=== PATIENT | male | born 1935 | race Asian ===

== ENCOUNTER 2016-06-07 23:42 | Inpatient (IN) | payer MEDICARE, OTHER ==
[~2016-06-07] VITALS: Ht 165.1 cm; Wt 69.5 kg
[~2016-06-07 23:42] MED LIST: ACET-2047 GTB; ALBU2.5V3 NEB; AMLO-147 GTB; APIX2.5T GTB; ASPI325T4 GTB; ATOR40TA68 GTB; BEN25 GTB; BENA20TA48 GTB; CLON-379 GTB; CRAN3875 GTB; CRAN425C GTB; DOCU-159 GTB; DULR PR; FENO145T19 GTB; FLEETOIL PR; FURO20TA3 GTB; ISOS60TA36 GTB; LEVE100018 GTB; LOSA25TA2 GTB; MAGN400O4 PO; MEMA10TA16 GTB; METO-448 PO; POTA8TAB46 GTB; ZOLP5TAB GTB
[2016-06-08 00:37] LABS: ADD UMIC YES; URINE BILIRUBIN (Dip) NEGATIVE (NEGATIVE); URINE BLOOD (Dip) 3+ (NEGATIVE); URINE COLOR LT. YELLOW (YELLOW); URINE GLUCOSE (Dip) NEGATIVE (NEGATIVE); URINE KETONES (Dip) NEGATIVE (NEGATIVE); URINE LEUKOCYTE ESTERASE (Dip) 2+ (NEGATIVE); URINE NITRITE (Dip) NEGATIVE (NEGATIVE); URINE TOTAL PROTEIN (Dip) 1+ (NEGATIVE); URINE UROBILINOGEN (Dip) 0.2 E.U./dL (0.1-1.0)
--- NOTE | 2016-06-08 00:43 | RADRPT ---
PROCEDURE: Chest. CLINICAL INDICATION: Chest pain. TECHNIQUE: Single frontal view of the chest was obtained. COMPARISON: 02/25/2016. FINDINGS: There is a left-sided pacemaker. The cardiac silhouette is enlarged. The aortic arch is calcified. There is no focal consolidation, vascular congestion or pleural effusion. There is no pneumothora x. IMPRESSION: Moderate cardiomegaly. Aortic atherosclerosis. .Jamar Vizcarra MD, MD Date Time Electronically viewed and signed by .Jamar Vizcarra MD, MD on 06/08/2016 00:43 .T/
[2016-06-08 00:44] LABS: ALBUMIN 3.8 g/dl (3.3-4.9)
[2016-06-08 00:45] LABS: POTASSIUM 4.3 mmol/L (3.5-5.1)
[2016-06-08 00:47] LABS: ALBUMIN/GLOBULIN RATIO 1.15; BILIRUBIN,INDIRECT 0.2 mg/dl (0-1.1); BILIRUBIN,TOTAL 0.2 mg/dl (0.2-1.3); CREATININE 1.35 mg/dl (0.61-1.24); TOTAL PROTEIN 7.1 g/dl (6.1-8.1)
[2016-06-08 00:48] LABS: CALCIUM 9.1 mg/dl (8.4-10.2)
[2016-06-08 00:59] LABS: TROPONIN-I 0.056 ng/ml (0.00-0.12)
[2016-06-08 01:04] LABS: INR 1.2; PROTIME 15.3 Sec (12.2-14.2); PT RATIO 1.2
[2016-06-08 01:05] LABS: PARTIAL THROMBOPLASTIN TIME 35.9 Sec (25.0-35.0)
[2016-06-08 01:08] LABS: BASOPHILS % 0.3 % (0.0-2.0); EOSINOPHILS # 0.3 10^3/ul (0.0-0.5); EOSINOPHILS % 3.9 % (0.0-7.0); HEMATOCRIT 36.2 % (42.0-52.0); HEMOGLOBIN 11.9 g/dl (14.0-18.0); LYMPHOCYTES # 1.5 10^3/ul (0.8-2.9); LYMPHOCYTES % 21.7 % (15.0-51.0); MEAN CORPUSCULAR HEMOGLOBIN 26.2 pg (29.0-33.0); MEAN CORPUSCULAR HGB CONC 32.9 g/dl (32.0-37.0); MEAN CORPUSCULAR VOLUME 79.8 fl (82.0-101.0); MEAN PLATELET VOLUME 9.3 fl (7.4-10.4); MONOCYTE # 0.9 10^3/ul (0.3-0.9); MONOCYTES % 12.1 % (0.0-11.0); NEUTROPHIL # 4.4 10^3/ul (1.6-7.5); PLATELET COUNT 256 10^3/UL (140-440); RED BLOOD COUNT 4.53 10^6/ul (4.70-6.10); RED CELL DISTRIBUTION WIDTH 13.8 % (11.5-14.5); UNCORRECTED WBC 7.1 10^3/ul (4.8-10.8); WHITE BLOOD COUNT 7.1 10^3/ul (4.8-10.8)
[2016-06-08 01:16] LABS: CONDITION 1; LH ANALYZER COMMENTS 1
[2016-06-08 01:31] LABS: SQUAMOUS EPITHELIAL CELL,UR FEW; URINE RBCS >200 /HPF (0)
[2016-06-08 01:56] VITALS: TEMP 99.8
--- NOTE | 2016-06-08 02:01 | ERA ---
ER Documentation Chief Complaint Date/Time DATE: 06/08/16 TIME: 02:00 Chief Complaint redness on the pacemaker site,BIBA from [facility] HPI There is a 80-year-old of the chest wall redness for the past it is an aggressive was. No nausea no vomiting no chills. No other current complaints for the patient is poor historian. History of EMS run sheet. ROS All systems reviewed and are negative except as per history of present illness. Medications Home Meds Reported Medications Cran/Vitc/Mannose/Inulin/Brom (Uti-Stat Liquid) 3,875 Mg/30 Ml Liquid, 3875 MG GTB BID 02/19/16 Acetaminophen* (Acetaminophen*) 650 Mg Tablet, 650 MG GTB Q4 Y for PAIN AND OR ELEVATED TEMP, #30 TAB 02/19/16 Magnesium Hydroxide* (Milk Of Magnesia*) 400 Mg/5 Ml Oral.susp, 30 ML PO Q24H Y for CONFUSION, ML 02/19/16 Atorvastatin* (Atorvastatin*) 40 Mg Tablet, 40 MG GTB QHS, #30 TAB 02/19/16 Mineral Oil* (Fleet* Mineral Oil Enema) 133 Ml Oil, 133 ML TX NEEDED Y for CONSTIPATION, ENEMA 02/19/16 Fenofibrate Nanocrystallized* (Fenofibrate*) 145 Mg Tablet, 145 MG GTB QHS, TAB 02/19/16 Apixaban* (Eliquis*) 2.5 Mg Tablet, 2.5 MG GTB BID, TAB 02/19/16 Bisacodyl* (Bisacodyl*) 10 Mg Supp, 10 MG TX Q24H for CONSTIPATION, SUPP 02/19/16 Cranberry Extract (Cranberry) 425 Mg Capsule, 425 MG GTB DAILY, CAP 02/19/16 Benazepril Hcl* (Benazepril Hcl*) 20 Mg Tablet, 40 MG GTB DAILY, #30 TAB 02/19/16 Diphenhydramine Hcl* (Benadryl*) 25 Mg Cap, 25 MG GTB BID Y for ITCHING, CAP 02/19/16 Amlodipine Besylate* (Amlodipine Besylate*) 10 Mg Tablet, 10 MG GTB BID, #30 TAB HOLD IF SBP BELOW 110 OR HR BELOW 60 02/19/16 Albuterol Sulfate* (Albuterol Sulfate* Neb) 0.083%-3 Ml Neb, 2.5 MG NEB Q6 Y for WHEEZING AND SOB, #30 VIAL 02/19/16 Metoprolol Tartrate* (Lopressor*) 25 Mg Tab, 12.5 MG PO BID, TAB HOLD FOR SBP BELOW 110, HR BELOW 60 07/02/14 Docusate Sodium* (Docusate Sodium*) 100 Mg Capsule, 200 MG GTB DAILY, CAP 07/02/14 Losartan Potassium* (Cozaar*) 25 Mg Tablet, 25 MG GTB DAILY, TAB 07/02/14 Clonidine Hcl* (Clonidine Hcl*) 0.1 Mg Tab, 0.1 MG GTB Q4H Y for ELEVATED BLOOD PRESSURE, TAB 07/02/14 Aspirin* (Aspirin*) 325 Mg Tablet, 325 MG GTB DAILY 07/19/12 Levetiracetam* (Keppra*) 1,000 Mg Tablet, 1000 MG GTB DAILY, 0 Refills 03/04/11 Isosorbide Mononitrate (Isosorbide Mononitrate) 60 Mg Tab.sr.24h, 120 MG GTB DAILY, 0 Refills 03/04/11 Memantine* (Namenda*) 10 Mg Tablet, 10 MG GTB BID 03/04/11 Furosemide* (Furosemide*) 20 Mg Tablet, 20 MG GTB DAILY HOLD IF SBP BELOW 110 OR HR BELOW 60 03/04/11 Potassium Chloride (Potassium Chloride) 8 Meq Tablet.sa, 10 MEQ GTB DAILY, 0 Refills 03/04/11 Zolpidem Tartrate* (Ambien*) 5 Mg Tablet, 5 MG GTB HS Y for SLEEP 06/09/10 Allergies Allergies: Coded Allergies: penicillin G (Verified Allergy, Unknown, 09/06/15) PMhx/Soc History of Surgery: Yes (Pacemaker) Anesthesia Reaction: No Hx Neurological Disorder: Yes (STROKE, SUBDURAL HEMATOMA, SEIZURE) Hx Respiratory Disorders: Yes (COPD) Hx Cardiac Disorders: Yes (HTN, CVA, CAD TRICUSPID AND MITRAL REGURG) Hx Psychiatric Problems: No Hx Miscellaneous Medical Probl: Yes (hx of stroke with L sided weakness,UTI, htn,CADCOPDsubdural hematoma) Hx Alcohol Use: No Hx Substance Use: No Hx Tobacco Use: No Smoking Status: Unknown if ever smoked Physical Exam Vitals Vital Signs Date Time Temp Pulse Resp B/P Pulse Ox O2 Delivery O2 Flow Rate FiO2 06/08/16 01:56 99.8 62 22 161/62 100 Nasal Cannula 2.0 06/07/16 23:50 98.6 67 16 148/65 99 Physical Exam Const: [] Head: Atraumatic Eyes: Normal Conjunctiva ENT: Normal External Ears, Nose and Mouth. Neck: Full range of motion..~ No meningismus. Resp: Clear to auscultation bilaterally Cardio: Regular rate and rhythm, no murmurs Abd: Soft, non tender, non distended. Normal bowel sounds Skin: Right chest wall with erythema and induration redness. No fluctuance noted. Back: No midline or flank tenderness Ext: No cyanosis, or edema Neur: Awake and alert Psych: Normal Mood and Affect Result Diagram: 06/07/16 0002 06/07/16 0002 Results 24 hrs Laboratory Tests Test 06/07/16 00:02 06/07/16 00:17 Activated Partial Thromboplast Time 35.9Sec Alanine Aminotransferase (ALT/SGPT) 18IU/L Albumin 3.8g/dl Albumin/Globulin Ratio 1.15 Alkaline Phosphatase 49IU/L Anion Gap 18 Aspartate Amino Transf (AST/SGOT) 23IU/L Basophils # 0.010^3/ul Basophils % 0.3% Blood Morphology Comment Blood Urea Nitrogen 25mg/dl Calcium Level 9.1mg/dl Carbon Dioxide Level 26mmol/L Chloride Level 104mmol/L Creatinine 1.35mg/dl Direct Bilirubin 0.00mg/dl Eosinophils # 0.310^3/ul Eosinophils % 3.9% Globulin 3.30g/dl Glucose Level 113mg/dl Hematocrit 36.2% Hemoglobin 11.9g/dl INR International Normalized Ratio 1.20 Indirect Bilirubin 0.2mg/dl Lactic Acid Level 2.1mmol/L Lymphocytes # 1.510^3/ul Lymphocytes % 21.7% Mean Corpuscular Hemoglobin 26.2pg Mean Corpuscular Hemoglobin Concent 32.9g/dl Mean Corpuscular Volume 79.8fl Mean Platelet Volume 9.3fl Monocytes # 0.910^3/ul Monocytes % 12.1% Neutrophils # 4.410^3/ul Neutrophils % 62.0% Nucleated Red Blood Cells # 0.010^3/ul Nucleated Red Blood Cells % 0.0/100WBC Platelet Count 97201^3/UL Potassium Level 4.3mmol/L Prothrombin Time 15.3Sec Prothrombin Time Ratio 1.2 Red Blood Count 4.5310^6/ul Red Cell Distribution Width 13.8% Sodium Level 144mmol/L Total Bilirubin 0.2mg/dl Total Protein 7.1g/dl Troponin I 0.056ng/ml White Blood Count 7.110^3/ul Urine Bilirubin NEGATIVE Urine Clarity CLEAR Urine Color LT. YELLOW Urine Glucose NEGATIVE% Urine Hemoglobin 3+ Urine Ketones NEGATIVE Urine Leukocyte Esterase 2+ Urine Microscopic RBC >200/HPF Urine Microscopic WBC 0-2/HPF Urine Nitrite NEGATIVE Urine Specific [place] 1.020 Urine Squamous Epithelial Cells FEW Urine Total Protein 1+ Urine Urobilinogen 0.2 E.U./dL Urine pH 5.0 Procedures/MDM EKG: Rate/Rhythm: Normal Sinus Rhythm QRS, ST, T-waves: No changes consistent w/ acute ischemia Impression: No evidence of ischemia or arrhythmia Chest X-ray 1V Interpreted by me: Soft Tissue: No acute abnormalities Bones: No acute abnormalities Mediastinum/Cardiac Silhouette/Lungs: No acute abnormalities Lactic is negative Medical decision-making: Patient with chest wall cellulitis. Started on broad- spectrum antibiotics. Patient will be admitted to Dr. Dr. Mo Departure Diagnosis: Primary Impression: Cellulitis Qualified Code: L03.313 - Cellulitis of chest wall Condition: Stable KHUSHI SHOEMAKERSebastian Jun 08, 2016 02:01
[2016-06-08] MEDS ORDERED: CLINDAMYCIN 300 MG INJ IVPB ONE (02:30)
[2016-06-08] MEDS ORDERED: CLINDAMYCIN 300 MG INJ IM ONE (03:00)
[2016-06-08] MEDS ORDERED: ASCO500S2 GTB (04:11)
[2016-06-08] MEDS ORDERED: CALC-61 GTB (04:11)
[2016-06-08] MEDS ORDERED: MULTI PO (04:11)
[2016-06-08] MEDS ORDERED: ACET-2158 GTB (04:11)
[2016-06-08] MEDS ORDERED: UDFER GTB (04:11)
[2016-06-08] MEDS ORDERED: ONDA-43 GTB (04:11)
[2016-06-08] MEDS ORDERED: TRAM50TA2 GTB (04:11)
[2016-06-08] MEDS ORDERED: ACET500C5 GTB (04:11)
[2016-06-08 04:30] VITALS: BP 143/72; PULSE 60; RESP 20; Ht 165.1 cm; Wt 69.5 kg
[2016-06-08] MEDS ORDERED: DIPHENHYDRAMINE 25 MG CAP GTB PRN (04:30)
[2016-06-08] MEDS ORDERED: MAGNESIUM HYDROXIDE 30ML CUP PO PRN (04:30)
[2016-06-08] MEDS ORDERED: ONDANSETRON 4 MG TAB GTB PRN ×2 (04:30→05:00)
[2016-06-08] MEDS ORDERED: BISACODYL 10 MG SUPP PR SCH (04:30)
[2016-06-08] MEDS ORDERED: ZOLPIDEM 5 MG TAB GTB PRN (04:30)
[2016-06-08] MEDS ORDERED: VANCOMYCIN IV PER PHARMACY XX SCH (04:30)
[2016-06-08] MEDS ORDERED: MINERAL OIL 133 ML ENEMA PR PRN (04:30)
[2016-06-08] MEDS ORDERED: ACETAMINOPHEN 500 MG TAB PO PRN (04:30)
[2016-06-08] MEDS ORDERED: ACETAMINOPHEN 325 MG TAB GTB SCH (05:00)
[2016-06-08] MEDS ORDERED: ACETAMINOPHEN 325 MG TAB GTB PRN (05:30)
[2016-06-08] MEDS: LEVOFLOXACIN 500MG/D5W (PMX) 100 ML IVPB SCH (05:34)
[2016-06-08] MEDS: SOD CHLORIDE 0.9% 1,000 ML IV SCH (05:36)
[2016-06-08] MEDS: FUROSEMIDE 20 MG TAB GTB SCH (05:41)
[2016-06-08] MEDS: VANCOMYCIN 1 GM in NS 250 ML IVPB SCH (06:42)
[2016-06-08] MEDS: FERROUS SULFATE 60 MG/ML 5ML CUP GTB SCH (08:52)
[2016-06-08] MEDS: APIXABAN 5 MG TABLET GTB SCH ×2 (08:53→21:09)
[2016-06-08] MEDS: MULTIVITAMINS THERAPEUTIC TAB PO SCH (08:54)
[2016-06-08] MEDS: DOCUSATE SODIUM 100 MG CAP PO SCH (08:54)
[2016-06-08] MEDS: LEVETIRACETAM 500 MG TAB GTB SCH (08:54)
[2016-06-08] MEDS: CALCIUM/VITAMIN D (500/200) TAB GTB SCH (08:55)
[2016-06-08] MEDS: MEMANTINE 10 MG TAB GTB SCH ×2 (08:55→21:09)
[2016-06-08] MEDS ORDERED: NON-FORMULARY/PATIENT OWN MED (Cran/Vitc/Mannose/Inulin/Brom (Uti-Stat Liquid) 3,875 MG) GTB SCH (09:00)
[2016-06-08] MEDS ORDERED: ASPIRIN 325 MG TAB GTB SCH ×2 (09:00)
[2016-06-08] MEDS ORDERED: LOSARTAN 25 MG TAB GTB SCH (09:00)
[2016-06-08] MEDS ORDERED: NON-FORMULARY/PATIENT OWN MED (Cranberry Extract (Cranberry) 425 MG) GTB SCH (09:00)
[2016-06-08] MEDS ORDERED: traMADol 50 MG TAB GTB PRN (09:00)
[2016-06-08] MEDS ORDERED: traMADol 50 MG TAB GTB SCH (09:00)
--- NOTE | 2016-06-08 15:08 | CONS ---
DATE OF ADMISSION: 06/08/2016 DATE OF CONSULTATION: 06/08/2016 REASON FOR CONSULTATION: Hypertension, permanent pacemaker, assess function. REQUESTING PHYSICIAN: Dr. Sal Villatoro. HISTORY OF PRESENT ILLNESS: Mr. Anguiano is a 80-year-old male well known to myself as a primary offic e patient with a history of prior subdural hematoma, ____ anticoagulation for atrial fibrillation du e to this, prior CVA, seizure disorder, hypertension, chronic obstructive pulmonary disease, dysphag ia status post G-tube, recurrent strokes, permanent pacemaker implantation, cardiomyopathy with decr eased left ventricular ejection fraction, last only approximately 35% by echo in August 2015 who prese nts with cellulitis on his chest near the pacemaker site. Given these findings, cardiology consult has been requested. PAST MEDICAL HISTORY: Has been requested. Upon arrival, temperature of 98.6, blood pressure 148/65 , pulse 67, respirations 16, saturating 99%. The patient's labs showed a white count of 7.1, hemogl obin 11.9, platelet count 356. Sodium 144, potassium 4.3, creatinine ____, BUN of 25, AST 23, ALT 1 8, INR 1.2. UA borderline. The patient underwent a chest x-ray revealing moderate cardiomegaly, ao rtic sclerosis. The patient's electrocardiogram revealed a paced rhythm at a rate of 60 with possib le underlying atrial fibrillation versus prolonged first degree AV block, due difficult to discern P -waves. The patient subsequently has been admitted to the floor, where since admit to the floor he has had some elevated blood pressures, most recently in the 140s. The patient has been initiated on broad spectrum antibiotics with vancomycin and at this time has now been initiated on systemic anti coagulation with apixaban. The patient additionally is on Cozaar at this time for blood pressure co ntrol. PAST MEDICAL HISTORY: As above in HPI. MEDICATIONS CURRENTLY IN HOSPITAL: 1. Dulcolax 10 mg p.r.n. 2. Lipitor 40 mg at bedtime. 3. Tricor 140 mg daily. 4. Apixaban 2.5 mg p.o. b.i.d. 5. Colace. 6. Ferrous sulfate. 7. Keppra 1000 mg daily. 8. Cozaar 25 mg daily. 8. Namenda 10 mg b.i.d. 9. Aspirin 325 mg daily. 10. Tramadol 50 mg ____ p.r.n. 11. Lasix 20 mg p.o. daily. 12. Vancomycin. 13. Tylenol. 14. Zofran p.r.n. 15. Levofloxacin IV daily. 16. DuoNebs p.r.n. 17. Clonidine p.r.n. 18. Benadryl p.r.n. 19. Ambien p.r.n. ALLERGIES: PENICILLIN. SOCIAL HISTORY: No tobacco, ETOH or illicit drug use. FAMILY HISTORY: No history of sudden cardiac or early CAD. REVIEW OF SYSTEMS: As above in HPI. CONSTITUTIONAL: No fevers, chills. PULMONARY: No current signs of respiratory compromise. GASTROINTESTINAL: No vomiting. GENITOURINARY: No hematuria. MUSCULOSKELETAL: Degenerative joint disease. PSYCHIATRIC: No documented psych history. NEUROLOGIC: Altered mental state, history of CVA. PHYSICAL EXAMINATION VITAL SIGNS: Temperature 98.3, blood pressure 143/72, pulse ____ 100% on 2 liters. GENERAL: The patient is sleeping, difficult to arouse. NECK: JVP approximately 9 cm of water. CHEST: Fair movement throughout with mildly decreased breath sounds at bases bilaterally. HEART: Regular rate and rhythm. Normal S1, S2, I/ systolic murmur, nondisplaced PMI. ABDOMEN: Positive bowel sounds, soft. EXTREMITIES: No pitting edema, 1+ pulses bilaterally posterior tibial. SKIN: Notable for erythema, but no breakdown or discharge in the patient's pacer pocket. LABORATORY DATA: As above in HPI with most recently from today, sodium 144, potassium 4.3, creatini ne 0.35, BUN of 25. INR of 1.2. White cell count 7.1, hemoglobin 9, platelet count 256. IMAGING STUDIES: As above in HPI. No further imaging studies for my review at this time. ECG: As above in HPI. No further electrocardiograms for my review at this time. IMPRESSION: 1. Permanent pacemaker. We will undergo a 2D echocardiogram to further assess the patient's paced echo leads for any signs of any vegetations. 2. Check blood cultures to assure the patient is not ____ his pacemaker given cellulitis on chest n ear pacemaker site. 3. Abnormal electrocardiogram, assess for acute coronary syndrome. 4. History of cardiomyopathy, decreased left ventricular ejection fraction, last only 35% by echo 2 016. 5. Hypertension. 6. Dyslipidemia. 7. History of atrial fibrillation. 8. History of prior cerebrovascular accident. 9. Chest cellulitis. 10. Encephalopathy. 11. Anemia, microcytic. 12. Renal failure. RECOMMENDATIONS: 1. At this time, would check serial EKGs to assess for any significant ongoing changes. Thus, an E KG in the morning, EKG for any complaints of chest pain or change in rhythm. 2. Complete a rule out for myocardial infarction to ensure the patient's EKG abnormalities are straight edger velvet in nature and not due to any recent acute coronary syndrome. 3. Check a 2D echocardiogram to further assess the patient's ejection fraction, wall motion and any major valve abnormalities and assess for any possible signs of intracardiac infection or vegetation of the patient's permanent pacemaker lead. 4. Continue the patient's current Losartan with slight up-titration to improve overall systolic blo od pressure control and afterload reduction and follow the patient's volume status closely with palak rigoberto Lasix and follow creatinine closely. 5. Continue the patient on systemic anticoagulation with apixaban as tolerated, but will discontinu e aspirin due to decreased bleeding risk, given history of subdural hematoma and microcytic anemia. 6. Continue the patient's current statin and Tricor, and adjust it according to a fasting lipid cooley el as checked. 7. Continue the patient's ____ and continue to follow up exam findings closely. Thank you for allowing me to take part in the care of this patient. I will continue to follow along very closely with you. Further recommendations will be made as the patient progresses through his inpatient hospital clinical course. Dictated By: TORRES RIVAS/LINDA Conf#: [id number] DID#: [id number] CC: SAL VILLATORO MD;*EndCC*
[2016-06-08 19:14] LABS: TROPONIN-I 0.039 ng/ml (0.00-0.12)
--- NOTE | 2016-06-08 19:14 | RADRPT ---
Echocardiogram Report Patient Name: JACINTO CONCEPCION Gender: Male Date: 1935 Study Date: 08-Jun-2016 Roll Contour Grinder: Janet Roblero [facility] Location: [id number] Ref. Physician: TORRES AVENDANO Quality: Adequate Procedures: Transthoracic echocardiogram with complete 2D, M-Mode, and doppler examination. Indications: Abnormal EKG. Cardiomyopathy. 2D/M Mode Doppler Measurement Value Normal Ranges Measurement Value Normal Ranges LVIDd 2D 5.3 3.5 - 5.6 cm AV Peak Segun 1.4 m/sec LVIDs 2D 3.7 2.1 - 4.1 cm AV Peak PG 8.0 mmHg LVPWd 2D 1.3 0.6 - 1.1 cm AI Peak PG 86.0 mmHg IVSd 2D 1.2 0.6 - 1.1 cm AI Peak Segun 4.6 m/sec AoR Diam 2D 3.6 2.0 - 3.7 cm AI PHT 443.6 msec EDV 2D 135.6 cm3 LVOT Peak Segun 0.9 m/sec ESV 2D 49.2 cm3 LVOT Peak PG 3.2 mmHg LA Dimen 2D 4.1 2.3 - 4.0 cm TR Peak Segun 3.2 m/sec TR Peak PG 42.1 mmHg RVSP 57.0 mmHg Findings Left Ventricle: Normal left ventricular cavity size. Mild concentric left ventricular hypertrophy. Moderate global left ventricular systolic dysfunction. Ejection fraction is visually estimated at 3540 %. Tissue Doppler/Mitral Doppler indices are consistent with restrictive physiology with markedly elevated left atrial pressure (Stage IIIIV diastolic dysfunction). Right Ventricle: Normal right ventricular size. Normal right ventricular systolic function. Left Atrium: There is mild enlargement of left atrium. Right Atrium: There is moderate enlargement of right atrium. Mitral Valve: Mitral valve leaflets appear mildly thickened. Mild mitral annular calcification. Moderate mitral valve regurgitation. The regurgitation jet is eccentrically directed which may underestimate the severity of mitral regurgitation. Aortic Valve: No hemodynamically significant aortic stenosis by doppler. Aortic cusps appear mildly calcified. Moderate aortic valve regurgitation. Tricuspid Valve: Estimated peak PA systolic pressure 57 mmHg. There is moderate to severe tricuspid regurgitation. Pulmonic Valve: Normal pulmonic valve appearance. There is mild pulmonic regurgitation. Pericardium: Normal pericardium with no significant pericardial effusion. Aorta: Normal aortic root. IVC: Dilated inferior vena cava with poor inspiratory collapse consistent with elevated right atrial pressures. Conclusions 1.Normal left ventricular cavity size. Mild concentric left ventricular hypertrophy. Moderate global left ventricular systolic dysfunction. Ejection fraction is visually estimated at 35-40 %. Tissue Doppler/Mitral Doppler indices are consistent with restrictive physiology with markedly elevated left atrial pressure (Stage III-IV diastolic dysfunction). 2.There is mild enlargement of left atrium. 3.There is moderate enlargement of right atrium. 4.Moderate mitral valve regurgitation. The regurgitation jet is eccentrically directed which may underestimate the severity of mitral regurgitation. 5.Moderate aortic valve regurgitation. 6.Estimated peak PA systolic pressure 57 mmHg. 7.There is moderate to severe tricuspid regurgitation. 8.There is mild pulmonic regurgitation. Electronically Signed By: Torres Avendano 08-Jun-2016 19:13:35 -0800 Patient Name: JACINTO CONCEPCION Study Date: 08-Jun-2016 [id number]
[2016-06-08 19:15] LABS: CK-MB 1.06 ng/ml (0.0-2.4)
--- NOTE | 2016-06-08 20:06 | QN ---
Documentation Comment [id number] JOSE C VILLATORO MD Jun 08, 2016 20:06
[2016-06-08] MEDS: ALBUTEROL 0.083% (NEB) 2.5 MG/3 ML AMP NEB PRN (20:55)
--- NOTE | 2016-06-08 20:55 | HP ---
DATE OF ADMISSION: 06/08/2016 HISTORY OF PRESENT ILLNESS: The patient is an elderly male who has a history of CVA, G-tube placeme nt, recently discharged from this hospital with diagnosis of severe dehydration, hypernatremia, C. d ifficile colitis, bacteremia. The patient has history of CAD, pacemaker placement, COPD, hypertensi on, history of subdural hematoma, history of AFib, on Eliquis in the past. The patient now presents with left chest wall cellulitis and is being admitted for further management. PAST MEDICAL HISTORY: Briefly is positive for CVA, hypertension, history of pacemaker placement, CN S bleed with left-sided weakness, history of lamine hole in the past, history of subdural hematoma, hy pertension, COPD, history of CAD, history of G-tube placement, history of C. difficile colitis. ALLERGY HISTORY: PENICILLIN. SOCIAL HISTORY: Cannot be obtained. MEDICATION HISTORY: Listed as the patient is on: 1. Tylenol. 2. Albuterol. 3. Apixaban. 4. Ascorbic acid. 5. Aspirin. 6. Lipitor. 7. Bisacodyl. 8. Calcium. 9. Clonidine. 10. Cranberry extract. 11. Benadryl. 12. Docusate sodium. 13. Fenofibrate. 14. Iron sulfate. 15. Lasix. 16. Keppra. 17. Losartan. 18. Magnesium. 19. Namenda. 20. Mineral oil. 21. Multiple vitamin. 22. Zofran. 23. Ultram. 24. Ambien. REVIEW OF SYSTEMS: Cannot be obtained. PHYSICAL EXAMINATION: GENERAL: The patient is awake and alert, aphasic. VITAL SIGNS: Stable. HEENT: Head is atraumatic, normocephalic. Pupils equal, reactive to light. NECK: Supple. No JVD. LUNGS: Clear. CARDIOVASCULAR: S1, S2 are normal. ABDOMEN: Soft, nontender. Bowel sounds positive. G-tube in place. EXTREMITIES: No cyanosis, clubbing or edema. CENTRAL NERVOUS SYSTEM: The patient is awake, alert with weakness of the left side. The patient is also aphasic. SKIN: The patient has left-sided pacemaker, is edematous and tender. No discharge noted. LABORATORY DATA: Hematocrit 36.2. The patient has BUN 25, creatinine 1.35. IMPRESSION: 1. The patient has left chest wall cellulitis. 2. The patient has hypertension. 3. Chronic kidney disease. 4. Gastrostomy tube placement. 5. History of atrial fibrillation. 6. History of central nervous system bleed. 7. History of lamine hold. 8. History of chronic obstructive pulmonary disease. 9. History of dysphagia. 10. History of hypernatremia. 11. History of Clostridium difficile colitis. 12. Atherosclerotic heart disease. 13. History of dyslipidemia. PLAN: Obtain cardiology consultation. Continue antibiotics. Continue home medication, feeding. O rders were done. Dictated By: JOSE C VILLATORO MD BS/NTS Conf#: [id number] DID#: [id number]
[2016-06-08] MEDS: FENOFIBRATE 145 MG TAB GTB SCH (21:08)
[2016-06-08] MEDS: ATORVASTATIN 40 MG TAB GTB SCH (21:08)
[2016-06-08] MEDS: LOSARTAN 25 MG TAB GTB SCH (21:09)
[2016-06-08 21:17] VITALS: BP 170/74; RESP 17
[2016-06-08 23:34] VITALS: BP 156/61
[2016-06-09 01:50] LABS: CK-MB 1.31 ng/ml (0.0-2.4)
[2016-06-09 01:52] LABS: TROPONIN-I 0.024 ng/ml (0.00-0.12)
[2016-06-09] MEDS: SOD CHLORIDE 0.9% 1,000 ML IV SCH (04:30)
[2016-06-09] MEDS ORDERED: BISACODYL 10 MG SUPP PR PRN (04:30)
[2016-06-09] MEDS: LEVOFLOXACIN 500MG/D5W (PMX) 100 ML IVPB SCH (04:55)
[2016-06-09] MEDS: VANCOMYCIN 1 GM in NS 250 ML IVPB SCH (06:11)
[2016-06-09] MEDS: FUROSEMIDE 20 MG TAB GTB SCH (06:14)
[2016-06-09 07:08] LABS: POTASSIUM 4.4 mmol/L (3.5-5.1)
[2016-06-09 07:10] LABS: CREATININE 1.05 mg/dl (0.61-1.24)
[2016-06-09 07:11] LABS: CALCIUM 8.5 mg/dl (8.4-10.2)
[2016-06-09] MEDS: ALBUTEROL 0.083% (NEB) 2.5 MG/3 ML AMP NEB PRN ×2 (07:17→21:21)
[2016-06-09 07:19] LABS: CHOL/HDL RATIO 2.9 RATIO
[2016-06-09] MEDS: LEVETIRACETAM 500 MG TAB GTB SCH (08:45)
[2016-06-09] MEDS: FERROUS SULFATE 60 MG/ML 5ML CUP GTB SCH (08:45)
[2016-06-09] MEDS: CALCIUM/VITAMIN D (500/200) TAB GTB SCH (08:46)
[2016-06-09] MEDS: DOCUSATE SODIUM 100 MG CAP PO SCH (08:46)
[2016-06-09] MEDS: MEMANTINE 10 MG TAB GTB SCH ×2 (08:46→20:28)
[2016-06-09] MEDS: MULTIVITAMINS THERAPEUTIC TAB PO SCH (08:46)
[2016-06-09] MEDS: APIXABAN 5 MG TABLET GTB SCH ×2 (08:47→20:28)
[2016-06-09] MEDS: LOSARTAN 25 MG TAB GTB SCH (08:49)
[2016-06-09 09:01] VITALS: BP 173/72; RESP 22
[2016-06-09 09:36] LABS: BASOPHILS % 0.3 % (0.0-2.0); EOSINOPHILS # 0.5 10^3/ul (0.0-0.5); EOSINOPHILS % 13.4 % (0.0-7.0); HEMATOCRIT 34.8 % (42.0-52.0); HEMOGLOBIN 11.6 g/dl (14.0-18.0); LYMPHOCYTES % 28.1 % (15.0-51.0); MEAN CORPUSCULAR HEMOGLOBIN 26.9 pg (29.0-33.0); MEAN CORPUSCULAR HGB CONC 33.2 g/dl (32.0-37.0); MEAN PLATELET VOLUME 9.4 fl (7.4-10.4); MONOCYTE # 0.5 10^3/ul (0.3-0.9); MONOCYTES % 13.2 % (0.0-11.0); NEUTROPHIL # 1.6 10^3/ul (1.6-7.5); PLATELET COUNT 202 10^3/UL (140-440); RED CELL DISTRIBUTION WIDTH 14.2 % (11.5-14.5); UNCORRECTED WBC 3.5 10^3/ul (4.8-10.8); WHITE BLOOD COUNT 3.5 10^3/ul (4.8-10.8)
[2016-06-09 09:40] LABS: CONDITION 1; LH ANALYZER COMMENTS 1; SUSPECT 1
[2016-06-09 11:00] VITALS: BP 155/67; PULSE 85
--- NOTE | 2016-06-09 13:08 | CONS ---
Date/Time of Note Date/Time of Note DATE: 06/09/16 TIME: 13:00 Assessment/Plan Assessment/Plan Chief Complaint/Hosp Course IMPRESSION: 1. Permanent pacemaker- no signs of v egetations by echo this admit 2. Abnormal electrocardiogram, assess for acute coronary syndrome. 3. History of cardiomyopathy, decreased left ventricular ejection fraction, last only 35% by echo 2016. 4. Hypertension-uncontrolled. 5. Dyslipidemia. 6. Cardiomyopathy-LVEF 35-40% by echo this admit 7. History of atrial fibrillation. 8. History of prior cerebrovascular accident. 9. Chest cellulitis. 10. Encephalopathy. 11. Anemia, microcytic. 12. Renal failure. 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: -serial ecg's -increase losartan to improve SBP -Continue Lasix and follow volume status closely -Continue ab'x and f/u cx data -Continue apixaban -Continue trcicor/statin -Follow volume status closely Problems: Consultation Date/Type/Reason Admit Date/Time Jun 08, 2016 at 01:38 Initial Consult Date 06/08/2016 Type of Consultation: Cardiology Reason for Consultation PPM/HTN Referring Provider: JOSE C VILLATORO Exam/Review of Systems Vital Signs Vitals Vital Signs Date Time Temp Pulse Resp B/P Pulse Ox O2 Delivery O2 Flow Rate FiO2 06/09/16 09:01 97.0 60 22 173/72 100 06/09/16 07:18 2.0 06/09/16 07:18 Nasal Cannula 06/08/16 20:58 28 Intake and Output 06/08/16 06/08/16 06/09/16 15:00 23:00 07:00 Intake Total 1350 ml 100 ml Output Total 700 ml 400 ml Balance 650 ml -300 ml Exam Review of Systems: CONSTITUTIONAL: No fevers, chills. PULMONARY: No sob CARDIOVASCULAR: No chest pain/palpitations GASTROINTESTINAL: No nausea/vomiting. GENITOURINARY: No hematuria/dysuria. MUSCULOSKELETAL: No myagias/arthalgias. PSYCHIATRIC: The patient denies depression. NEUROLOGIC: lethargic Constitutional: alert Psych: no complaints Head: normocephalic ENMT: mucosa pink and moist Neck: jvd (9 cm water), supple Respiratory: diminished breath sounds (atbases/B) Cardiovascular: regular rate and rhythm Gastrointestinal: non-tender, soft Musculoskeletal: muscle tone (normal) Extremities: edema (none) Neurological: lethargic Results Result Diagram: 06/09/16 0540 06/09/16 0540 Results 24 hrs Laboratory Tests Test 06/08/16 18:35 06/09/16 00:30 06/09/16 05:40 Creatine Kinase 77 73 Creatine Kinase Index 1.4 1.8 Creatinine Kinase MB (Mass) 1.06 1.31 Troponin I 0.039 0.024 Anion Gap 15 Basophils # 0.0 Basophils % 0.3 Blood Morphology Comment Blood Urea Nitrogen 23 H Calcium Level 8.5 Carbon Dioxide Level 26 Chloride Level 107 Cholesterol Level 101 Cholesterol/HDL Ratio 2.9 Creatinine 1.05 Eosinophils # 0.5 Eosinophils % 13.4 H Glucose Level 123 HDL Cholesterol 34 Hematocrit 34.8 L Hemoglobin 11.6 L LDL Cholesterol, Calculated 49 Lymphocytes # 1.0 Lymphocytes % 28.1 Mean Corpuscular Hemoglobin 26.9 L Mean Corpuscular Hemoglobin Concent 33.2 Mean Corpuscular Volume 81.0 L Mean Platelet Volume 9.4 Monocytes # 0.5 Monocytes % 13.2 H Neutrophils # 1.6 Neutrophils % 45.0 Nucleated Red Blood Cells # 0.0 Nucleated Red Blood Cells % 0.0 Platelet Count 202 # Potassium Level 4.4 Red Blood Count 4.30 L Red Cell Distribution Width 14.2 Sodium Level 144 Triglycerides Level 91 White Blood Count 3.5 #L Medications Medications Current Medications Sodium Chloride 1,000 ml @ 20 mls/hr Q24H IV Last administered on 06/08/16 05 :36; Admin Dose 20 MLS/HR; Start 06/08/16 at 04:30 Levofloxacin/ Dextrose (Levaquin 500mg/ D5W 100 ml (Pmx)) 100 ml @ 100 mls/hr Q24H IVPB Last administered on 06/09/16 04:55; Admin Dose 100 MLS/HR; Start at 04:30 Acetaminophen (Tylenol Tab) 500 mg Q4 PRN PO MODERATE PAIN LEVEL 4-6; Start at 04:30 Apixaban (Eliquis) 2.5 mg BID GTB Last administered on 06/09/16 08:47; Admin Dose 2.5 MG; Start 06/08/16 at 09:00 Atorvastatin Calcium (Lipitor) 40 mg QHS GTB Last administered on 06/08/16 21: 08; Admin Dose 40 MG; Start 06/08/16 at 21:00 Calcium/Vitamin D (Oyster Shell/ Vit-D (500/200)) 1 tab DAILY GTB Last administered on 06/09/16 08:46; Admin Dose 1 TAB; Start 06/08/16 at 09:00 Clonidine (Catapres) 0.1 mg Q4H PRN GTB ELEVATED BLOOD PRESSURE>150 Last administered on 06/08/16 22:49; Admin Dose 0.1 MG; Start 06/08/16 at 04:30 Diphenhydramine HCl (Benadryl) 25 mg BID PRN GTB ITCHING; Start 06/08/16 at 04: 30 Docusate Sodium (Colace) 200 mg DAILY PO Last administered on 06/09/16 08:46; Admin Dose 200 MG; Start 06/08/16 at 09:00 Fenofibrate (Tricor) 145 mg QHS GTB Last administered on 06/08/16 21:08; Admin Dose 145 MG; Start 06/08/16 at 21:00 Ferrous Sulfate (Feosol Liquid Cup) 300 mg DAILY GTB Last administered on 08:45; Admin Dose 300 MG; Start 06/08/16 at 09:00 Levetiracetam (Keppra) 1,000 mg DAILY GTB Last administered on 06/09/16 08:45 ; Admin Dose 1,000 MG; Start 06/08/16 at 09:00 Magnesium Hydroxide (Milk Of Mag) 30 ml Q24H PRN PO CONSTIPATION; Start at 04:30 Memantine (Namenda) 10 mg BID GTB Last administered on 06/09/16 08:46; Admin Dose 10 MG; Start 06/08/16 at 09:00 Mineral Oil (Fleet Mineral Oil Enema) 133 ml DAILY PRN [place] CONSTIPATION; Start 06/08/16 at 04:30 Multivitamins Therapeutic (Theragran) 1 tab DAILY PO Last administered on 08:46; Admin Dose 1 TAB; Start 06/08/16 at 09:00 Zolpidem Tartrate (Ambien) 5 mg HS PRN GTB SLEEP; Start 06/08/16 at 04:30 Ondansetron HCl (Zofran Tab) 4 mg Q6 PRN GTB NAUSEA AND/OR VOMITING; Start at 05:00 Bisacodyl (Dulcolax Supp) 10 mg Q24H PRN [place] CONSTIPATION; Start 06/09/16 at 04: 30 Tramadol HCl 50 mg 50 mg Q12 PRN GTB SEVERE PAIN LEVEL 7-10; Start 06/08/16 at 09:00 Vancomycin HCl (Vancocin) 250 ml @ 125 mls/hr Q24H IVPB Last administered on 06:11; Admin Dose 125 MLS/HR; Start 06/08/16 at 05:30 Acetaminophen (Tylenol Tab) 325 mg Q4 PRN GTB MILD PAIN LEVEL 1-3; Start at 05:30 Losartan Potassium (Cozaar) 25 mg BID GTB Last administered on 06/09/16 08:49 ; Admin Dose 25 MG; Start 06/08/16 at 21:00 Furosemide (Lasix) 20 mg DAILY IV ; Start 06/10/16 at 09:00 TORRES FRANCIS Jun 09, 2016 13:08
--- NOTE | 2016-06-09 16:01 | RADRPT ---
Vent Rate: 60 bpm RR Interval: 0 msec CA Interval: 0 msec QRS Duration: 172 msec QT Interval: 500 msec QTC Interval: 500 msec P-R-T [place]: 0 - -77 - 114 degrees Electronic ventricular pacemaker Electronically Signed By: Nils Bo [id number]
--- NOTE | 2016-06-09 19:44 | PN ---
Date/Time of Note Date/Time of Note DATE: 06/09/16 TIME: 19:43 Assessment/Plan VTE Prophylaxis VTE Prophylaxis Intervention: other Lines/Catheters IV Catheter Type (from [facility]): Peripheral IV Urinary Cath still in place: Yes Reason Cath still needed: other (indicate) Assessment/Plan Chief Complaint/Hosp Course IMPRESSION: 1. The patient has left chest wall cellulitis. 2. The patient has hypertension. 3. Chronic kidney disease. 4. Gastrostomy tube placement. 5. History of atrial fibrillation. 6. History of central nervous system bleed. 7. History of lamine hold. 8. History of chronic obstructive pulmonary disease. 9. History of dysphagia. 10. History of hypernatremia. 11. History of Clostridium difficile colitis. 12. Atherosclerotic heart disease. 13. History of dyslipidemia. PLAN ANTIBIOTIC Problems: Subjective 24 Hr Interval Summary Respiratory: no complaints Cardiovascular: no complaints Gastrointestinal: no complaints Exam/Review of Systems Vital Signs Vitals Vital Signs Date Time Temp Pulse Resp B/P Pulse Ox O2 Delivery O2 Flow Rate FiO2 06/09/16 17:56 2.0 06/09/16 11:00 85 155/67 06/09/16 09:15 Nasal Cannula 06/09/16 09:01 97.0 22 100 06/08/16 20:58 28 Intake and Output 06/08/16 06/08/16 06/09/16 15:00 23:00 07:00 Intake Total 1350 ml 100 ml Output Total 700 ml 400 ml Balance 650 ml -300 ml Exam Neck: supple Respiratory: clear to auscultation Cardiovascular: regular rate and rhythm Gastrointestinal: soft Extremities: edema (TR) Skin: other (REDNESS+ CHEST WALL) Results Result Diagram: 06/09/16 0540 06/09/16 0540 Results 24 hrs Laboratory Tests Test 06/09/16 00:30 06/09/16 05:40 Creatine Kinase 73 Creatine Kinase Index 1.8 Creatinine Kinase MB (Mass) 1.31 Troponin I 0.024 Anion Gap 15 Basophils # 0.0 Basophils % 0.3 Blood Morphology Comment Blood Urea Nitrogen 23 H Calcium Level 8.5 Carbon Dioxide Level 26 Chloride Level 107 Cholesterol Level 101 Cholesterol/HDL Ratio 2.9 Creatinine 1.05 Eosinophils # 0.5 Eosinophils % 13.4 H Glucose Level 123 HDL Cholesterol 34 Hematocrit 34.8 L Hemoglobin 11.6 L LDL Cholesterol, Calculated 49 Lymphocytes # 1.0 Lymphocytes % 28.1 Mean Corpuscular Hemoglobin 26.9 L Mean Corpuscular Hemoglobin Concent 33.2 Mean Corpuscular Volume 81.0 L Mean Platelet Volume 9.4 Monocytes # 0.5 Monocytes % 13.2 H Neutrophils # 1.6 Neutrophils % 45.0 Nucleated Red Blood Cells # 0.0 Nucleated Red Blood Cells % 0.0 Platelet Count 202 # Potassium Level 4.4 Red Blood Count 4.30 L Red Cell Distribution Width 14.2 Sodium Level 144 Triglycerides Level 91 White Blood Count 3.5 #L Medications Medications Current Medications Sodium Chloride 1,000 ml @ 20 mls/hr Q24H IV Last administered on 06/08/16 05 :36; Admin Dose 20 MLS/HR; Start 06/08/16 at 04:30 Levofloxacin/ Dextrose (Levaquin 500mg/ D5W 100 ml (Pmx)) 100 ml @ 100 mls/hr Q24H IVPB Last administered on 06/09/16 04:55; Admin Dose 100 MLS/HR; Start at 04:30 Acetaminophen (Tylenol Tab) 500 mg Q4 PRN PO MODERATE PAIN LEVEL 4-6; Start at 04:30 Apixaban (Eliquis) 2.5 mg BID GTB Last administered on 06/09/16 08:47; Admin Dose 2.5 MG; Start 06/08/16 at 09:00 Atorvastatin Calcium (Lipitor) 40 mg QHS GTB Last administered on 06/08/16 21: 08; Admin Dose 40 MG; Start 06/08/16 at 21:00 Calcium/Vitamin D (Oyster Shell/ Vit-D (500/200)) 1 tab DAILY GTB Last administered on 06/09/16 08:46; Admin Dose 1 TAB; Start 06/08/16 at 09:00 Clonidine (Catapres) 0.1 mg Q4H PRN GTB ELEVATED BLOOD PRESSURE>150 Last administered on 06/08/16 22:49; Admin Dose 0.1 MG; Start 06/08/16 at 04:30 Diphenhydramine HCl (Benadryl) 25 mg BID PRN GTB ITCHING; Start 06/08/16 at 04: 30 Docusate Sodium (Colace) 200 mg DAILY PO Last administered on 06/09/16 08:46; Admin Dose 200 MG; Start 06/08/16 at 09:00 Fenofibrate (Tricor) 145 mg QHS GTB Last administered on 06/08/16 21:08; Admin Dose 145 MG; Start 06/08/16 at 21:00 Ferrous Sulfate (Feosol Liquid Cup) 300 mg DAILY GTB Last administered on 08:45; Admin Dose 300 MG; Start 06/08/16 at 09:00 Levetiracetam (Keppra) 1,000 mg DAILY GTB Last administered on 06/09/16 08:45 ; Admin Dose 1,000 MG; Start 06/08/16 at 09:00 Magnesium Hydroxide (Milk Of Mag) 30 ml Q24H PRN PO CONSTIPATION; Start at 04:30 Memantine (Namenda) 10 mg BID GTB Last administered on 06/09/16 08:46; Admin Dose 10 MG; Start 06/08/16 at 09:00 Mineral Oil (Fleet Mineral Oil Enema) 133 ml DAILY PRN [place] CONSTIPATION; Start 06/08/16 at 04:30 Multivitamins Therapeutic (Theragran) 1 tab DAILY PO Last administered on 08:46; Admin Dose 1 TAB; Start 06/08/16 at 09:00 Zolpidem Tartrate (Ambien) 5 mg HS PRN GTB SLEEP; Start 06/08/16 at 04:30 Ondansetron HCl (Zofran Tab) 4 mg Q6 PRN GTB NAUSEA AND/OR VOMITING; Start at 05:00 Bisacodyl (Dulcolax Supp) 10 mg Q24H PRN [place] CONSTIPATION; Start 06/09/16 at 04: 30 Tramadol HCl 50 mg 50 mg Q12 PRN GTB SEVERE PAIN LEVEL 7-10; Start 06/08/16 at 09:00 Vancomycin HCl (Vancocin) 250 ml @ 125 mls/hr Q24H IVPB Last administered on 06:11; Admin Dose 125 MLS/HR; Start 06/08/16 at 05:30 Acetaminophen (Tylenol Tab) 325 mg Q4 PRN GTB MILD PAIN LEVEL 1-3; Start at 05:30 Furosemide (Lasix) 20 mg DAILY IV ; Start 06/10/16 at 09:00 Losartan Potassium (Cozaar) 50 mg BID GTB ; Start 06/09/16 at 21:00 JOSE C VILLATORO MD Jun 09, 2016 19:44
[2016-06-09 20:02] VITALS: BP 153/65; RESP 18
[2016-06-09] MEDS: FENOFIBRATE 145 MG TAB GTB SCH (20:28)
[2016-06-09] MEDS: ATORVASTATIN 40 MG TAB GTB SCH (20:28)
[2016-06-09] MEDS: LOSARTAN 50 MG TAB GTB SCH (20:29)
[2016-06-10] MEDS: SOD CHLORIDE 0.9% 1,000 ML IV SCH ×2 (04:30→13:24)
[2016-06-10] MEDS: LEVOFLOXACIN 500MG/D5W (PMX) 100 ML IVPB SCH (04:35)
[2016-06-10] MEDS: VANCOMYCIN 1 GM in NS 250 ML IVPB SCH (06:05)
[2016-06-10 07:00] LABS: BASOPHILS % 0.7 % (0.0-2.0); EOSINOPHILS # 0.4 10^3/ul (0.0-0.5); EOSINOPHILS % 8.7 % (0.0-7.0); HEMATOCRIT 32.5 % (42.0-52.0); HEMOGLOBIN 10.4 g/dl (14.0-18.0); LYMPHOCYTES # 0.9 10^3/ul (0.8-2.9); LYMPHOCYTES % 22.5 % (15.0-51.0); MEAN CORPUSCULAR HEMOGLOBIN 26.1 pg (29.0-33.0); MEAN CORPUSCULAR VOLUME 81.5 fl (82.0-101.0); MEAN PLATELET VOLUME 10.5 fl (7.4-10.4); MONOCYTE # 0.5 10^3/ul (0.3-0.9); MONOCYTES % 12.5 % (0.0-11.0); NEUTROPHIL # 2.3 10^3/ul (1.6-7.5); PLATELET COUNT 243 10^3/UL (140-440); RED BLOOD COUNT 3.99 10^6/ul (4.70-6.10); RED CELL DISTRIBUTION WIDTH 13.5 % (11.5-14.5); WHITE BLOOD COUNT 4.1 10^3/ul (4.8-10.8)
[2016-06-10 08:00] VITALS: BP 160/70; RESP 22
[2016-06-10] MEDS: FERROUS SULFATE 60 MG/ML 5ML CUP GTB SCH (08:57)
[2016-06-10] MEDS: MULTIVITAMINS THERAPEUTIC TAB PO SCH (08:58)
[2016-06-10] MEDS: LEVETIRACETAM 500 MG TAB GTB SCH (08:58)
[2016-06-10] MEDS: ASCORBIC ACID 500 MG TAB GTB SCH (08:58)
[2016-06-10] MEDS: LOSARTAN 50 MG TAB GTB SCH ×2 (08:58→21:40)
[2016-06-10] MEDS: MEMANTINE 10 MG TAB GTB SCH ×2 (08:58→21:40)
[2016-06-10] MEDS: DOCUSATE SODIUM 100 MG CAP PO SCH (08:58)
[2016-06-10] MEDS: CALCIUM/VITAMIN D (500/200) TAB GTB SCH (08:59)
[2016-06-10] MEDS: APIXABAN 5 MG TABLET GTB SCH ×2 (08:59→21:40)
[2016-06-10] MEDS: FUROSEMIDE 20 MG INJ IV SCH (08:59)
[2016-06-10] MEDS: ZINC SULFATE 220 MG CAP GTB SCH (09:08)
[2016-06-10] MEDS: LACTOBACILLUS RHAMNOSUS CAP PO SCH ×2 (09:09→21:40)
--- NOTE | 2016-06-10 12:02 | CONS ---
Date/Time of Note Date/Time of Note DATE: 06/10/16 TIME: 11:46 Assessment/Plan Assessment/Plan Chief Complaint/Hosp Course IMPRESSION: 1. Permanent pacemaker- no signs of v egetations by echo this admit 2. Abnormal electrocardiogram, assess for acute coronary syndrome. 3. History of cardiomyopathy, decreased left ventricular ejection fraction, last only 35% by echo 2016. 4. Hypertension-uncontrolled. 5. Dyslipidemia. 6. Cardiomyopathy-LVEF 35-40% by echo this admit 7. History of atrial fibrillation. 8. History of prior cerebrovascular accident. 9. Chest cellulitis. 10. Encephalopathy. 11. Anemia, microcytic. 12. Renal failure. 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: -serial ecg's -increase losartan to improve SBP -Continue Lasix and follow volume status closely -Continue ab'x and f/u cx data -Continue apixaban -Continue trcicor/statin -Follow volume status closely Problems: Consultation Date/Type/Reason Admit Date/Time Jun 10, 2016 at 08:30 Initial Consult Date 06/08/2016 Type of Consultation: Cardiology Reason for Consultation PPM/abnl ecg Referring Provider: JOSE C VILLATORO MD Exam/Review of Systems Vital Signs Vitals Vital Signs Date Time Temp Pulse Resp B/P Pulse Ox O2 Delivery O2 Flow Rate FiO2 06/10/16 08:00 97.5 59 22 160/70 06/10/16 05:44 2.0 06/09/16 21:31 100 Nasal Cannula 06/08/16 20:58 28 Intake and Output 06/09/16 06/09/16 06/10/16 15:00 23:00 07:00 Intake Total 1450 ml 1340 ml Output Total 500 ml 300 ml Balance 950 ml 1040 ml Exam Review of Systems: CONSTITUTIONAL: No fevers, chills. PULMONARY: No sob CARDIOVASCULAR: No chest pain/palpitations GASTROINTESTINAL: No nausea/vomiting. GENITOURINARY: No hematuria/dysuria. MUSCULOSKELETAL: No myagias/arthalgias. PSYCHIATRIC: The patient denies depression. NEUROLOGIC: encephalopathic Constitutional: other (encephalopathic) Psych: no complaints Head: normocephalic Eyes: nl conjunctiva ENMT: mucosa pink and moist Neck: jvd (9 cm water), supple Respiratory: clear to auscultation Cardiovascular: regular rate and rhythm Gastrointestinal: non-tender, soft Musculoskeletal: muscle tone (normal) Extremities: edema (none) Neurological: other (No focal deficits) Results Result Diagram: 06/10/16 0545 06/09/16 0540 Results 24 hrs Laboratory Tests Test 06/10/16 05:45 Basophils # 0.0 Basophils % 0.7 Eosinophils # 0.4 Eosinophils % 8.7 H Hematocrit 32.5 L Hemoglobin 10.4 L Lymphocytes # 0.9 Lymphocytes % 22.5 Mean Corpuscular Hemoglobin 26.1 L Mean Corpuscular Hemoglobin Concent 32.0 Mean Corpuscular Volume 81.5 L Mean Platelet Volume 10.5 H Monocytes # 0.5 Monocytes % 12.5 H Neutrophils # 2.3 Neutrophils % 55.0 Nucleated Red Blood Cells # 0.0 Nucleated Red Blood Cells % 0.0 Platelet Count 243 # Red Blood Count 3.99 L Red Cell Distribution Width 13.5 White Blood Count 4.1 L Medications Medications Current Medications Sodium Chloride 1,000 ml @ 20 mls/hr Q24H IV Last administered on 06/08/16 05 :36; Admin Dose 20 MLS/HR; Start 06/08/16 at 04:30 Levofloxacin/ Dextrose (Levaquin 500mg/ D5W 100 ml (Pmx)) 100 ml @ 100 mls/hr Q24H IVPB Last administered on 06/10/16 04:35; Admin Dose 100 MLS/HR; Start at 04:30 Acetaminophen (Tylenol Tab) 500 mg Q4 PRN PO MODERATE PAIN LEVEL 4-6; Start at 04:30 Apixaban (Eliquis) 2.5 mg BID GTB Last administered on 06/10/16 08:59; Admin Dose 2.5 MG; Start 06/08/16 at 09:00 Atorvastatin Calcium (Lipitor) 40 mg QHS GTB Last administered on 06/09/16 20: 28; Admin Dose 40 MG; Start 06/08/16 at 21:00 Calcium/Vitamin D (Oyster Shell/ Vit-D (500/200)) 1 tab DAILY GTB Last administered on 06/10/16 08:59; Admin Dose 1 TAB; Start 06/08/16 at 09:00 Clonidine (Catapres) 0.1 mg Q4H PRN GTB ELEVATED BLOOD PRESSURE>150 Last administered on 06/08/16 22:49; Admin Dose 0.1 MG; Start 06/08/16 at 04:30 Diphenhydramine HCl (Benadryl) 25 mg BID PRN GTB ITCHING; Start 06/08/16 at 04: 30 Docusate Sodium (Colace) 200 mg DAILY PO Last administered on 06/10/16 08:58; Admin Dose 200 MG; Start 06/08/16 at 09:00 Fenofibrate (Tricor) 145 mg QHS GTB Last administered on 06/09/16 20:28; Admin Dose 145 MG; Start 06/08/16 at 21:00 Ferrous Sulfate (Feosol Liquid Cup) 300 mg DAILY GTB Last administered on 08:57; Admin Dose 300 MG; Start 06/08/16 at 09:00 Levetiracetam (Keppra) 1,000 mg DAILY GTB Last administered on 06/10/16 08:58 ; Admin Dose 1,000 MG; Start 06/08/16 at 09:00 Magnesium Hydroxide (Milk Of Mag) 30 ml Q24H PRN PO CONSTIPATION Last administered on 06/09/16 23:09; Admin Dose 30 ML; Start 06/08/16 at 04:30 Memantine (Namenda) 10 mg BID GTB Last administered on 06/10/16 08:58; Admin Dose 10 MG; Start 06/08/16 at 09:00 Mineral Oil (Fleet Mineral Oil Enema) 133 ml DAILY PRN [place] CONSTIPATION; Start 06/08/16 at 04:30 Multivitamins Therapeutic (Theragran) 1 tab DAILY PO Last administered on 08:58; Admin Dose 1 TAB; Start 06/08/16 at 09:00 Zolpidem Tartrate (Ambien) 5 mg HS PRN GTB SLEEP; Start 06/08/16 at 04:30 Ondansetron HCl (Zofran Tab) 4 mg Q6 PRN GTB NAUSEA AND/OR VOMITING; Start at 05:00 Bisacodyl (Dulcolax Supp) 10 mg Q24H PRN [place] CONSTIPATION; Start 06/09/16 at 04: 30 Tramadol HCl 50 mg 50 mg Q12 PRN GTB SEVERE PAIN LEVEL 7-10; Start 06/08/16 at 09:00 Vancomycin HCl (Vancocin) 250 ml @ 125 mls/hr Q24H IVPB Last administered on 06:05; Admin Dose 125 MLS/HR; Start 06/08/16 at 05:30 Acetaminophen (Tylenol Tab) 325 mg Q4 PRN GTB MILD PAIN LEVEL 1-3; Start at 05:30 Furosemide (Lasix) 20 mg DAILY IV Last administered on 06/10/16 08:59; Admin Dose 20 MG; Start 06/10/16 at 09:00 Losartan Potassium (Cozaar) 50 mg BID GTB Last administered on 06/10/16 08:58 ; Admin Dose 50 MG; Start 06/09/16 at 21:00 Ascorbic Acid (Vitamin C) 500 mg DAILY GTB Last administered on 06/10/16 08:58 ; Admin Dose 500 MG; Start 06/10/16 at 09:00 Zinc Sulfate (Zinc Sulfate) 220 mg DAILY GTB Last administered on 06/10/16 09: 08; Admin Dose 220 MG; Start 06/10/16 at 09:00; Stop 06/24/16 at 08:59 Lactobacillus Acidophilus/ Rhamnosus (Culturelle) 1 cap BID PO Last administered on 06/10/16 09:09; Admin Dose 1 CAP; Start 06/10/16 at 09:00 Miscellaneous Information (*Rx Drug Level Order Reminder*) VANCO TROUGH @ 0, 430 ON... ONCE ONCE XX ; Start 06/11/16 at 04:30; Stop 06/11/16 at 04:31 TORRES FRANCIS Jun 10, 2016 11:56
[2016-06-10] MEDS: AMLODIPINE 5 MG TAB PO SCH (13:23)
--- NOTE | 2016-06-10 17:38 | RADRPT ---
PROCEDURE: Ultrasound of the soft tissues of the left anterior chest wall. CLINICAL INDICATION: Palpable lesion in the erythema of the left anterior chest wall at the pacema ker insertion site.. TECHNIQUE: High-resolution sonography of the left anterior chest wall at the site of the erythema was performed in the axial and sagittal planes. COMPARISON: None FINDINGS: There is no fluid collection or mass. There is no abnormality at the site of the erythematous lesion. The pacemaker is noted in the left a nterior chest wall. IMPRESSION: 1. No fluid collection at the site of the left anterior chest wall pacemaker insertion. 2. Any further management regarding the erythema should be based on clinical grounds. RPTAT: QQ .Jimmy Mills MD, MD Date Time Electronically viewed and signed by .Jimmy Mills MD, on 06/10/2016 17:38 .R/
--- NOTE | 2016-06-10 19:59 | PN ---
Date/Time of Note Date/Time of Note DATE: 06/10/16 TIME: 19:58 Assessment/Plan VTE Prophylaxis VTE Prophylaxis Intervention: other Lines/Catheters IV Catheter Type (from Nrs): Peripheral IV Urinary Cath still in place: Yes Reason Cath still needed: other (indicate) Assessment/Plan Chief Complaint/Hosp Course IMPRESSION: 1. The patient has left chest wall cellulitis. 2. The patient has hypertension. 3. Chronic kidney disease. 4. Gastrostomy tube placement. 5. History of atrial fibrillation. 6. History of central nervous system bleed. 7. History of lamine hold. 8. History of chronic obstructive pulmonary disease. 9. History of dysphagia. 10. History of hypernatremia. 11. History of Clostridium difficile colitis. 12. Atherosclerotic heart disease. 13. History of dyslipidemia 14 uti. PLAN ANTIBIOTIC Problems: Subjective 24 Hr Interval Summary Cardiovascular: no complaints Exam/Review of Systems Vital Signs Vitals Vital Signs Date Time Temp Pulse Resp B/P Pulse Ox O2 Delivery O2 Flow Rate FiO2 06/10/16 15:26 2.0 06/10/16 08:00 Nasal Cannula 06/10/16 08:00 97.5 59 22 160/70 06/09/16 21:31 100 06/08/16 20:58 28 Intake and Output 06/09/16 06/09/16 06/10/16 15:00 23:00 07:00 Intake Total 1450 ml 1340 ml Output Total 500 ml 300 ml Balance 950 ml 1040 ml Exam Respiratory: clear to auscultation Cardiovascular: regular rate and rhythm Gastrointestinal: soft Extremities: No edema Skin: other (redness+ chest) Results Result Diagram: 06/10/16 0545 06/09/16 0540 Results 24 hrs Laboratory Tests Test 06/10/16 05:45 Basophils # 0.0 Basophils % 0.7 Eosinophils # 0.4 Eosinophils % 8.7 H Hematocrit 32.5 L Hemoglobin 10.4 L Lymphocytes # 0.9 Lymphocytes % 22.5 Mean Corpuscular Hemoglobin 26.1 L Mean Corpuscular Hemoglobin Concent 32.0 Mean Corpuscular Volume 81.5 L Mean Platelet Volume 10.5 H Monocytes # 0.5 Monocytes % 12.5 H Neutrophils # 2.3 Neutrophils % 55.0 Nucleated Red Blood Cells # 0.0 Nucleated Red Blood Cells % 0.0 Platelet Count 243 # Red Blood Count 3.99 L Red Cell Distribution Width 13.5 White Blood Count 4.1 L Medications Medications Current Medications Sodium Chloride 1,000 ml @ 20 mls/hr Q24H IV Last administered on 06/10/16 13 :24; Admin Dose 20 MLS/HR; Start 06/08/16 at 04:30 Levofloxacin/ Dextrose (Levaquin 500mg/ D5W 100 ml (Pmx)) 100 ml @ 100 mls/hr Q24H IVPB Last administered on 06/10/16 04:35; Admin Dose 100 MLS/HR; Start at 04:30 Acetaminophen (Tylenol Tab) 500 mg Q4 PRN PO MODERATE PAIN LEVEL 4-6; Start at 04:30 Apixaban (Eliquis) 2.5 mg BID GTB Last administered on 06/10/16 08:59; Admin Dose 2.5 MG; Start 06/08/16 at 09:00 Atorvastatin Calcium (Lipitor) 40 mg QHS GTB Last administered on 06/09/16 20: 28; Admin Dose 40 MG; Start 06/08/16 at 21:00 Calcium/Vitamin D (Oyster Shell/ Vit-D (500/200)) 1 tab DAILY GTB Last administered on 06/10/16 08:59; Admin Dose 1 TAB; Start 06/08/16 at 09:00 Clonidine (Catapres) 0.1 mg Q4H PRN GTB ELEVATED BLOOD PRESSURE>150 Last administered on 06/08/16 22:49; Admin Dose 0.1 MG; Start 06/08/16 at 04:30 Diphenhydramine HCl (Benadryl) 25 mg BID PRN GTB ITCHING; Start 06/08/16 at 04: 30 Docusate Sodium (Colace) 200 mg DAILY PO Last administered on 06/10/16 08:58; Admin Dose 200 MG; Start 06/08/16 at 09:00 Fenofibrate (Tricor) 145 mg QHS GTB Last administered on 06/09/16 20:28; Admin Dose 145 MG; Start 06/08/16 at 21:00 Ferrous Sulfate (Feosol Liquid Cup) 300 mg DAILY GTB Last administered on 08:57; Admin Dose 300 MG; Start 06/08/16 at 09:00 Levetiracetam (Keppra) 1,000 mg DAILY GTB Last administered on 06/10/16 08:58 ; Admin Dose 1,000 MG; Start 06/08/16 at 09:00 Magnesium Hydroxide (Milk Of Mag) 30 ml Q24H PRN PO CONSTIPATION Last administered on 06/09/16 23:09; Admin Dose 30 ML; Start 06/08/16 at 04:30 Memantine (Namenda) 10 mg BID GTB Last administered on 06/10/16 08:58; Admin Dose 10 MG; Start 06/08/16 at 09:00 Mineral Oil (Fleet Mineral Oil Enema) 133 ml DAILY PRN [place] CONSTIPATION; Start 06/08/16 at 04:30 Multivitamins Therapeutic (Theragran) 1 tab DAILY PO Last administered on 08:58; Admin Dose 1 TAB; Start 06/08/16 at 09:00 Zolpidem Tartrate (Ambien) 5 mg HS PRN GTB SLEEP; Start 06/08/16 at 04:30 Ondansetron HCl (Zofran Tab) 4 mg Q6 PRN GTB NAUSEA AND/OR VOMITING; Start at 05:00 Bisacodyl (Dulcolax Supp) 10 mg Q24H PRN [place] CONSTIPATION; Start 06/09/16 at 04: 30 Tramadol HCl 50 mg 50 mg Q12 PRN GTB SEVERE PAIN LEVEL 7-10; Start 06/08/16 at 09:00 Vancomycin HCl (Vancocin) 250 ml @ 125 mls/hr Q24H IVPB Last administered on 06:05; Admin Dose 125 MLS/HR; Start 06/08/16 at 05:30 Acetaminophen (Tylenol Tab) 325 mg Q4 PRN GTB MILD PAIN LEVEL 1-3; Start at 05:30 Furosemide (Lasix) 20 mg DAILY IV Last administered on 06/10/16 08:59; Admin Dose 20 MG; Start 06/10/16 at 09:00 Losartan Potassium (Cozaar) 50 mg BID GTB Last administered on 06/10/16 08:58 ; Admin Dose 50 MG; Start 06/09/16 at 21:00 Ascorbic Acid (Vitamin C) 500 mg DAILY GTB Last administered on 06/10/16 08:58 ; Admin Dose 500 MG; Start 06/10/16 at 09:00 Zinc Sulfate (Zinc Sulfate) 220 mg DAILY GTB Last administered on 06/10/16 09: 08; Admin Dose 220 MG; Start 06/10/16 at 09:00; Stop 06/24/16 at 08:59 Lactobacillus Acidophilus/ Rhamnosus (Culturelle) 1 cap BID PO Last administered on 06/10/16 09:09; Admin Dose 1 CAP; Start 06/10/16 at 09:00 Miscellaneous Information (*Rx Drug Level Order Reminder*) VANCO TROUGH @ 0, 430 ON... ONCE ONCE XX ; Start 06/11/16 at 04:30; Stop 06/11/16 at 04:31 Amlodipine Besylate (Norvasc) 5 mg DAILY PO Last administered on 06/10/16 13: 23; Admin Dose 5 MG; Start 06/10/16 at 12:00 JOSE C VILLATORO MD Jun 10, 2016 19:59
[2016-06-10] MEDS: ALBUTEROL 0.083% (NEB) 2.5 MG/3 ML AMP NEB PRN (20:31)
[2016-06-10 20:38] VITALS: BP 148/65; RESP 18
[2016-06-10] MEDS: FENOFIBRATE 145 MG TAB GTB SCH (21:40)
[2016-06-10] MEDS: ATORVASTATIN 40 MG TAB GTB SCH (21:40)
[2016-06-11] MEDS: SOD CHLORIDE 0.9% 1,000 ML IV SCH (03:14)
[2016-06-11] MEDS: LEVOFLOXACIN 500MG/D5W (PMX) 100 ML IVPB SCH (04:50)
[2016-06-11 05:54] LABS: CREATININE 1.11 mg/dl (0.61-1.24)
[2016-06-11] MEDS: VANCOMYCIN 1 GM in NS 250 ML IVPB SCH (06:22)
[2016-06-11 08:30] VITALS: BP 168/63; RESP 18
[2016-06-11] MEDS: FERROUS SULFATE 60 MG/ML 5ML CUP GTB SCH (08:41)
[2016-06-11] MEDS: ZINC SULFATE 220 MG CAP GTB SCH (08:42)
[2016-06-11] MEDS: LEVETIRACETAM 500 MG TAB GTB SCH (08:42)
[2016-06-11] MEDS: FUROSEMIDE 20 MG INJ IV SCH (08:42)
[2016-06-11] MEDS: MEMANTINE 10 MG TAB GTB SCH ×2 (08:42→21:50)
[2016-06-11] MEDS: MULTIVITAMINS THERAPEUTIC TAB PO SCH (08:42)
[2016-06-11] MEDS: LACTOBACILLUS RHAMNOSUS CAP PO SCH ×2 (08:42→21:50)
[2016-06-11] MEDS: CALCIUM/VITAMIN D (500/200) TAB GTB SCH (08:42)
[2016-06-11] MEDS: ASCORBIC ACID 500 MG TAB GTB SCH (08:42)
[2016-06-11] MEDS: DOCUSATE SODIUM 100 MG CAP PO SCH (08:42)
[2016-06-11] MEDS: AMLODIPINE 5 MG TAB PO SCH (08:43)
[2016-06-11] MEDS: LOSARTAN 50 MG TAB GTB SCH ×2 (08:43→21:50)
[2016-06-11] MEDS: APIXABAN 5 MG TABLET GTB SCH ×2 (08:43→21:50)
[2016-06-11 10:00] VITALS: BP 147/63; PULSE 68
--- NOTE | 2016-06-11 12:11 | CONS ---
Date/Time of Note Date/Time of Note DATE: 06/11/16 TIME: 12:09 Assessment/Plan Assessment/Plan Additional Assessment/Plan 1. Permanent pacemaker- no signs of v egetations by echo this admit - good function per recent office check. 2. Abnormal electrocardiogram, assess for acute coronary syndrome- doubt ischemia. 3. History of cardiomyopathy, decreased left ventricular ejection fraction, last only 35% by echo 2016. 4. Hypertension- con't med rx. 5. Dyslipidemia. 6. Cardiomyopathy-LVEF 35-40% by echo this admit 7. History of atrial fibrillation- rate controlled now. 8. History of prior cerebrovascular accident. 9. Chest cellulitis. 10. Encephalopathy. 11. Anemia, microcytic. 12. Renal failure. 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 No CP, will optimize therapy now. ROS: No fever, no chills, no nausea, no vomiting, no diarrhea/constipation No recent weight changes No chest pain, no PND, no orthopnea No dizziness, blurred vision No thirst, no heat or cold intolerance (per nurse) Exam/Review of Systems Vital Signs Vitals Vital Signs Date Time Temp Pulse Resp B/P Pulse Ox O2 Delivery O2 Flow Rate FiO2 06/11/16 08:30 98.1 54 18 168/63 98 06/11/16 00:10 Nasal Cannula 2.0 06/08/16 20:58 28 Intake and Output 06/10/16 06/10/16 06/11/16 15:00 23:00 07:00 Intake Total 250 ml 1320 ml 340 ml Output Total 3500 ml 800 ml Balance 250 ml -2180 ml -460 ml Exam General: WN/WD/NAD, AOx 0 HEENT: Unicetric/atraumatic/EOMI (does not follow commands), h/o CVA NECK: JVD elevated, no thyromegaly Lymph: no lymphadenopathy HEART: regular with no S3, II/ systolic murmur at apex LUNGS: Coarse sounds ABD: soft, NT, ND, +BS : Intact Neuro: non focal SKIN: chronic changes EXT: trace edema Results Result Diagram: 06/10/16 0545 06/11/16 0420 Results 24 hrs Laboratory Tests Test 06/11/16 04:20 Blood Urea Nitrogen 22 H Creatinine 1.11 Vancomycin Level Trough 11.0 Medications Medications Current Medications Sodium Chloride 1,000 ml @ 20 mls/hr Q24H IV Last administered on 06/10/16 13 :24; Admin Dose 20 MLS/HR; Start 06/08/16 at 04:30 Levofloxacin/ Dextrose (Levaquin 500mg/ D5W 100 ml (Pmx)) 100 ml @ 100 mls/hr Q24H IVPB Last administered on 06/11/16 04:50; Admin Dose 100 MLS/HR; Start at 04:30 Acetaminophen (Tylenol Tab) 500 mg Q4 PRN PO MODERATE PAIN LEVEL 4-6; Start at 04:30 Apixaban (Eliquis) 2.5 mg BID GTB Last administered on 06/11/16 08:43; Admin Dose 2.5 MG; Start 06/08/16 at 09:00 Atorvastatin Calcium (Lipitor) 40 mg QHS GTB Last administered on 06/10/16 21: 40; Admin Dose 40 MG; Start 06/08/16 at 21:00 Calcium/Vitamin D (Oyster Shell/ Vit-D (500/200)) 1 tab DAILY GTB Last administered on 06/11/16 08:42; Admin Dose 1 TAB; Start 06/08/16 at 09:00 Clonidine (Catapres) 0.1 mg Q4H PRN GTB ELEVATED BLOOD PRESSURE>150 Last administered on 06/08/16 22:49; Admin Dose 0.1 MG; Start 06/08/16 at 04:30 Diphenhydramine HCl (Benadryl) 25 mg BID PRN GTB ITCHING; Start 06/08/16 at 04: 30 Docusate Sodium (Colace) 200 mg DAILY PO Last administered on 06/11/16 08:42; Admin Dose 200 MG; Start 06/08/16 at 09:00 Fenofibrate (Tricor) 145 mg QHS GTB Last administered on 06/10/16 21:40; Admin Dose 145 MG; Start 06/08/16 at 21:00 Ferrous Sulfate (Feosol Liquid Cup) 300 mg DAILY GTB Last administered on 08:41; Admin Dose 300 MG; Start 06/08/16 at 09:00 Levetiracetam (Keppra) 1,000 mg DAILY GTB Last administered on 06/11/16 08:42 ; Admin Dose 1,000 MG; Start 06/08/16 at 09:00 Magnesium Hydroxide (Milk Of Mag) 30 ml Q24H PRN PO CONSTIPATION Last administered on 06/09/16 23:09; Admin Dose 30 ML; Start 06/08/16 at 04:30 Memantine (Namenda) 10 mg BID GTB Last administered on 06/11/16 08:42; Admin Dose 10 MG; Start 06/08/16 at 09:00 Mineral Oil (Fleet Mineral Oil Enema) 133 ml DAILY PRN [place] CONSTIPATION; Start 06/08/16 at 04:30 Multivitamins Therapeutic (Theragran) 1 tab DAILY PO Last administered on 08:42; Admin Dose 1 TAB; Start 06/08/16 at 09:00 Zolpidem Tartrate (Ambien) 5 mg HS PRN GTB SLEEP; Start 06/08/16 at 04:30 Ondansetron HCl (Zofran Tab) 4 mg Q6 PRN GTB NAUSEA AND/OR VOMITING; Start at 05:00 Bisacodyl (Dulcolax Supp) 10 mg Q24H PRN [place] CONSTIPATION; Start 06/09/16 at 04: 30 Tramadol HCl 50 mg 50 mg Q12 PRN GTB SEVERE PAIN LEVEL 7-10; Start 06/08/16 at 09:00 Vancomycin HCl (Vancocin) 250 ml @ 125 mls/hr Q24H IVPB Last administered on 06:22; Admin Dose 125 MLS/HR; Start 06/08/16 at 05:30 Acetaminophen (Tylenol Tab) 325 mg Q4 PRN GTB MILD PAIN LEVEL 1-3; Start at 05:30 Furosemide (Lasix) 20 mg DAILY IV Last administered on 06/11/16 08:42; Admin Dose 20 MG; Start 06/10/16 at 09:00 Losartan Potassium (Cozaar) 50 mg BID GTB Last administered on 06/11/16 08:43 ; Admin Dose 50 MG; Start 06/09/16 at 21:00 Ascorbic Acid (Vitamin C) 500 mg DAILY GTB Last administered on 06/11/16 08:42 ; Admin Dose 500 MG; Start 06/10/16 at 09:00 Zinc Sulfate (Zinc Sulfate) 220 mg DAILY GTB Last administered on 06/11/16 08: 42; Admin Dose 220 MG; Start 06/10/16 at 09:00; Stop 06/24/16 at 08:59 Lactobacillus Acidophilus/ Rhamnosus (Culturelle) 1 cap BID PO Last administered on 06/11/16 08:42; Admin Dose 1 CAP; Start 06/10/16 at 09:00 Amlodipine Besylate (Norvasc) 5 mg DAILY PO Last administered on 06/11/16 08: 43; Admin Dose 5 MG; Start 06/10/16 at 12:00 ADAM NASH MD Jun 11, 2016 12:11
[2016-06-11 19:49] VITALS: BP 150/66; RESP 16
[2016-06-11] MEDS: FENOFIBRATE 145 MG TAB GTB SCH (21:50)
[2016-06-11] MEDS: ATORVASTATIN 40 MG TAB GTB SCH (21:50)
--- NOTE | 2016-06-11 22:06 | PN ---
Date/Time of Note Date/Time of Note DATE: 06/11/16 TIME: 22:05 Assessment/Plan VTE Prophylaxis VTE Prophylaxis Intervention: other Lines/Catheters IV Catheter Type (from [facility]): Peripheral IV Urinary Cath still in place: Yes Reason Cath still needed: other (indicate) Assessment/Plan Chief Complaint/Hosp Course IMPRESSION: 1. The patient has left chest wall cellulitis. 2. The patient has hypertension. 3. Chronic kidney disease. 4. Gastrostomy tube placement. 5. History of atrial fibrillation. 6. History of central nervous system bleed. 7. History of lamine hold. 8. History of chronic obstructive pulmonary disease. 9. History of dysphagia. 10. History of hypernatremia. 11. History of Clostridium difficile colitis. 12. Atherosclerotic heart disease. 13. History of dyslipidemia 14 uti. PLAN ANTIBIOTIC Problems: Subjective 24 Hr Interval Summary Gastrointestinal: no complaints Genitourinary: no complaints Exam/Review of Systems Vital Signs Vitals Vital Signs Date Time Temp Pulse Resp B/P Pulse Ox O2 Delivery O2 Flow Rate FiO2 06/11/16 19:49 97.9 68 16 150/66 97 06/11/16 18:19 2.0 06/11/16 08:30 Nasal Cannula 06/08/16 20:58 28 Intake and Output 06/10/16 06/10/16 06/11/16 15:00 23:00 07:00 Intake Total 250 ml 1320 ml 340 ml Output Total 3500 ml 800 ml Balance 250 ml -2180 ml -460 ml Exam Respiratory: clear to auscultation Cardiovascular: regular rate and rhythm Gastrointestinal: soft Musculoskeletal: nl extremities to inspection Skin: other (REDNESS+) Results Result Diagram: 06/10/16 0545 06/11/16 0420 Results 24 hrs Laboratory Tests Test 06/11/16 04:20 Blood Urea Nitrogen 22 H Creatinine 1.11 Vancomycin Level Trough 11.0 Medications Medications Current Medications Sodium Chloride 1,000 ml @ 20 mls/hr Q24H IV Last administered on 06/10/16 13 :24; Admin Dose 20 MLS/HR; Start 06/08/16 at 04:30 Levofloxacin/ Dextrose (Levaquin 500mg/ D5W 100 ml (Pmx)) 100 ml @ 100 mls/hr Q24H IVPB Last administered on 06/11/16 04:50; Admin Dose 100 MLS/HR; Start at 04:30 Acetaminophen (Tylenol Tab) 500 mg Q4 PRN PO MODERATE PAIN LEVEL 4-6; Start at 04:30 Apixaban (Eliquis) 2.5 mg BID GTB Last administered on 06/11/16 21:50; Admin Dose 2.5 MG; Start 06/08/16 at 09:00 Atorvastatin Calcium (Lipitor) 40 mg QHS GTB Last administered on 06/11/16 21: 50; Admin Dose 40 MG; Start 06/08/16 at 21:00 Calcium/Vitamin D (Oyster Shell/ Vit-D (500/200)) 1 tab DAILY GTB Last administered on 06/11/16 08:42; Admin Dose 1 TAB; Start 06/08/16 at 09:00 Clonidine (Catapres) 0.1 mg Q4H PRN GTB ELEVATED BLOOD PRESSURE>150 Last administered on 06/08/16 22:49; Admin Dose 0.1 MG; Start 06/08/16 at 04:30 Diphenhydramine HCl (Benadryl) 25 mg BID PRN GTB ITCHING; Start 06/08/16 at 04: 30 Docusate Sodium (Colace) 200 mg DAILY PO Last administered on 06/11/16 08:42; Admin Dose 200 MG; Start 06/08/16 at 09:00 Fenofibrate (Tricor) 145 mg QHS GTB Last administered on 06/11/16 21:50; Admin Dose 145 MG; Start 06/08/16 at 21:00 Ferrous Sulfate (Feosol Liquid Cup) 300 mg DAILY GTB Last administered on 08:41; Admin Dose 300 MG; Start 06/08/16 at 09:00 Levetiracetam (Keppra) 1,000 mg DAILY GTB Last administered on 06/11/16 08:42 ; Admin Dose 1,000 MG; Start 06/08/16 at 09:00 Magnesium Hydroxide (Milk Of Mag) 30 ml Q24H PRN PO CONSTIPATION Last administered on 06/09/16 23:09; Admin Dose 30 ML; Start 06/08/16 at 04:30 Memantine (Namenda) 10 mg BID GTB Last administered on 06/11/16 21:50; Admin Dose 10 MG; Start 06/08/16 at 09:00 Mineral Oil (Fleet Mineral Oil Enema) 133 ml DAILY PRN [place] CONSTIPATION; Start 06/08/16 at 04:30 Multivitamins Therapeutic (Theragran) 1 tab DAILY PO Last administered on 08:42; Admin Dose 1 TAB; Start 06/08/16 at 09:00 Zolpidem Tartrate (Ambien) 5 mg HS PRN GTB SLEEP; Start 06/08/16 at 04:30 Ondansetron HCl (Zofran Tab) 4 mg Q6 PRN GTB NAUSEA AND/OR VOMITING; Start at 05:00 Bisacodyl (Dulcolax Supp) 10 mg Q24H PRN [place] CONSTIPATION; Start 06/09/16 at 04: 30 Tramadol HCl 50 mg 50 mg Q12 PRN GTB SEVERE PAIN LEVEL 7-10; Start 06/08/16 at 09:00 Vancomycin HCl (Vancocin) 250 ml @ 125 mls/hr Q24H IVPB Last administered on 06:22; Admin Dose 125 MLS/HR; Start 06/08/16 at 05:30 Acetaminophen (Tylenol Tab) 325 mg Q4 PRN GTB MILD PAIN LEVEL 1-3; Start at 05:30 Furosemide (Lasix) 20 mg DAILY IV Last administered on 06/11/16 08:42; Admin Dose 20 MG; Start 06/10/16 at 09:00 Losartan Potassium (Cozaar) 50 mg BID GTB Last administered on 06/11/16 21:50 ; Admin Dose 50 MG; Start 06/09/16 at 21:00 Ascorbic Acid (Vitamin C) 500 mg DAILY GTB Last administered on 06/11/16 08:42 ; Admin Dose 500 MG; Start 06/10/16 at 09:00 Zinc Sulfate (Zinc Sulfate) 220 mg DAILY GTB Last administered on 06/11/16 08: 42; Admin Dose 220 MG; Start 06/10/16 at 09:00; Stop 06/24/16 at 08:59 Lactobacillus Acidophilus/ Rhamnosus (Culturelle) 1 cap BID PO Last administered on 06/11/16 21:50; Admin Dose 1 CAP; Start 06/10/16 at 09:00 Amlodipine Besylate (Norvasc) 5 mg DAILY PO Last administered on 06/11/16t 08: 43; Admin Dose 5 MG; Start 06/10/16 at 12:00 JOSE C VILLATORO MD Jun 11, 2016 22:06
[2016-06-12] MEDS: SOD CHLORIDE 0.9% 1,000 ML IV SCH ×2 (04:30→22:11)
[2016-06-12] MEDS: LEVOFLOXACIN 500MG/D5W (PMX) 100 ML IVPB SCH (05:48)
[2016-06-12] MEDS: VANCOMYCIN 1 GM in NS 250 ML IVPB SCH (06:53)
[2016-06-12 07:47] VITALS: BP 164/60; RESP 16
[2016-06-12] MEDS: ASCORBIC ACID 500 MG TAB GTB SCH (09:48)
[2016-06-12] MEDS: ZINC SULFATE 220 MG CAP GTB SCH (09:48)
[2016-06-12] MEDS: DOCUSATE SODIUM 100 MG CAP PO SCH (09:48)
[2016-06-12] MEDS: LACTOBACILLUS RHAMNOSUS CAP PO SCH ×2 (09:48→22:12)
[2016-06-12] MEDS: MULTIVITAMINS THERAPEUTIC TAB PO SCH (09:48)
[2016-06-12] MEDS: AMLODIPINE 5 MG TAB PO SCH ×2 (09:49→22:13)
[2016-06-12] MEDS: MEMANTINE 10 MG TAB GTB SCH ×2 (09:49→22:12)
[2016-06-12] MEDS: LOSARTAN 50 MG TAB GTB SCH ×2 (09:49→22:12)
[2016-06-12] MEDS: FERROUS SULFATE 60 MG/ML 5ML CUP GTB SCH (09:50)
[2016-06-12] MEDS: LEVETIRACETAM 500 MG TAB GTB SCH (09:50)
[2016-06-12] MEDS: APIXABAN 5 MG TABLET GTB SCH ×2 (09:50→22:13)
[2016-06-12] MEDS: CALCIUM/VITAMIN D (500/200) TAB GTB SCH (09:50)
[2016-06-12] MEDS: FUROSEMIDE 20 MG INJ IV SCH (09:51)
--- NOTE | 2016-06-12 12:21 | PN ---
Date/Time of Note Date/Time of Note DATE: 06/12/16 TIME: 12:20 Assessment/Plan VTE Prophylaxis VTE Prophylaxis Intervention: other Lines/Catheters IV Catheter Type (from Nrsg): Peripheral IV Urinary Cath still in place: Yes Reason Cath still needed: other (indicate) Assessment/Plan Chief Complaint/Hosp Course IMPRESSION: 1. The patient has left chest wall cellulitis.BETTER 2. The patient has hypertension. 3. Chronic kidney disease. 4. Gastrostomy tube placement. 5. History of atrial fibrillation. 6. History of central nervous system bleed. 7. History of lamine hold. 8. History of chronic obstructive pulmonary disease. 9. History of dysphagia. 10. History of hypernatremia. 11. History of Clostridium difficile colitis. 12. Atherosclerotic heart disease. 13. History of dyslipidemia 14 uti. PLAN ANTIBIOTIC WOUND CARE Problems: Subjective 24 Hr Interval Summary Respiratory: no complaints Exam/Review of Systems Vital Signs Vitals Vital Signs Date Time Temp Pulse Resp B/P Pulse Ox O2 Delivery O2 Flow Rate FiO2 06/12/16 08:05 Nasal Cannula 2.0 06/12/16 07:47 98.1 68 16 164/60 96 06/08/16 20:58 28 Intake and Output 06/11/16 06/11/16 06/12/16 15:00 23:00 07:00 Intake Total 250 ml 1020 ml 1230 ml Output Total 1200 ml 800 ml Balance 250 ml -180 ml 430 ml Exam Respiratory: clear to auscultation Cardiovascular: regular rate and rhythm Gastrointestinal: soft Extremities: No edema Skin: other (LESION BETTER) Results Result Diagram: 06/10/16 0545 06/11/16 0420 Medications Medications Current Medications Sodium Chloride 1,000 ml @ 20 mls/hr Q24H IV Last administered on 06/10/16 13 :24; Admin Dose 20 MLS/HR; Start 06/08/16 at 04:30 Levofloxacin/ Dextrose (Levaquin 500mg/ D5W 100 ml (Pmx)) 100 ml @ 100 mls/hr Q24H IVPB Last administered on 06/12/16 05:48; Admin Dose 100 MLS/HR; Start at 04:30 Acetaminophen (Tylenol Tab) 500 mg Q4 PRN PO MODERATE PAIN LEVEL 4-6; Start at 04:30 Apixaban (Eliquis) 2.5 mg BID GTB Last administered on 06/12/16 09:50; Admin Dose 2.5 MG; Start 06/08/16 at 09:00 Atorvastatin Calcium (Lipitor) 40 mg QHS GTB Last administered on 06/11/16 21: 50; Admin Dose 40 MG; Start 06/08/16 at 21:00 Calcium/Vitamin D (Oyster Shell/ Vit-D (500/200)) 1 tab DAILY GTB Last administered on 06/12/16 09:50; Admin Dose 1 TAB; Start 06/08/16 at 09:00 Clonidine (Catapres) 0.1 mg Q4H PRN GTB ELEVATED BLOOD PRESSURE>150 Last administered on 06/08/16 22:49; Admin Dose 0.1 MG; Start 06/08/16 at 04:30 Diphenhydramine HCl (Benadryl) 25 mg BID PRN GTB ITCHING; Start 06/08/16 at 04: 30 Docusate Sodium (Colace) 200 mg DAILY PO Last administered on 06/12/16 09:48; Admin Dose 200 MG; Start 06/08/16 at 09:00 Fenofibrate (Tricor) 145 mg QHS GTB Last administered on 06/11/16 21:50; Admin Dose 145 MG; Start 06/08/16 at 21:00 Ferrous Sulfate (Feosol Liquid Cup) 300 mg DAILY GTB Last administered on 09:50; Admin Dose 300 MG; Start 06/08/16 at 09:00 Levetiracetam (Keppra) 1,000 mg DAILY GTB Last administered on 06/12/16 09:50 ; Admin Dose 1,000 MG; Start 06/08/16 at 09:00 Magnesium Hydroxide (Milk Of Mag) 30 ml Q24H PRN PO CONSTIPATION Last administered on 06/09/16 23:09; Admin Dose 30 ML; Start 06/08/16 at 04:30 Memantine (Namenda) 10 mg BID GTB Last administered on 06/12/16 09:49; Admin Dose 10 MG; Start 06/08/16 at 09:00 Mineral Oil (Fleet Mineral Oil Enema) 133 ml DAILY PRN [place] CONSTIPATION; Start 06/08/16 at 04:30 Multivitamins Therapeutic (Theragran) 1 tab DAILY PO Last administered on 09:48; Admin Dose 1 TAB; Start 06/08/16 at 09:00 Zolpidem Tartrate (Ambien) 5 mg HS PRN GTB SLEEP; Start 06/08/16 at 04:30 Ondansetron HCl (Zofran Tab) 4 mg Q6 PRN GTB NAUSEA AND/OR VOMITING; Start at 05:00 Bisacodyl (Dulcolax Supp) 10 mg Q24H PRN [place] CONSTIPATION; Start 06/09/16 at 04: 30 Tramadol HCl 50 mg 50 mg Q12 PRN GTB SEVERE PAIN LEVEL 7-10; Start 06/08/16 at 09:00 Vancomycin HCl (Vancocin) 250 ml @ 125 mls/hr Q24H IVPB Last administered on 06:53; Admin Dose 125 MLS/HR; Start 06/08/16 at 05:30 Acetaminophen (Tylenol Tab) 325 mg Q4 PRN GTB MILD PAIN LEVEL 1-3; Start at 05:30 Furosemide (Lasix) 20 mg DAILY IV Last administered on 06/12/16 09:51; Admin Dose 20 MG; Start 06/10/16 at 09:00 Losartan Potassium (Cozaar) 50 mg BID GTB Last administered on 06/12/16 09:49 ; Admin Dose 50 MG; Start 06/09/16 at 21:00 Ascorbic Acid (Vitamin C) 500 mg DAILY GTB Last administered on 06/12/16 09:48 ; Admin Dose 500 MG; Start 06/10/16 at 09:00 Zinc Sulfate (Zinc Sulfate) 220 mg DAILY GTB Last administered on 06/12/16 09: 48; Admin Dose 220 MG; Start 06/10/16 at 09:00; Stop 06/24/16 at 08:59 Lactobacillus Acidophilus/ Rhamnosus (Culturelle) 1 cap BID PO Last administered on 06/12/16 09:48; Admin Dose 1 CAP; Start 06/10/16 at 09:00 Amlodipine Besylate (Norvasc) 5 mg DAILY PO Last administered on 06/12/16 09: 49; Admin Dose 5 MG; Start 06/10/16 at 12:00 JOSE C VILALTORO MD Jun 12, 2016 12:21
--- NOTE | 2016-06-12 14:20 | CONS ---
Date/Time of Note Date/Time of Note DATE: 06/12/16 TIME: 14:18 Assessment/Plan Assessment/Plan Additional Assessment/Plan 1. Permanent pacemaker- no signs of vegetations by echo this admit - good function per recent office check. MED rx now. 2. Abnormal electrocardiogram, assess for acute coronary syndrome- doubt ischemia. 3. History of cardiomyopathy, decreased left ventricular ejection fraction, last only 35% by echo 2016. 4. Hypertension- con't med rx - On high side - con't to add therapy as tolerated. 5. Dyslipidemia. 6. Cardiomyopathy-LVEF 35-40% by echo this admit 7. History of atrial fibrillation- rate controlled now. 8. History of prior cerebrovascular accident. 9. Chest cellulitis. 10. Encephalopathy. 11. Anemia, microcytic. 12. Renal failure. 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 BP on high side. ROS: No fever, no chills, no nausea, no vomiting, no diarrhea/constipation No recent weight changes No chest pain, no PND, no orthopnea No dizziness, blurred vision No thirst, no heat or cold intolerance (per nurse) Exam/Review of Systems Vital Signs Vitals Vital Signs Date Time Temp Pulse Resp B/P Pulse Ox O2 Delivery O2 Flow Rate FiO2 06/12/16 08:05 Nasal Cannula 2.0 06/12/16 07:47 98.1 68 16 164/60 96 06/08/16 20:58 28 Intake and Output 06/11/16 06/11/16 06/12/16 15:00 23:00 07:00 Intake Total 250 ml 1020 ml 1230 ml Output Total 1200 ml 800 ml Balance 250 ml -180 ml 430 ml Exam General: WN/WD/NAD, AOx 3 HEENT: Unicetric/atraumatic/EOMI (follows commands) NECK: JVD elevated, no thyromegaly Lymph: no lymphadenopathy HEART: regular with no S3, II/ systolic murmur at apex LUNGS: Coarse sounds ABD: soft, NT, ND, +BS : Intact Neuro: non focal SKIN: chronic changes EXT: trace edema Results Result Diagram: 06/10/16 0545 06/11/16 0420 Medications Medications Current Medications Sodium Chloride 1,000 ml @ 20 mls/hr Q24H IV Last administered on 06/10/16 13 :24; Admin Dose 20 MLS/HR; Start 06/08/16 at 04:30 Levofloxacin/ Dextrose (Levaquin 500mg/ D5W 100 ml (Pmx)) 100 ml @ 100 mls/hr Q24H IVPB Last administered on 06/12/16 05:48; Admin Dose 100 MLS/HR; Start at 04:30 Acetaminophen (Tylenol Tab) 500 mg Q4 PRN PO MODERATE PAIN LEVEL 4-6; Start at 04:30 Apixaban (Eliquis) 2.5 mg BID GTB Last administered on 06/12/16 09:50; Admin Dose 2.5 MG; Start 06/08/16 at 09:00 Atorvastatin Calcium (Lipitor) 40 mg QHS GTB Last administered on 06/11/16 21: 50; Admin Dose 40 MG; Start 06/08/16 at 21:00 Calcium/Vitamin D (Oyster Shell/ Vit-D (500/200)) 1 tab DAILY GTB Last administered on 06/12/16 09:50; Admin Dose 1 TAB; Start 06/08/16 at 09:00 Clonidine (Catapres) 0.1 mg Q4H PRN GTB ELEVATED BLOOD PRESSURE>150 Last administered on 06/08/16 22:49; Admin Dose 0.1 MG; Start 06/08/16 at 04:30 Diphenhydramine HCl (Benadryl) 25 mg BID PRN GTB ITCHING; Start 06/08/16 at 04: 30 Docusate Sodium (Colace) 200 mg DAILY PO Last administered on 06/12/16 09:48; Admin Dose 200 MG; Start 06/08/16 at 09:00 Fenofibrate (Tricor) 145 mg QHS GTB Last administered on 06/11/16 21:50; Admin Dose 145 MG; Start 06/08/16 at 21:00 Ferrous Sulfate (Feosol Liquid Cup) 300 mg DAILY GTB Last administered on 09:50; Admin Dose 300 MG; Start 06/08/16 at 09:00 Levetiracetam (Keppra) 1,000 mg DAILY GTB Last administered on 06/12/16 09:50 ; Admin Dose 1,000 MG; Start 06/08/16 at 09:00 Magnesium Hydroxide (Milk Of Mag) 30 ml Q24H PRN PO CONSTIPATION Last administered on 06/09/16 23:09; Admin Dose 30 ML; Start 06/08/16 at 04:30 Memantine (Namenda) 10 mg BID GTB Last administered on 06/12/16 09:49; Admin Dose 10 MG; Start 06/08/16 at 09:00 Mineral Oil (Fleet Mineral Oil Enema) 133 ml DAILY PRN [place] CONSTIPATION; Start 06/08/16 at 04:30 Multivitamins Therapeutic (Theragran) 1 tab DAILY PO Last administered on 09:48; Admin Dose 1 TAB; Start 06/08/16 at 09:00 Zolpidem Tartrate (Ambien) 5 mg HS PRN GTB SLEEP; Start 06/08/16 at 04:30 Ondansetron HCl (Zofran Tab) 4 mg Q6 PRN GTB NAUSEA AND/OR VOMITING; Start at 05:00 Bisacodyl (Dulcolax Supp) 10 mg Q24H PRN [place] CONSTIPATION; Start 06/09/16 at 04: 30 Tramadol HCl 50 mg 50 mg Q12 PRN GTB SEVERE PAIN LEVEL 7-10; Start 06/08/16 at 09:00 Vancomycin HCl (Vancocin) 250 ml @ 125 mls/hr Q24H IVPB Last administered on 06:53; Admin Dose 125 MLS/HR; Start 06/08/16 at 05:30 Acetaminophen (Tylenol Tab) 325 mg Q4 PRN GTB MILD PAIN LEVEL 1-3; Start at 05:30 Furosemide (Lasix) 20 mg DAILY IV Last administered on 06/12/16 09:51; Admin Dose 20 MG; Start 06/10/16 at 09:00 Losartan Potassium (Cozaar) 50 mg BID GTB Last administered on 06/12/16 09:49 ; Admin Dose 50 MG; Start 06/09/16 at 21:00 Ascorbic Acid (Vitamin C) 500 mg DAILY GTB Last administered on 06/12/16 09:48 ; Admin Dose 500 MG; Start 06/10/16 at 09:00 Zinc Sulfate (Zinc Sulfate) 220 mg DAILY GTB Last administered on 06/12/16 09: 48; Admin Dose 220 MG; Start 06/10/16 at 09:00; Stop 06/24/16 at 08:59 Lactobacillus Acidophilus/ Rhamnosus (Culturelle) 1 cap BID PO Last administered on 06/12/16 09:48; Admin Dose 1 CAP; Start 06/10/16 at 09:00 Amlodipine Besylate (Norvasc) 5 mg BID PO ; Start 06/12/16 at 21:00 ADAM NASH MD Jun 12, 2016 14:20
[2016-06-12 19:40] VITALS: BP 165/72; RESP 20
[2016-06-12] MEDS: FENOFIBRATE 145 MG TAB GTB SCH (22:11)
[2016-06-12] MEDS: ATORVASTATIN 40 MG TAB GTB SCH (22:13)
[2016-06-13] MEDS: LEVOFLOXACIN 500MG/D5W (PMX) 100 ML IVPB SCH (05:23)
[2016-06-13] MEDS: VANCOMYCIN 1 GM in NS 250 ML IVPB SCH (06:42)
[2016-06-13 07:29] VITALS: BP 118/56; RESP 18
[2016-06-13] MEDS: FERROUS SULFATE 60 MG/ML 5ML CUP GTB SCH (09:56)
[2016-06-13] MEDS: FUROSEMIDE 20 MG INJ IV SCH (09:58)
[2016-06-13] MEDS: MULTIVITAMINS THERAPEUTIC TAB PO SCH (09:59)
[2016-06-13] MEDS: LEVETIRACETAM 500 MG TAB GTB SCH (09:59)
[2016-06-13] MEDS: MEMANTINE 10 MG TAB GTB SCH (09:59)
[2016-06-13] MEDS: APIXABAN 5 MG TABLET GTB SCH (09:59)
[2016-06-13] MEDS: LACTOBACILLUS RHAMNOSUS CAP PO SCH (09:59)
[2016-06-13] MEDS: CALCIUM/VITAMIN D (500/200) TAB GTB SCH (10:00)
[2016-06-13] MEDS: LOSARTAN 50 MG TAB GTB SCH (10:00)
[2016-06-13] MEDS: ZINC SULFATE 220 MG CAP GTB SCH (10:00)
[2016-06-13] MEDS: AMLODIPINE 5 MG TAB PO SCH (10:00)
[2016-06-13] MEDS: ASCORBIC ACID 500 MG TAB GTB SCH (10:00)
[2016-06-13] MEDS: DOCUSATE SODIUM 100 MG CAP PO SCH (10:01)
--- NOTE | 2016-06-13 14:31 | CONS ---
Date/Time of Note Date/Time of Note DATE: 06/13/16 TIME: 14:29 Assessment/Plan Assessment/Plan Additional Assessment/Plan 1. Permanent pacemaker- no signs of vegetations by echo this admit per Dr. Avendano - good function per recent office check. MED rx now. 2. Abnormal electrocardiogram, assess for acute coronary syndrome- doubt ischemia. 3. History of cardiomyopathy, decreased left ventricular ejection fraction, last only 35% by echo 2015. 4. Hypertension- con't med rx - On high side - con't to add therapy as tolerated. 5. Dyslipidemia. 6. Cardiomyopathy-LVEF 35-40% by echo this admit - pacer in [facility]. 7. History of atrial fibrillation- rate controlled now. 8. History of prior cerebrovascular accident. 9. Chest cellulitis. 10. Encephalopathy. 11. Anemia, microcytic. 12. Renal failure. 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 per nurse: ROS: No fever, no chills, no nausea, no vomiting, no diarrhea/constipation No recent weight changes No chest pain, no PND, no orthopnea No dizziness, blurred vision No thirst, no heat or cold intolerance Exam/Review of Systems Vital Signs Vitals Vital Signs Date Time Temp Pulse Resp B/P Pulse Ox O2 Delivery O2 Flow Rate FiO2 06/13/16 07:29 98.5 60 18 118/56 100 06/12/16 21:00 Nasal Cannula 2.0 Intake and Output 06/12/16 06/12/16 06/13/16 15:00 23:00 07:00 Intake Total 250 ml 260 ml 350 ml Output Total 1300 ml 600 ml Balance 250 ml -1040 ml -250 ml Exam General: WN/WD/NAD, AOx 0 HEENT: Unicetric/atraumatic/EOMI (does not follow commands) NECK: JVD elevated, no thyromegaly Lymph: no lymphadenopathy HEART: regular with no S3, II/ systolic murmur at apex LUNGS: Coarse sounds ABD: soft, NT, ND, +BS : Intact Neuro: non focal SKIN: chronic changes EXT: trace edema Results Result Diagram: 06/10/16 0545 06/11/16 0420 Medications Medications Current Medications Sodium Chloride 1,000 ml @ 20 mls/hr Q24H IV Last administered on 06/12/16 22 :11; Admin Dose 20 MLS/HR; Start 06/08/16 at 04:30 Levofloxacin/ Dextrose (Levaquin 500mg/ D5W 100 ml (Pmx)) 100 ml @ 100 mls/hr Q24H IVPB Last administered on 06/13/16 05:23; Admin Dose 100 MLS/HR; Start at 04:30 Acetaminophen (Tylenol Tab) 500 mg Q4 PRN PO MODERATE PAIN LEVEL 4-6; Start at 04:30 Apixaban (Eliquis) 2.5 mg BID GTB Last administered on 06/13/16 09:59; Admin Dose 2.5 MG; Start 06/08/16 at 09:00 Atorvastatin Calcium (Lipitor) 40 mg QHS GTB Last administered on 06/12/16 22: 13; Admin Dose 40 MG; Start 06/08/16 at 21:00 Calcium/Vitamin D (Oyster Shell/ Vit-D (500/200)) 1 tab DAILY GTB Last administered on 06/13/16 10:00; Admin Dose 1 TAB; Start 06/08/16 at 09:00 Clonidine (Catapres) 0.1 mg Q4H PRN GTB ELEVATED BLOOD PRESSURE>150 Last administered on 06/08/16 22:49; Admin Dose 0.1 MG; Start 06/08/16 at 04:30 Diphenhydramine HCl (Benadryl) 25 mg BID PRN GTB ITCHING Last administered on 22:13; Admin Dose 25 MG; Start 06/08/16 at 04:30 Docusate Sodium (Colace) 200 mg DAILY PO Last administered on 06/13/16 10:01; Admin Dose 200 MG; Start 06/08/16 at 09:00 Fenofibrate (Tricor) 145 mg QHS GTB Last administered on 06/12/16 22:11; Admin Dose 145 MG; Start 06/08/16 at 21:00 Ferrous Sulfate (Feosol Liquid Cup) 300 mg DAILY GTB Last administered on 09:56; Admin Dose 300 MG; Start 06/08/16 at 09:00 Levetiracetam (Keppra) 1,000 mg DAILY GTB Last administered on 06/13/16 09:59 ; Admin Dose 1,000 MG; Start 06/08/16 at 09:00 Magnesium Hydroxide (Milk Of Mag) 30 ml Q24H PRN PO CONSTIPATION Last administered on 06/09/16 23:09; Admin Dose 30 ML; Start 06/08/16 at 04:30 Memantine (Namenda) 10 mg BID GTB Last administered on 06/13/16 09:59; Admin Dose 10 MG; Start 06/08/16 at 09:00 Mineral Oil (Fleet Mineral Oil Enema) 133 ml DAILY PRN [place] CONSTIPATION; Start 06/08/16 at 04:30 Multivitamins Therapeutic (Theragran) 1 tab DAILY PO Last administered on 09:59; Admin Dose 1 TAB; Start 06/08/16 at 09:00 Zolpidem Tartrate (Ambien) 5 mg HS PRN GTB SLEEP; Start 06/08/16 at 04:30 Ondansetron HCl (Zofran Tab) 4 mg Q6 PRN GTB NAUSEA AND/OR VOMITING; Start at 05:00 Bisacodyl (Dulcolax Supp) 10 mg Q24H PRN [place] CONSTIPATION; Start 06/09/16 at 04: 30 Tramadol HCl 50 mg 50 mg Q12 PRN GTB SEVERE PAIN LEVEL 7-10; Start 06/08/16 at 09:00 Vancomycin HCl (Vancocin) 250 ml @ 125 mls/hr Q24H IVPB Last administered on 06:42; Admin Dose 125 MLS/HR; Start 06/08/16 at 05:30 Acetaminophen (Tylenol Tab) 325 mg Q4 PRN GTB MILD PAIN LEVEL 1-3; Start at 05:30 Furosemide (Lasix) 20 mg DAILY IV Last administered on 06/13/16 09:58; Admin Dose 20 MG; Start 06/10/16 at 09:00 Losartan Potassium (Cozaar) 50 mg BID GTB Last administered on 06/13/16 10:00 ; Admin Dose 50 MG; Start 06/09/16 at 21:00 Ascorbic Acid (Vitamin C) 500 mg DAILY GTB Last administered on 06/13/16 10:00 ; Admin Dose 500 MG; Start 06/10/16 at 09:00 Zinc Sulfate (Zinc Sulfate) 220 mg DAILY GTB Last administered on 06/13/16 10: 00; Admin Dose 220 MG; Start 06/10/16 at 09:00; Stop 06/24/16 at 08:59 Lactobacillus Acidophilus/ Rhamnosus (Culturelle) 1 cap BID PO Last administered on 06/13/16 09:59; Admin Dose 1 CAP; Start 06/10/16 at 09:00 Amlodipine Besylate (Norvasc) 5 mg BID PO Last administered on 06/13/16 10:00 ; Admin Dose 5 MG; Start 06/12/16 at 21:00 Hydralazine HCl (Apresoline) 50 mg TID PO Last administered on 06/13/16 09:59 ; Admin Dose 50 MG; Start 06/12/16 at 21:00 Miscellaneous Information (*Rx Drug Level Order Reminder*) VANCOMYCIN TROUGH AT 0430 ONCE ONCE XX ; Start 06/14/16 at 04:30; Stop 06/14/16 at 04:31 ADAM NASH MD Jun 13, 2016 14:31
[2016-06-13 16:35] VITALS: BP 134/79; PULSE 64; RESP 16
== END 2016-06-13 18:45 | DRG 603 ==
LOC: E/R 23:42 → MS2 06-08 01:38 → OBSVTOIN 06-10 08:30
PROVIDERS: ADMIT Internal Medicine Nephrology; ATTEND Internal Medicine Nephrology
DX: L03.313 Cellulitis of chest wall (principal); I69.954 Hemiplegia and hemiparesis following unspecified cerebrovascular disease affecting left non-dominant side; I42.9 Cardiomyopathy, unspecified; R13.0 Aphagia; Z93.1 Gastrostomy status; J44.9 Chronic obstructive pulmonary disease, unspecified; I12.9 Hypertensive chronic kidney disease with stage 1 through stage 4 chronic kidney disease, or unspecified chronic kidney disease; N18.9 Chronic kidney disease, unspecified; Z95.0 Presence of cardiac pacemaker
CPT/HCPCS: 71010; 76604; 80048; 80053; 80061; 80202; 81001; 81003; 82550; 82553; 82565; 83605; 83880; 84484; 84520; 85025; 85610; 85730; 87040; 87045; 87081; 87086; 93005; 93306; 94640; 94664; J1940; G0378; J1956; J3370; J7030

== ENCOUNTER 2016-10-22 02:05 | Emergency (ER) | payer MEDICARE, OTHER ==
[~2016-10-22] VITALS: Ht 167.6 cm; Wt 72.7 kg
[~2016-10-22 02:05] MED LIST changes: -ACET-2047 GTB; +ACET500C5 GTB; -AMLO-147 GTB; +ASCO500S2 GTB; -BENA20TA48 GTB; +CALC-61 GTB; -DULR PR; -ISOS60TA36 GTB; -METO-448 PO; +MULTI PO; +ONDA-43 GTB; -POTA8TAB46 GTB; +TRAM50TA2 GTB; +UDFER GTB
[2016-10-22 02:08] VITALS: Ht 167.6 cm; Wt 72.7 kg
--- NOTE | 2016-10-22 02:09 | ERA ---
ER Documentation Chief Complaint Date/Time DATE: 10/22/16 TIME: 02:08 Chief Complaint The patient pulled out her G-tube accidentally HPI The patient pulled out her G-tube accidentally a few hours ago. The nurse was able to put a Cevallos in the stoma and he was sent here for G-tube replacement. The history is obtained from the [facility] and medical record ROS All systems reviewed and are negative except as per history of present illness. Medications Home Meds Reported Medications Ondansetron Hcl* (Zofran*) 4 Mg Tab, 4 MG GTB Q6 Y for NAUSEA AND OR VOMITING, TAB 06/08/16 Ascorbic Acid* (Vitamin C* Liq) 500 Mg/5 Ml Syrup, 500 MG GTB TID, ML 06/08/16 Tramadol HCl (Tramadol HCl) 50 Mg Tablet, 50 MG GTB Q12 for SEVERE PAIN LEVEL 7- 10, #60 TAB 06/08/16 Acetaminophen* (Tylophen*) 500 Mg Capsule, 500 MG GTB Q4 Y for MODERATE PAIN LEVEL 4-6, TAB 06/08/16 Multivitamins* (Theragran*) 1 Tab Tab, 1 TAB PO DAILY, TAB 06/08/16 Ferrous Sulfate (Ferrous Sulfate) 300 Mg/5 Ml Liquid, 330 MG GTB DAILY 06/08/16 Calcium Carbonate/Vitamin D3 (Calcium 500 + Vit D 200 Tablet) 1 Each Tablet, 1 EACH GTB DAILY, TAB 06/08/16 Cran/Vitc/Mannose/Inulin/Brom (Uti-Stat Liquid) 3,875 Mg/30 Ml Liquid, 3875 MG GTB BID 02/19/16 Magnesium Hydroxide* (Milk Of Magnesia*) 400 Mg/5 Ml Oral.susp, 30 ML PO Q24H Y for CONSTIPATION, ML 02/19/16 Atorvastatin* (Atorvastatin*) 40 Mg Tablet, 40 MG GTB QHS, #30 TAB 02/19/16 Mineral Oil* (Fleet* Mineral Oil Enema) 133 Ml Oil, 133 ML NE NEEDED Y for CONSTIPATION, ENEMA 02/19/16 Fenofibrate Nanocrystallized* (Fenofibrate*) 145 Mg Tablet, 145 MG GTB QHS, TAB 02/19/16 Apixaban* (Eliquis*) 2.5 Mg Tablet, 2.5 MG GTB BID, TAB 02/19/16 Cranberry Extract (Cranberry) 425 Mg Capsule, 425 MG GTB BID, CAP 02/19/16 Diphenhydramine Hcl* (Benadryl*) 25 Mg Cap, 25 MG GTB BID Y for ITCHING, CAP 02/19/16 Albuterol Sulfate* (Albuterol Sulfate* Neb) 0.083%-3 Ml Neb, 2.5 MG NEB Q6 Y for WHEEZING AND SOB, #30 VIAL 02/19/16 Docusate Sodium* (Docusate Sodium*) 100 Mg Capsule, 200 MG GTB DAILY, CAP 07/02/14 Losartan Potassium* (Cozaar*) 25 Mg Tablet, 25 MG GTB DAILY, TAB 07/02/14 Clonidine Hcl* (Clonidine Hcl*) 0.1 Mg Tab, 0.1 MG GTB Q4H Y for ELEVATED BLOOD PRESSURE, TAB 07/02/14 Aspirin* (Aspirin*) 325 Mg Tablet, 325 MG GTB DAILY 07/19/12 Levetiracetam* (Keppra*) 1,000 Mg Tablet, 1000 MG GTB DAILY, 0 Refills 03/04/11 Memantine* (Namenda*) 10 Mg Tablet, 10 MG GTB BID 03/04/11 Furosemide* (Furosemide*) 20 Mg Tablet, 20 MG GTB DAILY HOLD IF SBP BELOW 110 OR HR BELOW 60 03/04/11 Zolpidem Tartrate* (Ambien*) 5 Mg Tablet, 5 MG GTB HS Y for SLEEP 06/09/10 Allergies Allergies: Coded Allergies: penicillin G (Verified Allergy, Unknown, 09/06/15) PMhx/Soc History of Surgery: Yes (PACEMAKER) Hx Respiratory Disorders: Yes (COPD) Hx Cardiac Disorders: Yes (HTN,PACEMAKER, CARDIOMEGALY) Hx Psychiatric Problems: No Hx Miscellaneous Medical Probl: Yes (hx of stroke with L sided weakness,UTI, htn,CADCOPDsubdural hematoma) Hx Alcohol Use: No Hx Substance Use: No Hx Tobacco Use: No Physical Exam Vitals Vital Signs Date Time Temp Pulse Resp B/P Pulse Ox O2 Delivery O2 Flow Rate FiO2 10/22/16 03:29 60 23 161/66 96 Room Air 10/22/16 02:15 62 23 156/58 98 Room Air 10/22/16 02:08 99.4 64 18 137/82 97 Physical Exam Const: No acute distress. Head: Atraumatic. Eyes: Normal Conjunctiva. ENT: Normal External Ears, Nose and Mouth. Neck: Full range of motion. No meningismus. Resp: Clear to auscultation bilaterally. Cardio: Regular rate and rhythm. Abd: Soft, non distended, normal bowel sounds, the G-tube is inside the stoma Skin: No petechiae or rashes. Back: No midline or flank tenderness. Ext: Contracted Neur: Unable to perform due to his condition Psych: Unable to perform due to his condition Results 24 hrs Current Medications Medications (Trade) Dose Ordered Sig/Romi Route PRN Reason Start Time Stop Time Status Last Admin Dose Admin Diatrizoate Meglum/ Diatrizoate Sod (Gastrografin 66-10 Solution) 120 ml STK-MED ONCE .ROUTE 10/22/16 02:34 10/22/16 02:35 DC Procedures/[place] [address] Radiology Main Line: [phone] DIAGNOSTIC IMAGING REPORT Patient: JACINTO CONCEPCION : 1935 Age: 81 Sex: M MR #: [id number] DOS: 10/22/16 0225 Ordering MD: JEFF BROWNLEE MD Location: E/R Room/Bed: PROCEDURE: XR Abdomen. CLINICAL INDICATION: G tube placement. TECHNIQUE: AP abdomen x-ray. COMPARISON: None. FINDINGS: Retrograde injection of G tube with opacification of the gastric lumen. 25 cc of gastrographin water soluble contrast were employed. Cardiomegaly. Lung bases are otherwise clear. Bowel gas pattern is nonobstructive nonspecific with moderate solid stool in the region of the rectum. Atherosclerotic calcifications in the abdominal aorta. IMPRESSION: G tube tip and balloon within the gastric lumen. RPTAT: [facility]U Physician Frida Date Time Electronically viewed and signed by Physician Frida on 10/22/2016 03:08 RS/ CC: JEFF BROWNLEE MD MEDICAL MAKING DECISION:. The patient presented with G-tube dislodgment. A new 16 [place] G-tube replaced and confirmed with KUB with Gastrografin Procedure: Replacement of T-tube The Cevallos catheter was removed from the stoma, it was cleaned thoroughly with Betadine. A new 16 [place] G-tube inserted through the stoma and the balloon was inflated with 8 cc of sterile water. The stopper was then moved closer to the skin response gauze in between. The patient tolerated procedure well Departure Diagnosis: Primary Impression: Encounter for feeding tube placement Condition: Good Comments I discussed the findings with the patient. I advised the patient to follow-up with the primary physician in about 1-2 days, sooner if needed and return if any concern. JEFF BROWNLEE MD Oct 22, 2016 02:08
[2016-10-22] MEDS ORDERED: DIATR MEGLU/DIATRIZOATE SODIUM 120 ML BTL ONE (02:34)
--- NOTE | 2016-10-22 03:09 | RADRPT ---
PROCEDURE: XR Abdomen. CLINICAL INDICATION: G tube placement. TECHNIQUE: AP abdomen x-ray. COMPARISON: None. FINDINGS: Retrograde injection of G tube with opacification of the gastric lumen. 25 cc of gastrographin wate r soluble contrast were employed. Cardiomegaly. Lung bases are otherwise clear. Bowel gas pattern is nonobstructive nonspecific with moderate solid stool in the region of the rectum. Atherosclerotic calcifications in the abdominal aorta. IMPRESSION: G tube tip and balloon within the gastric lumen. RPTAT: [facility]U Physician Frida Date Time Electronically viewed and signed by Physician Frida on 10/22/2016 03:08 RS/
[2016-10-22 03:58] VITALS: BP 160/61; PULSE 62; RESP 24
== END 2016-10-22 04:15 | disposition home or self-care (01) ==
LOC: E/R 02:05
DX: Z43.1 Encounter for attention to gastrostomy (principal); R40.2242 Coma scale, best verbal response, confused conversation, at arrival to emergency department; J44.9 Chronic obstructive pulmonary disease, unspecified; I10 Essential (primary) hypertension; I25.10 Atherosclerotic heart disease of native coronary artery without angina pectoris; R40.2142 Coma scale, eyes open, spontaneous, at arrival to emergency department; R40.2352 Coma scale, best motor response, localizes pain, at arrival to emergency department; Z79.01 Long term (current) use of anticoagulants; Z79.82 Long term (current) use of aspirin; Z95.0 Presence of cardiac pacemaker
CPT/HCPCS: 74000

== ENCOUNTER 2016-12-16 12:30 | Emergency (ER) | payer MEDICARE ==
[~2016-12-16] VITALS: Ht 167.6 cm; Wt 80.0 kg
[~2016-12-16 12:30] MED LIST changes: -FLEETOIL PR; +MINE133E23 PR; +MULTI GTB; -MULTI PO
[2016-12-16] MEDS ORDERED: LIDOCAINE 1% (MPF) 5 ML VIAL SC ONE (13:00)
[2016-12-16 13:39] VITALS: Ht 167.6 cm; Wt 80.0 kg
[2016-12-16] MEDS ORDERED: FUROSEMIDE 40 MG INJ IV ONE (14:00)
[2016-12-16] MEDS ORDERED: LACTINEX GTB (14:24)
[2016-12-16] MEDS ORDERED: BISA10SU75 PR (14:26)
[2016-12-16] MEDS ORDERED: HYDR-3672 PO (14:47)
[2016-12-16] MEDS ORDERED: LOSA50TA6 GTB (14:48)
--- NOTE | 2016-12-16 14:49 | RADRPT ---
PROCEDURE: XR Chest. CLINICAL INDICATION: Check PICC line position. TECHNIQUE: Single frontal view. COMPARISON: 06/08/2016. FINDINGS: There is a right arm PICC line with the tip in the right subclavian vein. The lungs are clear. The heart is enlarged. Calcification is present in the aorta consistent with atherosclerosis. There i s a left-sided single lead permanent pacemaker. There is no pleural effusion. There is no pneumothorax. IMPRESSION: 1. Right arm PICC line tip in the right subclavian vein. 2. Cardiomegaly and atherosclerosis. 3. Permanent pacemaker. RPTAT: QQ .Jimmy Mills MD, MD Date Time Electronically viewed and signed by .Jimmy Mills MD, MD on 12/16/2016 14:49 .R/
[2016-12-16] MEDS ORDERED: AMLO5TAB4 GTB (14:50)
--- NOTE | 2016-12-16 16:21 | RADRPT ---
PROCEDURE: XR Chest. CLINICAL INDICATION: PICC line placement TECHNIQUE: AP Portable chest. COMPARISON: Chest x-ray 12/16/2016 at 02:34 p.m. FINDINGS: The soft tissues and bones are remarkable for a left precordial single lead pacemaker. A right PICC catheter is noted tip in the superior vena cava. Generalized osteopenia is noted with degenerative changes of the bilateral acromioclavicular joints and mild thoracic spondylosis.. Left lower lobe a telectasis or consolidation is present with a small left pleural effusion. In addition, reticular n odular changes are noted in the right upper and lower lobes. The mediastinum and heart are remarkabl e for mild vascular calcifications of the thoracic aorta and moderate cardiomegaly. No pneumothorax is present. IMPRESSION: 1. Right PICC catheter tip in superior vena cava and left single lead precordial pacemaker. 2. Left lower lobe atelectasis or consolidation and small left pleural effusion. 3. Right upper and lower lobe reticulonodular changes. Consider chest CT with contrast to further evaluate. 4. Stable cardiomegaly and atherosclerotic vascular disease RPTAT: HDC .Merced Ellis MD, Date Time Electronically viewed and signed by .Merced Ellis MD, on 12/16/2016 16:21 .C/
[2016-12-16] MEDS ORDERED: ALBUTEROL 0.083% (NEB) 2.5 MG/3 ML AMP HHN STA (16:37)
[2016-12-16] MEDS ORDERED: IPRATROPIUM (NEB) 0.5 MG/2.5 ML AMP HHN ONE (17:00)
--- NOTE | 2016-12-16 18:14 | ERD ---
ER Documentation Chief Complaint Date/Time DATE: 12/16/16 TIME: 18:11 Chief Complaint BIB RA FOR EVAL OF RT UPPER PICC LINE FUNCTION HPI Patient is an 81-year-old male who presents for a PICC line reevaluation. The patient was brought in by ambulance. He has a PICC line in his right upper extremity and there was concern that the PICC line had pulled out partially. He came from [facility]. Please note the history and physical exam is limited secondary to the patient's mental status at baseline. ROS All systems reviewed and are negative except as per history of present illness. Medications Home Meds Reported Medications Amlodipine Besylate* (Norvasc*) 5 Mg Tablet, 5 MG GTB DAILY, TAB 12/16/16 Losartan Potassium* (Losartan Potassium*) 50 Mg Tablet, 50 MG GTB BID, TAB 12/16/16 Hydralazine Hcl* (Hydralazine Hcl*) 50 Mg Tab, 50 MG PO Q8, #90 TAB HOLD FOR SBP BELOW 110 OR HR BELOW 60 12/16/16 Bisacodyl* (Bisacodyl*) 10 Mg Supp, 10 MG ME Q24H Y for CONSTIPATION, SUPP 12/16/16 Lactobacillus Acidophilus* (Lactinex*) 1 Tab Chew, 1 TAB GTB BID, TAB 12/16/16 Ascorbic Acid* (Vitamin C* Liq) 500 Mg/5 Ml Syrup, 500 MG GTB TID, ML 06/08/16 Tramadol HCl (Tramadol HCl) 50 Mg Tablet, 50 MG GTB Q12 for SEVERE PAIN LEVEL 7- 10, #60 TAB 06/08/16 Acetaminophen* (Tylophen*) 500 Mg Capsule, 500 MG GTB Q4 Y for MODERATE PAIN LEVEL 4-6, TAB 06/08/16 Multivitamins* (Theragran*) 1 Tab Tab, 1 TAB GTB DAILY, TAB 06/08/16 Ferrous Sulfate (Ferrous Sulfate) 300 Mg/5 Ml Liquid, 330 MG GTB DAILY 06/08/16 Calcium Carbonate/Vitamin D3 (Calcium 500 + Vit D 200 Tablet) 1 Each Tablet, 1 EACH GTB DAILY, TAB 06/08/16 Cran/Vitc/Mannose/Inulin/Brom (Uti-Stat Liquid) 3,875 Mg/30 Ml Liquid, 3875 MG GTB BID 11/3/16 Magnesium Hydroxide* (Milk Of Magnesia*) 400 Mg/5 Ml Oral.susp, 30 ML PO Q24H Y for CONSTIPATION, ML 02/19/16 Atorvastatin* (Atorvastatin*) 40 Mg Tablet, 40 MG GTB QHS, #30 TAB 02/19/16 Fenofibrate Nanocrystallized* (Fenofibrate*) 145 Mg Tablet, 145 MG GTB QHS, TAB 02/19/16 Apixaban* (Eliquis*) 2.5 Mg Tablet, 2.5 MG GTB BID, TAB 02/19/16 Diphenhydramine Hcl* (Benadryl*) 25 Mg Cap, 25 MG GTB BID Y for ITCHING, CAP 02/19/16 Albuterol Sulfate* (Albuterol Sulfate* Neb) 0.083%-3 Ml Neb, 2.5 MG NEB Q6 Y for WHEEZING AND SOB, #30 VIAL 02/19/16 Docusate Sodium* (Docusate Sodium*) 100 Mg Capsule, 200 MG GTB DAILY, CAP 07/02/14 Clonidine Hcl* (Clonidine Hcl*) 0.1 Mg Tab, 0.1 MG GTB Q4H Y for ELEVATED BLOOD PRESSURE, TAB FOR SBP>160 07/02/14 Aspirin* (Aspirin*) 325 Mg Tablet, 325 MG GTB DAILY 07/19/12 Levetiracetam* (Keppra*) 1,000 Mg Tablet, 1000 MG GTB DAILY, 0 Refills 03/04/11 Memantine* (Namenda*) 10 Mg Tablet, 10 MG GTB BID 03/04/11 Furosemide* (Furosemide*) 20 Mg Tablet, 20 MG GTB DAILY HOLD IF SBP BELOW 110 OR HR BELOW 60 03/04/11 Zolpidem Tartrate* (Ambien*) 5 Mg Tablet, 5 MG GTB HS Y for SLEEP 06/09/10 Discontinued Reported Medications Ondansetron Hcl* (Zofran*) 4 Mg Tab, 4 MG GTB Q6 Y for NAUSEA AND OR VOMITING, TAB 06/08/16 Mineral Oil* (Fleet* Mineral Oil Enema) 133 Ml Oil, 133 ML ME NEEDED Y for CONSTIPATION, ENEMA 02/19/16 Cranberry Extract (Cranberry) 425 Mg Capsule, 425 MG GTB BID, CAP 11/3/16 Losartan Potassium* (Cozaar*) 25 Mg Tablet, 25 MG GTB DAILY, TAB 07/02/14 Allergies Allergies: Coded Allergies: Penicillins (Verified Allergy, Severe, 12/16/16) PMhx/Soc History of Surgery: Yes (PACEMAKER) Hx Neurological Disorder: Yes (DEMENTIA, CVA) Hx Respiratory Disorders: Yes (COPD) Hx Cardiac Disorders: Yes (HTN, AFIB) Hx Psychiatric Problems: No Hx Miscellaneous Medical Probl: Yes (hx of stroke with L sided weakness,UTI, htn,CADCOPDsubdural hematoma) Hx Alcohol Use: No Hx Substance Use: No Hx Tobacco Use: No FmHx Unable to obtain Physical Exam Vitals Vital Signs Date Time Temp Pulse Resp B/P Pulse Ox O2 Delivery O2 Flow Rate FiO2 12/16/16 17:15 60 20 100 Nasal Cannula 2.0 12/16/16 13:39 98.3 60 17 133/78 100 Physical Exam Const: Chronically ill Head: Atraumatic Eyes: Normal Conjunctiva ENT: Normal External Ears, Nose and Mouth. Neck: Full range of motion..~ No meningismus. Resp: Clear to auscultation bilaterally Cardio: Regular rate and rhythm, no murmurs Abd: Soft, non tender, non distended. Normal bowel sounds Skin: No petechiae or rashes Back: No midline or flank tenderness Ext: Patient is a PICC line in the right upper extremity but it does appear to be a few inches withdrawn Neur: Awake But confused at baseline Results 24 hrs Current Medications Medications (Trade) Dose Ordered Sig/Romi Route PRN Reason Start Time Stop Time Status Last Admin Dose Admin Lidocaine (Xylocaine 1% (Mpf)) 5 ml ONCE ONCE SC 12/16/16 13:00 12/16/16 13:01 DC Furosemide (Lasix) 40 mg ONCE ONCE IV 12/16/16 14:00 12/16/16 14:01 DC 12/16/16 15:04 IV Flush (NS 10 ml) 10 ml PRN PRN IV IV PROTOCOL 12/16/16 17:00 Albuterol (Proventil 0.083% (Neb)) 5 mg ONCE STAT HHN 12/16/16 16:37 12/16/16 16:39 DC 12/16/16 17:10 Ipratropium [place] (Atrovent 0.02% (Neb)) 0.5 mg ONCE ONCE HHN 12/16/16 17:00 12/16/16 17:01 DC 12/16/16 17:10 Procedures/MDM Chest X-ray #1 1V Interpreted by me: Soft Tissue: No acute abnormalities Bones: No acute abnormalities Mediastinum/Cardiac Silhouette/Lungs: Initial chest x-ray shows a PICC line that is in the subclavian vein and not in the SVC Chest X-ray #2 1V Interpreted by me: Soft Tissue: No acute abnormalities Bones: No acute abnormalities Mediastinum/Cardiac Silhouette/Lungs: Repeat chest x-ray shows PICC line in the SVC in good position after replacement Patient is an 81-year-old male presents with a PICC line which has been partially withdrawn. The patient had his PICC line replaced at the bedside by the PICC nurse. He became slightly short of breath and chest x-ray shows PICC line in good position but no pneumonia or pneumothorax. The patient was given a breathing treatment. The patient will be transferred back to the nursing facility where he is currently receiving antibiotics long-term. He can return for any worsening symptoms. Vital signs were normal in the emergency department. Departure Diagnosis: Primary Impression: S/P PICC central line placement Condition: Fair Patient Instructions: Picc Line Care Additional Instructions: Call your primary care doctor TOMORROW for an appointment during the next 1 WEEK.Tell the social secretary that you were referred from this facility.See the doctor sooner or return here if your condition worsens before your appointment time. RENEE COUGHLIN MD Dec 16, 2016 18:14
[2016-12-16] MEDS ORDERED: SOD CHLORIDE 0.9% 100 ML ONE (19:05)
[2016-12-16 19:36] VITALS: BP 152/56; PULSE 64; RESP 21
== END 2016-12-16 19:48 | disposition home or self-care (01) ==
LOC: E/R 12:30
DX: T82.49XA Other complication of vascular dialysis catheter, initial encounter (principal); I10 Essential (primary) hypertension; J44.9 Chronic obstructive pulmonary disease, unspecified; I25.10 Atherosclerotic heart disease of native coronary artery without angina pectoris; R06.2 Wheezing; Y82.8 Other medical devices associated with adverse incidents; Z79.01 Long term (current) use of anticoagulants; Z79.82 Long term (current) use of aspirin
CPT/HCPCS: 36569; 71010; 94664; 96374; 99284; C1769; J1940

== ENCOUNTER 2017-01-18 09:55 | Inpatient (IN) | payer MEDICARE ==
[~2017-01-18] VITALS: Ht 157.5 cm; Wt 65.2 kg
[~2017-01-18 09:55] MED LIST changes: +AMLO5TAB4 GTB; +BISA10SU75 PR; -CRAN425C GTB; +HYDR-3672 PO; +LACTINEX GTB; -LOSA25TA2 GTB; +LOSA50TA6 GTB; -MINE133E23 PR; -ONDA-43 GTB
[2017-01-18] MEDS ORDERED: AZTREONAM 2 GM in SOD CHLORIDE 0.9% 100 ML IVPB STA (09:58)
[2017-01-18] MEDS ORDERED: SOD CHLORIDE 0.9% 1,000 ML IV STA ×2 (09:59)
[2017-01-18] MEDS ORDERED: VANCOMYCIN 1 GM (PMX) 250 ML IVPB ONE (10:00)
--- NOTE | 2017-01-18 10:35 | RADRPT ---
PROCEDURE: Chest x-ray CLINICAL INDICATION: Shortness of breath TECHNIQUE: Chest single view COMPARISON: 12/16/2016 FINDINGS: There is left chest single lead pacemaker. Right arm PICC line remains in good position. Stable card iomegaly and an sclerotic aortic calcification is seen. There is ongoing moderate degree CHF with sm all left pleural effusion. The overall appearance is grossly unchanged IMPRESSION: 1. Cardiomegaly with ongoing moderate degree CHF and stable small left pleural effusion. 2. Associated mild left lower lung volume loss and compressive atelectasis. 3. Right arm PICC line. 4. Pacemaker. 5. Atherosclerotic aortic calcification.. 6. No significant change RPTAT: HH .Avila Leiva MD, Date Time Electronically viewed and signed by .vAila Leiva MD, on 01/18/2017 10:34 .W/
[2017-01-18] MEDS ORDERED: ACETAMINOPHEN 650 MG SUPP PR STA (11:00)
[2017-01-18 11:16] LABS: ADD UMIC NO; UR ASCORBIC ACID 40 mg/dL (NEGATIVE); UR BILIRUBIN (Dip) NEGATIVE (NEGATIVE); UR BLOOD (Dip) NEGATIVE (NEGATIVE); UR CLARITY CLEAR (CLEAR); UR COLOR YELLOW (YELLOW); UR GLUCOSE (Dip) NEGATIVE (NEGATIVE); UR KETONES (Dip) NEGATIVE (NEGATIVE); UR LEUKOCYTE ESTERASE (Dip) NEGATIVE Leu/ul (NEGATIVE); UR NITRITE (Dip) NEGATIVE (NEGATIVE); UR SPECIFIC GRAVITY (Dip) 1.013 (1.003-1.030); UR TOTAL PROTEIN (Dip) NEGATIVE (NEGATIVE); UR UROBILINOGEN (Dip) NEGATIVE (NEGATIVE)
[2017-01-18 11:17] LABS: BASOPHIL # 0.1 10^3/ul (0.0-0.1); BASOPHILS % 0.5 % (0.0-2.0); EOSINOPHILS # 0.4 10^3/ul (0.0-0.5); EOSINOPHILS % 3.3 % (0.0-7.0); HEMATOCRIT 30.6 % (42.0-52.0); LYMPHOCYTES # 0.8 10^3/ul (0.8-2.9); LYMPHOCYTES % 6.3 % (15.0-51.0); MEAN CORPUSCULAR HGB CONC 29.4 g/dl (32.0-37.0); MEAN CORPUSCULAR VOLUME 88.4 fl (82.0-101.0); MEAN PLATELET VOLUME 11.8 fl (7.4-10.4); MONOCYTE # 0.8 10^3/ul (0.3-0.9); MONOCYTES % 6.4 % (0.0-11.0); NEUTROPHIL # 10.5 10^3/ul (1.6-7.5); NEUTROPHILS % 81.9 % (39.0-77.0); PLATELET COUNT 354 10^3/UL (140-415); RED BLOOD COUNT 3.46 10^6/ul (4.70-6.10); RED CELL DISTRIBUTION WIDTH 17.4 % (11.5-14.5); WHITE BLOOD COUNT 12.8 10^3/ul (4.8-10.8)
[2017-01-18 11:31] LABS: PROTIME 13.2 Sec (12.2-14.2)
[2017-01-18 11:32] LABS: PARTIAL THROMBOPLASTIN TIME 28.5 Sec (25.0-35.0)
[2017-01-18 11:37] LABS: ALBUMIN/GLOBULIN RATIO 0.81; BILIRUBIN,INDIRECT 0.1 mg/dl (0-1.1); BILIRUBIN,TOTAL 0.1 mg/dl (0.2-1.3); CALCIUM 8.6 mg/dl (8.4-10.2); CREATININE 1.74 mg/dl (0.61-1.24); TOTAL PROTEIN 6.7 g/dl (6.1-8.1)
[2017-01-18 11:46] LABS: TROPONIN-I 0.077 ng/ml (0.00-0.12)
[2017-01-18] MEDS ORDERED: ONDANSETRON 4 MG INJ IV PRN (12:00)
[2017-01-18] MEDS ORDERED: ACETAMINOPHEN 325 MG TAB PO PRN (12:00)
[2017-01-18 12:12] VITALS: TEMP 98.2
[2017-01-18] MEDS ORDERED: MINE133E23 PR (12:12)
[2017-01-18] MEDS ORDERED: IPRA3AMP INHALATION (12:15)
[2017-01-18] MEDS ORDERED: ISOS20TA19 GTB (12:15)
[2017-01-18] MEDS ORDERED: FURO40TA4 GTB (12:15)
--- NOTE | 2017-01-18 12:28 | ERA ---
ER Documentation Chief Complaint Date/Time DATE: 01/18/17 TIME: 12:26 Chief Complaint MORE ALOC DUE TO HOT TO TOUCH AND RAPID RESP RATE AND CONGESTION . HPI Patient is an 81-year-old male who presents with altered mental status. Please note the history and physical exam is limited secondary to the patient's altered mental status at this time. The patient was brought in by ambulance from a facility. He was warm to touch. He was more altered than usual. Upon review of old medical records he has multiple visits to the ER for various complaints. His primary doctor is Dr. Mo. I cannot obtain history otherwise. ROS All systems reviewed and are negative except as per history of present illness. Medications Home Meds Reported Medications Isosorbide Dinitrate* (Isosorbide Dinitrate*) 20 Mg Tablet, 20 MG GTB TID, TAB 01/18/17 Ipratropium-Albuterol (Ipratropium-Albuterol) 0.5-3 Mg/3 Ml Ampul.neb, 3 ML INHALATION Q6, #30 VIAL 01/18/17 Furosemide* (Furosemide*) 40 Mg Tablet, 40 MG GTB Q8, TAB 01/18/17 Mineral Oil* (Fleet* Mineral Oil Enema) 133 Ml Oil, 133 ML AL NEEDED Y for CONSTIPATION, ENEMA 01/18/17 Amlodipine Besylate* (Norvasc*) 5 Mg Tablet, 5 MG GTB BID, TAB 12/16/16 Losartan Potassium* (Losartan Potassium*) 50 Mg Tablet, 50 MG GTB BID, TAB 12/16/16 Hydralazine Hcl* (Hydralazine Hcl*) 50 Mg Tab, 50 MG PO Q8, #90 TAB HOLD FOR SBP BELOW 110 OR HR BELOW 60 12/16/16 Bisacodyl* (Bisacodyl*) 10 Mg Supp, 10 MG AL Q24H Y for CONSTIPATION, SUPP 12/16/16 Lactobacillus Acidophilus* (Lactinex*) 1 Tab Chew, 1 TAB GTB BID, TAB 12/16/16 Ascorbic Acid* (Vitamin C* Liq) 500 Mg/5 Ml Syrup, 500 MG GTB DAILY, ML 06/08/16 Tramadol HCl (Tramadol HCl) 50 Mg Tablet, 50 MG GTB Q12 for SEVERE PAIN LEVEL 7- 10, #60 TAB 06/08/16 Acetaminophen* (Tylophen*) 500 Mg Capsule, 500 MG GTB Q4 Y for MODERATE PAIN LEVEL 4-6, TAB 06/08/16 Multivitamins* (Theragran*) 1 Tab Tab, 1 TAB GTB DAILY, TAB 06/08/16 Ferrous Sulfate (Ferrous Sulfate) 300 Mg/5 Ml Liquid, 330 MG GTB DAILY 06/08/16 Calcium Carbonate/Vitamin D3 (Calcium 500 + Vit D 200 Tablet) 1 Each Tablet, 1 EACH GTB DAILY, TAB 06/08/16 Cran/Vitc/Mannose/Inulin/Brom (Uti-Stat Liquid) 3,875 Mg/30 Ml Liquid, 3875 MG GTB DAILY 02/19/16 Magnesium Hydroxide* (Milk Of Magnesia*) 400 Mg/5 Ml Oral.susp, 30 ML PO Q24H Y for CONSTIPATION, ML 02/19/16 Atorvastatin* (Atorvastatin*) 40 Mg Tablet, 40 MG GTB QHS, #30 TAB 02/19/16 Fenofibrate Nanocrystallized* (Fenofibrate*) 145 Mg Tablet, 145 MG GTB QHS, TAB 02/19/16 Apixaban* (Eliquis*) 2.5 Mg Tablet, 2.5 MG GTB BID, TAB 02/19/16 Diphenhydramine Hcl* (Benadryl*) 25 Mg Cap, 25 MG GTB BID Y for ITCHING, CAP 02/19/16 Albuterol Sulfate* (Albuterol Sulfate* Neb) 0.083%-3 Ml Neb, 2.5 MG NEB Q6 Y for WHEEZING AND SOB, #30 VIAL 02/19/16 Docusate Sodium* (Docusate Sodium*) 100 Mg Capsule, 200 MG GTB DAILY, CAP 07/02/14 Clonidine Hcl* (Clonidine Hcl*) 0.1 Mg Tab, 0.1 MG GTB Q4H Y for ELEVATED BLOOD PRESSURE, TAB FOR SBP>160 07/02/14 Aspirin* (Aspirin*) 325 Mg Tablet, 325 MG GTB DAILY 07/19/12 Levetiracetam* (Keppra*) 1,000 Mg Tablet, 1000 MG GTB DAILY, 0 Refills 03/04/11 Memantine* (Namenda*) 10 Mg Tablet, 10 MG GTB BID 03/04/11 Zolpidem Tartrate* (Ambien*) 5 Mg Tablet, 5 MG GTB HS Y for SLEEP 06/09/10 Discontinued Reported Medications Furosemide* (Furosemide*) 20 Mg Tablet, 20 MG GTB DAILY HOLD IF SBP BELOW 110 OR HR BELOW 60 03/04/11 Allergies Allergies: Coded Allergies: Penicillins (Verified Allergy, Severe, 12/16/16) PMhx/Soc History of Surgery: Yes (PACEMAKER) Hx Neurological Disorder: Yes (DEMENTIA, CVA) Hx Respiratory Disorders: Yes (COPD) Hx Cardiac Disorders: Yes (HTN, AFIB) Hx Psychiatric Problems: No Hx Miscellaneous Medical Probl: Yes (hx of stroke with L sided weakness,UTI, htn,CADCOPDsubdural hematoma) Hx Alcohol Use: No Hx Substance Use: No Hx Tobacco Use: No Smoking Status: Unknown if ever smoked FmHx Unable to obtain Physical Exam Vitals Vital Signs Date Time Temp Pulse Resp B/P Pulse Ox O2 Delivery O2 Flow Rate FiO2 01/18/17 12:12 98.2 60 19 149/48 100 Non Rebreather 15.0 01/18/17 11:00 Rebreather 10 01/18/17 11:00 60 18 151/46 100 Mask 8.0 01/18/17 10:17 100.4 88 28 144/78 91 Physical Exam Const: Chronically ill-appearing Head: Atraumatic Eyes: Normal Conjunctiva ENT: Normal External Ears, Nose and Mouth. Neck: Full range of motion..~ No meningismus. Resp: Clear to auscultation bilaterally Cardio: Regular rate and rhythm, no murmurs Abd: Soft, non tender, non distended. Normal bowel sounds Skin: Sacral decubitus ulcer with redness Back: No midline or flank tenderness Ext: No cyanosis, or edema Neur: Awake but not responding to questions Result Diagram: 01/18/17 1035 01/18/17 1035 Results 24 hrs Laboratory Tests Test 01/18/17 10:05 01/18/17 10:35 Lactic Acid Level 1.3mmol/L White Blood Count 12.810^3/ul Red Blood Count 3.4610^6/ul Hemoglobin 9.0g/dl Hematocrit 30.6% Mean Corpuscular Volume 88.4fl Mean Corpuscular Hemoglobin 26.0pg Mean Corpuscular Hemoglobin Concent 29.4g/dl Red Cell Distribution Width 17.4% Platelet Count 04550^3/UL Mean Platelet Volume 11.8fl Neutrophils % 81.9% Lymphocytes % 6.3% Monocytes % 6.4% Eosinophils % 3.3% Basophils % 0.5% Nucleated Red Blood Cells % 0.0/100WBC Neutrophils # 10.510^3/ul Lymphocytes # 0.810^3/ul Monocytes # 0.810^3/ul Eosinophils # 0.410^3/ul Basophils # 0.110^3/ul Nucleated Red Blood Cells # 0.010^3/ul Prothrombin Time 13.2Sec Prothrombin Time Ratio 1.0 INR International Normalized Ratio 1.00 Activated Partial Thromboplast Time 28.5Sec Urine Color YELLOW Urine Clarity CLEAR Urine pH 7.0 Urine Specific [place] 1.013 Urine Ketones NEGATIVEmg/dL Urine Nitrite NEGATIVEmg/dL Urine Bilirubin NEGATIVEmg/dL Urine Urobilinogen NEGATIVEmg/dL Urine Leukocyte Esterase NEGATIVELeu/ul Urine Hemoglobin NEGATIVEmg/dL Urine Glucose NEGATIVEmg/dL Urine Total Protein NEGATIVEmg/dl Sodium Level 153mmol/L Potassium Level 4.0mmol/L Chloride Level 110mmol/L Carbon Dioxide Level 38mmol/L Anion Gap 9 Blood Urea Nitrogen 84mg/dl Creatinine 1.74mg/dl Glucose Level 142mg/dl Calcium Level 8.6mg/dl Total Bilirubin 0.1mg/dl Direct Bilirubin 0.00mg/dl Indirect Bilirubin 0.1mg/dl Aspartate Amino Transf (AST/SGOT) 39IU/L Alanine Aminotransferase (ALT/SGPT) 35IU/L Alkaline Phosphatase 65IU/L Troponin I 0.077ng/ml Total Protein 6.7g/dl Albumin 3.0g/dl Globulin 3.70g/dl Albumin/Globulin Ratio 0.81 Current Medications Medications (Trade) Dose Ordered Sig/Romi Route PRN Reason Start Time Stop Time Status Last Admin Dose Admin Vancomycin HCl 250 ml @ 125 mls/hr ONCE ONCE IVPB 01/18/17 10:00 01/18/17 11:59 DC 01/18/17 11:00 Aztreonam 2 gm/ Sodium Chloride 100 ml @ 100 mls/hr ONCE STAT IVPB 01/18/17 09:58 01/18/17 10:57 DC Sodium Chloride 1,000 ml @ 1,000 mls/hr Q1H STAT IV 01/18/17 09:59 01/18/17 10:58 DC 01/18/17 09:59 Sodium Chloride (NS) 1,000 ml @ 1,000 mls/hr Q1H STAT IV 01/18/17 09:59 01/18/17 10:58 DC 01/18/17 09:59 Acetaminophen (Tylenol Supp) 650 mg ONCE STAT AL 01/18/17 11:00 01/18/17 11:01 DC Ondansetron HCl (Zofran Inj) 4 mg BRIDGE ORDER PRN IV NAUSEA AND/OR VOMITING 01/18/17 12:00 01/19/17 11:59 Acetaminophen (Tylenol Tab) 650 mg ER BRIDGE PRN PO MILD PAIN/FEVER 01/18/17 12:00 01/19/17 11:59 Procedures/MDM EKG read by me: Rate/Rhythm: Regular rate and rhythm at a normal rate Intervals: Normal Impression: No evidence of ischemia or arrhythmia Admit MDM: Patient's infectious symptoms have not stabilized and the patient is at risk of rapid decompensation. The patient will be admitted for careful hydration, antibiotic therapy, and infectious source control. Severe Sepsis criteria: Infectious source: Cellulitis End organ damage indicated by: No end organ damage at this time Sepsis Management: Time of recognition of sepsis: Upon arrival Within 3 hours of recognition: Blood cultures x 2 before broad-spectrum antibiotics: Yes 30 ml/kg NS bolus Completed Initial lactate normal Repeat lactate pending Time of recognition of septic shock: No septic shock Septic Shock Assessment: Any lactic acid > 4.0 No Persistent hypotension (SBP < 90 or 40 mmHg drop, MAP < 65) despite 30 mL/kg IV fluid bolus No Volume Re-assessment for Septic Shock (post 30 ml/kg bolus): No signs of septic shock at this time Persistent Hypotension Treatment: Comfort care No Central line Not Required Vasopressor started Not required I considered further perfusion assessment with CVP measurement, SCVO2, bedside ultrasound volume assessment, passive leg raise, trial of further fluid bolus. And proceeded with 30 ml/kg fluid bolus of NSS, broad spectrum antibiotics, and admission. Accepting Care Team Current data and ongoing care discussed. Admitting Physician: Dr. Mo the patient's primary doctor Molded Parts Inspector(s): None Outstanding Data: Culture results and repeat lactic acid Critical Care: Critical care time 35 minutes excluding all billable procedures Emergent fluid management while maintaining close respiratory support. Provision of immediate and broad-spectrum antibiotic therapy. Simultaneous assessment for possible sources in order to direct targeted therapy. Consideration for invasive and chemical support to prevent cardiopulmonary collapse. Departure Diagnosis: Primary Impression: Sepsis Qualified Code: A41.9 - Sepsis, due to unspecified organism Additional Impression: Altered level of consciousness Condition: RENEE Haque MD Jan 18, 2017 12:28
[2017-01-18 13:37] VITALS: BP 162/69; PULSE 72; RESP 24
[2017-01-18 13:43] VITALS: BP 144/65; PULSE 60; RESP 20
[2017-01-18] MEDS ORDERED: AZTREONAM 2 GM in SOD CHLORIDE 0.9% 100 ML IVPB ONE (14:00)
[2017-01-18 14:08] VITALS: Ht 157.5 cm; Wt 65.2 kg
[2017-01-18] MEDS ORDERED: ACETAMINOPHEN 500 MG TAB PO PRN (15:00)
[2017-01-18] MEDS ORDERED: BISACODYL 10 MG SUPP PR PRN (15:00)
[2017-01-18] MEDS ORDERED: DIPHENHYDRAMINE 25 MG CAP GTB PRN (15:00)
[2017-01-18] MEDS ORDERED: ZOLPIDEM 5 MG TAB GTB PRN (15:00)
[2017-01-18] MEDS ORDERED: ALBUTEROL 0.083% (NEB) 2.5 MG/3 ML AMP NEB PRN (15:00)
[2017-01-18] MEDS ORDERED: MAGNESIUM HYDROXIDE 30ML CUP PO PRN (15:00)
[2017-01-18] MEDS ORDERED: MINERAL OIL 133 ML ENEMA PR PRN (15:00)
[2017-01-18] MEDS ORDERED: VANCOMYCIN IV PER PHARMACY XX SCH (15:30)
[2017-01-18] MEDS: DEXTROSE 5% 1,000 ML IV SCH (17:49)
[2017-01-18] MEDS ORDERED: ALBUTEROL/IPRATROPIUM (NEB) 3 ML AMP INH SCH (18:00)
[2017-01-18] MEDS ORDERED: INFLUENZA VIRUS VACCINE 0.5 ML (DISPENSING) IM* ONE (18:00)
[2017-01-18] MEDS ORDERED: PENDING SANTYL ORDER FOR WOUND CARE XX PRN (18:00)
[2017-01-18] MEDS: FUROSEMIDE 20 MG INJ IV SCH (18:01)
--- NOTE | 2017-01-18 18:58 | QN ---
Documentation Comment [id number] JOSE C VILLATORO MD Jan 18, 2017 18:58
[2017-01-18 20:00] VITALS: BP 146/66; RESP 18
[2017-01-18] MEDS ORDERED: IPRATROPIUM (NEB) 0.5 MG/2.5 ML AMP HHN SCH (20:00)
--- NOTE | 2017-01-18 20:08 | HP ---
DATE OF ADMISSION: 01/18/2017 HISTORY OF PRESENT ILLNESS: Patient is an 81-year-old male who was recently discharged from [facility] with a diagnosis of gangrene of the right foot, status post right BKA. Patient also had CKD, CHF, hypertension, G-tube placement, pacemaker placement, aphasia, history of gout, history of cardiomyopathy, history of ejection fraction 35-40 percent, history of Pseudomonas aeruginosa UTI, presented with acute respiratory insufficiency, currently on nasal cannula. Family is at bedside. PAST MEDICAL HISTORY: Right foot gangrene, status post BKA; pacemaker placement, CKD, CHF. Patient has history of pacemaker site cellulitis; history of cardiomyopathy; history of hypertension; history of dyslipidemia; history of ejection fraction 35-40 percent; history of Pseudomonas aeruginosa UTI; AFib; history of CVA; history of anemia; history of C. difficile colitis; history of hyponatremia; dysphagia, COPD; history of lamine hole; history of COMMUNICATIONS PROJECT MANAGER bleed; history of chronic kidney disease. ALLERGIES: PENICILLIN. SOCIAL HISTORY: Negative. MEDICATIONS: Patient at home: 1. Tylenol. 2. Albuterol. 3. Amlodipine. 4. Apixaban. 5. Ascorbic acid. 6. Aspirin. 7. Lipitor. 8. Bisacodyl. 9. Calcium carbonate. 10. Clonidine. 11. Cranberry extract. 12. Diphenhydramine. 13. Docusate sodium. 14. Fenofibrate. 15. Iron sulfate. 16. Furosemide. 17. Hydralazine. 18. Isosorbide. 19. Lactobacillus. 20. Keppra. 21. Losartan. 22. Magnesium hydroxide. 23. Namenda. 24. Mineral oil. 25. Multiple vitamins. 26. Tramadol. 27. Ambien. REVIEW OF SYSTEMS: Cannot be obtained since patient is aphasic. PHYSICAL EXAMINATION: GENERAL APPEARANCE: Patient is aphasic. VITAL SIGNS: Pulse 60, blood pressure 144/65. HEENT: Head is atraumatic, normocephalic. Head: Old cerebral scar noted. Pupils equal and reactive. NECK: Supple. LUNGS: Clear anteriorly with rhonchi noted and at times poor respiratory effort. CARDIAC: Pacemaker, left chest noted. ABDOMEN: Soft. Bowel sounds present. G-tube in place. EXTREMITIES: No cyanosis, clubbing. Patient has a dressing of the right BKA. Contracture also noted of the upper and lower extremities. LABORATORY DATA: WBC 12.8, hematocrit 30.6. Patient's sodium 143, potassium 4, BUN 54, creatinine 1.74. Urinalysis is negative. Chest x-ray: Cardiomegaly, with ongoing moderate degree of CHF and stable small left pleural effusion, associated mild left lower lung loss and compressive atelectasis, right PICC line, pacemaker, atherosclerotic aortic calcification. IMPRESSION: 1. Sepsis. 2. Pulmonary edema. 3. Chronic obstructive pulmonary disease. 4. Right below-knee amputation. 5. Hyponatremia. 6. Free water deficit. 7. Cardiomyopathy. 8. Decreased ejection fraction. 9. G-tube placement. 10. History of right foot osteomyelitis. 11. Atherosclerotic heart disease. 12. Dyslipidemia. 13. History of Clostridium difficile colitis. PLAN: At this point is to continue home medication, G-tube, water, diuretic, IV fluid, antibiotic, wound care, oxygen, bronchodilator. Orders were done. Dictated By: Sal Mo MD /mindi/tommy /Document#: [id number]
[2017-01-18] MEDS: ALBUTEROL/IPRATROPIUM (NEB) 3 ML AMP INH SCH (20:42)
[2017-01-18] MEDS ORDERED: FAMOTIDINE 20 MG INJ IV SCH (21:00)
[2017-01-18] MEDS: FENOFIBRATE 145 MG TAB GTB SCH (21:13)
[2017-01-18] MEDS: LOSARTAN 50 MG TAB GTB SCH (21:13)
[2017-01-18] MEDS: traMADol 50 MG TAB GTB SCH (21:13)
[2017-01-18] MEDS: ISOSORBIDE DINITRATE 20 MG TAB GTB SCH (21:14)
[2017-01-18] MEDS: ATORVASTATIN 40 MG TAB GTB SCH (21:14)
[2017-01-18] MEDS: LACTOBACILLUS RHAMNOSUS CAP PO SCH (21:14)
[2017-01-18] MEDS: APIXABAN 5 MG TABLET GTB SCH (21:14)
[2017-01-18] MEDS: MEMANTINE 10 MG TAB GTB SCH (21:14)
[2017-01-18] MEDS: AMLODIPINE 5 MG TAB GTB SCH (21:15)
[2017-01-19] MEDS: SOD CHLORIDE 0.9% IV SCH ×3 (00:30→20:29)
[2017-01-19] MEDS: AZTREONAM IV SCH ×3 (00:30→20:29)
[2017-01-19] MEDS: ALBUTEROL/IPRATROPIUM (NEB) 3 ML AMP INH SCH ×4 (01:24→19:59)
[2017-01-19] MEDS ORDERED: ALTEPLASE (CATHFLO) 2 MG INJ CATHETER PRN (01:30)
[2017-01-19 02:12] VITALS: BP 101/50; RESP 20
[2017-01-19] MEDS: VANCOMYCIN 750 MG in SOD CHLORIDE 0.9% 150 ML IVPB SCH (05:17)
[2017-01-19 05:51] LABS: BASOPHILS % 0.3 % (0.0-2.0); EOSINOPHILS # 0.4 10^3/ul (0.0-0.5); EOSINOPHILS % 4.8 % (0.0-7.0); HEMATOCRIT 24.4 % (42.0-52.0); HEMOGLOBIN 7.2 g/dl (14.0-18.0); LYMPHOCYTES # 0.7 10^3/ul (0.8-2.9); LYMPHOCYTES % 10.1 % (15.0-51.0); MEAN CORPUSCULAR HEMOGLOBIN 26.3 pg (29.0-33.0); MEAN CORPUSCULAR HGB CONC 29.5 g/dl (32.0-37.0); MEAN CORPUSCULAR VOLUME 89.1 fl (82.0-101.0); MEAN PLATELET VOLUME 11.5 fl (7.4-10.4); MONOCYTE # 0.7 10^3/ul (0.3-0.9); MONOCYTES % 9.3 % (0.0-11.0); NEUTROPHIL # 5.4 10^3/ul (1.6-7.5); NEUTROPHILS % 74.5 % (39.0-77.0); PLATELET COUNT 302 10^3/UL (140-415); RED BLOOD COUNT 2.74 10^6/ul (4.70-6.10); RED CELL DISTRIBUTION WIDTH 17.2 % (11.5-14.5); WHITE BLOOD COUNT 7.3 10^3/ul (4.8-10.8)
[2017-01-19] MEDS: FUROSEMIDE 20 MG INJ IV SCH ×3 (06:05→18:13)
[2017-01-19 06:13] LABS: ALBUMIN 2.4 g/dl (3.3-4.9); ALBUMIN/GLOBULIN RATIO 0.72; BILIRUBIN,INDIRECT 0.1 mg/dl (0-1.1); BILIRUBIN,TOTAL 0.1 mg/dl (0.2-1.3); CALCIUM 7.8 mg/dl (8.4-10.2); CREATININE 1.37 mg/dl (0.61-1.24); POTASSIUM 3.5 mmol/L (3.5-5.1); TOTAL PROTEIN 5.7 g/dl (6.1-8.1)
[2017-01-19 07:31] VITALS: BP 140/64; RESP 20
[2017-01-19] MEDS: FERROUS SULFATE 60 MG/ML 5ML CUP GTB SCH (08:27)
[2017-01-19] MEDS: LEVETIRACETAM 500 MG TAB GTB SCH (08:27)
[2017-01-19] MEDS: MEMANTINE 10 MG TAB GTB SCH ×2 (08:27→20:06)
[2017-01-19] MEDS: traMADol 50 MG TAB GTB SCH ×2 (08:27→20:07)
[2017-01-19] MEDS: AMLODIPINE 5 MG TAB GTB SCH ×2 (08:27→20:13)
[2017-01-19] MEDS: ASCORBIC ACID 500 MG TAB GTB SCH (08:27)
[2017-01-19] MEDS: APIXABAN 5 MG TABLET GTB SCH ×2 (08:28→20:06)
[2017-01-19] MEDS: DOCUSATE SODIUM 100 MG CAP PO SCH (08:28)
[2017-01-19] MEDS: LACTOBACILLUS RHAMNOSUS CAP PO SCH ×2 (08:28→20:06)
[2017-01-19] MEDS: MULTIVITAMINS THERAPEUTIC TAB GTB SCH (08:28)
[2017-01-19] MEDS: CALCIUM/VITAMIN D (500/200) TAB GTB SCH (08:28)
[2017-01-19] MEDS: LOSARTAN 50 MG TAB GTB SCH ×2 (08:28→20:13)
[2017-01-19] MEDS: ISOSORBIDE DINITRATE 20 MG TAB GTB SCH ×3 (08:28→20:13)
[2017-01-19] MEDS ORDERED: ASPIRIN 325 MG TAB GTB SCH (09:00)
--- NOTE | 2017-01-19 12:18 | PN ---
Date/Time of Note Date/Time of Note DATE: 01/19/17 TIME: 12:15 Assessment/Plan VTE Prophylaxis VTE Prophylaxis Intervention: other Lines/Catheters IV Catheter Type (from Nrs): PICC Line Central line still needed: Yes Urinary Cath still in place: No Reason Cath still needed: other (indicate) Assessment/Plan Chief Complaint/Hosp Course IMPRESSION: 1. Sepsis. 2. Pulmonary edema.better 3. Chronic obstructive pulmonary disease. 4. Right below-knee amputation. 5. Hypernatremia 6. Free water deficit. 7. Cardiomyopathy. 8. Decreased ejection fraction. 9. G-tube placement. 10. History of right foot osteomyelitis. 11. Atherosclerotic heart disease. 12. Dyslipidemia. 13. History of Clostridium difficile colitis. plan d5 water cardio Problems: Subjective 24 Hr Interval Summary Respiratory: shortness of breath (better) Gastrointestinal: no complaints Genitourinary: no complaints Exam/Review of Systems Vital Signs Vitals Vital Signs Date Time Temp Pulse Resp B/P Pulse Ox O2 Delivery O2 Flow Rate FiO2 01/19/17 11:05 70 21 97 Aerosol 2.0 Nasal Cannula 01/19/17 07:31 98.2 140/64 Intake and Output 01/18/17 01/18/17 01/19/17 15:00 23:00 07:00 Intake Total 2350 ml 450 ml Output Total 1000 ml 950 ml Balance 2350 ml -1000 ml -500 ml Exam Neck: supple Respiratory: clear to auscultation Cardiovascular: regular rate and rhythm Gastrointestinal: soft Extremities: No edema Results Result Diagram: 01/19/17 0519 01/19/17 0519 Results 24 hrs Laboratory Tests Test 01/18/17 12:40 01/18/17 14:41 01/19/17 05:19 Lactic Acid Level 1.4 1.0 White Blood Count 7.3 # Red Blood Count 2.74 #L Hemoglobin 7.2 L Hematocrit 24.4 #L Mean Corpuscular Volume 89.1 Mean Corpuscular Hemoglobin 26.3 L Mean Corpuscular Hemoglobin Concent 29.5 L Red Cell Distribution Width 17.2 H Platelet Count 302 Mean Platelet Volume 11.5 H Neutrophils % 74.5 Lymphocytes % 10.1 L Monocytes % 9.3 Eosinophils % 4.8 Basophils % 0.3 Nucleated Red Blood Cells % 0.0 Neutrophils # 5.4 Lymphocytes # 0.7 L Monocytes # 0.7 Eosinophils # 0.4 Basophils # 0.0 Nucleated Red Blood Cells # 0.0 Sodium Level 156 H Potassium Level 3.5 Chloride Level 117 H Carbon Dioxide Level 35 H Anion Gap 8 Blood Urea Nitrogen 68 H Creatinine 1.37 H Glucose Level 122 Calcium Level 7.8 L Total Bilirubin 0.1 L Direct Bilirubin 0.00 Indirect Bilirubin 0.1 Aspartate Amino Transf (AST/SGOT) 29 Alanine Aminotransferase (ALT/SGPT) 31 Alkaline Phosphatase 49 Total Protein 5.7 #L Albumin 2.4 L Globulin 3.30 H Albumin/Globulin Ratio 0.72 Medications Medications Current Medications Acetaminophen (Tylenol Tab) 500 mg Q4 PRN PO MODERATE PAIN LEVEL 4-6; Start at 15:00 Albuterol (Proventil 0.083% (Neb)) 2.5 mg Q6 PRN NEB WHEEZING AND SOB; Start 01/18/17 at 15:00 Amlodipine Besylate (Norvasc) 5 mg BID GTB Last administered on 01/19/17 08:27 ; Admin Dose 5 MG; Start 01/18/17 at 21:00 Apixaban (Eliquis) 2.5 mg BID GTB Last administered on 01/19/17 08:28; Admin Dose 2.5 MG; Start 01/18/17 at 21:00 Ascorbic Acid (Vitamin C) 500 mg DAILY GTB Last administered on 01/19/17 08:27 ; Admin Dose 500 MG; Start 01/19/17 at 09:00 Aspirin (Aspirin) 325 mg DAILY GTB Last administered on 01/19/17 08:27; Admin Dose 325 MG; Start 01/19/17 at 09:00; Status Future Hold Atorvastatin Calcium (Lipitor) 40 mg QHS GTB Last administered on 01/18/17 21: 14; Admin Dose 40 MG; Start 01/18/17 at 21:00 Bisacodyl (Dulcolax Supp) 10 mg Q24H PRN [place] CONSTIPATION; Start 01/18/17 at 15: 00 Calcium/Vitamin D (Oyster Shell/ Vit-D (500/200)) 1 tab DAILY GTB Last administered on 01/19/17 08:28; Admin Dose 1 TAB; Start 01/19/17 at 09:00 Clonidine (Catapres) 0.1 mg Q4H PRN GTB SBP>170; Start 01/18/17 at 15:00; Status Future hold Diphenhydramine HCl (Benadryl) 25 mg BID PRN GTB ITCHING; Start 01/18/17 at 15: 00 Docusate Sodium (Colace) 200 mg DAILY PO Last administered on 01/19/17 08:28; Admin Dose 200 MG; Start 01/19/17 at 09:00 Fenofibrate (Tricor) 145 mg QHS GTB Last administered on 01/18/17 21:13; Admin Dose 145 MG; Start 01/18/17 at 21:00 Ferrous Sulfate (Feosol Liquid Cup) 330 mg DAILY GTB Last administered on 08:27; Admin Dose 330 MG; Start 01/19/17 at 09:00 Hydralazine HCl (Apresoline) 50 mg Q8 PO Last administered on 01/19/17 06:05; Admin Dose 50 MG; Start 01/18/17 at 22:00 Isosorbide Dinitrate (Isordil) 20 mg TID GTB Last administered on 01/19/17 08: 28; Admin Dose 20 MG; Start 01/18/17 at 21:00 Levetiracetam (Keppra) 1,000 mg DAILY GTB Last administered on 01/19/17 08:27 ; Admin Dose 1,000 MG; Start 01/19/17 at 09:00 Losartan Potassium (Cozaar) 50 mg BID GTB Last administered on 01/19/17 08:28 ; Admin Dose 50 MG; Start 01/18/17 at 21:00 Magnesium Hydroxide (Milk Of Mag) 30 ml Q24H PRN PO CONSTIPATION; Start at 15:00 Memantine (Namenda) 10 mg BID GTB Last administered on 01/19/17 08:27; Admin Dose 10 MG; Start 01/18/17 at 21:00 Mineral Oil (Fleet Mineral Oil Enema) 133 ml DAILY PRN [place] CONSTIPATION; Start 01/18/17 at 15:00 Multivitamins Therapeutic (Theragran) 1 tab DAILY GTB Last administered on 01/19 08:28; Admin Dose 1 TAB; Start 01/19/17 at 09:00 Tramadol HCl (Ultram) 50 mg Q12 GTB Last administered on 01/19/17 08:27; Admin Dose 50 MG; Start 01/18/17 at 21:00 Zolpidem Tartrate (Ambien) 5 mg HS PRN GTB SLEEP; Start 01/18/17 at 15:00 Lactobacillus Acidophilus/ Rhamnosus 1 cap 1 cap BID PO Last administered on 08:28; Admin Dose 1 CAP; Start 01/18/17 at 21:00 Dextrose (D5W) 1,000 ml @ 40 mls/hr Q24H IV Last administered on 01/18/17 17: 49; Admin Dose 40 MLS/HR; Start 01/18/17 at 15:30 Famotidine 20 mg 20 mg Q24H IV Last administered on 01/18/17 21:14; Admin Dose 20 MG; Start 01/18/17 at 21:00 Aztreonam/Sodium Chloride (Azactam/NS) 50 ml @ 100 mls/hr Q12 IV Last administered on 01/19/17 08:35; Admin Dose 100 MLS/HR; Start 01/18/17 at 23:00 Furosemide 20 mg 20 mg 06,12,18 IV Last administered on 01/19/17 06:05; Admin Dose 20 MG; Start 01/18/17 at 18:00 Vancomycin HCl/ Sodium Chloride (Vancocin/NS) 150 ml @ 75 mls/hr Q24H IVPB Last administered on 01/19/17 05:17; Admin Dose 75 MLS/HR; Start 01/19/17 at 05 :00 Miscellaneous Information (Pending Santyl Order For Wound Care) This patient basurto... PRN PRN XX WOUND CARE; Start 01/18/17 at 18:00 JOSE C VILLATORO MD Jan 19, 2017 12:18
--- NOTE | 2017-01-19 13:16 | CONS ---
DATE OF ADMISSION: 01/18/2017 DATE OF CONSULTATION: 01/19/2017 REASON FOR CONSULTATION: Hypertension, permanent pacemaker. REQUESTING PHYSICIAN: Dr. Sal Mo. HISTORY OF PRESENT ILLNESS: Mr. Anguiano is an 81-year-old male, well-known to myself as a primary off ice patient and multiple prior hospital admissions with a history of prior subdural hematoma, atrial fibrillation, a prior CVA, seizure disorder, hypertension, chronic obstructive pulmonary disease, c ardiomyopathy with decreased left ventricular ejection fraction, permanent pacemaker, dysphagia stat us post G-tube, aphasia, status post right BKA recently for gangrenous changes of the right foot, wh o presented with respiratory distress, worsening mental status. Upon arrival, temperature of 100.4, blood pressure 144/78, pulse 88, respiratory 28, saturating 100%. The patient's labs revealed whit e count 12.8, hemoglobin 9.0, platelet count 354. Sodium of 153, potassium 4.0, creatinine 0.74, BU N of 84. INR of 1. UA negative. The patient underwent a chest x-ray revealing cardiomegaly with o ngoing moderate degree of CHF and stable small left pleural effusion associated mid left lower lung zone, volume loss with compressive atelectasis. Pacemaker in place. The patient's electrocardiogra m revealed possible junctional rhythm at a rate of 67, normal axis, normal intervals, nonspecific ST -T abnormalities diffusely. The patient was subsequently admitted to the floor and since admit to [facility] floor, has had relatively stable vital signs with no further fevers. The patient at this time do es not respond to questions pertaining to chest pain or shortness of breath. PAST MEDICAL HISTORY: As above in HPI. MEDICATIONS CURRENTLY IN HOSPITAL 1. Aspirin. 2. Calcium. 3. Vitamin D. 4. Colace. 5. Ferrous sulfate. 6. Keppra. 7. Multivitamins. 8. Vancomycin. 9. Aztreonam 10. Norvasc 5 mg b.i.d. 11. Eliquis 2.5 mg p.o. b.i.d. 12. Lipitor 40 mg at bedtime. 13. Tricor 145 mg at bedtime. 14. Isordil 20 mg p.o. t.i.d. 15. Losartan 50 mg b.i.d. 16. Namenda 10 mg b.i.d. 17. Tramadol 50 q.12h. 18. Lasix 20 mg IV q.8. SOCIAL HISTORY: No tobacco, ETOH or illicit drug use. FAMILY HISTORY: Negative for sudden cardiac or early CAD. REVIEW OF SYSTEMS: As above in HPI. CONSTITUTIONAL: No fevers, chills. PULMONARY: Shortness of breath, improving, respiratory compromise. GASTROINTESTINAL: Dysphagia, status post G-tube. GENITOURINARY: No hematuria. MUSCULOSKELETAL: Degenerative joint disease. PSYCHIATRIC: No documented psych history. NEUROLOGIC: History of cerebrovascular accident, dementia, seizure disorder. PHYSICAL EXAMINATION: VITAL SIGNS: Temperature of 98.2, blood pressure most recently 140/64, pulse 60, respiratory rate 2 0, saturating 96%. GENERAL: The patient is sleeping, somewhat difficult to arouse, attempts to open eyes. NECK: JVP approximately 9 to 10 cm water. CHEST: Decreased breath sounds at bases bilaterally. HEART: Regular rate and rhythm. Normal S1, S2, I/ systolic murmur, laterally displaced PMI. ABDOMEN: Positive bowel sounds, soft. EXTREMITIES: No pitting edema. Right lower extremity, status post amputation. LABORATORY DATA: As above in HPI, with most recent from today, sodium 156, potassium 3.5, creatinin e 1.37, BUN 68. White blood cell count 7.3, hemoglobin 7.2, platelet 302. INR 1. UA negative. IMAGING STUDIES: As above in HPI. No further imaging studies for my review at this time. ECG: As above in HPI. No further electrocardiograms for my review at this time. IMPRESSION: 1. Congestive heart failure with chest x-ray, likely systolic, acute on chronic by prior echo. 2. Hypertension. 3. atrial fibrillation. 4. Permanent pacemaker, assess function. 5. Fevers. 6. Chronic obstructive pulmonary disease. 7. Possible upper respiratory infection. 8. Anemia. 9. Dyslipidemia. 10. Failure to thrive. 11. Dysphagia status post G-tube. 12. Permanent pacemaker. 13. Coronary artery disease, status post recent BK right lower extremity. RECOMMENDATIONS: 1. At this time, would maintain the patient on his current medications including Norvasc, Isordil, Losartan, for control of blood pressure 2. Would continue the patient's Eliquis at this time for prevention of thromboembolic complications in the setting of atrial fibrillation, but given anemia will stop the patient's aspirin at this osmin e. 3. Continue the patient's Lasix diuresis, following strict I's and O's to grade diuresis closely an d creatinine closely. 4. Would continue the patient's antibiotics and follow up all culture data. 5. Discontinue the patient's bronchodilators, pulmonary toilet. 6. Continue the patient's anti-seizure medications. 7. Will repeat a 2D echo to reassess the patient's ejection fraction, wall motion, or any major charu ve abnormalities, as the last one was in May 2016, at that time revealing an EF of 35% to 40%. Thank you for allowing me to take part in the care of this patient. I will continue to follow very closely with you with further recommendations to be made as the patient progresses through the [facility] clinical course. Dictated By: TORRES RIVAS/LINDA Conf#: [id number] DID#: [id number]
[2017-01-19 14:00] VITALS: BP 145/66; RESP 22
[2017-01-19] MEDS: DEXTROSE 5% 1,000 ML IV SCH (15:30)
[2017-01-19 15:44] LABS: TROPONIN-I 0.061 ng/ml (0.00-0.12)
[2017-01-19 15:45] LABS: CK-MB 1.47 ng/ml (0.0-2.4)
--- NOTE | 2017-01-19 16:00 | RADRPT ---
Echocardiogram Report Patient Name: JACINTO CONCEPCION Gender: Male Date: 1935 Study Date: 19-Jan-2017 Ambulatory Services Representative: Ana [facility] Location: 632-A Ref. Physician: TORRES AVENDANO Quality: Adequate Procedures: Transthoracic echocardiogram with complete 2D, M-Mode, and doppler examination. Indications: Congestive Heart Failure. 2D/M Mode Doppler Measurement Value Normal Ranges Measurement Value Normal Ranges LVIDd 2D 4.9 3.5 - 5.6 cm AV Peak Segun 2.1 m/sec LVIDs 2D 3.1 2.1 - 4.1 cm AV Peak PG 17.0 mmHg FS 2D 36.2 % AI Peak PG 68.0 mmHg LVPWd 2D 1.6 0.6 - 1.1 cm AI Peak Segun 4.1 m/sec IVSd 2D 1.6 0.6 - 1.1 cm AI PHT 542.0 msec IVS/LVPW 2D 1.0 LVOT Peak Segun 1.2 m/sec AoR Diam 2D 3.0 2.0 - 3.7 cm LVOT Peak PG 6.0 mmHg LA/Ao 2D 1 0 - 1 MV E Peak Segun 1.5 m/sec EDV 2D 119.0 cm3 MV A Peak Segun 0.6 m/sec ESV 2D 31.0 cm3 MV E/A 2.6 LA Dimen 2D 4.2 2.3 - 4.0 cm MV Decel Time 127 msec MV E/A 2.6 MR Peak PG 129.0 mmHg MR Peak Segun 5.7 m/sec TR Peak Segun 3.2 m/sec TR Peak PG 40.0 mmHg RVSP 48.0 mmHg Findings Left Ventricle: Normal left ventricular systolic function. Normal left ventricular cavity size. Moderate concentric left ventricular hypertrophy. Ejection fraction is visually estimated at 5560 %. Abnormal Diastolic Function. Right Ventricle: Normal right ventricular size. Normal right ventricular systolic function. Pacemaker right heart. Left Atrium: There is mild enlargement of left atrium. Right Atrium: The right atrium is normal in size. Mitral Valve: Mitral valve leaflets appear mildly thickened. Mild mitral annular calcification. Moderate to severe mitral valve regurgitation. Aortic Valve: Aortic sclerosis without stenosis. Moderate aortic valve regurgitation. Tricuspid Valve: Normal appearance of the tricuspid valve. Estimated peak PA systolic pressure 48 mmHg. There is moderate to severe tricuspid regurgitation. Pulmonic Valve: Pulmonic valve not well visualized. There is mild to moderate pulmonic regurgitation. Pericardium: Normal pericardium with no significant pericardial effusion. Aorta: Normal aortic root. IVC: Normal size with poor respiratory collapse consistent with elevated right atrial pressure. Conclusions 1.Normal left ventricular systolic function. Normal left ventricular cavity size. Moderate concentric left ventricular hypertrophy. Ejection fraction is visually estimated at 55-60 %. Abnormal Diastolic Function. 2.Normal right ventricular size. Normal right ventricular systolic function. Pacemaker right heart. 3.There is mild enlargement of left atrium. 4.Mitral valve leaflets appear mildly thickened. Mild mitral annular calcification. Moderate to severe mitral valve regurgitation. 5.Aortic sclerosis without stenosis. Moderate aortic valve regurgitation. 6.Normal appearance of the tricuspid valve. Estimated peak PA systolic pressure 48 mmHg. There is moderate to severe tricuspid regurgitation. 7.Pulmonic valve not well visualized. There is mild to moderate pulmonic regurgitation. Electronically Signed By: Torres Avendano 19-Jan-2017 16:00: Patient Name: JACINTO CONCEPCION Study Date: 19-Jan-2017 [id number]
[2017-01-19] MEDS: FAMOTIDINE 20 MG TAB PO SCH (20:06)
[2017-01-19] MEDS: ATORVASTATIN 40 MG TAB GTB SCH (20:06)
[2017-01-19] MEDS: FENOFIBRATE 145 MG TAB GTB SCH (20:06)
[2017-01-19 20:50] VITALS: BP 143/62; RESP 20
[2017-01-19 21:12] LABS: TROPONIN-I 0.066 ng/ml (0.00-0.12)
[2017-01-19 21:14] LABS: CK-MB 1.56 ng/ml (0.0-2.4)
[2017-01-20] MEDS: DEXTROSE 5% 1,000 ML IV SCH ×2 (01:05→15:30)
[2017-01-20 01:45] LABS: TROPONIN-I 0.065 ng/ml (0.00-0.12)
[2017-01-20 01:47] LABS: CK-MB 1.38 ng/ml (0.0-2.4)
[2017-01-20] MEDS: ALBUTEROL/IPRATROPIUM (NEB) 3 ML AMP INH SCH ×4 (01:56→19:54)
[2017-01-20 02:00] VITALS: BP 130/63; RESP 20
[2017-01-20] MEDS: VANCOMYCIN 750 MG in SOD CHLORIDE 0.9% 150 ML IVPB SCH (04:30)
[2017-01-20] MEDS: FUROSEMIDE 20 MG INJ IV SCH ×3 (05:27→18:00)
[2017-01-20 05:41] LABS: BASOPHILS % 0.3 % (0.0-2.0); EOSINOPHILS # 0.5 10^3/ul (0.0-0.5); HEMATOCRIT 24.8 % (42.0-52.0); HEMOGLOBIN 7.5 g/dl (14.0-18.0); LYMPHOCYTES # 0.8 10^3/ul (0.8-2.9); MEAN CORPUSCULAR HEMOGLOBIN 26.7 pg (29.0-33.0); MEAN CORPUSCULAR HGB CONC 30.2 g/dl (32.0-37.0); MEAN CORPUSCULAR VOLUME 88.3 fl (82.0-101.0); MEAN PLATELET VOLUME 11.3 fl (7.4-10.4); MONOCYTE # 0.9 10^3/ul (0.3-0.9); MONOCYTES % 8.2 % (0.0-11.0); NEUTROPHIL # 8.9 10^3/ul (1.6-7.5); PLATELET COUNT 298 10^3/UL (140-415); RED BLOOD COUNT 2.81 10^6/ul (4.70-6.10); RED CELL DISTRIBUTION WIDTH 17.5 % (11.5-14.5); WHITE BLOOD COUNT 11.2 10^3/ul (4.8-10.8)
[2017-01-20 06:09] LABS: ALBUMIN 2.7 g/dl (3.3-4.9); ALBUMIN/GLOBULIN RATIO 0.9; BILIRUBIN,INDIRECT 0.2 mg/dl (0-1.1); BILIRUBIN,TOTAL 0.2 mg/dl (0.2-1.3); CALCIUM 7.9 mg/dl (8.4-10.2); CREATININE 1.23 mg/dl (0.61-1.24); POTASSIUM 3.6 mmol/L (3.5-5.1); TOTAL PROTEIN 5.7 g/dl (6.1-8.1)
[2017-01-20 07:26] VITALS: BP 117/55; RESP 20
[2017-01-20] MEDS: ASCORBIC ACID 500 MG TAB GTB SCH (08:40)
[2017-01-20] MEDS: MULTIVITAMINS THERAPEUTIC TAB GTB SCH (08:40)
[2017-01-20] MEDS: LACTOBACILLUS RHAMNOSUS CAP PO SCH ×2 (08:40→21:23)
[2017-01-20] MEDS: DOCUSATE SODIUM 100 MG CAP PO SCH (08:40)
[2017-01-20] MEDS: FERROUS SULFATE 60 MG/ML 5ML CUP GTB SCH (08:40)
[2017-01-20] MEDS: APIXABAN 5 MG TABLET GTB SCH ×2 (08:41→21:23)
[2017-01-20] MEDS: ISOSORBIDE DINITRATE 20 MG TAB GTB SCH ×3 (08:41→21:24)
[2017-01-20] MEDS: MEMANTINE 10 MG TAB GTB SCH ×2 (08:41→21:24)
[2017-01-20] MEDS: CALCIUM/VITAMIN D (500/200) TAB GTB SCH (08:41)
[2017-01-20] MEDS: LEVETIRACETAM 500 MG TAB GTB SCH (08:41)
[2017-01-20] MEDS: AMLODIPINE 5 MG TAB GTB SCH ×2 (08:42→21:24)
[2017-01-20] MEDS: LOSARTAN 50 MG TAB GTB SCH ×2 (08:42→21:23)
[2017-01-20] MEDS: SOD CHLORIDE 0.9% IV SCH ×2 (08:46→21:47)
[2017-01-20] MEDS: AZTREONAM IV SCH ×2 (08:46→21:47)
[2017-01-20] MEDS: traMADol 50 MG TAB GTB SCH ×2 (08:46→21:23)
--- NOTE | 2017-01-20 09:27 | RADRPT ---
Vent Rate: 60 bpm RR Interval: 0 msec CA Interval: 0 msec QRS Duration: 180 msec QT Interval: 524 msec QTC Interval: 524 msec P-R-T [place]: 0 - -83 - 94 degrees Electronic ventricular pacemaker Electronically Signed By: Nils Bo [id number]
--- NOTE | 2017-01-20 11:05 | CONS ---
Date/Time of Note Date/Time of Note DATE: 01/20/17 TIME: 10:46 Assessment/Plan Assessment/Plan Chief Complaint/Hosp Course IMPRESSION: 1. Congestive heart failure with chest x-ray, likely systolic, acute on chronic by prior echo.-negative trop x3/NL EF by echo 2. Hypertension-reasonable control 3. Paroxysmal atrial fibrillation. 4. Permanent pacemaker, assess function. 5. Fevers. 6. Chronic obstructive pulmonary disease. 7. Possible upper respiratory infection. 8. Anemia. 9. Dyslipidemia. 10. Failure to thrive. 11. Dysphagia status post G-tube. 12. Permanent pacemaker. 13. Peripheral artery disease, status post recent BK right lower extremity. 14. MR/TR-both mod-sev Recc: -Continue current norvasc/losartan/isordil -Continue tricor -Continue lasix diuresis and follow volume status closely -Free water for increased NA -Continue eliquis Problems: Consultation Date/Type/Reason Admit Date/Time Jan 18, 2017 at 11:38 Initial Consult Date 01/19/2017 Type of Consultation: cardiology Reason for Consultation CHF Referring Provider: OJSE C VILLATORO MD Exam/Review of Systems Vital Signs Vitals Vital Signs Date Time Temp Pulse Resp B/P Pulse Ox O2 Delivery O2 Flow Rate FiO2 01/20/17 08:37 100 2.0 01/20/17 08:37 69 24 Nasal Cannula 01/20/17 07:26 98.1 117/55 Intake and Output 01/19/17 01/19/17 01/20/17 15:00 23:00 07:00 Intake Total 700 ml 460 ml Output Total 1200 ml Balance -500 ml 460 ml Exam Review of Systems: CONSTITUTIONAL: No fevers, chills. PULMONARY: No sob CARDIOVASCULAR: No chest pain/palpitations GASTROINTESTINAL: No nausea/vomiting. GENITOURINARY: No hematuria/dysuria. MUSCULOSKELETAL: No myagias/arthalgias. PSYCHIATRIC: The patient denies depression. NEUROLOGIC: encephalopathic Constitutional: other (encephalopathic) Psych: no complaints Head: normocephalic ENMT: mucosa pink and moist Neck: jvd (9 cm water), supple Respiratory: diminished breath sounds (at bases/B) Cardiovascular: regular rate and rhythm Gastrointestinal: non-tender, soft Musculoskeletal: muscle tone (normal) Extremities: edema (trace), other (Contracted) Neurological: other (No focal deficits) Results Result Diagram: 01/20/17 0501/20/17 0520 Results 24 hrs Laboratory Tests Test 01/19/17 14:35 01/19/17 20:20 01/20/17 01:01 01/20/17 05:20 Creatine Kinase 53 53 51 Creatine Kinase Index 2.8 2.9 2.7 Creatinine Kinase MB (Mass) 1.47 1.56 1.38 Troponin I 0.061 0.066 0.065 White Blood Count 11.2 #H Red Blood Count 2.81 L Hemoglobin 7.5 L Hematocrit 24.8 L Mean Corpuscular Volume 88.3 Mean Corpuscular Hemoglobin 26.7 L Mean Corpuscular Hemoglobin Concent 30.2 L Red Cell Distribution Width 17.5 H Platelet Count 298 Mean Platelet Volume 11.3 H Neutrophils % 80.0 H Lymphocytes % 7.0 L Monocytes % 8.2 Eosinophils % 4.0 Basophils % 0.3 Nucleated Red Blood Cells % 0.0 Neutrophils # 8.9 H Lymphocytes # 0.8 Monocytes # 0.9 Eosinophils # 0.5 Basophils # 0.0 Nucleated Red Blood Cells # 0.0 Sodium Level 157 H Potassium Level 3.6 Chloride Level 116 H Carbon Dioxide Level 36 H Anion Gap 9 Blood Urea Nitrogen 56 H Creatinine 1.23 Glucose Level 137 Calcium Level 7.9 L Total Bilirubin 0.2 Direct Bilirubin 0.00 Indirect Bilirubin 0.2 Aspartate Amino Transf (AST/SGOT) 24 Alanine Aminotransferase (ALT/SGPT) 29 Alkaline Phosphatase 56 Total Protein 5.7 L Albumin 2.7 L Globulin 3.00 Albumin/Globulin Ratio 0.90 Medications Medications Current Medications Acetaminophen (Tylenol Tab) 500 mg Q4 PRN PO MODERATE PAIN LEVEL 4-6; Start at 15:00 Albuterol (Proventil 0.083% (Neb)) 2.5 mg Q6 PRN NEB WHEEZING AND SOB; Start 01/18/17 at 15:00 Amlodipine Besylate (Norvasc) 5 mg BID GTB Last administered on 01/20/17 08:42 ; Admin Dose 5 MG; Start 01/18/17 at 21:00 Apixaban (Eliquis) 2.5 mg BID GTB Last administered on 01/20/17 08:41; Admin Dose 2.5 MG; Start 01/18/17 at 21:00 Ascorbic Acid (Vitamin C) 500 mg DAILY GTB Last administered on 01/20/17 08:40 ; Admin Dose 500 MG; Start 01/19/17 at 09:00 Aspirin (Aspirin) 325 mg DAILY GTB Last administered on 01/19/17 08:27; Admin Dose 325 MG; Start 01/19/17 at 09:00; Status Future Hold Atorvastatin Calcium (Lipitor) 40 mg QHS GTB Last administered on 01/19/17 20: 06; Admin Dose 40 MG; Start 01/18/17 at 21:00 Bisacodyl (Dulcolax Supp) 10 mg Q24H PRN [place] CONSTIPATION; Start 01/18/17 at 15: 00 Calcium/Vitamin D (Oyster Shell/ Vit-D (500/200)) 1 tab DAILY GTB Last administered on 01/20/17 08:41; Admin Dose 1 TAB; Start 01/19/17 at 09:00 Clonidine (Catapres) 0.1 mg Q4H PRN GTB SBP>170; Start 01/18/17 at 15:00; Status Future hold Diphenhydramine HCl (Benadryl) 25 mg BID PRN GTB ITCHING; Start 01/18/17 at 15: 00 Docusate Sodium (Colace) 200 mg DAILY PO Last administered on 01/20/17 08:40; Admin Dose 200 MG; Start 01/19/17 at 09:00 Fenofibrate (Tricor) 145 mg QHS GTB Last administered on 01/19/17 20:06; Admin Dose 145 MG; Start 01/18/17 at 21:00 Ferrous Sulfate (Feosol Liquid Cup) 330 mg DAILY GTB Last administered on 08:40; Admin Dose 330 MG; Start 01/19/17 at 09:00 Hydralazine HCl (Apresoline) 50 mg Q8 PO Last administered on 01/20/17 05:28; Admin Dose 50 MG; Start 01/18/17 at 22:00 Isosorbide Dinitrate (Isordil) 20 mg TID GTB Last administered on 01/20/17 08: 41; Admin Dose 20 MG; Start 01/18/17 at 21:00 Levetiracetam (Keppra) 1,000 mg DAILY GTB Last administered on 01/20/17 08:41 ; Admin Dose 1,000 MG; Start 01/19/17 at 09:00 Losartan Potassium (Cozaar) 50 mg BID GTB Last administered on 01/20/17 08:42 ; Admin Dose 50 MG; Start 01/18/17 at 21:00 Magnesium Hydroxide (Milk Of Mag) 30 ml Q24H PRN PO CONSTIPATION; Start at 15:00 Memantine (Namenda) 10 mg BID GTB Last administered on 01/20/17 08:41; Admin Dose 10 MG; Start 01/18/17 at 21:00 Mineral Oil (Fleet Mineral Oil Enema) 133 ml DAILY PRN [place] CONSTIPATION; Start 01/18/17 at 15:00 Multivitamins Therapeutic (Theragran) 1 tab DAILY GTB Last administered on 01/20 08:40; Admin Dose 1 TAB; Start 01/19/17 at 09:00 Tramadol HCl (Ultram) 50 mg Q12 GTB Last administered on 01/20/17 08:46; Admin Dose 50 MG; Start 01/18/17 at 21:00 Zolpidem Tartrate (Ambien) 5 mg HS PRN GTB SLEEP; Start 01/18/17 at 15:00 Lactobacillus Acidophilus/ Rhamnosus 1 cap 1 cap BID PO Last administered on 08:40; Admin Dose 1 CAP; Start 01/18/17 at 21:00 Dextrose 1,000 ml @ 40 mls/hr Q24H IV Last administered on 01/20/17 01:05; Admin Dose 40 MLS/HR; Start 01/18/17 at 15:30 Aztreonam/Sodium Chloride (Azactam/NS) 50 ml @ 100 mls/hr Q12 IV Last administered on 01/20/17 08:46; Admin Dose 100 MLS/HR; Start 01/18/17 at 23:00 Furosemide 20 mg 20 mg 06,12,18 IV Last administered on 01/20/17 05:27; Admin Dose 20 MG; Start 01/18/17 at 18:00 Vancomycin HCl/ Sodium Chloride (Vancocin/NS) 150 ml @ 75 mls/hr Q24H IVPB Last administered on 10/5/17at 04:30; Admin Dose 75 MLS/HR; Start 01/19/17 at 05 :00 Miscellaneous Information (Pending Santyl Order For Wound Care) This patient basurto... PRN PRN XX WOUND CARE; Start 01/18/17 at 18:00 Famotidine (Pepcid) 20 mg Q24H PO Last administered on 01/19/17t 20:06; Admin Dose 20 MG; Start 01/19/17 at 21:00 TORRES FRANCIS Jan 20, 2017 10:56
[2017-01-20 13:31] VITALS: BP 123/59; RESP 20
--- NOTE | 2017-01-20 17:18 | PN ---
Date/Time of Note Date/Time of Note DATE: 01/20/17 TIME: 17:16 Assessment/Plan VTE Prophylaxis VTE Prophylaxis Intervention: other Lines/Catheters IV Catheter Type (from Nrs): PICC Line Central line still needed: Yes Urinary Cath still in place: Yes Reason Cath still needed: other (indicate) Assessment/Plan Chief Complaint/Hosp Course IMPRESSION: 1. Sepsis.POSS PNEUMONIA 2. Pulmonary edema.better 3. Chronic obstructive pulmonary disease. 4. Right below-knee amputation. 5. Hypernatremia 6. Free water deficit. 7. Cardiomyopathy. 8. Decreased ejection fraction. 9. G-tube placement. 10. History of right foot osteomyelitis. 11. Atherosclerotic heart disease. 12. Dyslipidemia. 13. History of Clostridium difficile colitis. plan d5 water cardio ANTIBIOTIC Problems: Subjective 24 Hr Interval Summary Respiratory: other (NO DISTRESS) Exam/Review of Systems Vital Signs Vitals Vital Signs Date Time Temp Pulse Resp B/P Pulse Ox O2 Delivery O2 Flow Rate FiO2 01/20/17 14:54 100 2.0 01/20/17 14:54 60 22 Nasal Cannula 01/20/17 13:31 97.9 123/59 Intake and Output 01/19/17 01/19/17 01/20/17 15:00 23:00 07:00 Intake Total 700 ml 460 ml Output Total 1200 ml Balance -500 ml 460 ml Exam Neck: supple Respiratory: clear to auscultation Cardiovascular: regular rate and rhythm Gastrointestinal: bowel sounds (+), soft Results Result Diagram: 01/20/17 0520 01/20/17 0520 Results 24 hrs Laboratory Tests Test 01/19/17 20:20 01/20/17 01:01 01/20/17 05:20 Creatine Kinase 53 51 Creatine Kinase Index 2.9 2.7 Creatinine Kinase MB (Mass) 1.56 1.38 Troponin I 0.066 0.065 White Blood Count 11.2 #H Red Blood Count 2.81 L Hemoglobin 7.5 L Hematocrit 24.8 L Mean Corpuscular Volume 88.3 Mean Corpuscular Hemoglobin 26.7 L Mean Corpuscular Hemoglobin Concent 30.2 L Red Cell Distribution Width 17.5 H Platelet Count 298 Mean Platelet Volume 11.3 H Neutrophils % 80.0 H Lymphocytes % 7.0 L Monocytes % 8.2 Eosinophils % 4.0 Basophils % 0.3 Nucleated Red Blood Cells % 0.0 Neutrophils # 8.9 H Lymphocytes # 0.8 Monocytes # 0.9 Eosinophils # 0.5 Basophils # 0.0 Nucleated Red Blood Cells # 0.0 Sodium Level 157 H Potassium Level 3.6 Chloride Level 116 H Carbon Dioxide Level 36 H Anion Gap 9 Blood Urea Nitrogen 56 H Creatinine 1.23 Glucose Level 137 Calcium Level 7.9 L Total Bilirubin 0.2 Direct Bilirubin 0.00 Indirect Bilirubin 0.2 Aspartate Amino Transf (AST/SGOT) 24 Alanine Aminotransferase (ALT/SGPT) 29 Alkaline Phosphatase 56 Total Protein 5.7 L Albumin 2.7 L Globulin 3.00 Albumin/Globulin Ratio 0.90 Medications Medications Current Medications Acetaminophen (Tylenol Tab) 500 mg Q4 PRN PO MODERATE PAIN LEVEL 4-6; Start at 15:00 Albuterol (Proventil 0.083% (Neb)) 2.5 mg Q6 PRN NEB WHEEZING AND SOB; Start 01/18/17 at 15:00 Amlodipine Besylate (Norvasc) 5 mg BID GTB Last administered on 01/20/17 08:42 ; Admin Dose 5 MG; Start 01/18/17 at 21:00 Apixaban (Eliquis) 2.5 mg BID GTB Last administered on 01/20/17 08:41; Admin Dose 2.5 MG; Start 01/18/17 at 21:00 Ascorbic Acid (Vitamin C) 500 mg DAILY GTB Last administered on 01/20/17 08:40 ; Admin Dose 500 MG; Start 01/19/17 at 09:00 Aspirin (Aspirin) 325 mg DAILY GTB Last administered on 01/19/17 08:27; Admin Dose 325 MG; Start 01/19/17 at 09:00; Status Future Hold Atorvastatin Calcium (Lipitor) 40 mg QHS GTB Last administered on 01/19/17 20: 06; Admin Dose 40 MG; Start 01/18/17 at 21:00 Bisacodyl (Dulcolax Supp) 10 mg Q24H PRN [place] CONSTIPATION; Start 01/18/17 at 15: 00 Calcium/Vitamin D (Oyster Shell/ Vit-D (500/200)) 1 tab DAILY GTB Last administered on 01/20/17 08:41; Admin Dose 1 TAB; Start 01/19/17 at 09:00 Clonidine (Catapres) 0.1 mg Q4H PRN GTB SBP>170; Start 01/18/17 at 15:00; Status Future hold Diphenhydramine HCl (Benadryl) 25 mg BID PRN GTB ITCHING; Start 01/18/17 at 15: 00 Docusate Sodium (Colace) 200 mg DAILY PO Last administered on 01/20/17 08:40; Admin Dose 200 MG; Start 01/19/17 at 09:00 Fenofibrate (Tricor) 145 mg QHS GTB Last administered on 01/19/17 20:06; Admin Dose 145 MG; Start 01/18/17 at 21:00 Ferrous Sulfate (Feosol Liquid Cup) 330 mg DAILY GTB Last administered on 08:40; Admin Dose 330 MG; Start 01/19/17 at 09:00 Hydralazine HCl (Apresoline) 50 mg Q8 PO Last administered on 01/20/17 15:46; Admin Dose 50 MG; Start 01/18/17 at 22:00 Isosorbide Dinitrate (Isordil) 20 mg TID GTB Last administered on 01/20/17 08: 41; Admin Dose 20 MG; Start 01/18/17 at 21:00 Levetiracetam (Keppra) 1,000 mg DAILY GTB Last administered on 01/20/17 08:41 ; Admin Dose 1,000 MG; Start 01/19/17 at 09:00 Losartan Potassium (Cozaar) 50 mg BID GTB Last administered on 01/20/17 08:42 ; Admin Dose 50 MG; Start 01/18/17 at 21:00 Magnesium Hydroxide (Milk Of Mag) 30 ml Q24H PRN PO CONSTIPATION; Start at 15:00 Memantine (Namenda) 10 mg BID GTB Last administered on 01/20/17 08:41; Admin Dose 10 MG; Start 01/18/17 at 21:00 Mineral Oil (Fleet Mineral Oil Enema) 133 ml DAILY PRN [place] CONSTIPATION; Start 01/18/17 at 15:00 Multivitamins Therapeutic (Theragran) 1 tab DAILY GTB Last administered on 01/20 08:40; Admin Dose 1 TAB; Start 01/19/17 at 09:00 Tramadol HCl (Ultram) 50 mg Q12 GTB Last administered on 01/20/17 08:46; Admin Dose 50 MG; Start 01/18/17 at 21:00 Zolpidem Tartrate (Ambien) 5 mg HS PRN GTB SLEEP; Start 01/18/17 at 15:00 Lactobacillus Acidophilus/ Rhamnosus 1 cap 1 cap BID PO Last administered on 08:40; Admin Dose 1 CAP; Start 01/18/17 at 21:00 Dextrose 1,000 ml @ 40 mls/hr Q24H IV Last administered on 01/20/17 01:05; Admin Dose 40 MLS/HR; Start 01/18/17 at 15:30 Aztreonam/Sodium Chloride (Azactam/NS) 50 ml @ 100 mls/hr Q12 IV Last administered on 01/20/17 08:46; Admin Dose 100 MLS/HR; Start 01/18/17 at 23:00 Furosemide 20 mg 20 mg 06,12,18 IV Last administered on 01/20/17 13:00; Admin Dose 20 MG; Start 01/18/17 at 18:00 Vancomycin HCl/ Sodium Chloride (Vancocin/NS) 150 ml @ 75 mls/hr Q24H IVPB Last administered on 01/20/17 04:30; Admin Dose 75 MLS/HR; Start 01/19/17 at 05 :00 Miscellaneous Information (Pending Santyl Order For Wound Care) This patient basurto... PRN PRN XX WOUND CARE; Start 01/18/17 at 18:00 Famotidine (Pepcid) 20 mg Q24H PO Last administered on 01/19/17 20:06; Admin Dose 20 MG; Start 01/19/17 at 21:00 Mupirocin (Bactroban) 1 applic BID TOP ; Start 01/20/17 at 21:00 Miscellaneous Information (*Rx Drug Level Order Reminder*) 1 ONCE ONCE XX ; Start 01/21/17 at 04:00; Stop 01/21/17 at 04:01 Collagenase (Santyl) 1 applic DAILY TOP ; Start 01/20/17 at 17:30; Status JOSE C UGARTE MD Jan 20, 2017 17:18
[2017-01-20] MEDS: COLLAGENASE 30 GM TUBE TOP SCH (18:30)
[2017-01-20 20:00] VITALS: BP 138/61; RESP 20
[2017-01-20] MEDS: ATORVASTATIN 40 MG TAB GTB SCH (21:23)
[2017-01-20] MEDS: MUPIROCIN 2% 22 GM OINT TOP SCH (21:23)
[2017-01-20] MEDS: FAMOTIDINE 20 MG TAB PO SCH (21:23)
[2017-01-20] MEDS: FENOFIBRATE 145 MG TAB GTB SCH (21:24)
[2017-01-21] MEDS: ALBUTEROL/IPRATROPIUM (NEB) 3 ML AMP INH SCH ×4 (01:36→20:52)
[2017-01-21] MEDS: VANCOMYCIN 750 MG in SOD CHLORIDE 0.9% 150 ML IVPB SCH ×2 (05:00→06:49)
[2017-01-21] MEDS: FUROSEMIDE 20 MG INJ IV SCH ×3 (06:14→18:13)
[2017-01-21] MEDS: DEXTROSE 5% 1,000 ML IV SCH ×2 (06:33→15:12)
[2017-01-21 06:40] LABS: ALBUMIN 2.5 g/dl (3.3-4.9); ALBUMIN/GLOBULIN RATIO 0.73; BILIRUBIN,INDIRECT 0.5 mg/dl (0-1.1); BILIRUBIN,TOTAL 0.5 mg/dl (0.2-1.3); CALCIUM 8.1 mg/dl (8.4-10.2); CREATININE 1.2 mg/dl (0.61-1.24); POTASSIUM 3.7 mmol/L (3.5-5.1); TOTAL PROTEIN 5.9 g/dl (6.1-8.1)
[2017-01-21 08:33] VITALS: BP 129/79; RESP 18
--- NOTE | 2017-01-21 08:44 | RADRPT ---
PROCEDURE: XR Chest. CLINICAL INDICATION: Shortness of breath. TECHNIQUE: Single frontal view. COMPARISON: 01/18/2017. FINDINGS: The right arm PICC line and left-sided permanent pacemaker remain in satisfactory position. Mild pul monary edema is unchanged. Left basilar atelectasis is worse. The heart is mildly enlarged. There is calcification in the aorta consistent with atherosclerosis. There is no right pleural effusion. There is a small left pleural effusion. There is no pneumothorax. There is an old nonunited fracture of the distal right clavicle with infer ior displacement. IMPRESSION: 1. Worse appearance of the left lung base. 2. No other change from 01/18/2017. RPTAT: QQ .Jimmy Mills MD, MD Date Time Electronically viewed and signed by .Jimmy Mills MD, MD on 01/21/2017 08:43 .R/
[2017-01-21] MEDS: FERROUS SULFATE 60 MG/ML 5ML CUP GTB SCH ×2 (09:25→21:51)
[2017-01-21] MEDS: CALCIUM/VITAMIN D (500/200) TAB GTB SCH (09:26)
[2017-01-21] MEDS: MULTIVITAMINS THERAPEUTIC TAB GTB SCH (09:26)
[2017-01-21] MEDS: LACTOBACILLUS RHAMNOSUS CAP PO SCH ×2 (09:26→21:52)
[2017-01-21] MEDS: APIXABAN 5 MG TABLET GTB SCH ×2 (09:26→21:52)
[2017-01-21] MEDS: COLLAGENASE 30 GM TUBE TOP SCH (09:26)
[2017-01-21] MEDS: ISOSORBIDE DINITRATE 20 MG TAB GTB SCH ×3 (09:26→21:54)
[2017-01-21] MEDS: DOCUSATE SODIUM 100 MG CAP PO SCH (09:26)
[2017-01-21] MEDS: traMADol 50 MG TAB GTB SCH ×2 (09:27→21:52)
[2017-01-21] MEDS: AMLODIPINE 5 MG TAB GTB SCH ×2 (09:27→21:54)
[2017-01-21] MEDS: LEVETIRACETAM 500 MG TAB GTB SCH (09:27)
[2017-01-21] MEDS: LOSARTAN 50 MG TAB GTB SCH ×2 (09:27→21:54)
[2017-01-21] MEDS: MEMANTINE 10 MG TAB GTB SCH ×2 (09:28→21:52)
[2017-01-21] MEDS: SOD CHLORIDE 0.9% IV SCH ×2 (09:28→21:49)
[2017-01-21] MEDS: ASCORBIC ACID 500 MG TAB GTB SCH (09:28)
[2017-01-21] MEDS: AZTREONAM IV SCH ×2 (09:28→21:49)
[2017-01-21] MEDS: MUPIROCIN 2% 22 GM OINT TOP SCH ×2 (09:29→21:55)
[2017-01-21] MEDS: LEVOFLOXACIN 500MG/D5W (PMX) 100 ML IVPB SCH (11:58)
[2017-01-21 12:42] LABS: BASOPHILS % 0.2 % (0.0-2.0); EOSINOPHILS # 0.4 10^3/ul (0.0-0.5); EOSINOPHILS % 4.3 % (0.0-7.0); HEMATOCRIT 26.3 % (42.0-52.0); HEMOGLOBIN 8.1 g/dl (14.0-18.0); LYMPHOCYTES # 0.8 10^3/ul (0.8-2.9); LYMPHOCYTES % 7.9 % (15.0-51.0); MEAN CORPUSCULAR HEMOGLOBIN 27.6 pg (29.0-33.0); MEAN CORPUSCULAR HGB CONC 30.8 g/dl (32.0-37.0); MEAN CORPUSCULAR VOLUME 89.5 fl (82.0-101.0); MONOCYTE # 0.7 10^3/ul (0.3-0.9); MONOCYTES % 6.8 % (0.0-11.0); NEUTROPHIL # 7.7 10^3/ul (1.6-7.5); NEUTROPHILS % 80.4 % (39.0-77.0); PLATELET COUNT 279 10^3/UL (140-415); RED BLOOD COUNT 2.94 10^6/ul (4.70-6.10); RED CELL DISTRIBUTION WIDTH 17.2 % (11.5-14.5); WHITE BLOOD COUNT 9.6 10^3/ul (4.8-10.8)
[2017-01-21 15:16] VITALS: BP 106/50; RESP 18
--- NOTE | 2017-01-21 15:19 | PN ---
Date/Time of Note Date/Time of Note DATE: 01/21/17 TIME: 15:16 Assessment/Plan VTE Prophylaxis VTE Prophylaxis Intervention: anti-embolic stocking Lines/Catheters IV Catheter Type (from Nrs): PICC Line Central line still needed: Yes Urinary Cath still in place: Yes Reason Cath still needed: urinary retention Assessment/Plan Chief Complaint/Hosp Course 1. Sepsis, POSSIBLE PNEUMONIA 2. Pulmonary edema, better 3. Chronic obstructive pulmonary disease. 4. Right below-knee amputation. 5. Hypernatremia 6. Free water deficit. 7. Cardiomyopathy. 8. Decreased ejection fraction. 9. G-tube placement. 10. History of right foot osteomyelitis. 11. Atherosclerotic heart disease. 12. Dyslipidemia. 13. History of Clostridium difficile colitis. Problems: Assessment/Plan 1. CONTINUE ISOLATION 2. cONTINUE TUBE FEEDING 3. cONTINUE A/B therapy 4. dr Russell for ID Subjective 24 Hr Interval Summary Subjective hx not possible: pt non-verbal Exam/Review of Systems Vital Signs Vitals Vital Signs Date Time Temp Pulse Resp B/P Pulse Ox O2 Delivery O2 Flow Rate FiO2 01/21/17 13:40 60 20 99 Nasal Cannula 2.0 01/21/17 08:33 97.8 129/79 Intake and Output 01/20/17 01/20/17 01/21/17 15:00 23:00 07:00 Intake Total 50 ml 50 ml 990 ml Output Total 1200 ml Balance 50 ml -1150 ml 990 ml Exam Constitutional: other (cofused) Cardiovascular: regular rate and rhythm Gastrointestinal: other (g tube), soft Extremities: edema, other (AKA) Skin: nl turgor Results Result Diagram: 01/21/17 1223 01/21/17 0510 Results 24 hrs Laboratory Tests Test 01/21/17 05:10 01/21/17 08:03 01/21/17 12:23 Sodium Level 153 H Potassium Level 3.7 Chloride Level 114 H Carbon Dioxide Level 37 H Anion Gap 6 L Blood Urea Nitrogen 50 H Creatinine 1.20 Glucose Level 111 Calcium Level 8.1 L Total Bilirubin 0.5 Direct Bilirubin 0.00 Indirect Bilirubin 0.5 Aspartate Amino Transf (AST/SGOT) 25 Alanine Aminotransferase (ALT/SGPT) 32 Alkaline Phosphatase 51 Total Protein 5.9 L Albumin 2.5 L Globulin 3.40 H Albumin/Globulin Ratio 0.73 Vancomycin Level Trough 12.8 Bedside Glucose 122 White Blood Count 9.6 Red Blood Count 2.94 L Hemoglobin 8.1 L Hematocrit 26.3 L Mean Corpuscular Volume 89.5 Mean Corpuscular Hemoglobin 27.6 L Mean Corpuscular Hemoglobin Concent 30.8 L Red Cell Distribution Width 17.2 H Platelet Count 279 Mean Platelet Volume 11.0 H Neutrophils % 80.4 H Lymphocytes % 7.9 L Monocytes % 6.8 Eosinophils % 4.3 Basophils % 0.2 Nucleated Red Blood Cells % 0.0 Neutrophils # 7.7 H Lymphocytes # 0.8 Monocytes # 0.7 Eosinophils # 0.4 Basophils # 0.0 Nucleated Red Blood Cells # 0.0 Medications Medications Current Medications Acetaminophen (Tylenol Tab) 500 mg Q4 PRN PO MODERATE PAIN LEVEL 4-6; Start at 15:00 Albuterol (Proventil 0.083% (Neb)) 2.5 mg Q6 PRN NEB WHEEZING AND SOB; Start 01/18/17 at 15:00 Amlodipine Besylate (Norvasc) 5 mg BID GTB Last administered on 01/21/17 09:27 ; Admin Dose 5 MG; Start 01/18/17 at 21:00 Apixaban (Eliquis) 2.5 mg BID GTB Last administered on 01/21/17 09:26; Admin Dose 2.5 MG; Start 01/18/17 at 21:00 Ascorbic Acid (Vitamin C) 500 mg DAILY GTB Last administered on 01/21/17 09:28 ; Admin Dose 500 MG; Start 01/19/17 at 09:00 Aspirin (Aspirin) 325 mg DAILY GTB Last administered on 01/19/17 08:27; Admin Dose 325 MG; Start 01/19/17 at 09:00; Status Future Hold Atorvastatin Calcium (Lipitor) 40 mg QHS GTB Last administered on 01/20/17 21: 23; Admin Dose 40 MG; Start 01/18/17 at 21:00 Bisacodyl (Dulcolax Supp) 10 mg Q24H PRN [place] CONSTIPATION; Start 01/18/17 at 15: 00 Calcium/Vitamin D (Oyster Shell/ Vit-D (500/200)) 1 tab DAILY GTB Last administered on 01/21/17 09:26; Admin Dose 1 TAB; Start 01/19/17 at 09:00 Clonidine (Catapres) 0.1 mg Q4H PRN GTB SBP>170; Start 01/18/17 at 15:00; Status Future hold Diphenhydramine HCl (Benadryl) 25 mg BID PRN GTB ITCHING; Start 01/18/17 at 15: 00 Docusate Sodium (Colace) 200 mg DAILY PO Last administered on 01/21/17 09:26; Admin Dose 200 MG; Start 01/19/17 at 09:00 Fenofibrate (Tricor) 145 mg QHS GTB Last administered on 01/20/17 21:24; Admin Dose 145 MG; Start 01/18/17 at 21:00 Ferrous Sulfate (Feosol Liquid Cup) 330 mg DAILY GTB Last administered on 09:25; Admin Dose 330 MG; Start 01/19/17 at 09:00 Hydralazine HCl (Apresoline) 50 mg Q8 PO Last administered on 01/21/17 13:30; Admin Dose 50 MG; Start 01/18/17 at 22:00 Isosorbide Dinitrate (Isordil) 20 mg TID GTB Last administered on 01/21/17 13: 30; Admin Dose 20 MG; Start 01/18/17 at 21:00 Levetiracetam (Keppra) 1,000 mg DAILY GTB Last administered on 01/21/17 09:27 ; Admin Dose 1,000 MG; Start 01/19/17 at 09:00 Losartan Potassium (Cozaar) 50 mg BID GTB Last administered on 01/21/17 09:27 ; Admin Dose 50 MG; Start 01/18/17 at 21:00 Magnesium Hydroxide (Milk Of Mag) 30 ml Q24H PRN PO CONSTIPATION; Start at 15:00 Memantine (Namenda) 10 mg BID GTB Last administered on 01/21/17 09:28; Admin Dose 10 MG; Start 01/18/17 at 21:00 Mineral Oil (Fleet Mineral Oil Enema) 133 ml DAILY PRN [place] CONSTIPATION; Start 01/18/17 at 15:00 Multivitamins Therapeutic (Theragran) 1 tab DAILY GTB Last administered on 01/21 09:26; Admin Dose 1 TAB; Start 01/19/17 at 09:00 Tramadol HCl (Ultram) 50 mg Q12 GTB Last administered on 01/21/17 09:27; Admin Dose 50 MG; Start 01/18/17 at 21:00 Zolpidem Tartrate (Ambien) 5 mg HS PRN GTB SLEEP; Start 01/18/17 at 15:00 Lactobacillus Acidophilus/ Rhamnosus 1 cap 1 cap BID PO Last administered on 09:26; Admin Dose 1 CAP; Start 01/18/17 at 21:00 Dextrose 1,000 ml @ 70 mls/hr [id number] IV Last administered on 01/21/17 15:12 ; Admin Dose 70 MLS/HR; Start 01/18/17 at 15:30 Aztreonam/Sodium Chloride (Azactam/NS) 50 ml @ 100 mls/hr Q12 IV Last administered on 01/21/17 09:28; Admin Dose 100 MLS/HR; Start 01/18/17 at 23:00 Furosemide (Lasix) 20 mg 06,12,18 IV Last administered on 01/21/17 13:29; Admin Dose 20 MG; Start 01/18/17 at 18:00 Miscellaneous Information (Pending [facility] Order For Wound Care) This patient basurto... PRN PRN XX WOUND CARE; Start 01/18/17 at 18:00 Famotidine (Pepcid) 20 mg Q24H PO Last administered on 01/20/17 21:23; Admin Dose 20 MG; Start 01/19/17 at 21:00 Mupirocin (Bactroban) 1 applic BID TOP Last administered on 01/21/17 09:29; Admin Dose 1 APPLIC; Start 01/20/17 at 21:00 Collagenase 1 applic 1 applic DAILY TOP Last administered on 01/21/17 09:26; Admin Dose 1 APPLIC; Start 01/20/17 at 18:30 Levofloxacin/ Dextrose (Levaquin 500mg/ D5W 100 ml (Pmx)) 100 ml @ 100 mls/hr Q24H IVPB Last administered on 01/21/17 11:58; Admin Dose 100 MLS/HR; Start 01/21/17 at 11:00 OJSE PERRY Jan 21, 2017 15:19
--- NOTE | 2017-01-21 16:36 | CONS ---
Date/Time of Note Date/Time of Note DATE: 01/21/17 TIME: 16:34 Assessment/Plan Assessment/Plan Chief Complaint/Hosp Course IMPRESSION: 1. Congestive heart failure with chest x-ray, likely systolic, acute on chronic by prior echo.-negative trop x3/NL EF by echo 2. Hypertension-reasonable control 3. Paroxysmal atrial fibrillation. 4. Permanent pacemaker, assess function. 5. Fevers. 6. Chronic obstructive pulmonary disease. 7. Possible upper respiratory infection. 8. Anemia. 9. Dyslipidemia. 10. Failure to thrive. 11. Dysphagia status post G-tube. 12. Permanent pacemaker. 13. Peripheral artery disease, status post recent BK right lower extremity. 14. MR/TR-both mod-se15. Hypernatremnia Recc: -Continue current norvasc/losartan/isordil -Continue tricor -Continue lasix diuresis and follow volume status closely -Free water for increased NA -Continue eliquis Problems: Consultation Date/Type/Reason Admit Date/Time Jan 18, 2017 at 11:38 Initial Consult Date 01/19/2017 Type of Consultation: cardiology Reason for Consultation CHF Referring Provider: JOSE C VILLATORO MD Exam/Review of Systems Vital Signs Vitals Vital Signs Date Time Temp Pulse Resp B/P Pulse Ox O2 Delivery O2 Flow Rate FiO2 01/21/17 15:16 97.8 69 18 106/50 98 01/21/17 13:40 Nasal Cannula 2.0 Intake and Output 01/20/17 01/20/17 01/21/17 15:00 23:00 07:00 Intake Total 50 ml 50 ml 990 ml Output Total 1200 ml Balance 50 ml -1150 ml 990 ml Exam Review of Systems: CONSTITUTIONAL: No fevers, chills. PULMONARY: No sob CARDIOVASCULAR: No chest pain/palpitations GASTROINTESTINAL: No nausea/vomiting. GENITOURINARY: No hematuria/dysuria. MUSCULOSKELETAL: No myagias/arthalgias. PSYCHIATRIC: The patient denies depression. NEUROLOGIC: No weakness Constitutional: other (encephalopathic) Psych: no complaints Head: normocephalic ENMT: mucosa pink and moist Neck: jvd (9 cm water), supple Respiratory: diminished breath sounds Cardiovascular: regular rate and rhythm Gastrointestinal: non-tender, soft Musculoskeletal: muscle tone, other (s/p LE amputation) Extremities: pitting pedal edema (bilateral) Neurological: lethargic Results Result Diagram: 01/21/17 1223 01/21/17 0510 Results 24 hrs Laboratory Tests Test 01/21/17 05:10 01/21/17 08:03 01/21/17 12:23 Sodium Level 153 H Potassium Level 3.7 Chloride Level 114 H Carbon Dioxide Level 37 H Anion Gap 6 L Blood Urea Nitrogen 50 H Creatinine 1.20 Glucose Level 111 Calcium Level 8.1 L Total Bilirubin 0.5 Direct Bilirubin 0.00 Indirect Bilirubin 0.5 Aspartate Amino Transf (AST/SGOT) 25 Alanine Aminotransferase (ALT/SGPT) 32 Alkaline Phosphatase 51 Total Protein 5.9 L Albumin 2.5 L Globulin 3.40 H Albumin/Globulin Ratio 0.73 Vancomycin Level Trough 12.8 Bedside Glucose 122 White Blood Count 9.6 Red Blood Count 2.94 L Hemoglobin 8.1 L Hematocrit 26.3 L Mean Corpuscular Volume 89.5 Mean Corpuscular Hemoglobin 27.6 L Mean Corpuscular Hemoglobin Concent 30.8 L Red Cell Distribution Width 17.2 H Platelet Count 279 Mean Platelet Volume 11.0 H Neutrophils % 80.4 H Lymphocytes % 7.9 L Monocytes % 6.8 Eosinophils % 4.3 Basophils % 0.2 Nucleated Red Blood Cells % 0.0 Neutrophils # 7.7 H Lymphocytes # 0.8 Monocytes # 0.7 Eosinophils # 0.4 Basophils # 0.0 Nucleated Red Blood Cells # 0.0 Medications Medications Current Medications Acetaminophen (Tylenol Tab) 500 mg Q4 PRN PO MODERATE PAIN LEVEL 4-6; Start at 15:00 Albuterol (Proventil 0.083% (Neb)) 2.5 mg Q6 PRN NEB WHEEZING AND SOB; Start 01/18/17 at 15:00 Amlodipine Besylate (Norvasc) 5 mg BID GTB Last administered on 01/21/17 09:27 ; Admin Dose 5 MG; Start 01/18/17 at 21:00 Apixaban (Eliquis) 2.5 mg BID GTB Last administered on 01/21/17 09:26; Admin Dose 2.5 MG; Start 01/18/17 at 21:00 Ascorbic Acid (Vitamin C) 500 mg DAILY GTB Last administered on 01/21/17 09:28 ; Admin Dose 500 MG; Start 01/19/17 at 09:00 Aspirin (Aspirin) 325 mg DAILY GTB Last administered on 01/19/17 08:27; Admin Dose 325 MG; Start 01/19/17 at 09:00; Status Future Hold Atorvastatin Calcium (Lipitor) 40 mg QHS GTB Last administered on 01/20/17 21: 23; Admin Dose 40 MG; Start 01/18/17 at 21:00 Bisacodyl (Dulcolax Supp) 10 mg Q24H PRN [place] CONSTIPATION; Start 01/18/17 at 15: 00 Calcium/Vitamin D (Oyster Shell/ Vit-D (500/200)) 1 tab DAILY GTB Last administered on 01/21/17 09:26; Admin Dose 1 TAB; Start 01/19/17 at 09:00 Clonidine (Catapres) 0.1 mg Q4H PRN GTB SBP>170; Start 01/18/17 at 15:00; Status Future hold Diphenhydramine HCl (Benadryl) 25 mg BID PRN GTB ITCHING; Start 01/18/17 at 15: 00 Docusate Sodium (Colace) 200 mg DAILY PO Last administered on 01/21/17 09:26; Admin Dose 200 MG; Start 01/19/17 at 09:00 Fenofibrate (Tricor) 145 mg QHS GTB Last administered on 01/20/17 21:24; Admin Dose 145 MG; Start 01/18/17 at 21:00 Hydralazine HCl (Apresoline) 50 mg Q8 PO Last administered on 01/21/17 13:30; Admin Dose 50 MG; Start 01/18/17 at 22:00 Isosorbide Dinitrate (Isordil) 20 mg TID GTB Last administered on 01/21/17 13: 30; Admin Dose 20 MG; Start 01/18/17 at 21:00 Levetiracetam (Keppra) 1,000 mg DAILY GTB Last administered on 01/21/17 09:27 ; Admin Dose 1,000 MG; Start 01/19/17 at 09:00 Losartan Potassium (Cozaar) 50 mg BID GTB Last administered on 01/21/17 09:27 ; Admin Dose 50 MG; Start 01/18/17 at 21:00 Magnesium Hydroxide (Milk Of Mag) 30 ml Q24H PRN PO CONSTIPATION; Start at 15:00 Memantine (Namenda) 10 mg BID GTB Last administered on 01/21/17 09:28; Admin Dose 10 MG; Start 01/18/17 at 21:00 Mineral Oil (Fleet Mineral Oil Enema) 133 ml DAILY PRN [place] CONSTIPATION; Start 01/18/17 at 15:00 Multivitamins Therapeutic (Theragran) 1 tab DAILY GTB Last administered on 01/21 09:26; Admin Dose 1 TAB; Start 01/19/17 at 09:00 Tramadol HCl (Ultram) 50 mg Q12 GTB Last administered on 01/21/17 09:27; Admin Dose 50 MG; Start 01/18/17 at 21:00 Zolpidem Tartrate (Ambien) 5 mg HS PRN GTB SLEEP; Start 01/18/17 at 15:00 Lactobacillus Acidophilus/ Rhamnosus 1 cap 1 cap BID PO Last administered on 09:26; Admin Dose 1 CAP; Start 01/18/17 at 21:00 Dextrose 1,000 ml @ 70 mls/hr [id number] IV Last administered on 01/21/17 15:12 ; Admin Dose 70 MLS/HR; Start 01/18/17 at 15:30 Aztreonam/Sodium Chloride (Azactam/NS) 50 ml @ 100 mls/hr Q12 IV Last administered on 01/21/17 09:28; Admin Dose 100 MLS/HR; Start 01/18/17 at 23:00 Furosemide (Lasix) 20 mg 06,12,18 IV Last administered on 01/21/17 13:29; Admin Dose 20 MG; Start 01/18/17 at 18:00 Miscellaneous Information (Pending Santyl Order For Wound Care) This patient basurto... PRN PRN XX WOUND CARE; Start 01/18/17 at 18:00 Famotidine (Pepcid) 20 mg Q24H PO Last administered on 01/20/17 21:23; Admin Dose 20 MG; Start 01/19/17 at 21:00 Mupirocin (Bactroban) 1 applic BID TOP Last administered on 01/21/17 09:29; Admin Dose 1 APPLIC; Start 01/20/17 at 21:00 Collagenase 1 applic 1 applic DAILY TOP Last administered on 01/21/17 09:26; Admin Dose 1 APPLIC; Start 01/20/17 at 18:30 Levofloxacin/ Dextrose (Levaquin 500mg/ D5W 100 ml (Pmx)) 100 ml @ 100 mls/hr Q24H IVPB Last administered on 01/21/17 11:58; Admin Dose 100 MLS/HR; Start 01/21/17 at 11:00 Ferrous Sulfate 330 mg 330 mg BID GTB ; Start 01/21/17 at 21:00 Ferric Sodium Gluconate Complex/ Sodium Chloride (Ferrlecit/NS) 110 ml @ 100 mls/hr Q24H IVPB ; Start 01/21/17 at 15:30; Stop 01/23/17 at 16:35 TORRES FRANCIS Jan 21, 2017 16:36
--- NOTE | 2017-01-21 17:21 | PN ---
DATE: 01/21/2017 SUBJECTIVE DATA: Patient is an 81-year-old male who was admitted on the January because of acute respiratory difficulty along with low-grade temperature. Following initial evaluation, he was admitted under the diagnostic impression of sepsis and pulmonary edema. He was found to have an infected chronic decubitus ulcers involving in right foot which was causing sepsis and he was treated with BK amputation of the right leg about 16 days prior to this progress note. PHYSICAL EXAMINATION: His BK amputation stump over the right leg shows satisfactory healing of the amputation stump of the right leg without any signs of acute pyogenic process. His pre- existing flexion contracture involving the right knee seems to be more advanced and it was rather difficult to extend the right knee. However, examination of the stump revealed satisfactory healing of the stump without any signs of infection or necrosis. ASSESSMENT AND PLAN: Further follow-up planned for the below- knee amputation stump of the right leg is to remove the selena in about 1 to 2 weeks. Because of his nonambulatory status physical therapy involving the right lower extremity is not indicated at this time. Dictated By: In Charlene Gibbs MD /mindi/víctor /Document#: [id number]
[2017-01-21] MEDS: SOD FERRIC GLUC COMPLX 125 MG in SOD CHLORIDE 0.9% 100 ML IVPB SCH (18:12)
[2017-01-21 20:00] VITALS: BP 114/57; RESP 20
[2017-01-21] MEDS: ATORVASTATIN 40 MG TAB GTB SCH (21:51)
[2017-01-21] MEDS: FAMOTIDINE 20 MG TAB PO SCH (21:51)
[2017-01-21] MEDS: FENOFIBRATE 145 MG TAB GTB SCH (21:52)
[2017-01-22 02:37] VITALS: BP 114/55; RESP 20
[2017-01-22] MEDS: ALBUTEROL/IPRATROPIUM (NEB) 3 ML AMP INH SCH ×4 (03:14→20:27)
[2017-01-22] MEDS: FUROSEMIDE 20 MG INJ IV SCH ×3 (05:29→20:04)
[2017-01-22 05:31] LABS: BASOPHILS % 0.2 % (0.0-2.0); EOSINOPHILS # 0.3 10^3/ul (0.0-0.5); EOSINOPHILS % 3.1 % (0.0-7.0); HEMATOCRIT 24.2 % (42.0-52.0); HEMOGLOBIN 7.5 g/dl (14.0-18.0); LYMPHOCYTES # 0.7 10^3/ul (0.8-2.9); LYMPHOCYTES % 8.1 % (15.0-51.0); MEAN CORPUSCULAR HEMOGLOBIN 27.4 pg (29.0-33.0); MEAN CORPUSCULAR VOLUME 88.3 fl (82.0-101.0); MEAN PLATELET VOLUME 11.4 fl (7.4-10.4); MONOCYTE # 0.7 10^3/ul (0.3-0.9); NEUTROPHIL # 6.5 10^3/ul (1.6-7.5); NEUTROPHILS % 80.1 % (39.0-77.0); PLATELET COUNT 247 10^3/UL (140-415); RED BLOOD COUNT 2.74 10^6/ul (4.70-6.10); RED CELL DISTRIBUTION WIDTH 17.2 % (11.5-14.5); WHITE BLOOD COUNT 8.1 10^3/ul (4.8-10.8)
[2017-01-22 05:52] LABS: CALCIUM 7.6 mg/dl (8.4-10.2); CREATININE 1.09 mg/dl (0.61-1.24); POTASSIUM 3.5 mmol/L (3.5-5.1)
[2017-01-22 08:04] VITALS: BP 147/64; RESP 20
[2017-01-22] MEDS: FERROUS SULFATE 60 MG/ML 5ML CUP GTB SCH ×2 (09:21→21:14)
[2017-01-22] MEDS: MULTIVITAMINS THERAPEUTIC TAB GTB SCH (09:23)
[2017-01-22] MEDS: ASCORBIC ACID 500 MG TAB GTB SCH (09:23)
[2017-01-22] MEDS: LACTOBACILLUS RHAMNOSUS CAP PO SCH ×2 (09:23→21:13)
[2017-01-22] MEDS: LEVETIRACETAM 500 MG TAB GTB SCH (09:24)
[2017-01-22] MEDS: DOCUSATE SODIUM 100 MG CAP PO SCH (09:24)
[2017-01-22] MEDS: MEMANTINE 10 MG TAB GTB SCH ×2 (09:24→21:14)
[2017-01-22] MEDS: APIXABAN 5 MG TABLET GTB SCH ×2 (09:24→21:15)
[2017-01-22] MEDS: CALCIUM/VITAMIN D (500/200) TAB GTB SCH (09:24)
[2017-01-22] MEDS: LOSARTAN 50 MG TAB GTB SCH ×2 (09:25→21:14)
[2017-01-22] MEDS: AMLODIPINE 5 MG TAB GTB SCH ×2 (09:26→21:23)
[2017-01-22] MEDS: ISOSORBIDE DINITRATE 20 MG TAB GTB SCH ×3 (09:26→21:15)
[2017-01-22] MEDS: SOD CHLORIDE 0.9% IV SCH (09:47)
[2017-01-22] MEDS: traMADol 50 MG TAB GTB SCH ×2 (09:47→21:13)
[2017-01-22] MEDS: AZTREONAM IV SCH (09:47)
[2017-01-22] MEDS: DEXTROSE 5% 1,000 ML IV SCH ×3 (11:09→23:46)
[2017-01-22] MEDS: LEVOFLOXACIN 500MG/D5W (PMX) 100 ML IVPB SCH (13:12)
[2017-01-22 13:47] VITALS: BP 125/58; RESP 18
--- NOTE | 2017-01-22 14:45 | PN ---
Date/Time of Note Date/Time of Note DATE: 01/22/17 TIME: 14:44 Assessment/Plan VTE Prophylaxis VTE Prophylaxis Intervention: ambulation Lines/Catheters IV Catheter Type (from Nrs): PICC Line Central line still needed: Yes Urinary Cath still in place: Yes Reason Cath still needed: urinary retention Assessment/Plan Chief Complaint/Hosp Course 1. Sepsis, 2. Pulmonary edema, better 3. Chronic obstructive pulmonary disease. 4. Right below-knee amputation. 5. Severe anemia 6. Free water deficit, resolved 7. Cardiomyopathy. 8. Decreased ejection fraction. 9. G-tube placement. 10. History of right foot osteomyelitis. 11. Atherosclerotic heart disease. 12. Dyslipidemia. 13. History of Clostridium difficile colitis. 14. Left side pneumonia Problems: Assessment/Plan 1. continue tube feeding 2. for anemia continue Fe gluconate and start Epogen, no BT needed. 3, Continue a/b 4. Continue isolation Exam/Review of Systems Vital Signs Vitals Vital Signs Date Time Temp Pulse Resp B/P Pulse Ox O2 Delivery O2 Flow Rate FiO2 01/22/17 13:55 68 18 95 21 01/22/17 13:47 98.7 125/58 01/22/17 08:15 Nasal Cannula 2.0 Intake and Output 01/21/17 01/21/17 01/22/17 15:00 23:00 07:00 Intake Total 150 ml 600 ml Output Total 1650 ml Balance 150 ml -1050 ml Results Result Diagram: 01/22/17 0458 01/22/17 0458 Results 24 hrs Laboratory Tests Test 01/22/17 04:58 White Blood Count 8.1 Red Blood Count 2.74 L Hemoglobin 7.5 L Hematocrit 24.2 L Mean Corpuscular Volume 88.3 Mean Corpuscular Hemoglobin 27.4 L Mean Corpuscular Hemoglobin Concent 31.0 L Red Cell Distribution Width 17.2 H Platelet Count 247 Mean Platelet Volume 11.4 H Neutrophils % 80.1 H Lymphocytes % 8.1 L Monocytes % 8.0 Eosinophils % 3.1 Basophils % 0.2 Nucleated Red Blood Cells % 0.0 Neutrophils # 6.5 Lymphocytes # 0.7 L Monocytes # 0.7 Eosinophils # 0.3 Basophils # 0.0 Nucleated Red Blood Cells # 0.0 Sodium Level 143 Potassium Level 3.5 Chloride Level 106 Carbon Dioxide Level 35 H Anion Gap 6 L Blood Urea Nitrogen 42 H Creatinine 1.09 Glucose Level 302 #H Calcium Level 7.6 L Medications Medications Current Medications Acetaminophen (Tylenol Tab) 500 mg Q4 PRN PO MODERATE PAIN LEVEL 4-6; Start at 15:00 Albuterol (Proventil 0.083% (Neb)) 2.5 mg Q6 PRN NEB WHEEZING AND SOB; Start 01/18/17 at 15:00 Amlodipine Besylate (Norvasc) 5 mg BID GTB Last administered on 01/22/17 09:26 ; Admin Dose 5 MG; Start 01/18/17 at 21:00 Apixaban (Eliquis) 2.5 mg BID GTB Last administered on 01/22/17 09:24; Admin Dose 2.5 MG; Start 01/18/17 at 21:00 Ascorbic Acid (Vitamin C) 500 mg DAILY GTB Last administered on 01/22/17 09:23 ; Admin Dose 500 MG; Start 01/19/17 at 09:00 Aspirin (Aspirin) 325 mg DAILY GTB Last administered on 01/19/17 08:27; Admin Dose 325 MG; Start 01/19/17 at 09:00; Status Future Hold Atorvastatin Calcium (Lipitor) 40 mg QHS GTB Last administered on 01/21/17 21: 51; Admin Dose 40 MG; Start 01/18/17 at 21:00 Bisacodyl (Dulcolax Supp) 10 mg Q24H PRN [place] CONSTIPATION; Start 01/18/17 at 15: 00 Calcium/Vitamin D (Oyster Shell/ Vit-D (500/200)) 1 tab DAILY GTB Last administered on 01/22/17 09:24; Admin Dose 1 TAB; Start 01/19/17 at 09:00 Clonidine (Catapres) 0.1 mg Q4H PRN GTB SBP>170; Start 01/18/17 at 15:00; Status Future hold Diphenhydramine HCl (Benadryl) 25 mg BID PRN GTB ITCHING; Start 01/18/17 at 15: 00 Docusate Sodium (Colace) 200 mg DAILY PO Last administered on 01/22/17 09:24; Admin Dose 200 MG; Start 01/19/17 at 09:00 Fenofibrate (Tricor) 145 mg QHS GTB Last administered on 01/21/17 21:52; Admin Dose 145 MG; Start 01/18/17 at 21:00 Hydralazine HCl (Apresoline) 50 mg Q8 PO Last administered on 01/22/17 13:10; Admin Dose 50 MG; Start 01/18/17 at 22:00 Isosorbide Dinitrate (Isordil) 20 mg TID GTB Last administered on 01/22/17 13: 10; Admin Dose 20 MG; Start 01/18/17 at 21:00 Levetiracetam (Keppra) 1,000 mg DAILY GTB Last administered on 01/22/17 09:24 ; Admin Dose 1,000 MG; Start 01/19/17 at 09:00 Losartan Potassium (Cozaar) 50 mg BID GTB Last administered on 01/22/17 09:25 ; Admin Dose 50 MG; Start 01/18/17 at 21:00 Magnesium Hydroxide (Milk Of Mag) 30 ml Q24H PRN PO CONSTIPATION; Start at 15:00 Memantine (Namenda) 10 mg BID GTB Last administered on 01/22/17 09:24; Admin Dose 10 MG; Start 01/18/17 at 21:00 Mineral Oil (Fleet Mineral Oil Enema) 133 ml DAILY PRN [place] CONSTIPATION; Start 01/18/17 at 15:00 Multivitamins Therapeutic (Theragran) 1 tab DAILY GTB Last administered on 01/22 09:23; Admin Dose 1 TAB; Start 01/19/17 at 09:00 Tramadol HCl (Ultram) 50 mg Q12 GTB Last administered on 01/22/17 09:47; Admin Dose 50 MG; Start 01/18/17 at 21:00 Zolpidem Tartrate (Ambien) 5 mg HS PRN GTB SLEEP; Start 01/18/17 at 15:00 Lactobacillus Acidophilus/ Rhamnosus 1 cap 1 cap BID PO Last administered on 09:23; Admin Dose 1 CAP; Start 01/18/17 at 21:00 Dextrose (D5W) 1,000 ml @ 70 mls/hr [id number] IV Last administered on 01/21/17 15:12; Admin Dose 70 MLS/HR; Start 01/18/17 at 15:30 Furosemide (Lasix) 20 mg 06,12,18 IV Last administered on 01/22/17 13:11; Admin Dose 20 MG; Start 01/18/17 at 18:00 Miscellaneous Information (Pending Santyl Order For Wound Care) This patient basurto... PRN PRN XX WOUND CARE; Start 01/18/17 at 18:00 Famotidine (Pepcid) 20 mg Q24H PO Last administered on 01/21/17 21:51; Admin Dose 20 MG; Start 01/19/17 at 21:00 Mupirocin (Bactroban) 1 applic BID TOP Last administered on 01/21/17 21:55; Admin Dose 1 APPLIC; Start 01/20/17 at 21:00 Collagenase (Santyl) 1 applic DAILY TOP Last administered on 01/21/17 09:26; Admin Dose 1 APPLIC; Start 01/20/17 at 18:30 Ferrous Sulfate 330 mg 330 mg BID GTB Last administered on 01/22/17 09:21; Admin Dose 330 MG; Start 01/21/17 at 21:00 Ferric Sodium Gluconate Complex 125 mg/Sodium Chloride 110 ml @ 100 mls/hr Q24H IVPB Last administered on 01/21/17 18:12; Admin Dose 100 MLS/HR; Start 01/21/17 at 15:30; Stop 01/23/17 at 16:35 Cefepime HCl (Maxipime 1gm/50 ml (Pmx)) 50 ml @ 100 mls/hr Q12 IVPB ; Start at 21:00 Doxycycline Hyclate (Vibramycin) 100 mg BID PO ; Start 01/22/17 at 21:00 JOSE PERRY Jan 22, 2017 14:45
[2017-01-22] MEDS: MUPIROCIN 2% 22 GM OINT TOP SCH ×2 (15:55→21:16)
[2017-01-22] MEDS: COLLAGENASE 30 GM TUBE TOP SCH (15:55)
--- NOTE | 2017-01-22 16:22 | CONS ---
Date/Time of Note Date/Time of Note DATE: 01/22/17 TIME: 16:17 Assessment/Plan Assessment/Plan Additional Assessment/Plan Hypertension Paroxysmal atrial fibrillation, s/p Permanent pacemaker Chronic obstructive pulmonary disease. Anemia. Dyslipidemia. Failure to thrive. Dysphagia status post G-tube. Peripheral artery disease, status post RBKA. Continue Norvasc Continue Losartan Continue Antibiotics Continue eliquis Continue Hydralazine Continue fenofibrate and Lipitor Continue GI and DVT prophylaxis Consultation Date/Type/Reason Admit Date/Time Jan 18, 2017 at 11:38 Respiratory: other (NO DISTRESS) Gastrointestinal: no complaints Genitourinary: no complaints Psychological: no complaints Past Surgical History Past Surgical Hx: no surgical history Social History Smoking Status: Never smoker Exam/Review of Systems Vital Signs Vitals Vital Signs Date Time Temp Pulse Resp B/P Pulse Ox O2 Delivery O2 Flow Rate FiO2 01/22/17 13:55 68 18 95 21 01/22/17 13:47 98.7 125/58 01/22/17 08:15 Nasal Cannula 2.0 Intake and Output 01/21/17 01/21/17 01/22/17 15:00 23:00 07:00 Intake Total 150 ml 600 ml Output Total 1650 ml Balance 150 ml -1050 ml Exam Constitutional: alert, oriented Head: atraumatic, normocephalic Neck: non-tender, supple Respiratory: clear to auscultation Cardiovascular: regular rate and rhythm Gastrointestinal: nl liver, spleen, non-tender, soft Extremities: other (Right BKA) Results Result Diagram: 01/22/17 0458 01/22/17 0458 Results 24 hrs Laboratory Tests Test 01/22/17 04:58 White Blood Count 8.1 Red Blood Count 2.74 L Hemoglobin 7.5 L Hematocrit 24.2 L Mean Corpuscular Volume 88.3 Mean Corpuscular Hemoglobin 27.4 L Mean Corpuscular Hemoglobin Concent 31.0 L Red Cell Distribution Width 17.2 H Platelet Count 247 Mean Platelet Volume 11.4 H Neutrophils % 80.1 H Lymphocytes % 8.1 L Monocytes % 8.0 Eosinophils % 3.1 Basophils % 0.2 Nucleated Red Blood Cells % 0.0 Neutrophils # 6.5 Lymphocytes # 0.7 L Monocytes # 0.7 Eosinophils # 0.3 Basophils # 0.0 Nucleated Red Blood Cells # 0.0 Sodium Level 143 Potassium Level 3.5 Chloride Level 106 Carbon Dioxide Level 35 H Anion Gap 6 L Blood Urea Nitrogen 42 H Creatinine 1.09 Glucose Level 302 #H Calcium Level 7.6 L Medications Medications Current Medications Acetaminophen (Tylenol Tab) 500 mg Q4 PRN PO MODERATE PAIN LEVEL 4-6; Start at 15:00 Albuterol (Proventil 0.083% (Neb)) 2.5 mg Q6 PRN NEB WHEEZING AND SOB; Start 01/18/17 at 15:00 Amlodipine Besylate (Norvasc) 5 mg BID GTB Last administered on 01/22/17 09:26 ; Admin Dose 5 MG; Start 01/18/17 at 21:00 Apixaban (Eliquis) 2.5 mg BID GTB Last administered on 01/22/17 09:24; Admin Dose 2.5 MG; Start 01/18/17 at 21:00 Ascorbic Acid (Vitamin C) 500 mg DAILY GTB Last administered on 01/22/17 09:23 ; Admin Dose 500 MG; Start 01/19/17 at 09:00 Aspirin (Aspirin) 325 mg DAILY GTB Last administered on 01/19/17 08:27; Admin Dose 325 MG; Start 01/19/17 at 09:00; Status Future Hold Atorvastatin Calcium (Lipitor) 40 mg QHS GTB Last administered on 01/21/17 21: 51; Admin Dose 40 MG; Start 01/18/17 at 21:00 Bisacodyl (Dulcolax Supp) 10 mg Q24H PRN [place] CONSTIPATION; Start 01/18/17 at 15: 00 Calcium/Vitamin D (Oyster Shell/ Vit-D (500/200)) 1 tab DAILY GTB Last administered on 01/22/17 09:24; Admin Dose 1 TAB; Start 01/19/17 at 09:00 Clonidine (Catapres) 0.1 mg Q4H PRN GTB SBP>170; Start 01/18/17 at 15:00; Status Future hold Diphenhydramine HCl (Benadryl) 25 mg BID PRN GTB ITCHING; Start 01/18/17 at 15: 00 Docusate Sodium (Colace) 200 mg DAILY PO Last administered on 01/22/17 09:24; Admin Dose 200 MG; Start 01/19/17 at 09:00 Fenofibrate (Tricor) 145 mg QHS GTB Last administered on 01/21/17 21:52; Admin Dose 145 MG; Start 01/18/17 at 21:00 Hydralazine HCl (Apresoline) 50 mg Q8 PO Last administered on 01/22/17 13:10; Admin Dose 50 MG; Start 01/18/17 at 22:00 Isosorbide Dinitrate (Isordil) 20 mg TID GTB Last administered on 01/22/17 13: 10; Admin Dose 20 MG; Start 01/18/17 at 21:00 Levetiracetam (Keppra) 1,000 mg DAILY GTB Last administered on 01/22/17 09:24 ; Admin Dose 1,000 MG; Start 01/19/17 at 09:00 Losartan Potassium (Cozaar) 50 mg BID GTB Last administered on 01/22/17 09:25 ; Admin Dose 50 MG; Start 01/18/17 at 21:00 Magnesium Hydroxide (Milk Of Mag) 30 ml Q24H PRN PO CONSTIPATION; Start at 15:00 Memantine (Namenda) 10 mg BID GTB Last administered on 01/22/17 09:24; Admin Dose 10 MG; Start 01/18/17 at 21:00 Mineral Oil (Fleet Mineral Oil Enema) 133 ml DAILY PRN [place] CONSTIPATION; Start 01/18/17 at 15:00 Multivitamins Therapeutic (Theragran) 1 tab DAILY GTB Last administered on 01/22 09:23; Admin Dose 1 TAB; Start 01/19/17 at 09:00 Tramadol HCl (Ultram) 50 mg Q12 GTB Last administered on 01/22/17 09:47; Admin Dose 50 MG; Start 01/18/17 at 21:00 Zolpidem Tartrate (Ambien) 5 mg HS PRN GTB SLEEP; Start 01/18/17 at 15:00 Lactobacillus Acidophilus/ Rhamnosus 1 cap 1 cap BID PO Last administered on 09:23; Admin Dose 1 CAP; Start 01/18/17 at 21:00 Dextrose (D5W) 1,000 ml @ 70 mls/hr [id number] IV Last administered on 01/21/17 15:12; Admin Dose 70 MLS/HR; Start 01/18/17 at 15:30 Furosemide (Lasix) 20 mg 06,12,18 IV Last administered on 01/22/17 13:11; Admin Dose 20 MG; Start 01/18/17 at 18:00 Miscellaneous Information (Pending Santyl Order For Wound Care) This patient basurto... PRN PRN XX WOUND CARE; Start 01/18/17 at 18:00 Famotidine (Pepcid) 20 mg Q24H PO Last administered on 01/21/17 21:51; Admin Dose 20 MG; Start 01/19/17 at 21:00 Mupirocin (Bactroban) 1 applic BID TOP Last administered on 01/22/17 15:55; Admin Dose 1 APPLIC; Start 01/20/17 at 21:00 Collagenase (Santyl) 1 applic DAILY TOP Last administered on 01/22/17 15:55; Admin Dose 1 APPLIC; Start 01/20/17 at 18:30 Ferrous Sulfate 330 mg 330 mg BID GTB Last administered on 01/22/17 09:21; Admin Dose 330 MG; Start 01/21/17 at 21:00 Ferric Sodium Gluconate Complex 125 mg/Sodium Chloride 110 ml @ 100 mls/hr Q24H IVPB Last administered on 01/21/17 18:12; Admin Dose 100 MLS/HR; Start 01/21/17 at 15:30; Stop 01/23/17 at 16:35 Cefepime HCl (Maxipime 1gm/50 ml (Pmx)) 50 ml @ 100 mls/hr Q12 IVPB ; Start at 21:00 Doxycycline Hyclate (Vibramycin) 100 mg BID PO ; Start 01/22/17 at 21:00 Epoetin Rick (Epogen (Esrd)) 6,000 units TuThSa@17 SC ; Start 01/22/17 at 17:00 Potassium Chloride (Potassium Chloride Pwd/Soln) 20 meq DAILY GTB ; Start at 15:00 SHREYA HURLEY M.D. Jan 22, 2017 16:22 SHREYA HURLEY M.D. Jan 22, 2017 16:22
[2017-01-22] MEDS: POTASSIUM CHLORIDE 20 MEQ POWDER FOR ORAL SOLN GTB SCH (17:15)
[2017-01-22] MEDS: EPOETIN 3000 UNITS/1 ML INJ (ESRD) SC SCH (17:15)
[2017-01-22] MEDS: SOD FERRIC GLUC COMPLX 125 MG in SOD CHLORIDE 0.9% 100 ML IVPB SCH (20:04)
[2017-01-22 20:26] VITALS: BP 147/68; RESP 16
[2017-01-22] MEDS ORDERED: MUPIROCIN 2% 22 GM OINT TOP SCH (21:00)
[2017-01-22] MEDS: FENOFIBRATE 145 MG TAB GTB SCH (21:13)
[2017-01-22] MEDS: CEFEPIME 1GM/50 ML (PMX) 50 ML IVPB SCH (21:13)
[2017-01-22] MEDS: DOXYCYCLINE 100 MG TAB PO SCH (21:13)
[2017-01-22] MEDS: ATORVASTATIN 40 MG TAB GTB SCH (21:14)
[2017-01-22] MEDS: FAMOTIDINE 20 MG TAB PO SCH (21:14)
[2017-01-23] MEDS: ALBUTEROL/IPRATROPIUM (NEB) 3 ML AMP INH SCH ×4 (02:13→19:25)
[2017-01-23 02:28] VITALS: BP 106/50; RESP 16
[2017-01-23] MEDS: FUROSEMIDE 20 MG INJ IV SCH ×3 (05:13→18:37)
[2017-01-23 06:19] LABS: BASOPHILS % 0.3 % (0.0-2.0); EOSINOPHILS # 0.3 10^3/ul (0.0-0.5); EOSINOPHILS % 4.3 % (0.0-7.0); HEMATOCRIT 26.6 % (42.0-52.0); HEMOGLOBIN 8.4 g/dl (14.0-18.0); LYMPHOCYTES # 0.9 10^3/ul (0.8-2.9); LYMPHOCYTES % 14.3 % (15.0-51.0); MEAN CORPUSCULAR HEMOGLOBIN 27.7 pg (29.0-33.0); MEAN CORPUSCULAR HGB CONC 31.6 g/dl (32.0-37.0); MEAN CORPUSCULAR VOLUME 87.8 fl (82.0-101.0); MEAN PLATELET VOLUME 11.2 fl (7.4-10.4); MONOCYTE # 0.5 10^3/ul (0.3-0.9); MONOCYTES % 8.3 % (0.0-11.0); NEUTROPHIL # 4.5 10^3/ul (1.6-7.5); NEUTROPHILS % 72.2 % (39.0-77.0); PLATELET COUNT 213 10^3/UL (140-415); RED BLOOD COUNT 3.03 10^6/ul (4.70-6.10); RED CELL DISTRIBUTION WIDTH 16.5 % (11.5-14.5); WHITE BLOOD COUNT 6.2 10^3/ul (4.8-10.8)
[2017-01-23 06:31] LABS: CALCIUM 7.9 mg/dl (8.4-10.2); CREATININE 1.09 mg/dl (0.61-1.24); POTASSIUM 3.7 mmol/L (3.5-5.1)
[2017-01-23 08:25] VITALS: BP 132/63; RESP 18
[2017-01-23] MEDS: CEFEPIME 1GM/50 ML (PMX) 50 ML IVPB SCH ×2 (09:48→20:38)
[2017-01-23] MEDS: FERROUS SULFATE 60 MG/ML 5ML CUP GTB SCH ×2 (09:50→20:36)
[2017-01-23] MEDS: ISOSORBIDE DINITRATE 20 MG TAB GTB SCH ×3 (09:52→20:35)
[2017-01-23] MEDS: LEVETIRACETAM 500 MG TAB GTB SCH (09:52)
[2017-01-23] MEDS: MEMANTINE 10 MG TAB GTB SCH ×2 (09:53→20:36)
[2017-01-23] MEDS: MULTIVITAMINS THERAPEUTIC TAB GTB SCH (09:53)
[2017-01-23] MEDS: ASCORBIC ACID 500 MG TAB GTB SCH (09:53)
[2017-01-23] MEDS: DOXYCYCLINE 100 MG TAB PO SCH ×2 (09:53→20:34)
[2017-01-23] MEDS: APIXABAN 5 MG TABLET GTB SCH ×2 (09:53→20:34)
[2017-01-23] MEDS: CALCIUM/VITAMIN D (500/200) TAB GTB SCH (09:53)
[2017-01-23] MEDS: AMLODIPINE 5 MG TAB GTB SCH ×2 (09:53→20:43)
[2017-01-23] MEDS: LOSARTAN 50 MG TAB GTB SCH ×2 (09:53→20:42)
[2017-01-23] MEDS: POTASSIUM CHLORIDE 20 MEQ POWDER FOR ORAL SOLN GTB SCH (09:54)
[2017-01-23] MEDS: traMADol 50 MG TAB GTB SCH ×2 (09:56→20:34)
[2017-01-23] MEDS: DOCUSATE SODIUM 100 MG CAP PO SCH (09:56)
[2017-01-23] MEDS: LACTOBACILLUS RHAMNOSUS CAP PO SCH ×2 (09:56→20:34)
[2017-01-23] MEDS: COLLAGENASE 30 GM TUBE TOP SCH (10:03)
[2017-01-23] MEDS: MUPIROCIN 2% 22 GM OINT TOP SCH ×2 (10:03→20:36)
--- NOTE | 2017-01-23 13:27 | PN ---
Date/Time of Note Date/Time of Note DATE: 01/23/17 TIME: 13:24 Assessment/Plan VTE Prophylaxis VTE Prophylaxis Intervention: anti-embolic stocking Lines/Catheters IV Catheter Type (from Nrsg): PICC Line Central line still needed: Yes Urinary Cath still in place: Yes Reason Cath still needed: urinary retention Assessment/Plan Chief Complaint/Hosp Course 1. Sepsis, 2. Pulmonary edema, better 3. Chronic obstructive pulmonary disease. 4. Right below-knee amputation. 5. Severe anemia 6. Free water deficit, resolved 7. Cardiomyopathy. 8. Decreased ejection fraction. 9. G-tube placement. 10. right AKA. 11. Atherosclerotic heart disease. 12. Dyslipidemia. 13. History of Clostridium difficile colitis. 14. Left side pneumonia 15. Buttocks wounds Problems: Assessment/Plan 1. continue wound care 2. continue GT feeding Subjective 24 Hr Interval Summary Subjective hx not possible: pt non-verbal Exam/Review of Systems Vital Signs Vitals Vital Signs Date Time Temp Pulse Resp B/P Pulse Ox O2 Delivery O2 Flow Rate FiO2 01/23/17 11:24 Nasal Cannula 2.0 01/23/17 08:25 98.3 60 18 132/63 99 01/23/17 02:14 28 Intake and Output 01/22/17 01/22/17 01/23/17 15:00 23:00 07:00 Intake Total 960 ml 420 ml Output Total 1000 ml 750 ml Balance -40 ml -330 ml Exam Constitutional: frail Head: atraumatic, normocephalic Respiratory: diminished breath sounds Cardiovascular: regular rate and rhythm Musculoskeletal: muscle weakness, other (r Aka with selena and bilateral buttocks wounds no drainage) Results Result Diagram: 01/23/1751001/23/17 0511 Results 24 hrs Laboratory Tests Test 01/23/17 05:11 01/23/17 05:44 White Blood Count 6.2 # Red Blood Count 3.03 L Hemoglobin 8.4 L Hematocrit 26.6 L Mean Corpuscular Volume 87.8 Mean Corpuscular Hemoglobin 27.7 L Mean Corpuscular Hemoglobin Concent 31.6 L Red Cell Distribution Width 16.5 H Platelet Count 213 Mean Platelet Volume 11.2 H Neutrophils % 72.2 Lymphocytes % 14.3 L Monocytes % 8.3 Eosinophils % 4.3 Basophils % 0.3 Nucleated Red Blood Cells % 0.0 Neutrophils # 4.5 Lymphocytes # 0.9 Monocytes # 0.5 Eosinophils # 0.3 Basophils # 0.0 Nucleated Red Blood Cells # 0.0 Sodium Level 135 Potassium Level 3.7 Chloride Level 99 Carbon Dioxide Level 34 H Anion Gap 6 L Blood Urea Nitrogen 40 H Creatinine 1.09 Glucose Level 272 H Calcium Level 7.9 L Lab Scanned Report BLOOD TRANSFUSION Medications Medications Current Medications Acetaminophen (Tylenol Tab) 500 mg Q4 PRN PO MODERATE PAIN LEVEL 4-6; Start at 15:00 Albuterol (Proventil 0.083% (Neb)) 2.5 mg Q6 PRN NEB WHEEZING AND SOB; Start 01/18/17 at 15:00 Amlodipine Besylate (Norvasc) 5 mg BID GTB Last administered on 01/23/17 09:53 ; Admin Dose 5 MG; Start 01/18/17 at 21:00 Apixaban (Eliquis) 2.5 mg BID GTB Last administered on 01/23/17 09:53; Admin Dose 2.5 MG; Start 01/18/17 at 21:00 Ascorbic Acid (Vitamin C) 500 mg DAILY GTB Last administered on 01/23/17 09:53 ; Admin Dose 500 MG; Start 01/19/17 at 09:00 Aspirin (Aspirin) 325 mg DAILY GTB Last administered on 01/19/17 08:27; Admin Dose 325 MG; Start 01/19/17 at 09:00; Status Future Hold Atorvastatin Calcium (Lipitor) 40 mg QHS GTB Last administered on 01/22/17 21: 14; Admin Dose 40 MG; Start 01/18/17 at 21:00 Bisacodyl (Dulcolax Supp) 10 mg Q24H PRN [place] CONSTIPATION; Start 01/18/17 at 15: 00 Calcium/Vitamin D (Oyster Shell/ Vit-D (500/200)) 1 tab DAILY GTB Last administered on 01/23/17 09:53; Admin Dose 1 TAB; Start 01/19/17 at 09:00 Clonidine (Catapres) 0.1 mg Q4H PRN GTB SBP>170; Start 01/18/17 at 15:00; Status Future hold Diphenhydramine HCl (Benadryl) 25 mg BID PRN GTB ITCHING; Start 01/18/17 at 15: 00 Docusate Sodium (Colace) 200 mg DAILY PO Last administered on 01/23/17 09:56; Admin Dose 200 MG; Start 01/19/17 at 09:00 Fenofibrate (Tricor) 145 mg QHS GTB Last administered on 01/22/17 21:13; Admin Dose 145 MG; Start 01/18/17 at 21:00 Hydralazine HCl (Apresoline) 50 mg Q8 PO Last administered on 01/23/17 05:12; Admin Dose 50 MG; Start 01/18/17 at 22:00 Isosorbide Dinitrate (Isordil) 20 mg TID GTB Last administered on 01/23/17 12: 25; Admin Dose 20 MG; Start 01/18/17 at 21:00 Levetiracetam (Keppra) 1,000 mg DAILY GTB Last administered on 01/23/17 09:52 ; Admin Dose 1,000 MG; Start 01/19/17 at 09:00 Losartan Potassium (Cozaar) 50 mg BID GTB Last administered on 01/23/17 09:53 ; Admin Dose 50 MG; Start 01/18/17 at 21:00 Magnesium Hydroxide (Milk Of Mag) 30 ml Q24H PRN PO CONSTIPATION; Start at 15:00 Memantine (Namenda) 10 mg BID GTB Last administered on 01/23/17 09:53; Admin Dose 10 MG; Start 01/18/17 at 21:00 Mineral Oil (Fleet Mineral Oil Enema) 133 ml DAILY PRN [place] CONSTIPATION; Start 01/18/17 at 15:00 Multivitamins Therapeutic (Theragran) 1 tab DAILY GTB Last administered on 01/23 09:53; Admin Dose 1 TAB; Start 01/19/17 at 09:00 Tramadol HCl (Ultram) 50 mg Q12 GTB Last administered on 01/23/17 09:56; Admin Dose 50 MG; Start 01/18/17 at 21:00 Zolpidem Tartrate (Ambien) 5 mg HS PRN GTB SLEEP; Start 01/18/17 at 15:00 Lactobacillus Acidophilus/ Rhamnosus 1 cap 1 cap BID PO Last administered on 09:56; Admin Dose 1 CAP; Start 01/18/17 at 21:00 Dextrose (D5W) 1,000 ml @ 70 mls/hr [id number] IV Last administered on 01/22/17 22:55; Admin Dose 70 MLS/HR; Start 01/18/17 at 15:30 Furosemide (Lasix) 20 mg 06,12,18 IV Last administered on 01/23/17 12:25; Admin Dose 20 MG; Start 01/18/17 at 18:00 Miscellaneous Information (Pending Santyl Order For Wound Care) This patient basurto... PRN PRN XX WOUND CARE; Start 01/18/17 at 18:00 Famotidine (Pepcid) 20 mg Q24H PO Last administered on 01/22/17 21:14; Admin Dose 20 MG; Start 01/19/17 at 21:00 Mupirocin (Bactroban) 1 applic BID TOP Last administered on 01/23/17 10:03; Admin Dose 1 APPLIC; Start 01/20/17 at 21:00 Collagenase (Santyl) 1 applic DAILY TOP Last administered on 01/23/17 10:03; Admin Dose 1 APPLIC; Start 01/20/17 at 18:30 Ferrous Sulfate 330 mg 330 mg BID GTB Last administered on 01/23/17 09:50; Admin Dose 330 MG; Start 01/21/17 at 21:00 Ferric Sodium Gluconate Complex 125 mg/Sodium Chloride 110 ml @ 100 mls/hr Q24H IVPB Last administered on 01/22/17 20:04; Admin Dose 100 MLS/HR; Start 01/21/17 at 15:30; Stop 01/23/17 at 16:35 Cefepime HCl (Maxipime 1gm/50 ml (Pmx)) 50 ml @ 100 mls/hr Q12 IVPB Last administered on 01/23/17 09:48; Admin Dose 100 MLS/HR; Start 01/22/17 at 21:00 Doxycycline Hyclate (Vibramycin) 100 mg BID PO Last administered on 01/23/17 09:53; Admin Dose 100 MG; Start 01/22/17 at 21:00 Epoetin Rick (Epogen (Esrd)) 6,000 units TuThSa@17 SC Last administered on 01/22 17:15; Admin Dose 6,000 UNITS; Start 01/22/17 at 17:00 Potassium Chloride (Potassium Chloride Pwd/Soln) 20 meq DAILY GTB Last administered on 01/23/17 09:54; Admin Dose 20 MEQ; Start 01/22/17 at 15:00 JOSE PERRY Jan 23, 2017 13:27
[2017-01-23] MEDS: DEXTROSE 5% 1,000 ML IV SCH (14:24)
[2017-01-23 14:25] VITALS: BP 124/61; RESP 18
--- NOTE | 2017-01-23 14:45 | CONS ---
Date/Time of Note Date/Time of Note DATE: 01/23/17 TIME: 14:44 Assessment/Plan Assessment/Plan Chief Complaint/Hosp Course Full note dictated [id number] Problems: Consultation Date/Type/Reason Admit Date/Time Jan 18, 2017 at 11:38 Initial Consult Date Type of Consultation: ID Referring Provider: JOSE C VILLATORO MD Exam/Review of Systems Vital Signs Vitals Vital Signs Date Time Temp Pulse Resp B/P Pulse Ox O2 Delivery O2 Flow Rate FiO2 01/23/17 14:25 99.1 60 18 124/61 100 01/23/17 13:34 2.0 01/23/17 13:34 Nasal Cannula 01/23/17 02:14 28 Intake and Output 01/22/17 01/22/17 01/23/17 15:00 23:00 07:00 Intake Total 960 ml 420 ml Output Total 1000 ml 750 ml Balance -40 ml -330 ml Results Result Diagram: 01/23/17 0511 01/23/17 0511 Results 24 hrs Laboratory Tests Test 01/23/17 05:11 01/23/17 05:44 White Blood Count 6.2 # Red Blood Count 3.03 L Hemoglobin 8.4 L Hematocrit 26.6 L Mean Corpuscular Volume 87.8 Mean Corpuscular Hemoglobin 27.7 L Mean Corpuscular Hemoglobin Concent 31.6 L Red Cell Distribution Width 16.5 H Platelet Count 213 Mean Platelet Volume 11.2 H Neutrophils % 72.2 Lymphocytes % 14.3 L Monocytes % 8.3 Eosinophils % 4.3 Basophils % 0.3 Nucleated Red Blood Cells % 0.0 Neutrophils # 4.5 Lymphocytes # 0.9 Monocytes # 0.5 Eosinophils # 0.3 Basophils # 0.0 Nucleated Red Blood Cells # 0.0 Sodium Level 135 Potassium Level 3.7 Chloride Level 99 Carbon Dioxide Level 34 H Anion Gap 6 L Blood Urea Nitrogen 40 H Creatinine 1.09 Glucose Level 272 H Calcium Level 7.9 L Lab Scanned Report BLOOD TRANSFUSION Medications Medications Current Medications Acetaminophen (Tylenol Tab) 500 mg Q4 PRN PO MODERATE PAIN LEVEL 4-6; Start at 15:00 Albuterol (Proventil 0.083% (Neb)) 2.5 mg Q6 PRN NEB WHEEZING AND SOB; Start 01/18/17 at 15:00 Amlodipine Besylate (Norvasc) 5 mg BID GTB Last administered on 01/23/17 09:53 ; Admin Dose 5 MG; Start 01/18/17 at 21:00 Apixaban (Eliquis) 2.5 mg BID GTB Last administered on 01/23/17 09:53; Admin Dose 2.5 MG; Start 01/18/17 at 21:00 Ascorbic Acid (Vitamin C) 500 mg DAILY GTB Last administered on 01/23/17 09:53 ; Admin Dose 500 MG; Start 01/19/17 at 09:00 Aspirin (Aspirin) 325 mg DAILY GTB Last administered on 01/19/17 08:27; Admin Dose 325 MG; Start 01/19/17 at 09:00; Status Future Hold Atorvastatin Calcium (Lipitor) 40 mg QHS GTB Last administered on 01/22/17 21: 14; Admin Dose 40 MG; Start 01/18/17 at 21:00 Bisacodyl (Dulcolax Supp) 10 mg Q24H PRN [place] CONSTIPATION; Start 01/18/17 at 15: 00 Calcium/Vitamin D (Oyster Shell/ Vit-D (500/200)) 1 tab DAILY GTB Last administered on 01/23/17 09:53; Admin Dose 1 TAB; Start 01/19/17 at 09:00 Clonidine (Catapres) 0.1 mg Q4H PRN GTB SBP>170; Start 01/18/17 at 15:00; Status Future hold Diphenhydramine HCl (Benadryl) 25 mg BID PRN GTB ITCHING; Start 01/18/17 at 15: 00 Docusate Sodium (Colace) 200 mg DAILY PO Last administered on 01/23/17 09:56; Admin Dose 200 MG; Start 01/19/17 at 09:00 Fenofibrate (Tricor) 145 mg QHS GTB Last administered on 01/22/17 21:13; Admin Dose 145 MG; Start 01/18/17 at 21:00 Hydralazine HCl (Apresoline) 50 mg Q8 PO Last administered on 01/23/17 14:25; Admin Dose 50 MG; Start 01/18/17 at 22:00 Isosorbide Dinitrate (Isordil) 20 mg TID GTB Last administered on 01/23/17 12: 25; Admin Dose 20 MG; Start 01/18/17 at 21:00 Levetiracetam (Keppra) 1,000 mg DAILY GTB Last administered on 01/23/17 09:52 ; Admin Dose 1,000 MG; Start 01/19/17 at 09:00 Losartan Potassium (Cozaar) 50 mg BID GTB Last administered on 01/23/17 09:53 ; Admin Dose 50 MG; Start 01/18/17 at 21:00 Magnesium Hydroxide (Milk Of Mag) 30 ml Q24H PRN PO CONSTIPATION; Start at 15:00 Memantine (Namenda) 10 mg BID GTB Last administered on 01/23/17 09:53; Admin Dose 10 MG; Start 01/18/17 at 21:00 Mineral Oil (Fleet Mineral Oil Enema) 133 ml DAILY PRN [place] CONSTIPATION; Start 01/18/17 at 15:00 Multivitamins Therapeutic (Theragran) 1 tab DAILY GTB Last administered on 01/23 09:53; Admin Dose 1 TAB; Start 01/19/17 at 09:00 Tramadol HCl (Ultram) 50 mg Q12 GTB Last administered on 01/23/17 09:56; Admin Dose 50 MG; Start 01/18/17 at 21:00 Zolpidem Tartrate (Ambien) 5 mg HS PRN GTB SLEEP; Start 01/18/17 at 15:00 Lactobacillus Acidophilus/ Rhamnosus 1 cap 1 cap BID PO Last administered on 09:56; Admin Dose 1 CAP; Start 01/18/17 at 21:00 Dextrose (D5W) 1,000 ml @ 70 mls/hr [id number] IV Last administered on 01/23/17 14:24; Admin Dose 70 MLS/HR; Start 01/18/17 at 15:30 Furosemide (Lasix) 20 mg 06,12,18 IV Last administered on 01/23/17 12:25; Admin Dose 20 MG; Start 01/18/17 at 18:00 Miscellaneous Information (Pending Santyl Order For Wound Care) This patient basurto... PRN PRN XX WOUND CARE; Start 01/18/17 at 18:00 Famotidine (Pepcid) 20 mg Q24H PO Last administered on 01/22/17 21:14; Admin Dose 20 MG; Start 01/19/17 at 21:00 Mupirocin (Bactroban) 1 applic BID TOP Last administered on 01/23/17 10:03; Admin Dose 1 APPLIC; Start 01/20/17 at 21:00 Collagenase (Santyl) 1 applic DAILY TOP Last administered on 01/23/17 10:03; Admin Dose 1 APPLIC; Start 01/20/17 at 18:30 Ferrous Sulfate 330 mg 330 mg BID GTB Last administered on 01/23/17 09:50; Admin Dose 330 MG; Start 01/21/17 at 21:00 Ferric Sodium Gluconate Complex 125 mg/Sodium Chloride 110 ml @ 100 mls/hr Q24H IVPB Last administered on 01/22/17 20:04; Admin Dose 100 MLS/HR; Start 01/21/17 at 15:30; Stop 01/23/17 at 16:35 Cefepime HCl (Maxipime 1gm/50 ml (Pmx)) 50 ml @ 100 mls/hr Q12 IVPB Last administered on 01/23/17 09:48; Admin Dose 100 MLS/HR; Start 01/22/17 at 21:00 Doxycycline Hyclate (Vibramycin) 100 mg BID PO Last administered on 01/23/17 09:53; Admin Dose 100 MG; Start 01/22/17 at 21:00 Epoetin Rick (Epogen (Esrd)) 6,000 units TuThSa@17 SC Last administered on 01/22 17:15; Admin Dose 6,000 UNITS; Start 01/22/17 at 17:00 Potassium Chloride (Potassium Chloride Pwd/Soln) 20 meq DAILY GTB Last administered on 01/23/17 09:54; Admin Dose 20 MEQ; Start 01/22/17 at 15:00 EM RIOS NP Jan 23, 2017 14:45
[2017-01-23] MEDS: SOD FERRIC GLUC COMPLX 125 MG in SOD CHLORIDE 0.9% 100 ML IVPB SCH (15:45)
--- NOTE | 2017-01-23 16:58 | CONS ---
Date/Time of Note Date/Time of Note DATE: 01/23/17 TIME: 16:57 Assessment/Plan Assessment/Plan Additional Assessment/Plan Hypertension Paroxysmal atrial fibrillation, s/p Permanent pacemaker Chronic obstructive pulmonary disease. Anemia. Dyslipidemia. Failure to thrive. Dysphagia status post G-tube. Peripheral artery disease, status post RBKA. Continue Norvasc Continue Losartan Continue Antibiotics Continue eliquis Continue Hydralazine Continue fenofibrate and Lipitor Continue GI and DVT prophylaxis Consultation Date/Type/Reason Admit Date/Time Jan 18, 2017 at 11:38 Initial Consult Date Type of Consultation: ID Referring Provider: JOSE C VILLATORO MD Exam/Review of Systems Vital Signs Vitals Vital Signs Date Time Temp Pulse Resp B/P Pulse Ox O2 Delivery O2 Flow Rate FiO2 01/23/17 14:25 99.1 60 18 124/61 100 01/23/17 13:34 2.0 01/23/17 13:34 Nasal Cannula 01/23/17 02:14 28 Intake and Output 01/22/17 01/22/17 01/23/17 15:00 23:00 07:00 Intake Total 960 ml 420 ml Output Total 1000 ml 750 ml Balance -40 ml -330 ml Exam Constitutional: alert, oriented Head: atraumatic, normocephalic Neck: non-tender, supple Respiratory: clear to auscultation Cardiovascular: regular rate and rhythm Gastrointestinal: nl liver, spleen, non-tender, soft Extremities: other (Right BKA) Results Result Diagram: 01/23/17 0511 01/23/17 0511 Results 24 hrs Laboratory Tests Test 01/23/17 05:11 01/23/17 05:44 White Blood Count 6.2 # Red Blood Count 3.03 L Hemoglobin 8.4 L Hematocrit 26.6 L Mean Corpuscular Volume 87.8 Mean Corpuscular Hemoglobin 27.7 L Mean Corpuscular Hemoglobin Concent 31.6 L Red Cell Distribution Width 16.5 H Platelet Count 213 Mean Platelet Volume 11.2 H Neutrophils % 72.2 Lymphocytes % 14.3 L Monocytes % 8.3 Eosinophils % 4.3 Basophils % 0.3 Nucleated Red Blood Cells % 0.0 Neutrophils # 4.5 Lymphocytes # 0.9 Monocytes # 0.5 Eosinophils # 0.3 Basophils # 0.0 Nucleated Red Blood Cells # 0.0 Sodium Level 135 Potassium Level 3.7 Chloride Level 99 Carbon Dioxide Level 34 H Anion Gap 6 L Blood Urea Nitrogen 40 H Creatinine 1.09 Glucose Level 272 H Calcium Level 7.9 L Lab Scanned Report BLOOD TRANSFUSION Medications Medications Current Medications Acetaminophen (Tylenol Tab) 500 mg Q4 PRN PO MODERATE PAIN LEVEL 4-6; Start at 15:00 Albuterol (Proventil 0.083% (Neb)) 2.5 mg Q6 PRN NEB WHEEZING AND SOB; Start 01/18/17 at 15:00 Amlodipine Besylate (Norvasc) 5 mg BID GTB Last administered on 01/23/17 09:53 ; Admin Dose 5 MG; Start 01/18/17 at 21:00 Apixaban (Eliquis) 2.5 mg BID GTB Last administered on 01/23/17 09:53; Admin Dose 2.5 MG; Start 01/18/17 at 21:00 Ascorbic Acid (Vitamin C) 500 mg DAILY GTB Last administered on 01/23/17 09:53 ; Admin Dose 500 MG; Start 01/19/17 at 09:00 Aspirin (Aspirin) 325 mg DAILY GTB Last administered on 01/19/17 08:27; Admin Dose 325 MG; Start 01/19/17 at 09:00; Status Future Hold Atorvastatin Calcium (Lipitor) 40 mg QHS GTB Last administered on 01/22/17 21: 14; Admin Dose 40 MG; Start 01/18/17 at 21:00 Bisacodyl (Dulcolax Supp) 10 mg Q24H PRN [place] CONSTIPATION; Start 01/18/17 at 15: 00 Calcium/Vitamin D (Oyster Shell/ Vit-D (500/200)) 1 tab DAILY GTB Last administered on 01/23/17 09:53; Admin Dose 1 TAB; Start 01/19/17 at 09:00 Clonidine (Catapres) 0.1 mg Q4H PRN GTB SBP>170; Start 01/18/17 at 15:00; Status Future hold Diphenhydramine HCl (Benadryl) 25 mg BID PRN GTB ITCHING; Start 01/18/17 at 15: 00 Docusate Sodium (Colace) 200 mg DAILY PO Last administered on 01/23/17 09:56; Admin Dose 200 MG; Start 01/19/17 at 09:00 Fenofibrate (Tricor) 145 mg QHS GTB Last administered on 01/22/17 21:13; Admin Dose 145 MG; Start 01/18/17 at 21:00 Hydralazine HCl (Apresoline) 50 mg Q8 PO Last administered on 01/23/17 14:25; Admin Dose 50 MG; Start 01/18/17 at 22:00 Isosorbide Dinitrate (Isordil) 20 mg TID GTB Last administered on 01/23/17 12: 25; Admin Dose 20 MG; Start 01/18/17 at 21:00 Levetiracetam (Keppra) 1,000 mg DAILY GTB Last administered on 01/23/17 09:52 ; Admin Dose 1,000 MG; Start 01/19/17 at 09:00 Losartan Potassium (Cozaar) 50 mg BID GTB Last administered on 01/23/17 09:53 ; Admin Dose 50 MG; Start 01/18/17 at 21:00 Magnesium Hydroxide (Milk Of Mag) 30 ml Q24H PRN PO CONSTIPATION; Start at 15:00 Memantine (Namenda) 10 mg BID GTB Last administered on 01/23/17 09:53; Admin Dose 10 MG; Start 01/18/17 at 21:00 Mineral Oil (Fleet Mineral Oil Enema) 133 ml DAILY PRN [place] CONSTIPATION; Start 01/18/17 at 15:00 Multivitamins Therapeutic (Theragran) 1 tab DAILY GTB Last administered on 01/23 09:53; Admin Dose 1 TAB; Start 01/19/17 at 09:00 Tramadol HCl (Ultram) 50 mg Q12 GTB Last administered on 01/23/17 09:56; Admin Dose 50 MG; Start 01/18/17 at 21:00 Zolpidem Tartrate (Ambien) 5 mg HS PRN GTB SLEEP; Start 01/18/17 at 15:00 Lactobacillus Acidophilus/ Rhamnosus 1 cap 1 cap BID PO Last administered on 09:56; Admin Dose 1 CAP; Start 01/18/17 at 21:00 Dextrose (D5W) 1,000 ml @ 70 mls/hr [id number] IV Last administered on 01/23/17 14:24; Admin Dose 70 MLS/HR; Start 01/18/17 at 15:30 Furosemide (Lasix) 20 mg 06,12,18 IV Last administered on 01/23/17 12:25; Admin Dose 20 MG; Start 01/18/17 at 18:00 Miscellaneous Information (Pending Santyl Order For Wound Care) This patient basurto... PRN PRN XX WOUND CARE; Start 01/18/17 at 18:00 Famotidine (Pepcid) 20 mg Q24H PO Last administered on 01/22/17 21:14; Admin Dose 20 MG; Start 01/19/17 at 21:00 Mupirocin (Bactroban) 1 applic BID TOP Last administered on 01/23/17 10:03; Admin Dose 1 APPLIC; Start 01/20/17 at 21:00 Collagenase (Santyl) 1 applic DAILY TOP Last administered on 01/23/17 10:03; Admin Dose 1 APPLIC; Start 01/20/17 at 18:30 Ferrous Sulfate 330 mg 330 mg BID GTB Last administered on 01/23/17 09:50; Admin Dose 330 MG; Start 01/21/17 at 21:00 Cefepime HCl (Maxipime 1gm/50 ml (Pmx)) 50 ml @ 100 mls/hr Q12 IVPB Last administered on 01/23/17 09:48; Admin Dose 100 MLS/HR; Start 01/22/17 at 21:00 Doxycycline Hyclate (Vibramycin) 100 mg BID PO Last administered on 01/23/17 09:53; Admin Dose 100 MG; Start 01/22/17 at 21:00 Epoetin Rick (Epogen (Esrd)) 6,000 units TuThSa@17 SC Last administered on 01/22 17:15; Admin Dose 6,000 UNITS; Start 01/22/17 at 17:00 Potassium Chloride (Potassium Chloride Pwd/Soln) 20 meq DAILY GTB Last administered on 01/23/17 09:54; Admin Dose 20 MEQ; Start 01/22/17 at 15:00 SHREYA HURLEY M.D. Jan 23, 2017 16:58
[2017-01-23 19:58] VITALS: BP 108/54; RESP 18
[2017-01-23] MEDS: FENOFIBRATE 145 MG TAB GTB SCH (20:35)
[2017-01-23] MEDS: ATORVASTATIN 40 MG TAB GTB SCH (20:35)
[2017-01-23] MEDS: FAMOTIDINE 20 MG TAB PO SCH (20:36)
[2017-01-23 23:05] VITALS: BP 109/54; PULSE 60
[2017-01-24] MEDS: ALBUTEROL/IPRATROPIUM (NEB) 3 ML AMP INH SCH ×4 (01:23→21:08)
[2017-01-24 02:33] VITALS: BP 133/58; RESP 18
--- NOTE | 2017-01-24 04:11 | PN ---
DATE: 01/22/2017 INFECTIOUS DISEASE PROGRESS NOTE SUBJECTIVE: No acute events overnight. The patient is lying comfortably in bed. He is afebrile. WBC 8.1, H and H 7.5 and 24.2, platelets 247, neutrophils 80.1, BUN 42, creatinine 1.09. MICROBIOLOGY: Blood and urine cultures negative. Nares swab positive for MRSA. INDWELLINGS: Trach, PEG, Cevallos, right upper extremity PICC line, permanent pacemaker. ANTIMICROBIALS: The patient is on: 1. Levaquin. 2. Aztreonam. 3. Bactroban to nares. DIAGNOSTICS: Chest x-ray this morning revealed worse appearance of the left lung base. PHYSICAL EXAMINATION: GENERAL: This is a chronically ill-appearing, fragile, elderly man who is in no distress. HEENT: Head atraumatic, normocephalic. Sclerae anicteric. Buccal mucosa dry. NECK: Supple. Tracheostomy present. CHEST: Rise symmetrical. Breath sounds diminished to bases. HEART: S1, S2. ABDOMEN: Soft. Bowel tones present. EXTREMITIES: Without cyanosis. ASSESSMENT: 1. [id number] encephalopathy. 2. Healthcare-associated pneumonia. 3. Chronic respiratory failure. 4. Coronary artery disease, history of permanent pacemaker. 5. History of Clostridium difficile colitis. 6. Methicillin-resistant Staphylococcus aureus nares colonization. 7. Status post right below knee amputation, stump looks clean and noninfected. PLAN: We are going to change antibiotics to cefepime. Add Bactroban to nares and doxycycline. Lawson patterson present care. Send sputum for culture. Dictated By: EM RIOS TOOLS DEVELOPER for UMER TIM MD NI/NTS Conf#: [id number] DID#: [id number] CC: JOSE C VILLATORO MD;*EndCC*
[2017-01-24] MEDS: FUROSEMIDE 20 MG INJ IV SCH (05:34)
[2017-01-24 05:40] VITALS: BP 130/60; PULSE 60
[2017-01-24] MEDS: DEXTROSE 5% 1,000 ML IV SCH ×2 (05:44→20:48)
[2017-01-24 05:54] LABS: BASOPHILS % 0.4 % (0.0-2.0); EOSINOPHILS # 0.3 10^3/ul (0.0-0.5); EOSINOPHILS % 6.3 % (0.0-7.0); HEMATOCRIT 25.1 % (42.0-52.0); LYMPHOCYTES # 0.8 10^3/ul (0.8-2.9); LYMPHOCYTES % 15.3 % (15.0-51.0); MEAN CORPUSCULAR HEMOGLOBIN 27.5 pg (29.0-33.0); MEAN CORPUSCULAR HGB CONC 31.9 g/dl (32.0-37.0); MEAN CORPUSCULAR VOLUME 86.3 fl (82.0-101.0); MEAN PLATELET VOLUME 10.8 fl (7.4-10.4); MONOCYTE # 0.5 10^3/ul (0.3-0.9); MONOCYTES % 9.9 % (0.0-11.0); NEUTROPHIL # 3.3 10^3/ul (1.6-7.5); NEUTROPHILS % 67.3 % (39.0-77.0); PLATELET COUNT 201 10^3/UL (140-415); RED BLOOD COUNT 2.91 10^6/ul (4.70-6.10); RED CELL DISTRIBUTION WIDTH 16.1 % (11.5-14.5)
[2017-01-24 06:18] LABS: CALCIUM 7.9 mg/dl (8.4-10.2); CREATININE 1.11 mg/dl (0.61-1.24); POTASSIUM 3.9 mmol/L (3.5-5.1)
--- NOTE | 2017-01-24 07:02 | CONS ---
DATE OF ADMISSION: 01/18/2017 DATE OF CONSULTATION: 01/21/2017 TYPE OF CONSULTATION: Infectious consult. REASON FOR CONSULTATION: Antibiotic management. HISTORY OF PRESENT ILLNESS: Maxime Anguiano is an 81-year-old male with numerous problems who was rec ently discharged from [facility] with a diagnosis of right foot gangrene and is bein g seen now for antibiotic management. PAST PROBLEMS: Include 1. Adult-onset diabetes mellitus. 2. Gangrene of the ____ foot, status post ____ below-knee amputation. 3. Chronic renal disease. 4. Congestive heart failure. 5. Hypertension. 6. G-tube placement. 7. Pacemaker placement. 8. Aphasia. 9. Gout. 10. Cardiomyopathy with a history of ejection fraction of 35% to 40%. 11. History of Pseudomonas aeruginosa urinary tract infection (UTI). 12. History of atrial fibrillation. 13. History of cerebrovascular accident with aphasia. 14. Anemia of chronic disease. 15. History of Clostridium difficile colitis. 16. History of lamine hole. 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 18. Chronic renal disease. 19. ALLERGY TO PENICILLIN. Acutely, the patient comes in now with acute respiratory insufficiency. On admission, he had altere d mental status. He has a history of dementia. It is unclear that he is diabetic from the history, but I believe he is. His white count was 12.8, H and H of 9 and 30.6, platelet count 354,000. BUN and creatinine of 84/1.74. HOSPITAL COURSE: His blood cultures were negative. Urine cultures were negative. His chest x-ray on 01/18/2017 showed a right arm PICC line, left-sided permanent pacemaker in satisfactory position, mild pulmonary edema, left basilar atelectasis, heart being mildly enlarged; no right pleural effus ion; small left pleural effusion; no pneumothorax; there is an old non-united fracture of the distal clavicle with inferior displacement; worse appearance of the left lung; no other change from 2016. The patient was begun on Levaquin and vancomycin, and then aztreonam was added because HE IS ALLERGIC TO PENICILLIN. So, he received vancomycin, Levaquin, and aztreonam. The patient was seen by a number of different consultants. A catheter was placed for urinary retention. The patient was felt to have sepsis with possible pneumonia. History of Clostridium difficile colitis. PHYSICAL EXAMINATION GENERAL AND VITAL SIGNS: The patient is an elderly appearing, chronically ill male who was admitted with a temperature of 100.4. SKIN: He has a sacral decubitus ulcer with redness. HEAD, EARS, EYES, NOSE, AND THROAT: Within normal limits. NECK: Supple. LYMPH NODES: Not palpable. CHEST: Decreased breath sounds at the bases. HEART: Without murmur or gallop. ABDOMEN: Soft, nontender, without organosplenomegaly or masses. EXTREMITIES: Without cyanosis, clubbing, or edema. He also has, as noted previously, a right BKA w ith contractions of the upper and lower extremities. RECTAL AND GENITAL: Exams deferred. NEUROLOGICAL: He has a stroke with left-sided weakness. IMPRESSION AND PLAN: The patient has numerous problems, including some redness and cellulitis of th e sacral ulcer and evidence of probable pneumonia. He is currently on vancomycin, Levaquin, and azt reonam. We will continue him on this regimen for the time being. Blood cultures are pending. I wi ll dictate my findings to Dr. Mo and to Dr. Avendano and Abiola Oliver, nurse practitioner. Dictated By: UMER TIM MD, JD/LINDA Conf#: [id number] DID#: [id number]
[2017-01-24 08:11] VITALS: BP 134/60; RESP 18
[2017-01-24] MEDS: APIXABAN 5 MG TABLET GTB SCH ×2 (10:04→20:54)
[2017-01-24] MEDS: MULTIVITAMINS THERAPEUTIC TAB GTB SCH (10:05)
[2017-01-24] MEDS: ISOSORBIDE DINITRATE 20 MG TAB GTB SCH ×3 (10:06→20:53)
[2017-01-24] MEDS: LOSARTAN 50 MG TAB GTB SCH ×2 (10:06→20:54)
[2017-01-24] MEDS: LEVETIRACETAM 500 MG TAB GTB SCH (10:07)
[2017-01-24] MEDS: CALCIUM/VITAMIN D (500/200) TAB GTB SCH (10:07)
[2017-01-24] MEDS: DOCUSATE SODIUM 100 MG CAP PO SCH (10:07)
[2017-01-24] MEDS: AMLODIPINE 5 MG TAB GTB SCH ×2 (10:08→20:52)
[2017-01-24] MEDS: MEMANTINE 10 MG TAB GTB SCH ×2 (10:08→20:54)
[2017-01-24] MEDS: ASCORBIC ACID 500 MG TAB GTB SCH (10:08)
[2017-01-24] MEDS: FERROUS SULFATE 60 MG/ML 5ML CUP GTB SCH ×2 (10:09→20:51)
[2017-01-24] MEDS: POTASSIUM CHLORIDE 20 MEQ POWDER FOR ORAL SOLN GTB SCH (10:09)
[2017-01-24] MEDS: LACTOBACILLUS RHAMNOSUS CAP PO SCH ×2 (10:09→20:52)
[2017-01-24] MEDS: DOXYCYCLINE 100 MG TAB PO SCH ×2 (10:09→20:53)
[2017-01-24] MEDS: CEFEPIME 1GM/50 ML (PMX) 50 ML IVPB SCH ×2 (10:10→20:49)
[2017-01-24] MEDS: traMADol 50 MG TAB GTB SCH ×2 (10:38→20:53)
[2017-01-24] MEDS: MUPIROCIN 2% 22 GM OINT TOP SCH ×2 (10:38→20:55)
[2017-01-24] MEDS: COLLAGENASE 30 GM TUBE TOP SCH (10:39)
--- NOTE | 2017-01-24 11:16 | RADRPT ---
PROCEDURE: XR Chest. CLINICAL INDICATION: Shortness of breath. TECHNIQUE: Single frontal view. COMPARISON: 01/21/2017. FINDINGS: The right arm PICC line and permanent pacemaker remain in satisfactory position. Pulmonary edema is slightly worse. There is mild atelectasis at the left lung base, unchanged. The heart is mildly enlarged. There is calcification in the aorta consistent with atherosclerosis. There is no right pleural effusion. There is a small left pleural effusion. There is no pneumothorax. IMPRESSION: 1. Slightly worse pulmonary edema. 2. No other change from 01/21/2017. RPTAT: QQ .Jimmy Mills MD, MD Date Time Electronically viewed and signed by .Jimmy Mills MD, MD on 01/24/2017 11:16 .R/
--- NOTE | 2017-01-24 12:26 | CONS ---
Date/Time of Note Date/Time of Note DATE: 01/24/17 TIME: 12:21 Assessment/Plan Assessment/Plan Chief Complaint/Hosp Course IMPRESSION: 1. Congestive heart failure with chest x-ray, likely systolic, acute on chronic by prior echo.-negative trop x3/NL EF by echo 2. Hypertension-reasonable control 3. Paroxysmal atrial fibrillation. 4. Permanent pacemaker, assess function. 5. Fevers. 6. Chronic obstructive pulmonary disease. 7. Possible upper respiratory infection. 8. Anemia. 9. Dyslipidemia. 10. Failure to thrive. 11. Dysphagia status post G-tube. 12. Permanent pacemaker. 13. Peripheral artery disease, status post recent BK right lower extremity. 14. MR/TR-both mod-sev Recc: -Continue current norvasc/losartan/isordil -Continue tricor -Increase lasix diuresis and follow volume status closely -Continue eliquis -Continue abx's and f/u cx data Problems: Consultation Date/Type/Reason Admit Date/Time Jan 18, 2017 at 11:38 Initial Consult Date 01/19/2017 Type of Consultation: cardiology Reason for Consultation CHF Referring Provider: JOSE C VILLATORO MD Exam/Review of Systems Vital Signs Vitals Vital Signs Date Time Temp Pulse Resp B/P Pulse Ox O2 Delivery O2 Flow Rate FiO2 01/24/17 08:11 98.3 68 18 134/60 98 01/24/17 07:30 2.0 01/24/17 07:30 Nasal Cannula 01/23/17 19:26 28 Intake and Output 01/23/17 01/23/17 01/24/17 15:00 23:00 07:00 Intake Total 630 ml 2160 ml 1820 ml Output Total 1600 ml 800 ml Balance 630 ml 560 ml 1020 ml Exam Review of Systems: CONSTITUTIONAL: No fevers, chills. PULMONARY: No obvious sob CARDIOVASCULAR: No obvious cp/palps GASTROINTESTINAL: No nausea/vomiting. GENITOURINARY: No hematuria/dysuria. MUSCULOSKELETAL: No myagias/arthalgias. PSYCHIATRIC: The patient denies depression. NEUROLOGIC: encephalopathic Constitutional: other (encephalopathic) Psych: no complaints Head: normocephalic ENMT: mucosa pink and moist Neck: jvd (9 cm water), supple Respiratory: diminished breath sounds (at bases/B) Gastrointestinal: non-tender, soft Musculoskeletal: muscle weakness (mild generalized) Extremities: other (s/p RLE amputation) Results Result Diagram: 01/24/17 0442 01/24/17 0442 Results 24 hrs Laboratory Tests Test 01/24/17 04:42 White Blood Count 5.0 Red Blood Count 2.91 L Hemoglobin 8.0 L Hematocrit 25.1 L Mean Corpuscular Volume 86.3 Mean Corpuscular Hemoglobin 27.5 L Mean Corpuscular Hemoglobin Concent 31.9 L Red Cell Distribution Width 16.1 H Platelet Count 201 Mean Platelet Volume 10.8 H Neutrophils % 67.3 Lymphocytes % 15.3 Monocytes % 9.9 Eosinophils % 6.3 Basophils % 0.4 Nucleated Red Blood Cells % 0.0 Neutrophils # 3.3 Lymphocytes # 0.8 Monocytes # 0.5 Eosinophils # 0.3 Basophils # 0.0 Nucleated Red Blood Cells # 0.0 Sodium Level 135 Potassium Level 3.9 Chloride Level 99 Carbon Dioxide Level 34 H Anion Gap 6 L Blood Urea Nitrogen 35 H Creatinine 1.11 Glucose Level 116 # Calcium Level 7.9 L Medications Medications Current Medications Acetaminophen (Tylenol Tab) 500 mg Q4 PRN PO MODERATE PAIN LEVEL 4-6; Start at 15:00 Albuterol (Proventil 0.083% (Neb)) 2.5 mg Q6 PRN NEB WHEEZING AND SOB; Start 01/18/17 at 15:00 Amlodipine Besylate (Norvasc) 5 mg BID GTB Last administered on 01/24/17 10:08 ; Admin Dose 5 MG; Start 01/18/17 at 21:00 Apixaban (Eliquis) 2.5 mg BID GTB Last administered on 01/24/17 10:04; Admin Dose 2.5 MG; Start 01/18/17 at 21:00 Ascorbic Acid (Vitamin C) 500 mg DAILY GTB Last administered on 01/24/17 10:08 ; Admin Dose 500 MG; Start 01/19/17 at 09:00 Aspirin (Aspirin) 325 mg DAILY GTB Last administered on 01/19/17 08:27; Admin Dose 325 MG; Start 01/19/17 at 09:00; Status Future Hold Atorvastatin Calcium (Lipitor) 40 mg QHS GTB Last administered on 01/23/17 20: 35; Admin Dose 40 MG; Start 01/18/17 at 21:00 Bisacodyl (Dulcolax Supp) 10 mg Q24H PRN [place] CONSTIPATION; Start 01/18/17 at 15: 00 Calcium/Vitamin D (Oyster Shell/ Vit-D (500/200)) 1 tab DAILY GTB Last administered on 01/24/17 10:07; Admin Dose 1 TAB; Start 01/19/17 at 09:00 Clonidine (Catapres) 0.1 mg Q4H PRN GTB SBP>170; Start 01/18/17 at 15:00; Status Future hold Diphenhydramine HCl (Benadryl) 25 mg BID PRN GTB ITCHING; Start 01/18/17 at 15: 00 Docusate Sodium (Colace) 200 mg DAILY PO Last administered on 01/24/17 10:07; Admin Dose 200 MG; Start 01/19/17 at 09:00 Fenofibrate (Tricor) 145 mg QHS GTB Last administered on 01/23/17 20:35; Admin Dose 145 MG; Start 01/18/17 at 21:00 Hydralazine HCl (Apresoline) 50 mg Q8 PO Last administered on 01/24/17 10:06; Admin Dose 50 MG; Start 01/18/17 at 22:00 Isosorbide Dinitrate (Isordil) 20 mg TID GTB Last administered on 01/24/17 10: 06; Admin Dose 20 MG; Start 01/18/17 at 21:00 Levetiracetam (Keppra) 1,000 mg DAILY GTB Last administered on 01/24/17 10:07 ; Admin Dose 1,000 MG; Start 01/19/17 at 09:00 Losartan Potassium (Cozaar) 50 mg BID GTB Last administered on 01/24/17 10:06 ; Admin Dose 50 MG; Start 01/18/17 at 21:00 Magnesium Hydroxide (Milk Of Mag) 30 ml Q24H PRN PO CONSTIPATION; Start at 15:00 Memantine (Namenda) 10 mg BID GTB Last administered on 01/24/17 10:08; Admin Dose 10 MG; Start 01/18/17 at 21:00 Mineral Oil (Fleet Mineral Oil Enema) 133 ml DAILY PRN [place] CONSTIPATION; Start 01/18/17 at 15:00 Multivitamins Therapeutic (Theragran) 1 tab DAILY GTB Last administered on 01/24 10:05; Admin Dose 1 TAB; Start 01/19/17 at 09:00 Tramadol HCl (Ultram) 50 mg Q12 GTB Last administered on 01/24/17 10:38; Admin Dose 50 MG; Start 01/18/17 at 21:00 Zolpidem Tartrate (Ambien) 5 mg HS PRN GTB SLEEP; Start 01/18/17 at 15:00 Lactobacillus Acidophilus/ Rhamnosus 1 cap 1 cap BID PO Last administered on 10:09; Admin Dose 1 CAP; Start 01/18/17 at 21:00 Dextrose (D5W) 1,000 ml @ 70 mls/hr [id number] IV Last administered on 01/24/17 05:44; Admin Dose 70 MLS/HR; Start 01/18/17 at 15:30 Furosemide (Lasix) 20 mg 06,12,18 IV Last administered on 01/24/17 05:34; Admin Dose 20 MG; Start 01/18/17 at 18:00 Miscellaneous Information (Pending Santyl Order For Wound Care) This patient basurto... PRN PRN XX WOUND CARE; Start 01/18/17 at 18:00 Famotidine (Pepcid) 20 mg Q24H PO Last administered on 01/23/17 20:36; Admin Dose 20 MG; Start 01/19/17 at 21:00 Mupirocin (Bactroban) 1 applic BID TOP Last administered on 01/24/17 10:38; Admin Dose 1 APPLIC; Start 01/20/17 at 21:00 Collagenase (Santyl) 1 applic DAILY TOP Last administered on 01/24/17 10:39; Admin Dose 1 APPLIC; Start 01/20/17 at 18:30 Ferrous Sulfate 330 mg 330 mg BID GTB Last administered on 01/24/17 10:09; Admin Dose 330 MG; Start 01/21/17 at 21:00 Cefepime HCl (Maxipime 1gm/50 ml (Pmx)) 50 ml @ 100 mls/hr Q12 IVPB Last administered on 01/24/17 10:10; Admin Dose 100 MLS/HR; Start 01/22/17 at 21:00 Doxycycline Hyclate (Vibramycin) 100 mg BID PO Last administered on 01/24/17 10:09; Admin Dose 100 MG; Start 01/22/17 at 21:00 Epoetin Rick (Epogen (Esrd)) 6,000 units TuThSa@17 SC Last administered on 01/22 17:15; Admin Dose 6,000 UNITS; Start 01/22/17 at 17:00 Potassium Chloride (Potassium Chloride Pwd/Soln) 20 meq DAILY GTB Last administered on 01/24/17 10:09; Admin Dose 20 MEQ; Start 01/22/17 at 15:00 TORRES FRANCIS Jan 24, 2017 12:25
--- NOTE | 2017-01-24 14:07 | PN ---
DATE: 01/23/2017 INFECTIOUS DISEASE PROGRESS NOTE SUBJECTIVE: No acute events overnight. The patient is lying comfortably in bed. Afebrile. WBC 6. 2, no shift, no bands. BUN 40, creatinine 1.09. ANTIMICROBIALS: The patient is on cefepime and doxycycline. MICROBIOLOGY: Blood cultures negative. Nares swab positive for MRSA. Urine culture negative. INDWELLINGS: Trach, PEG, Cevallos. PHYSICAL EXAMINATION: GENERAL: This is a chronically ill-appearing, elderly man in no distress. HEENT: Head atraumatic, normocephalic. Sclerae anicteric. Buccal mucosa dry. NECK: Supple. Tracheostomy present. CHEST: Rise symmetrical. Breath sounds diminished to bases. HEART: S1, S2. ABDOMEN: Soft. Bowel tones present. ASSESSMENT: 1. Systemic inflammatory response syndrome with fevers and leukocytosis on admission. 2. Left lower lobe pneumonia. 3. Methicillin-resistant Staphylococcus aureus nares colonization. 4. Chronic respiratory failure. 5. Chronic obstructive pulmonary disease. 6. Paroxysmal atrial fibrillation, status post permanent pacemaker. 7. Peripheral vascular disease, status post right below-knee amputation. PLAN: The patient remains stable, followed by multiple consultants. Continue present care. Bactro ban ____ antibiotics. Dictated By: EM RIOS COLORIST for UMER DODSON/LINDA Conf#: [id number] DID#: [id number]
[2017-01-24 15:17] VITALS: BP 119/59; RESP 18
--- NOTE | 2017-01-24 16:41 | CONS ---
Date/Time of Note Date/Time of Note DATE: 01/24/17 TIME: 16:34 Consultation Date/Type/Reason Admit Date/Time Jan 18, 2017 at 11:38 Initial Consult Date SUBJECTIVE: No acute events overnight. The patient is lying comfortably in bed. Afebrile. Sister and family at bedside. LABS: WBC 5.0 H&H: 8.0/25.1 BUN 35 Creatinine 1.11. VS: 119/59 P: 60 R: 18 SO2: 100% T: 98.3 CXR IMPRESSION: 01/24/17 1. Slightly worse pulmonary edema. 2. No other change from 01/21/2017. ANTIMICROBIALS: The patient is on cefepime and doxycycline. MICROBIOLOGY: Blood cultures negative. Nares swab positive for MRSA. Urine culture negative. INDWELLINGS: Trach, PEG, Cevallos. PHYSICAL EXAMINATION: GENERAL: This is a chronically ill-appearing, elderly man in no distress. HEENT: Head atraumatic, normocephalic. Sclerae anicteric. Buccal mucosa dry. NECK: Supple. Tracheostomy present. CHEST: Rise symmetrical. Breath sounds diminished to bases. HEART: S1, S2. ABDOMEN: Soft. Bowel tones present. ASSESSMENT: 1. Systemic inflammatory response syndrome. 2. fevers and leukocytosis on admission.-Improved. 3. Left lower lobe pneumonia. 4. Methicillin-resistant Staphylococcus aureus nares colonization. 5. Chronic respiratory failure.-Ventilator dependent. 6. Chronic obstructive pulmonary disease. 7. Paroxysmal atrial fibrillation, status post permanent pacemaker. 8. Peripheral vascular disease, status post right below-knee amputation. PLAN: The patient remains stable. Continue current IV antbx. Continue present care. Monitor labs and CXR. Type of Consultation: ID Referring Provider: JOSE C VILLATORO MD Exam/Review of Systems Vital Signs Vitals Vital Signs Date Time Temp Pulse Resp B/P Pulse Ox O2 Delivery O2 Flow Rate FiO2 01/24/17 15:17 98.3 60 18 119/59 100 01/24/17 13:31 Nasal Cannula 2.0 01/23/17 19:26 28 Intake and Output 01/23/17 01/23/17 01/24/17 15:00 23:00 07:00 Intake Total 630 ml 2160 ml 1820 ml Output Total 1600 ml 800 ml Balance 630 ml 560 ml 1020 ml Results Result Diagram: 01/24/17 0442 01/24/17 0442 Results 24 hrs Laboratory Tests Test 01/24/17 04:42 White Blood Count 5.0 Red Blood Count 2.91 L Hemoglobin 8.0 L Hematocrit 25.1 L Mean Corpuscular Volume 86.3 Mean Corpuscular Hemoglobin 27.5 L Mean Corpuscular Hemoglobin Concent 31.9 L Red Cell Distribution Width 16.1 H Platelet Count 201 Mean Platelet Volume 10.8 H Neutrophils % 67.3 Lymphocytes % 15.3 Monocytes % 9.9 Eosinophils % 6.3 Basophils % 0.4 Nucleated Red Blood Cells % 0.0 Neutrophils # 3.3 Lymphocytes # 0.8 Monocytes # 0.5 Eosinophils # 0.3 Basophils # 0.0 Nucleated Red Blood Cells # 0.0 Sodium Level 135 Potassium Level 3.9 Chloride Level 99 Carbon Dioxide Level 34 H Anion Gap 6 L Blood Urea Nitrogen 35 H Creatinine 1.11 Glucose Level 116 # Calcium Level 7.9 L Medications Medications Current Medications Acetaminophen (Tylenol Tab) 500 mg Q4 PRN PO MODERATE PAIN LEVEL 4-6; Start at 15:00 Albuterol (Proventil 0.083% (Neb)) 2.5 mg Q6 PRN NEB WHEEZING AND SOB; Start 01/18/17 at 15:00 Amlodipine Besylate (Norvasc) 5 mg BID GTB Last administered on 01/24/17 10:08 ; Admin Dose 5 MG; Start 01/18/17 at 21:00 Apixaban (Eliquis) 2.5 mg BID GTB Last administered on 01/24/17 10:04; Admin Dose 2.5 MG; Start 01/18/17 at 21:00 Ascorbic Acid (Vitamin C) 500 mg DAILY GTB Last administered on 01/24/17 10:08 ; Admin Dose 500 MG; Start 01/19/17 at 09:00 Aspirin (Aspirin) 325 mg DAILY GTB Last administered on 01/19/17 08:27; Admin Dose 325 MG; Start 01/19/17 at 09:00; Status Future Hold Atorvastatin Calcium (Lipitor) 40 mg QHS GTB Last administered on 01/23/17 20: 35; Admin Dose 40 MG; Start 01/18/17 at 21:00 Bisacodyl (Dulcolax Supp) 10 mg Q24H PRN [place] CONSTIPATION; Start 01/18/17 at 15: 00 Calcium/Vitamin D (Oyster Shell/ Vit-D (500/200)) 1 tab DAILY GTB Last administered on 01/24/17 10:07; Admin Dose 1 TAB; Start 01/19/17 at 09:00 Clonidine (Catapres) 0.1 mg Q4H PRN GTB SBP>170; Start 01/18/17 at 15:00; Status Future hold Diphenhydramine HCl (Benadryl) 25 mg BID PRN GTB ITCHING; Start 01/18/17 at 15: 00 Docusate Sodium (Colace) 200 mg DAILY PO Last administered on 01/24/17 10:07; Admin Dose 200 MG; Start 01/19/17 at 09:00 Fenofibrate (Tricor) 145 mg QHS GTB Last administered on 01/23/17 20:35; Admin Dose 145 MG; Start 01/18/17 at 21:00 Hydralazine HCl (Apresoline) 50 mg Q8 PO Last administered on 01/24/17 10:06; Admin Dose 50 MG; Start 01/18/17 at 22:00 Isosorbide Dinitrate (Isordil) 20 mg TID GTB Last administered on 01/24/17 13: 19; Admin Dose 20 MG; Start 01/18/17 at 21:00 Levetiracetam (Keppra) 1,000 mg DAILY GTB Last administered on 01/24/17 10:07 ; Admin Dose 1,000 MG; Start 01/19/17 at 09:00 Losartan Potassium (Cozaar) 50 mg BID GTB Last administered on 01/24/17 10:06 ; Admin Dose 50 MG; Start 01/18/17 at 21:00 Magnesium Hydroxide (Milk Of Mag) 30 ml Q24H PRN PO CONSTIPATION; Start at 15:00 Memantine (Namenda) 10 mg BID GTB Last administered on 01/24/17 10:08; Admin Dose 10 MG; Start 01/18/17 at 21:00 Mineral Oil (Fleet Mineral Oil Enema) 133 ml DAILY PRN [place] CONSTIPATION; Start 01/18/17 at 15:00 Multivitamins Therapeutic (Theragran) 1 tab DAILY GTB Last administered on 01/24 10:05; Admin Dose 1 TAB; Start 01/19/17 at 09:00 Tramadol HCl (Ultram) 50 mg Q12 GTB Last administered on 01/24/17 10:38; Admin Dose 50 MG; Start 01/18/17 at 21:00 Zolpidem Tartrate (Ambien) 5 mg HS PRN GTB SLEEP; Start 01/18/17 at 15:00 Lactobacillus Acidophilus/ Rhamnosus 1 cap 1 cap BID PO Last administered on 10:09; Admin Dose 1 CAP; Start 01/18/17 at 21:00 Dextrose (D5W) 1,000 ml @ 70 mls/hr [id number] IV Last administered on 01/24/17 05:44; Admin Dose 70 MLS/HR; Start 01/18/17 at 15:30 Miscellaneous Information (Pending Santyl Order For Wound Care) This patient basurto... PRN PRN XX WOUND CARE; Start 01/18/17 at 18:00 Famotidine (Pepcid) 20 mg Q24H PO Last administered on 01/23/17 20:36; Admin Dose 20 MG; Start 01/19/17 at 21:00 Mupirocin (Bactroban) 1 applic BID TOP Last administered on 01/24/17 10:38; Admin Dose 1 APPLIC; Start 01/20/17 at 21:00 Collagenase (Santyl) 1 applic DAILY TOP Last administered on 01/24/17 10:39; Admin Dose 1 APPLIC; Start 01/20/17 at 18:30 Ferrous Sulfate 330 mg 330 mg BID GTB Last administered on 01/24/17 10:09; Admin Dose 330 MG; Start 01/21/17 at 21:00 Cefepime HCl (Maxipime 1gm/50 ml (Pmx)) 50 ml @ 100 mls/hr Q12 IVPB Last administered on 01/24/17 10:10; Admin Dose 100 MLS/HR; Start 01/22/17 at 21:00 Doxycycline Hyclate (Vibramycin) 100 mg BID PO Last administered on 01/24/17 10:09; Admin Dose 100 MG; Start 01/22/17 at 21:00 Epoetin Rick (Epogen (Esrd)) 6,000 units TuThSa@17 SC Last administered on 01/22 17:15; Admin Dose 6,000 UNITS; Start 01/22/17 at 17:00 Potassium Chloride (Potassium Chloride Pwd/Soln) 20 meq DAILY GTB Last administered on 01/24/17 10:09; Admin Dose 20 MEQ; Start 01/22/17 at 15:00 ADAMA LAMBERT Jan 24, 2017 16:41
[2017-01-24] MEDS: FUROSEMIDE 40 MG INJ IV SCH (18:20)
[2017-01-24 20:27] VITALS: BP 120/57; RESP 18
--- NOTE | 2017-01-24 20:50 | PN ---
Date/Time of Note Date/Time of Note DATE: 01/24/17 TIME: 20:49 Assessment/Plan VTE Prophylaxis VTE Prophylaxis Intervention: other Lines/Catheters IV Catheter Type (from Nrs): PICC Line Central line still needed: Yes Urinary Cath still in place: Yes Reason Cath still needed: other (indicate) Assessment/Plan Chief Complaint/Hosp Course IMPRESSION: 1. Sepsis.POSS PNEUMONIA 2. Pulmonary edema.better 3. Chronic obstructive pulmonary disease. 4. Right below-knee amputation. 5. Hypernatremia BETTER 6. Free water deficit. 7. Cardiomyopathy. 8. Decreased ejection fraction. 9. G-tube placement. 10. History of right foot osteomyelitis. 11. Atherosclerotic heart disease. 12. Dyslipidemia. 13. History of Clostridium difficile colitis. plan d5 water cardio ANTIBIOTIC CK LABS Problems: Subjective 24 Hr Interval Summary Respiratory: no complaints Exam/Review of Systems Vital Signs Vitals Vital Signs Date Time Temp Pulse Resp B/P Pulse Ox O2 Delivery O2 Flow Rate FiO2 01/24/17 20:27 98.4 64 18 120/57 100 01/24/17 13:31 Nasal Cannula 2.0 01/23/17 19:26 28 Intake and Output 01/23/17 01/23/17 01/24/17 15:00 23:00 07:00 Intake Total 630 ml 2160 ml 1820 ml Output Total 1600 ml 800 ml Balance 630 ml 560 ml 1020 ml Exam Neck: supple Respiratory: clear to auscultation Cardiovascular: regular rate and rhythm Gastrointestinal: soft Musculoskeletal: nl extremities to inspection Extremities: normal pulses (+) Results Result Diagram: 01/24/17 0442 01/24/17 0442 Results 24 hrs Laboratory Tests Test 01/24/17 04:42 01/24/17 16:11 White Blood Count 5.0 Red Blood Count 2.91 L Hemoglobin 8.0 L Hematocrit 25.1 L Mean Corpuscular Volume 86.3 Mean Corpuscular Hemoglobin 27.5 L Mean Corpuscular Hemoglobin Concent 31.9 L Red Cell Distribution Width 16.1 H Platelet Count 201 Mean Platelet Volume 10.8 H Neutrophils % 67.3 Lymphocytes % 15.3 Monocytes % 9.9 Eosinophils % 6.3 Basophils % 0.4 Nucleated Red Blood Cells % 0.0 Neutrophils # 3.3 Lymphocytes # 0.8 Monocytes # 0.5 Eosinophils # 0.3 Basophils # 0.0 Nucleated Red Blood Cells # 0.0 Sodium Level 135 Potassium Level 3.9 Chloride Level 99 Carbon Dioxide Level 34 H Anion Gap 6 L Blood Urea Nitrogen 35 H Creatinine 1.11 Glucose Level 116 # Calcium Level 7.9 L Stool Occult Blood NEGATIVE Medications Medications Current Medications Acetaminophen (Tylenol Tab) 500 mg Q4 PRN PO MODERATE PAIN LEVEL 4-6; Start at 15:00 Albuterol (Proventil 0.083% (Neb)) 2.5 mg Q6 PRN NEB WHEEZING AND SOB; Start 01/18/17 at 15:00 Amlodipine Besylate (Norvasc) 5 mg BID GTB Last administered on 01/24/17 10:08 ; Admin Dose 5 MG; Start 01/18/17 at 21:00 Apixaban (Eliquis) 2.5 mg BID GTB Last administered on 01/24/17 10:04; Admin Dose 2.5 MG; Start 01/18/17 at 21:00 Ascorbic Acid (Vitamin C) 500 mg DAILY GTB Last administered on 01/24/17 10:08 ; Admin Dose 500 MG; Start 01/19/17 at 09:00 Aspirin (Aspirin) 325 mg DAILY GTB Last administered on 01/19/17 08:27; Admin Dose 325 MG; Start 01/19/17 at 09:00; Status Future Hold Atorvastatin Calcium (Lipitor) 40 mg QHS GTB Last administered on 01/23/17 20: 35; Admin Dose 40 MG; Start 01/18/17 at 21:00 Bisacodyl (Dulcolax Supp) 10 mg Q24H PRN [place] CONSTIPATION; Start 01/18/17 at 15: 00 Calcium/Vitamin D (Oyster Shell/ Vit-D (500/200)) 1 tab DAILY GTB Last administered on 01/24/17 10:07; Admin Dose 1 TAB; Start 01/19/17 at 09:00 Clonidine (Catapres) 0.1 mg Q4H PRN GTB SBP>170; Start 01/18/17 at 15:00; Status Future hold Diphenhydramine HCl (Benadryl) 25 mg BID PRN GTB ITCHING; Start 01/18/17 at 15: 00 Docusate Sodium (Colace) 200 mg DAILY PO Last administered on 01/24/17 10:07; Admin Dose 200 MG; Start 01/19/17 at 09:00 Fenofibrate (Tricor) 145 mg QHS GTB Last administered on 01/23/17 20:35; Admin Dose 145 MG; Start 01/18/17 at 21:00 Hydralazine HCl (Apresoline) 50 mg Q8 PO Last administered on 01/24/17 10:06; Admin Dose 50 MG; Start 01/18/17 at 22:00 Isosorbide Dinitrate (Isordil) 20 mg TID GTB Last administered on 01/24/17 13: 19; Admin Dose 20 MG; Start 01/18/17 at 21:00 Levetiracetam (Keppra) 1,000 mg DAILY GTB Last administered on 01/24/17 10:07 ; Admin Dose 1,000 MG; Start 01/19/17 at 09:00 Losartan Potassium (Cozaar) 50 mg BID GTB Last administered on 01/24/17 10:06 ; Admin Dose 50 MG; Start 01/18/17 at 21:00 Magnesium Hydroxide (Milk Of Mag) 30 ml Q24H PRN PO CONSTIPATION; Start at 15:00 Memantine (Namenda) 10 mg BID GTB Last administered on 01/24/17 10:08; Admin Dose 10 MG; Start 01/18/17 at 21:00 Mineral Oil (Fleet Mineral Oil Enema) 133 ml DAILY PRN [place] CONSTIPATION; Start 01/18/17 at 15:00 Multivitamins Therapeutic (Theragran) 1 tab DAILY GTB Last administered on 01/24 10:05; Admin Dose 1 TAB; Start 01/19/17 at 09:00 Tramadol HCl (Ultram) 50 mg Q12 GTB Last administered on 01/24/17 10:38; Admin Dose 50 MG; Start 01/18/17 at 21:00 Zolpidem Tartrate (Ambien) 5 mg HS PRN GTB SLEEP; Start 01/18/17 at 15:00 Lactobacillus Acidophilus/ Rhamnosus 1 cap 1 cap BID PO Last administered on 10:09; Admin Dose 1 CAP; Start 01/18/17 at 21:00 Dextrose (D5W) 1,000 ml @ 70 mls/hr [id number] IV Last administered on 01/24/17 05:44; Admin Dose 70 MLS/HR; Start 01/18/17 at 15:30 Miscellaneous Information (Pending Santyl Order For Wound Care) This patient basurto... PRN PRN XX WOUND CARE; Start 01/18/17 at 18:00 Famotidine (Pepcid) 20 mg Q24H PO Last administered on 01/23/17 20:36; Admin Dose 20 MG; Start 01/19/17 at 21:00 Mupirocin (Bactroban) 1 applic BID TOP Last administered on 01/24/17 10:38; Admin Dose 1 APPLIC; Start 01/20/17 at 21:00 Collagenase (Santyl) 1 applic DAILY TOP Last administered on 01/24/17 10:39; Admin Dose 1 APPLIC; Start 01/20/17 at 18:30 Ferrous Sulfate 330 mg 330 mg BID GTB Last administered on 01/24/17 10:09; Admin Dose 330 MG; Start 01/21/17 at 21:00 Cefepime HCl (Maxipime 1gm/50 ml (Pmx)) 50 ml @ 100 mls/hr Q12 IVPB Last administered on 01/24/17 10:10; Admin Dose 100 MLS/HR; Start 01/22/17 at 21:00 Doxycycline Hyclate (Vibramycin) 100 mg BID PO Last administered on 01/24/17 10:09; Admin Dose 100 MG; Start 01/22/17 at 21:00 Epoetin Rick (Epogen (Esrd)) 6,000 units TuThSa@17 SC Last administered on 01/22 17:15; Admin Dose 6,000 UNITS; Start 01/22/17 at 17:00 Potassium Chloride (Potassium Chloride Pwd/Soln) 20 meq DAILY GTB Last administered on 01/24/17 10:09; Admin Dose 20 MEQ; Start 01/22/17 at 15:00 JOSE C VILLATORO MD Jan 24, 2017 20:49
[2017-01-24] MEDS: FAMOTIDINE 20 MG TAB PO SCH (20:52)
[2017-01-24] MEDS: FENOFIBRATE 145 MG TAB GTB SCH (20:53)
[2017-01-24] MEDS: ATORVASTATIN 40 MG TAB GTB SCH (20:54)
[2017-01-25] MEDS: ALBUTEROL/IPRATROPIUM (NEB) 3 ML AMP INH SCH ×4 (01:28→19:52)
[2017-01-25 02:12] VITALS: BP 123/60; RESP 18
[2017-01-25] MEDS: FUROSEMIDE 40 MG INJ IV SCH ×2 (06:28→17:12)
[2017-01-25 08:34] VITALS: BP 138/62; RESP 16
--- NOTE | 2017-01-25 08:56 | CONS ---
Date/Time of Note Date/Time of Note DATE: 01/25/17 TIME: 08:54 Assessment/Plan Assessment/Plan Additional Assessment/Plan 1. Congestive heart failure with chest x-ray, likely systolic, acute on chronic by prior echo.-negative trop x3/NL EF by echo - better fluid status now 2. Hypertension-reasonable control - will adjust Rx as needed 3. Paroxysmal atrial fibrillation- in sinus now 4. Permanent pacemaker, assess function - checked prior in the office, good function. 5. Fevers - on anti-bx. 6. Chronic obstructive pulmonary disease. 7. Possible upper respiratory infection - on anti-Bx now, 8. Anemia. 9. Dyslipidemia. 10. Failure to thrive. 11. Dysphagia status post G-tube. 12. Permanent pacemaker. 13. Peripheral artery disease, status post recent BK right lower extremity. 14. MR/TR-both mod-sev Consultation Date/Type/Reason Admit Date/Time Jan 18, 2017 at 11:38 Initial Consult Date Type of Consultation: ID Referring Provider: JOSE C VILLATORO MD 24 HR Interval Summary Free Text/Dictation NO acute events - better fluid status - con't to adjust therapy as needed. ROS: No fever, no chills, no nausea, no vomiting, no diarrhea/constipation No recent weight changes No chest pain, no PND, no orthopnea No dizziness, blurred vision No thirst, no heat or cold intolerance . Exam/Review of Systems Vital Signs Vitals Vital Signs Date Time Temp Pulse Resp B/P Pulse Ox O2 Delivery O2 Flow Rate FiO2 01/25/17 08:34 97.6 60 16 138/62 100 01/25/17 07:51 Nasal Cannula 2.0 01/23/17 19:26 28 Intake and Output 01/24/17 01/24/17 01/25/17 15:00 23:00 07:00 Intake Total 50 ml 1480 ml 1420 ml Output Total 1800 ml 1700 ml Balance 50 ml -320 ml -280 ml Exam General: WN/WD/NAD, AOx 0 HEENT: Unicetric/atraumatic/EOMI (does not follow commands) NECK: JVD elevated, no thyromegaly Lymph: no lymphadenopathy HEART: regular with no S3, II/ systolic murmur at apex, pacer LUNGS: Coarse sounds ABD: soft, NT, ND, +BS : Intact Neuro: non focal SKIN: chronic changes EXT: trace edema Results Result Diagram: 01/24/17 0442 01/24/17 0442 Results 24 hrs Laboratory Tests Test 01/24/17 16:11 Stool Occult Blood NEGATIVE Medications Medications Current Medications Acetaminophen (Tylenol Tab) 500 mg Q4 PRN PO MODERATE PAIN LEVEL 4-6; Start at 15:00 Albuterol (Proventil 0.083% (Neb)) 2.5 mg Q6 PRN NEB WHEEZING AND SOB; Start 01/18/17 at 15:00 Amlodipine Besylate (Norvasc) 5 mg BID GTB Last administered on 01/24/17 20:52 ; Admin Dose 5 MG; Start 01/18/17 at 21:00 Apixaban (Eliquis) 2.5 mg BID GTB Last administered on 01/24/17 20:54; Admin Dose 2.5 MG; Start 01/18/17 at 21:00 Ascorbic Acid (Vitamin C) 500 mg DAILY GTB Last administered on 01/24/17 10:08 ; Admin Dose 500 MG; Start 01/19/17 at 09:00 Aspirin (Aspirin) 325 mg DAILY GTB Last administered on 01/19/17 08:27; Admin Dose 325 MG; Start 01/19/17 at 09:00; Status Future Hold Atorvastatin Calcium (Lipitor) 40 mg QHS GTB Last administered on 01/24/17 20: 54; Admin Dose 40 MG; Start 01/18/17 at 21:00 Bisacodyl (Dulcolax Supp) 10 mg Q24H PRN [place] CONSTIPATION; Start 01/18/17 at 15: 00 Calcium/Vitamin D (Oyster Shell/ Vit-D (500/200)) 1 tab DAILY GTB Last administered on 01/24/17 10:07; Admin Dose 1 TAB; Start 01/19/17 at 09:00 Clonidine (Catapres) 0.1 mg Q4H PRN GTB SBP>170; Start 01/18/17 at 15:00; Status Future hold Diphenhydramine HCl (Benadryl) 25 mg BID PRN GTB ITCHING; Start 01/18/17 at 15: 00 Docusate Sodium (Colace) 200 mg DAILY PO Last administered on 01/24/17 10:07; Admin Dose 200 MG; Start 01/19/17 at 09:00 Fenofibrate (Tricor) 145 mg QHS GTB Last administered on 01/24/17 20:53; Admin Dose 145 MG; Start 01/18/17 at 21:00 Hydralazine HCl (Apresoline) 50 mg Q8 PO Last administered on 01/25/17 06:28 ; Admin Dose 50 MG; Start 01/18/17 at 22:00 Isosorbide Dinitrate (Isordil) 20 mg TID GTB Last administered on 01/24/17 20: 53; Admin Dose 20 MG; Start 01/18/17 at 21:00 Levetiracetam (Keppra) 1,000 mg DAILY GTB Last administered on 01/24/17 10:07 ; Admin Dose 1,000 MG; Start 01/19/17 at 09:00 Losartan Potassium (Cozaar) 50 mg BID GTB Last administered on 01/24/17 20:54 ; Admin Dose 50 MG; Start 01/18/17 at 21:00 Magnesium Hydroxide (Milk Of Mag) 30 ml Q24H PRN [place]STIPATION; Start at 15:00 Memantine (Namenda) 10 mg BID GTB Last administered on 01/24/17 20:54; Admin Dose 10 MG; Start 01/18/17 at 21:00 Mineral Oil (Fleet Mineral Oil Enema) 133 ml DAILY PRN [place] CONSTIPATION; Start 01/18/17 at 15:00 Multivitamins Therapeutic (Theragran) 1 tab DAILY GTB Last administered on 01/24 10:05; Admin Dose 1 TAB; Start 01/19/17 at 09:00 Tramadol HCl (Ultram) 50 mg Q12 GTB Last administered on 01/24/17 20:53; Admin Dose 50 MG; Start 01/18/17 at 21:00 Zolpidem Tartrate (Ambien) 5 mg HS PRN GTB SLEEP; Start 01/18/17 at 15:00 Lactobacillus Acidophilus/ Rhamnosus 1 cap 1 cap BID PO Last administered on 20:52; Admin Dose 1 CAP; Start 01/18/17 at 21:00 Dextrose (D5W) 1,000 ml @ 70 mls/hr [id number] IV Last administered on 01/24/17 20:48; Admin Dose 70 MLS/HR; Start 01/18/17 at 15:30 Miscellaneous Information (Pending Santyl Order For Wound Care) This patient basurto... PRN PRN XX WOUND CARE; Start 01/18/17 at 18:00 Famotidine (Pepcid) 20 mg Q24H PO Last administered on 01/24/17 20:52; Admin Dose 20 MG; Start 01/19/17 at 21:00 Mupirocin (Bactroban) 1 applic BID TOP Last administered on 01/24/17 20:55; Admin Dose 1 APPLIC; Start 01/20/17 at 21:00 Collagenase (Santyl) 1 applic DAILY TOP Last administered on 01/24/17 10:39; Admin Dose 1 APPLIC; Start 01/20/17 at 18:30 Ferrous Sulfate 330 mg 330 mg BID GTB Last administered on 01/24/17 20:51; Admin Dose 330 MG; Start 01/21/17 at 21:00 Cefepime HCl (Maxipime 1gm/50 ml (Pmx)) 50 ml @ 100 mls/hr Q12 IVPB Last administered on 01/24/17 20:49; Admin Dose 100 MLS/HR; Start 01/22/17 at 21:00 Doxycycline Hyclate (Vibramycin) 100 mg BID PO Last administered on 01/24/17 20:53; Admin Dose 100 MG; Start 01/22/17 at 21:00 Epoetin Rick (Epogen (Esrd)) 6,000 units TuThSa@17 SC Last administered on 01/22 17:15; Admin Dose 6,000 UNITS; Start 01/22/17 at 17:00 Potassium Chloride (Potassium Chloride Pwd/Soln) 20 meq DAILY GTB Last administered on 01/24/17 10:09; Admin Dose 20 MEQ; Start 01/22/17 at 15:00 ADAM NASH MD Jan 25, 2017 08:56
[2017-01-25] MEDS: COLLAGENASE 30 GM TUBE TOP SCH (09:34)
[2017-01-25] MEDS: MUPIROCIN 2% 22 GM OINT TOP SCH ×2 (09:34→21:58)
[2017-01-25] MEDS: CALCIUM/VITAMIN D (500/200) TAB GTB SCH (09:35)
[2017-01-25] MEDS: DOXYCYCLINE 100 MG TAB PO SCH ×2 (09:35→21:56)
[2017-01-25] MEDS: MULTIVITAMINS THERAPEUTIC TAB GTB SCH (09:35)
[2017-01-25] MEDS: APIXABAN 5 MG TABLET GTB SCH ×2 (09:35→21:57)
[2017-01-25] MEDS: ASCORBIC ACID 500 MG TAB GTB SCH (09:35)
[2017-01-25] MEDS: LACTOBACILLUS RHAMNOSUS CAP PO SCH ×2 (09:36→21:56)
[2017-01-25] MEDS: LEVETIRACETAM 500 MG TAB GTB SCH (09:36)
[2017-01-25] MEDS: MEMANTINE 10 MG TAB GTB SCH ×2 (09:37→21:58)
[2017-01-25] MEDS: LOSARTAN 50 MG TAB GTB SCH ×2 (09:37→21:58)
[2017-01-25] MEDS: POTASSIUM CHLORIDE 20 MEQ POWDER FOR ORAL SOLN GTB SCH (09:38)
[2017-01-25] MEDS: AMLODIPINE 5 MG TAB GTB SCH ×2 (09:38→21:57)
[2017-01-25] MEDS: DOCUSATE SODIUM 100 MG CAP PO SCH (09:39)
[2017-01-25] MEDS: CEFEPIME 1GM/50 ML (PMX) 50 ML IVPB SCH ×2 (09:39→21:55)
[2017-01-25] MEDS: ISOSORBIDE DINITRATE 20 MG TAB GTB SCH ×3 (09:43→21:57)
[2017-01-25] MEDS: FERROUS SULFATE 60 MG/ML 5ML CUP GTB SCH ×2 (09:47→21:55)
[2017-01-25] MEDS: traMADol 50 MG TAB GTB SCH ×2 (09:58→21:56)
[2017-01-25] MEDS: DEXTROSE 5% 1,000 ML IV SCH (11:27)
--- NOTE | 2017-01-25 14:17 | CONS ---
Date/Time of Note Date/Time of Note DATE: 01/25/17 TIME: 14:15 Assessment/Plan Assessment/Plan Chief Complaint/Hosp Course SUBJECTIVE: No acute events overnight. The patient is lying comfortably in bed. Afebrile. ANTIMICROBIALS: Cefepime and doxycycline. MICROBIOLOGY: Blood cultures negative. Nares swab positive for MRSA. Urine culture negative. INDWELLINGS: Trach, PEG, Cevallos. PHYSICAL EXAMINATION: GENERAL: This is a chronically ill-appearing, elderly man in no distress. HEENT: Head atraumatic, normocephalic. Sclerae anicteric. Buccal mucosa dry. NECK: Supple. Tracheostomy present. CHEST: Rise symmetrical. Breath sounds diminished to bases. HEART: S1, S2. ABDOMEN: Soft. Bowel tones present. ASSESSMENT: 1. Systemic inflammatory response syndrome with fevers and leukocytosis on admission. 2. Left lower lobe pneumonia. 3. Methicillin-resistant Staphylococcus aureus nares colonization. 4. Chronic respiratory failure. 5. Chronic obstructive pulmonary disease. 6. Paroxysmal atrial fibrillation, status post permanent pacemaker. 7. Peripheral vascular disease, status post right below-knee amputation. PLAN: The patient remains stable, completing abx DW staff Problems: Consultation Date/Type/Reason Admit Date/Time Jan 18, 2017 at 11:38 Type of Consultation: ID Referring Provider: JOSE C VILLATORO MD Exam/Review of Systems Vital Signs Vitals Vital Signs Date Time Temp Pulse Resp B/P Pulse Ox O2 Delivery O2 Flow Rate FiO2 01/25/17 13:56 2.0 01/25/17 13:54 66 20 100 Nasal Cannula 01/25/17 08:34 97.6 138/62 01/23/17 19:26 28 Intake and Output 01/24/17 01/24/17 01/25/17 15:00 23:00 07:00 Intake Total 50 ml 1480 ml 1420 ml Output Total 1800 ml 1700 ml Balance 50 ml -320 ml -280 ml Results Result Diagram: 01/24/17 0442 01/24/17 044 Results 24 hrs Laboratory Tests Test 01/24/17 16:11 Stool Occult Blood NEGATIVE Medications Medications Current Medications Acetaminophen (Tylenol Tab) 500 mg Q4 PRN PO MODERATE PAIN LEVEL 4-6; Start at 15:00 Albuterol (Proventil 0.083% (Neb)) 2.5 mg Q6 PRN NEB WHEEZING AND SOB; Start 01/18/17 at 15:00 Amlodipine Besylate (Norvasc) 5 mg BID GTB Last administered on 01/25/17 09: 38; Admin Dose 5 MG; Start 01/18/17 at 21:00 Apixaban (Eliquis) 2.5 mg BID GTB Last administered on 01/25/17 09:35; Admin Dose 2.5 MG; Start 01/18/17 at 21:00 Ascorbic Acid (Vitamin C) 500 mg DAILY GTB Last administered on 01/25/17 09: 35; Admin Dose 500 MG; Start 01/19/17 at 09:00 Aspirin (Aspirin) 325 mg DAILY GTB Last administered on 01/19/17 08:27; Admin Dose 325 MG; Start 01/19/17 at 09:00; Status Future Hold Atorvastatin Calcium (Lipitor) 40 mg QHS GTB Last administered on 01/24/17 20: 54; Admin Dose 40 MG; Start 01/18/17 at 21:00 Bisacodyl (Dulcolax Supp) 10 mg Q24H PRN [place] CONSTIPATION; Start 01/18/17 at 15: 00 Calcium/Vitamin D (Oyster Shell/ Vit-D (500/200)) 1 tab DAILY GTB Last administered on 01/25/17 09:35; Admin Dose 1 TAB; Start 01/19/17 at 09:00 Clonidine (Catapres) 0.1 mg Q4H PRN GTB SBP>170; Start 01/18/17 at 15:00; Status Future hold Diphenhydramine HCl (Benadryl) 25 mg BID PRN GTB ITCHING; Start 01/18/17 at 15: 00 Docusate Sodium (Colace) 200 mg DAILY PO Last administered on 01/25/17 09:39 ; Admin Dose 200 MG; Start 01/19/17 at 09:00 Fenofibrate (Tricor) 145 mg QHS GTB Last administered on 01/24/17 20:53; Admin Dose 145 MG; Start 01/18/17 at 21:00 Hydralazine HCl (Apresoline) 50 mg Q8 PO Last administered on 01/25/17 13:29 ; Admin Dose 50 MG; Start 01/18/17 at 22:00 Isosorbide Dinitrate (Isordil) 20 mg TID GTB Last administered on 01/25/17 13 :29; Admin Dose 20 MG; Start 01/18/17 at 21:00 Levetiracetam (Keppra) 1,000 mg DAILY GTB Last administered on 01/25/17 09:36 ; Admin Dose 1,000 MG; Start 01/19/17 at 09:00 Losartan Potassium (Cozaar) 50 mg BID GTB Last administered on 01/25/17 09:37 ; Admin Dose 50 MG; Start 01/18/17 at 21:00 Magnesium Hydroxide (Milk Of Mag) 30 ml Q24H PRN PO CONSTIPATION; Start at 15:00 Memantine (Namenda) 10 mg BID GTB Last administered on 01/25/17 09:37; Admin Dose 10 MG; Start 01/18/17 at 21:00 Mineral Oil (Fleet Mineral Oil Enema) 133 ml DAILY PRN [place] CONSTIPATION; Start 01/18/17 at 15:00 Multivitamins Therapeutic (Theragran) 1 tab DAILY GTB Last administered on 09:35; Admin Dose 1 TAB; Start 01/19/17 at 09:00 Tramadol HCl (Ultram) 50 mg Q12 GTB Last administered on 01/25/17 09:58; Admin Dose 50 MG; Start 01/18/17 at 21:00 Zolpidem Tartrate (Ambien) 5 mg HS PRN GTB SLEEP; Start 01/18/17 at 15:00 Lactobacillus Acidophilus/ Rhamnosus 1 cap 1 cap BID PO Last administered on 09:36; Admin Dose 1 CAP; Start 01/18/17 at 21:00 Dextrose (D5W) 1,000 ml @ 70 mls/hr [id number] IV Last administered on 11:27; Admin Dose 70 MLS/HR; Start 01/18/17 at 15:30 Miscellaneous Information (Pending Santyl Order For Wound Care) This patient basurto... PRN PRN XX WOUND CARE; Start 01/18/17 at 18:00 Famotidine (Pepcid) 20 mg Q24H PO Last administered on 01/24/17 20:52; Admin Dose 20 MG; Start 01/19/17 at 21:00 Mupirocin (Bactroban) 1 applic BID TOP Last administered on 01/25/17 09:34; Admin Dose 1 APPLIC; Start 01/20/17 at 21:00 Collagenase (Santyl) 1 applic DAILY TOP Last administered on 01/25/17 09:34; Admin Dose 1 APPLIC; Start 01/20/17 at 18:30 Ferrous Sulfate 330 mg 330 mg BID GTB Last administered on 01/25/17 09:47; Admin Dose 330 MG; Start 01/21/17 at 21:00 Cefepime HCl (Maxipime 1gm/50 ml (Pmx)) 50 ml @ 100 mls/hr Q12 IVPB Last administered on 01/25/17 09:39; Admin Dose 100 MLS/HR; Start 01/22/17 at 21:00 Doxycycline Hyclate (Vibramycin) 100 mg BID PO Last administered on 01/25/17 09:35; Admin Dose 100 MG; Start 01/22/17 at 21:00 Epoetin Rick (Epogen (Esrd)) 6,000 units TuThSa@17 SC Last administered on 01/22 17:15; Admin Dose 6,000 UNITS; Start 01/22/17 at 17:00 Potassium Chloride (Potassium Chloride Pwd/Soln) 20 meq DAILY GTB Last administered on 01/25/17 09:38; Admin Dose 20 MEQ; Start 01/22/17 at 15:00 EM RIOS NP Jan 25, 2017 14:17
[2017-01-25 15:10] VITALS: BP 113/55; RESP 18
[2017-01-25] MEDS: EPOETIN 3000 UNITS/1 ML INJ (ESRD) SC SCH (17:10)
--- NOTE | 2017-01-25 18:30 | PN ---
Date/Time of Note Date/Time of Note DATE: 01/25/17 TIME: 18:29 Assessment/Plan VTE Prophylaxis VTE Prophylaxis Intervention: other Lines/Catheters IV Catheter Type (from Nrsg): PICC Line Central line still needed: Yes Urinary Cath still in place: Yes Reason Cath still needed: other (indicate) Assessment/Plan Chief Complaint/Hosp Course IMPRESSION: 1. Sepsis.POSS PNEUMONIA BETTER 2. Pulmonary edema.better 3. Chronic obstructive pulmonary disease. 4. Right below-knee amputation. 5. Hypernatremia BETTER 6. Free water deficit. 7. Cardiomyopathy. 8. Decreased ejection fraction. 9. G-tube placement. 10. History of right foot osteomyelitis. 11. Atherosclerotic heart disease. 12. Dyslipidemia. 13. History of Clostridium difficile colitis. plan d5 water cardio ANTIBIOTIC [facility]S WPOUND CARE Problems: Subjective 24 Hr Interval Summary Subjective hx not possible: other (AWAKE AND ALERT) Exam/Review of Systems Vital Signs Vitals Vital Signs Date Time Temp Pulse Resp B/P Pulse Ox O2 Delivery O2 Flow Rate FiO2 01/25/17 15:10 99.0 62 18 113/55 100 01/25/17 13:56 2.0 01/25/17 13:54 Nasal Cannula 01/23/17 19:26 28 Intake and Output 01/24/17 01/24/17 01/25/17 15:00 23:00 07:00 Intake Total 50 ml 1480 ml 1420 ml Output Total 1800 ml 1700 ml Balance 50 ml -320 ml -280 ml Exam Respiratory: clear to auscultation Cardiovascular: regular rate and rhythm Gastrointestinal: bowel sounds (+), soft Extremities: No edema Results Result Diagram: 01/24/1744101/24/17441 Medications Medications Current Medications Acetaminophen (Tylenol Tab) 500 mg Q4 PRN PO MODERATE PAIN LEVEL 4-6; Start at 15:00 Albuterol (Proventil 0.083% (Neb)) 2.5 mg Q6 PRN NEB WHEEZING AND SOB; Start 01/18/17 at 15:00 Amlodipine Besylate (Norvasc) 5 mg BID GTB Last administered on 01/25/17 09: 38; Admin Dose 5 MG; Start 01/18/17 at 21:00 Apixaban (Eliquis) 2.5 mg BID GTB Last administered on 01/25/17 09:35; Admin Dose 2.5 MG; Start 01/18/17 at 21:00 Ascorbic Acid (Vitamin C) 500 mg DAILY GTB Last administered on 01/25/17 09: 35; Admin Dose 500 MG; Start 01/19/17 at 09:00 Aspirin (Aspirin) 325 mg DAILY GTB Last administered on 01/19/17 08:27; Admin Dose 325 MG; Start 01/19/17 at 09:00; Status Future Hold Atorvastatin Calcium (Lipitor) 40 mg QHS GTB Last administered on 01/24/17 20: 54; Admin Dose 40 MG; Start 01/18/17 at 21:00 Bisacodyl (Dulcolax Supp) 10 mg Q24H PRN [place] CONSTIPATION; Start 01/18/17 at 15: 00 Calcium/Vitamin D (Oyster Shell/ Vit-D (500/200)) 1 tab DAILY GTB Last administered on 01/25/17 09:35; Admin Dose 1 TAB; Start 01/19/17 at 09:00 Clonidine (Catapres) 0.1 mg Q4H PRN GTB SBP>170; Start 01/18/17 at 15:00; Status Future hold Diphenhydramine HCl (Benadryl) 25 mg BID PRN GTB ITCHING; Start 01/18/17 at 15: 00 Docusate Sodium (Colace) 200 mg DAILY PO Last administered on 01/25/17 09:39 ; Admin Dose 200 MG; Start 01/19/17 at 09:00 Fenofibrate (Tricor) 145 mg QHS GTB Last administered on 01/24/17 20:53; Admin Dose 145 MG; Start 01/18/17 at 21:00 Hydralazine HCl (Apresoline) 50 mg Q8 PO Last administered on 01/25/17 13:29 ; Admin Dose 50 MG; Start 01/18/17 at 22:00 Isosorbide Dinitrate (Isordil) 20 mg TID GTB Last administered on 01/25/17 13 :29; Admin Dose 20 MG; Start 01/18/17 at 21:00 Levetiracetam (Keppra) 1,000 mg DAILY GTB Last administered on 01/25/17 09:36 ; Admin Dose 1,000 MG; Start 01/19/17 at 09:00 Losartan Potassium (Cozaar) 50 mg BID GTB Last administered on 01/25/17 09:37 ; Admin Dose 50 MG; Start 01/18/17 at 21:00 Magnesium Hydroxide (Milk Of Mag) 30 ml Q24H PRN PO CONSTIPATION; Start at 15:00 Memantine (Namenda) 10 mg BID GTB Last administered on 01/25/17 09:37; Admin Dose 10 MG; Start 01/18/17 at 21:00 Mineral Oil (Fleet Mineral Oil Enema) 133 ml DAILY PRN [place] CONSTIPATION; Start 01/18/17 at 15:00 Multivitamins Therapeutic (Theragran) 1 tab DAILY GTB Last administered on 09:35; Admin Dose 1 TAB; Start 01/19/17 at 09:00 Tramadol HCl (Ultram) 50 mg Q12 GTB Last administered on 01/25/17 09:58; Admin Dose 50 MG; Start 01/18/17 at 21:00 Zolpidem Tartrate (Ambien) 5 mg HS PRN GTB SLEEP; Start 01/18/17 at 15:00 Lactobacillus Acidophilus/ Rhamnosus 1 cap 1 cap BID PO Last administered on 09:36; Admin Dose 1 CAP; Start 01/18/17 at 21:00 Dextrose (D5W) 1,000 ml @ 70 mls/hr [id number] IV Last administered on 11:27; Admin Dose 70 MLS/HR; Start 01/18/17 at 15:30 Miscellaneous Information (Pending Santyl Order For Wound Care) This patient basurto... PRN PRN XX WOUND CARE; Start 01/18/17 at 18:00 Famotidine (Pepcid) 20 mg Q24H PO Last administered on 01/24/17 20:52; Admin Dose 20 MG; Start 01/19/17 at 21:00 Mupirocin (Bactroban) 1 applic BID TOP Last administered on 01/25/17 09:34; Admin Dose 1 APPLIC; Start 01/20/17 at 21:00 Collagenase (Santyl) 1 applic DAILY TOP Last administered on 01/25/17 09:34; Admin Dose 1 APPLIC; Start 01/20/17 at 18:30 Ferrous Sulfate 330 mg 330 mg BID GTB Last administered on 01/25/17 09:47; Admin Dose 330 MG; Start 01/21/17 at 21:00 Cefepime HCl (Maxipime 1gm/50 ml (Pmx)) 50 ml @ 100 mls/hr Q12 IVPB Last administered on 01/25/17 09:39; Admin Dose 100 MLS/HR; Start 01/22/17 at 21:00 Doxycycline Hyclate (Vibramycin) 100 mg BID PO Last administered on 01/25/17 09:35; Admin Dose 100 MG; Start 01/22/17 at 21:00 Epoetin Rick (Epogen (Esrd)) 6,000 units TuThSa@17 SC Last administered on 17:10; Admin Dose 6,000 UNITS; Start 01/22/17 at 17:00 Potassium Chloride (Potassium Chloride Pwd/Soln) 20 meq DAILY GTB Last administered on 01/25/17 09:38; Admin Dose 20 MEQ; Start 01/22/17 at 15:00 JOSE C VILLATORO MD Jan 25, 2017 18:30
[2017-01-25 20:03] VITALS: BP 125/60; RESP 18
[2017-01-25] MEDS: FENOFIBRATE 145 MG TAB GTB SCH (21:56)
[2017-01-25] MEDS: ATORVASTATIN 40 MG TAB GTB SCH (21:57)
[2017-01-25] MEDS: FAMOTIDINE 20 MG TAB PO SCH (21:58)
[2017-01-26 01:50] VITALS: BP 113/56; RESP 18
[2017-01-26] MEDS: ALBUTEROL/IPRATROPIUM (NEB) 3 ML AMP INH SCH ×3 (01:54→13:05)
[2017-01-26] MEDS: DEXTROSE 5% 1,000 ML IV SCH ×2 (02:05→15:15)
[2017-01-26] MEDS: FUROSEMIDE 40 MG INJ IV SCH (06:07)
[2017-01-26 07:29] LABS: BASOPHILS % 0.2 % (0.0-2.0); EOSINOPHILS # 0.3 10^3/ul (0.0-0.5); EOSINOPHILS % 5.5 % (0.0-7.0); HEMOGLOBIN 8.8 g/dl (14.0-18.0); LYMPHOCYTES # 0.8 10^3/ul (0.8-2.9); MEAN CORPUSCULAR HEMOGLOBIN 28.3 pg (29.0-33.0); MEAN CORPUSCULAR HGB CONC 32.6 g/dl (32.0-37.0); MEAN CORPUSCULAR VOLUME 86.8 fl (82.0-101.0); MEAN PLATELET VOLUME 10.7 fl (7.4-10.4); MONOCYTE # 0.5 10^3/ul (0.3-0.9); MONOCYTES % 10.9 % (0.0-11.0); NEUTROPHIL # 3.2 10^3/ul (1.6-7.5); NEUTROPHILS % 65.2 % (39.0-77.0); PLATELET COUNT 229 10^3/UL (140-415); RED BLOOD COUNT 3.11 10^6/ul (4.70-6.10); RED CELL DISTRIBUTION WIDTH 16.1 % (11.5-14.5)
[2017-01-26 07:54] LABS: ALBUMIN 2.8 g/dl (3.3-4.9); ALBUMIN/GLOBULIN RATIO 0.87; BILIRUBIN,INDIRECT 0.1 mg/dl (0-1.1); BILIRUBIN,TOTAL 0.1 mg/dl (0.2-1.3); CALCIUM 8.6 mg/dl (8.4-10.2); CREATININE 1.12 mg/dl (0.61-1.24); POTASSIUM 4.1 mmol/L (3.5-5.1)
[2017-01-26 08:10] VITALS: BP 146/63; RESP 16
[2017-01-26] MEDS: APIXABAN 5 MG TABLET GTB SCH (09:32)
[2017-01-26] MEDS: FERROUS SULFATE 60 MG/ML 5ML CUP GTB SCH (09:32)
[2017-01-26] MEDS: LACTOBACILLUS RHAMNOSUS CAP PO SCH (09:34)
[2017-01-26] MEDS: POTASSIUM CHLORIDE 20 MEQ POWDER FOR ORAL SOLN GTB SCH (09:34)
[2017-01-26] MEDS: LEVETIRACETAM 500 MG TAB GTB SCH (09:34)
[2017-01-26] MEDS: DOCUSATE SODIUM 100 MG CAP PO SCH (09:34)
[2017-01-26] MEDS: CALCIUM/VITAMIN D (500/200) TAB GTB SCH (09:34)
[2017-01-26] MEDS: AMLODIPINE 5 MG TAB GTB SCH (09:35)
[2017-01-26] MEDS: LOSARTAN 50 MG TAB GTB SCH (09:35)
[2017-01-26] MEDS: MEMANTINE 10 MG TAB GTB SCH (09:36)
[2017-01-26] MEDS: ISOSORBIDE DINITRATE 20 MG TAB GTB SCH ×2 (09:36→12:40)
[2017-01-26] MEDS: traMADol 50 MG TAB GTB SCH (09:36)
[2017-01-26] MEDS: CEFEPIME 1GM/50 ML (PMX) 50 ML IVPB SCH (09:37)
[2017-01-26] MEDS: DOXYCYCLINE 100 MG TAB PO SCH (09:37)
[2017-01-26] MEDS: ASCORBIC ACID 500 MG TAB GTB SCH (09:37)
[2017-01-26] MEDS: MULTIVITAMINS THERAPEUTIC TAB GTB SCH (09:37)
[2017-01-26] MEDS: MUPIROCIN 2% 22 GM OINT TOP SCH (09:38)
[2017-01-26] MEDS: COLLAGENASE 30 GM TUBE TOP SCH (09:38)
--- NOTE | 2017-01-26 14:34 | CONS ---
Date/Time of Note Date/Time of Note DATE: 01/26/17 TIME: 14:29 Assessment/Plan Assessment/Plan Chief Complaint/Hosp Course IMPRESSION: 1. Congestive heart failure with chest x-ray, likely systolic, acute on chronic by prior echo.-negative trop x3/NL EF by echo 2. Hypertension-reasonable control 3. Paroxysmal atrial fibrillation. 4. Permanent pacemaker, assess function. 5. Fevers. 6. Chronic obstructive pulmonary disease. 7. Possible upper respiratory infection. 8. Anemia. 9. Dyslipidemia. 10. Failure to thrive. 11. Dysphagia status post G-tube. 12. Permanent pacemaker. 13. Peripheral artery disease, status post recent BK right lower extremity. 14. MR/TR-both mod-sev Recc: -Continue current norvasc/losartan/isordil -Continue tricor/statin -Coninue lasix diuresis and follow volume status closely -Continue eliquis -Continue abx's and f/u cx data Problems: Consultation Date/Type/Reason Admit Date/Time Jan 18, 2017 at 11:38 Initial Consult Date 01/19/2017 Type of Consultation: cardiology Reason for Consultation CHF Referring Provider: JOSE C VILLATORO MD Exam/Review of Systems Vital Signs Vitals Vital Signs Date Time Temp Pulse Resp B/P Pulse Ox O2 Delivery O2 Flow Rate FiO2 01/26/17 13:06 60 18 100 Nasal Cannula 2.0 01/26/17 08:10 97.5 146/63 01/23/17 19:26 28 Intake and Output 01/25/17 01/25/17 01/26/17 15:00 23:00 07:00 Intake Total 450 ml 420 ml 1590 ml Output Total 2500 ml 1700 ml Balance 450 ml -2080 ml -110 ml Exam Review of Systems: CONSTITUTIONAL: No fevers, chills. PULMONARY: No sob CARDIOVASCULAR: No chest pain/palpitations GASTROINTESTINAL: No nausea/vomiting. GENITOURINARY: No hematuria/dysuria. MUSCULOSKELETAL: No myagias/arthalgias. PSYCHIATRIC: The patient denies depression. NEUROLOGIC: encephalopathic Constitutional: alert Psych: no complaints Head: normocephalic ENMT: mucosa pink and moist Neck: jvd, supple Respiratory: diminished breath sounds Cardiovascular: regular rate and rhythm Gastrointestinal: non-tender, soft Musculoskeletal: muscle tone (normal) Extremities: edema (none) Neurological: other (no focal deficits) Results Result Diagram: 01/26/17 0605 01/26/17 0605 Results 24 hrs Laboratory Tests Test 01/26/17 06:05 White Blood Count 5.0 Red Blood Count 3.11 L Hemoglobin 8.8 L Hematocrit 27.0 L Mean Corpuscular Volume 86.8 Mean Corpuscular Hemoglobin 28.3 L Mean Corpuscular Hemoglobin Concent 32.6 Red Cell Distribution Width 16.1 H Platelet Count 229 Mean Platelet Volume 10.7 H Neutrophils % 65.2 Lymphocytes % 17.0 Monocytes % 10.9 Eosinophils % 5.5 Basophils % 0.2 Nucleated Red Blood Cells % 0.0 Neutrophils # 3.2 Lymphocytes # 0.8 Monocytes # 0.5 Eosinophils # 0.3 Basophils # 0.0 Nucleated Red Blood Cells # 0.0 Sodium Level 134 L Potassium Level 4.1 Chloride Level 95 L Carbon Dioxide Level 36 H Anion Gap 7 L Blood Urea Nitrogen 34 H Creatinine 1.12 Glucose Level 99 Calcium Level 8.6 Total Bilirubin 0.1 L Direct Bilirubin 0.00 Indirect Bilirubin 0.1 Aspartate Amino Transf (AST/SGOT) 21 Alanine Aminotransferase (ALT/SGPT) 26 Alkaline Phosphatase 60 Total Protein 6.0 L Albumin 2.8 L Globulin 3.20 Albumin/Globulin Ratio 0.87 Medications Medications Current Medications Acetaminophen (Tylenol Tab) 500 mg Q4 PRN PO MODERATE PAIN LEVEL 4-6; Start at 15:00 Albuterol (Proventil 0.083% (Neb)) 2.5 mg Q6 PRN NEB WHEEZING AND SOB; Start 01/18/17 at 15:00 Amlodipine Besylate (Norvasc) 5 mg BID GTB Last administered on 01/26/17 09: 35; Admin Dose 5 MG; Start 01/18/17 at 21:00 Apixaban (Eliquis) 2.5 mg BID GTB Last administered on 01/26/17 09:32; Admin Dose 2.5 MG; Start 01/18/17 at 21:00 Ascorbic Acid (Vitamin C) 500 mg DAILY GTB Last administered on 01/26/17 09: 37; Admin Dose 500 MG; Start 01/19/17 at 09:00 Aspirin (Aspirin) 325 mg DAILY GTB Last administered on 01/19/17 08:27; Admin Dose 325 MG; Start 01/19/17 at 09:00; Status Future Hold Atorvastatin Calcium (Lipitor) 40 mg QHS GTB Last administered on 01/25/17 21 :57; Admin Dose 40 MG; Start 01/18/17 at 21:00 Bisacodyl (Dulcolax Supp) 10 mg Q24H PRN ND CONSTIPATION; Start 01/18/17 at 15: 00 Calcium/Vitamin D (Oyster Shell/ Vit-D (500/200)) 1 tab DAILY GTB Last administered on 01/26/17 09:34; Admin Dose 1 TAB; Start 01/19/17 at 09:00 Clonidine (Catapres) 0.1 mg Q4H PRN GTB SBP>170; Start 01/18/17 at 15:00; Status Future hold Diphenhydramine HCl (Benadryl) 25 mg BID PRN GTB ITCHING; Start 01/18/17 at 15: 00 Docusate Sodium (Colace) 200 mg DAILY PO Last administered on 01/26/17 09:34 ; Admin Dose 200 MG; Start 01/19/17 at 09:00 Fenofibrate (Tricor) 145 mg QHS GTB Last administered on 01/25/17 21:56; Admin Dose 145 MG; Start 01/18/17 at 21:00 Hydralazine HCl (Apresoline) 50 mg Q8 PO Last administered on 01/26/17 13:49 ; Admin Dose 50 MG; Start 01/18/17 at 22:00 Isosorbide Dinitrate (Isordil) 20 mg TID GTB Last administered on 01/26/17 12 :40; Admin Dose 20 MG; Start 01/18/17 at 21:00 Levetiracetam (Keppra) 1,000 mg DAILY GTB Last administered on 01/26/17 09:34 ; Admin Dose 1,000 MG; Start 01/19/17 at 09:00 Losartan Potassium (Cozaar) 50 mg BID GTB Last administered on 01/26/17 09:35 ; Admin Dose 50 MG; Start 01/18/17 at 21:00 Magnesium Hydroxide (Milk Of Mag) 30 ml Q24H PRN PO CONSTIPATION; Start at 15:00 Memantine (Namenda) 10 mg BID GTB Last administered on 01/26/17 09:36; Admin Dose 10 MG; Start 01/18/17 at 21:00 Mineral Oil (Fleet Mineral Oil Enema) 133 ml DAILY PRN ND CONSTIPATION; Start 01/18/17 at 15:00 Multivitamins Therapeutic (Theragran) 1 tab DAILY GTB Last administered on 09:37; Admin Dose 1 TAB; Start 01/19/17 at 09:00 Tramadol HCl (Ultram) 50 mg Q12 GTB Last administered on 01/26/17 09:36; Admin Dose 50 MG; Start 01/18/17 at 21:00 Zolpidem Tartrate (Ambien) 5 mg HS PRN GTB SLEEP; Start 01/18/17 at 15:00 Lactobacillus Acidophilus/ Rhamnosus 1 cap 1 cap BID PO Last administered on 09:34; Admin Dose 1 CAP; Start 01/18/17 at 21:00 Dextrose (D5W) 1,000 ml @ 70 mls/hr [id number] IV Last administered on 02:05; Admin Dose 70 MLS/HR; Start 01/18/17 at 15:30 Miscellaneous Information (Pending Santyl Order For Wound Care) This patient basurto... PRN PRN XX WOUND CARE; Start 01/18/17 at 18:00 Famotidine (Pepcid) 20 mg Q24H PO Last administered on 01/25/17 21:58; Admin Dose 20 MG; Start 01/19/17 at 21:00 Mupirocin (Bactroban) 1 applic BID TOP Last administered on 01/26/17 09:38; Admin Dose 1 APPLIC; Start 01/20/17 at 21:00 Collagenase (Santyl) 1 applic DAILY TOP Last administered on 01/26/17 09:38; Admin Dose 1 APPLIC; Start 01/20/17 at 18:30 Ferrous Sulfate 330 mg 330 mg BID GTB Last administered on 01/26/17 09:32; Admin Dose 330 MG; Start 01/21/17 at 21:00 Cefepime HCl (Maxipime 1gm/50 ml (Pmx)) 50 ml @ 100 mls/hr Q12 IVPB Last administered on 01/26/17 09:37; Admin Dose 100 MLS/HR; Start 01/22/17 at 21:00 Doxycycline Hyclate (Vibramycin) 100 mg BID PO Last administered on 01/26/17 09:37; Admin Dose 100 MG; Start 01/22/17 at 21:00 Epoetin Rick (Epogen (Esrd)) 6,000 units TuThSa@17 SC Last administered on 17:10; Admin Dose 6,000 UNITS; Start 01/22/17 at 17:00 Potassium Chloride (Potassium Chloride Pwd/Soln) 20 meq DAILY GTB Last administered on 01/26/17 09:34; Admin Dose 20 MEQ; Start 01/22/17 at 15:00 TORRES FRANCIS Jan 26, 2017 14:34
[2017-01-26 14:56] VITALS: BP 127/61; RESP 17
--- NOTE | 2017-02-01 20:38 | QN ---
Documentation Comment [id number] JOSE C VILLATORO MD Feb 01, 2017 20:38
--- NOTE | 2017-02-02 18:25 | DS ---
DATE OF ADMISSION: 01/18/2017 DATE OF DISCHARGE: 01/26/2017 HOSPITAL COURSE: The patient was admitted with sepsis syndrome, electrolyte imbalance, and recently had a right byhzr-ovg-gnut amputation. Initial impression included sepsis, pulmonary edema, chroni c obstructive pulmonary disease, right lower knee amputation, hyponatremia, free water deficit, card iomyopathy, decreased ejection fraction, and G-tube placement. The patient started on IV fluid, ant ibiotic, and G-tube feeding and was seen in cardiology and infectious disease consultation. The byron stockton also has hypernatremia and responded well to desmopressin. G-tube water was continued. The muriel ying's urine culture and blood culture were negative. The patient has chest x-ray that shows sligh tly worse pulmonary edema and other changes, but clinically, the patient is improving. The patient was also seen by Dr. Bhavya Gibbs in consultation for followup for right lower extremity amputation. T he patient was cleared to be discharged home. DISCHARGE DIAGNOSES 1. Systemic inflammatory response syndrome. 2. The patient has hypertension and congestive heart failure with systolic. 3. The patient has paroxysmal atrial fibrillation, chronic obstructive pulmonary disease (COPD), an emia, dyslipidemia, failure to thrive, gastrostomy tube (G-tube) placement, pacemaker placement, per ipheral vascular disease (PVD), mitral regurgitation, tricuspid regurgitation. 4. The patient has hypernatremia, free water deficit, anemia. 5. The patient has chronic obstructive pulmonary disease (COPD), right [id number] amputation, c ardiomyopathy, atherosclerotic heart disease, dyslipidemia, history of Clostridium difficile colitis . DISCHARGE MEDICATIONS TO CONTINUE ON: Please look at the attached list to senior care. To continu e on 1. Tylenol. 2. Albuterol. 3. Amlodipine. 4. Apixaban. 5. Ascorbic acid. 6. Aspirin. 7. Lipitor. 8. Bisacodyl. 9. Calcium. 10. Vitamin D. 11. Clonidine. 12. Diphenhydramine. 13. Docusate sodium. 14. Fenofibrate. 15. Hydralazine. 16. Isosorbide. 17. Keppra. 18. Losartan. 19. Magnesium oxide. 20. Namenda. 21. Mineral oil. 22. Multivitamin. 23. Tramadol. 24. Ambien. 25. Lactobacillus. 26. Continue Pepcid. 27. sulfate. 28. Ceftazidime. 29. Doxycycline. The patient will be followed up as an outpatient. THE PATIENT IS ALSO DNR, PER THE FAMILY. Dictated By: JOSE C DOMINGUEZ/LIDNA Conf#: [id number] DID#: [id number]
== END 2017-01-26 17:57 | DRG 871 ==
LOC: E/R 09:55 → MS2 11:38
PROVIDERS: ADMIT Internal Medicine Nephrology; ATTEND Internal Medicine Nephrology
PROC: 30233N1 Transfusion of Nonautologous Red Blood Cells into Peripheral Vein, Percutaneous Approach (ICD-10-PCS; principal; 2017-01-21)
DX: A41.9 Sepsis, unspecified organism (principal); I50.23 Acute on chronic systolic (congestive) heart failure; G93.40 Encephalopathy, unspecified; L89.153 Pressure ulcer of sacral region, stage 3; J18.9 Pneumonia, unspecified organism; E87.0 Hyperosmolality and hypernatremia; J44.0 Chronic obstructive pulmonary disease with (acute) lower respiratory infection; I13.10 Hypertensive heart and chronic kidney disease without heart failure, with stage 1 through stage 4 chronic kidney disease, or unspecified chronic kidney disease; R13.10 Dysphagia, unspecified; I42.9 Cardiomyopathy, unspecified; E87.1 Hypo-osmolality and hyponatremia; R47.01 Aphasia; L03.319 Cellulitis of trunk, unspecified; I48.0 Paroxysmal atrial fibrillation; Z95.0 Presence of cardiac pacemaker; Z89.511 Acquired absence of right leg below knee; Z93.1 Gastrostomy status; E78.5 Hyperlipidemia, unspecified; I25.10 Atherosclerotic heart disease of native coronary artery without angina pectoris; Z86.73 Personal history of transient ischemic attack (TIA), and cerebral infarction without residual deficits; G40.909 Epilepsy, unspecified, not intractable, without status epilepticus; D64.9 Anemia, unspecified; I73.9 Peripheral vascular disease, unspecified; Z22.322 Carrier or suspected carrier of Methicillin resistant Staphylococcus aureus; M10.9 Gout, unspecified; R62.7 Adult failure to thrive; I08.1 Rheumatic disorders of both mitral and tricuspid valves; N18.9 Chronic kidney disease, unspecified
CPT/HCPCS: 36415; 36430; 71010; 80048; 80053; 80202; 81003; 82270; 82550; 82553; 82962; 83605; 84443; 84484; 85025; 85610; 85730; 86850; 86900; 86901; 86920; 87040; 87081; 87086; 90686; 93005; 93306; 94640; 94664; 96365; 96366; J1940; J0692; J0886; J1956; J2916; J2997; J3370; J7030; J7070; P9016

== ENCOUNTER 2017-02-22 23:28 | Inpatient (IN) | payer MEDICARE ==
[~2017-02-22] VITALS: Ht 165.1 cm; Wt 60.0 kg
[~2017-02-22 23:28] MED LIST changes: -FURO20TA3 GTB; +FURO40TA4 GTB; +IPRA3AMP INHALATION; +ISOS20TA19 GTB; +MINE133E23 PR
[2017-02-22 23:32] VITALS: Ht 165.1 cm; Wt 60.0 kg
[2017-02-22] MEDS ORDERED: ACETAMINOPHEN 650 MG SUPP PR STA (23:35)
[2017-02-22] MEDS ORDERED: SODIUM CHLORIDE 0.9% 1L BAG IV* STA (23:35)
[2017-02-23] VITALS (7 sets, daily range): BP systolic 122–142; BP diastolic 60–65; PULSE 60–71; RESP 18–19; TEMP 97.6
[2017-02-23 00:32] LABS: BASOPHILS % 0.2 % (0.0-2.0); EOSINOPHILS # 0.2 10^3/ul (0.0-0.5); EOSINOPHILS % 1.7 % (0.0-7.0); HEMATOCRIT 30.8 % (42.0-52.0); HEMOGLOBIN 9.5 g/dl (14.0-18.0); LYMPHOCYTES # 1.1 10^3/ul (0.8-2.9); MEAN CORPUSCULAR HEMOGLOBIN 26.9 pg (29.0-33.0); MEAN CORPUSCULAR HGB CONC 30.8 g/dl (32.0-37.0); MEAN CORPUSCULAR VOLUME 87.3 fl (82.0-101.0); MEAN PLATELET VOLUME 11.4 fl (7.4-10.4); MONOCYTE # 0.9 10^3/ul (0.3-0.9); MONOCYTES % 7.5 % (0.0-11.0); NEUTROPHILS % 81.1 % (39.0-77.0); PLATELET COUNT 295 10^3/UL (140-415); RED BLOOD COUNT 3.53 10^6/ul (4.70-6.10); RED CELL DISTRIBUTION WIDTH 15.2 % (11.5-14.5); WHITE BLOOD COUNT 12.3 10^3/ul (4.8-10.8)
[2017-02-23 00:47] LABS: INR 1.49; PROTIME 18.1 Sec (12.2-14.2); PT RATIO 1.4
[2017-02-23 00:48] LABS: PARTIAL THROMBOPLASTIN TIME 43.5 Sec (25.0-35.0)
[2017-02-23 00:56] LABS: ADD UMIC YES; UR ASCORBIC ACID 40 mg/dL (NEGATIVE); UR BACTERIA FEW /HPF (NONE SEEN); UR BILIRUBIN (Dip) NEGATIVE (NEGATIVE); UR BLOOD (Dip) NEGATIVE (NEGATIVE); UR CLARITY SLIGHTLY CLOUDY (CLEAR); UR COLOR YELLOW (YELLOW); UR GLUCOSE (Dip) NEGATIVE (NEGATIVE); UR KETONES (Dip) NEGATIVE (NEGATIVE); UR LEUKOCYTE ESTERASE (Dip) 3+ Leu/ul (NEGATIVE); UR NITRITE (Dip) NEGATIVE (NEGATIVE); UR RBC 1 /HPF (0-5); UR SPECIFIC GRAVITY (Dip) 1.015 (1.003-1.030); UR TOTAL PROTEIN (Dip) NEGATIVE (NEGATIVE); UR UROBILINOGEN (Dip) NEGATIVE (NEGATIVE)
[2017-02-23 01:07] LABS: ALBUMIN 3.1 g/dl (3.3-4.9); ALBUMIN/GLOBULIN RATIO 0.83; BILIRUBIN,INDIRECT 0.1 mg/dl (0-1.1); BILIRUBIN,TOTAL 0.1 mg/dl (0.2-1.3); CREATININE 1.38 mg/dl (0.61-1.24); POTASSIUM 3.8 mmol/L (3.5-5.1); TOTAL PROTEIN 6.8 g/dl (6.1-8.1)
[2017-02-23 01:17] LABS: TROPONIN-I 0.085 ng/ml (0.00-0.12)
--- NOTE | 2017-02-23 01:40 | RADRPT ---
PROCEDURE: XR Chest. CLINICAL INDICATION: Possible sepsis. TECHNIQUE: Single frontal view of the chest. COMPARISON: 06/08/2016. FINDINGS: New right central venous line in place with tip in the superior vena cava. Left anterior chest wall cardiac pacer is without significant change. Cardiomegaly. Atherosclerotic calcifications in the thoracic aorta. New atelectasis versus airspace disease at the right lung base. No pleural effusion at the left lung base. No signs of pneumothorax are seen. The osseous structures and soft tissues are unremarkable. IMPRESSION: 1. New right central venous line in place with tip in the superior vena cava. 2. New atelectasis versus airspace disease at the right lung base. 3. New pleural effusion at the left lung base. RPTAT: [facility] Physician Frida Date Time Electronically viewed and signed by Physician Frida on 02/23/2017 01:40 RS/
--- NOTE | 2017-02-23 02:00 | ERD ---
ER Documentation Chief Complaint Chief Complaint BIBA FROM [facility],FEVER 102,HX SEPSIS HPI 81-year-old male [facility] for fever. Patient cannot give any relevant history secondary baseline dementia. History per EMS run sheet skilled nursing transfer sheet. Patient does have history of sepsis in the past. ROS All systems reviewed and are negative except as per history of present illness. Medications Home Meds Reported Medications Isosorbide Dinitrate* (Isosorbide Dinitrate*) 20 Mg Tablet, 20 MG GTB TID, TAB 01/18/17 Ipratropium-Albuterol (Ipratropium-Albuterol) 0.5-3 Mg/3 Ml Ampul.neb, 3 ML INHALATION Q6, #30 VIAL 01/18/17 Furosemide* (Furosemide*) 40 Mg Tablet, 40 MG GTB Q8, TAB 01/18/17 Mineral Oil* (Fleet* Mineral Oil Enema) 133 Ml Oil, 133 ML DC NEEDED Y for CONSTIPATION, ENEMA 01/18/17 Amlodipine Besylate* (Norvasc*) 5 Mg Tablet, 5 MG GTB BID, TAB 12/16/16 Losartan Potassium* (Losartan Potassium*) 50 Mg Tablet, 50 MG GTB BID, TAB 12/16/16 Hydralazine Hcl* (Hydralazine Hcl*) 50 Mg Tab, 50 MG PO Q8, #90 TAB HOLD FOR SBP BELOW 110 OR HR BELOW 60 12/16/16 Bisacodyl* (Bisacodyl*) 10 Mg Supp, 10 MG DC Q24H Y for CONSTIPATION, SUPP 12/16/16 Lactobacillus Acidophilus* (Lactinex*) 1 Tab Chew, 1 TAB GTB BID, TAB 12/16/16 Ascorbic Acid* (Vitamin C* Liq) 500 Mg/5 Ml Syrup, 500 MG GTB DAILY, ML 06/08/16 Tramadol HCl (Tramadol HCl) 50 Mg Tablet, 50 MG GTB Q12 for SEVERE PAIN LEVEL 7- 10, #60 TAB 06/08/16 Acetaminophen* (Tylophen*) 500 Mg Capsule, 500 MG GTB Q4 Y for MODERATE PAIN LEVEL 4-6, TAB 06/08/16 Multivitamins* (Theragran*) 1 Tab Tab, 1 TAB GTB DAILY, TAB 06/08/16 Ferrous Sulfate (Ferrous Sulfate) 300 Mg/5 Ml Liquid, 330 MG GTB DAILY 06/08/16 Calcium Carbonate/Vitamin D3 (Calcium 500 + Vit D 200 Tablet) 1 Each Tablet, 1 EACH GTB DAILY, TAB 06/08/16 Cran/Vitc/Mannose/Inulin/Brom (Uti-Stat Liquid) 3,875 Mg/30 Ml Liquid, 3875 MG GTB DAILY 02/19/16 Magnesium Hydroxide* (Milk Of Magnesia*) 400 Mg/5 Ml Oral.susp, 30 ML PO Q24H Y for CONSTIPATION, ML 02/19/16 Atorvastatin* (Atorvastatin*) 40 Mg Tablet, 40 MG GTB QHS, #30 TAB 02/19/16 Fenofibrate Nanocrystallized* (Fenofibrate*) 145 Mg Tablet, 145 MG GTB QHS, TAB 02/19/16 Apixaban* (Eliquis*) 2.5 Mg Tablet, 2.5 MG GTB BID, TAB 02/19/16 Diphenhydramine Hcl* (Benadryl*) 25 Mg Cap, 25 MG GTB BID Y for ITCHING, CAP 02/19/16 Albuterol Sulfate* (Albuterol Sulfate* Neb) 0.083%-3 Ml Neb, 2.5 MG NEB Q6 Y for WHEEZING AND SOB, #30 VIAL 02/19/16 Docusate Sodium* (Docusate Sodium*) 100 Mg Capsule, 200 MG GTB DAILY, CAP 07/02/14 Clonidine Hcl* (Clonidine Hcl*) 0.1 Mg Tab, 0.1 MG GTB Q4H Y for ELEVATED BLOOD PRESSURE, TAB FOR SBP>160 07/02/14 Aspirin* (Aspirin*) 325 Mg Tablet, 325 MG GTB DAILY 07/19/12 Levetiracetam* (Keppra*) 1,000 Mg Tablet, 1000 MG GTB DAILY, 0 Refills 03/04/11 Memantine* (Namenda*) 10 Mg Tablet, 10 MG GTB BID 03/04/11 Zolpidem Tartrate* (Ambien*) 5 Mg Tablet, 5 MG GTB HS Y for SLEEP 06/09/10 Allergies Allergies: Coded Allergies: Penicillins (Verified Allergy, Severe, 12/16/16) PMhx/Soc History of Surgery: Yes (Gtube placement, right bka ) Anesthesia Reaction: No (unknown ) Hx Neurological Disorder: Yes (stroke left side weakness, subdural hematoma) Hx Respiratory Disorders: Yes (COPD) Hx Cardiac Disorders: Yes (chf, pacemaker, CAD, htn, afib ) Hx Psychiatric Problems: No (unknown) Hx Miscellaneous Medical Probl: Yes (pressure ulcer of bilateral buttock) Hx Alcohol Use: No Hx Substance Use: No Hx Tobacco Use: No Smoking Status: Never smoker Physical Exam Vitals Vital Signs Date Time Temp Pulse Resp B/P Pulse Ox O2 Delivery O2 Flow Rate FiO2 02/22/17 23:40 Nasal Cannula 2 02/22/17 23:32 99.3 61 18 134/60 98 Physical Exam Const: [] Head: Atraumatic Eyes: Normal Conjunctiva ENT: Normal External Ears, Nose and Mouth. Neck: Full range of motion..~ No meningismus. Resp: Clear to auscultation bilaterally Cardio: Regular rate and rhythm, no murmurs Abd: Soft, non tender, non distended. Normal bowel sounds Skin: No petechiae or rashes Back: No midline or flank tenderness Ext: No cyanosis, or edema Neur: Awake and alert Psych: Normal Mood and Affect Result Diagram: 02/22/17 2335 02/22/17 0000 Results 24 hrs Laboratory Tests Test 02/22/17 00:00 02/22/17 23:35 Prothrombin Time Pending Prothrombin Time Ratio 1.4 INR International Normalized Ratio 1.49 Activated Partial Thromboplast Time 43.5Sec Urine Color YELLOW Urine Clarity SLIGHTLY CLOUDY Urine pH 5.0 Urine Specific [facility] 1.015 Urine Ketones NEGATIVEmg/dL Urine Nitrite NEGATIVEmg/dL Urine Bilirubin NEGATIVEmg/dL Urine Urobilinogen NEGATIVEmg/dL Urine Leukocyte Esterase 3+Maxi/ul Urine Microscopic RBC 1/HPF Urine Microscopic WBC 33/HPF Urine Bacteria FEW/HPF Urine Hemoglobin NEGATIVEmg/dL Urine Glucose NEGATIVEmg/dL Urine Total Protein NEGATIVEmg/dl Sodium Level 147mmol/L Potassium Level 3.8mmol/L Chloride Level 110mmol/L Carbon Dioxide Level 32mmol/L Anion Gap 9 Blood Urea Nitrogen 66mg/dl Creatinine 1.38mg/dl Glucose Level 117mg/dl Lactic Acid Level 1.1mmol/L Calcium Level 9.0mg/dl Total Bilirubin 0.1mg/dl Direct Bilirubin 0.00mg/dl Indirect Bilirubin 0.1mg/dl Aspartate Amino Transf (AST/SGOT) 18IU/L Alanine Aminotransferase (ALT/SGPT) 23IU/L Alkaline Phosphatase 52IU/L Troponin I 0.085ng/ml Total Protein 6.8g/dl Albumin 3.1g/dl Globulin 3.70g/dl Albumin/Globulin Ratio 0.83 White Blood Count 12.310^3/ul Red Blood Count 3.5310^6/ul Hemoglobin 9.5g/dl Hematocrit 30.8% Mean Corpuscular Volume 87.3fl Mean Corpuscular Hemoglobin 26.9pg Mean Corpuscular Hemoglobin Concent 30.8g/dl Red Cell Distribution Width 15.2% Platelet Count 96126^3/UL Mean Platelet Volume 11.4fl Neutrophils % 81.1% Lymphocytes % 9.0% Monocytes % 7.5% Eosinophils % 1.7% Basophils % 0.2% Nucleated Red Blood Cells % 0.0/100WBC Neutrophils # 10.010^3/ul Lymphocytes # 1.110^3/ul Monocytes # 0.910^3/ul Eosinophils # 0.210^3/ul Basophils # 0.010^3/ul Nucleated Red Blood Cells # 0.010^3/ul Current Medications Medications (Trade) Dose Ordered Sig/Romi Route PRN Reason Start Time Stop Time Status Last Admin Dose Admin Sodium Chloride (NS) 1,860 ml BOLUS OVER 2 HOURS STAT IV* 02/22/17 23:35 02/22/17 23:36 DC 02/22/17 23:35 Acetaminophen (Tylenol Supp) 650 mg ONCE STAT DC 02/22/17 23:35 02/22/17 23:36 DC 02/22/17 23:35 Procedures/MDM EKG: Rate/Rhythm: [Normal Sinus Rhythm] QRS, ST, T-waves: [No changes consistent w/ acute ischemia] Impression: [No evidence of ischemia or arrhythmia] Chest X-ray 1V Interpreted by me: Soft Tissue: No acute abnormalities Bones: No acute abnormalities Mediastinum/Cardiac Silhouette/Lungs: [No acute abnormalities] Medical decision-makin-year-old male evidence of UTI. Patient will be admitted to on-call for Dr. Mo. Started on Rocephin. Given fluid bolus. Departure Diagnosis: Primary Impression: Fever Fever type: unspecified Qualified Code: R50.9 - Fever, unspecified fever cause Condition: Serious MOGHADAM,KHUSHI S. Feb 23, 2017 02:00
[2017-02-23] MEDS ORDERED: morphine 2 MG INJ IV PRN (06:00)
[2017-02-23] MEDS ORDERED: ONDANSETRON 4 MG INJ IV PRN (06:00)
[2017-02-23] MEDS ORDERED: ZOLPIDEM 5 MG TAB GTB PRN (06:00)
[2017-02-23] MEDS ORDERED: ALBUTEROL 0.083% (NEB) 2.5 MG/3 ML AMP NEB PRN (06:00)
[2017-02-23] MEDS ORDERED: MAGNESIUM HYDROXIDE 30ML CUP PO PRN (06:00)
[2017-02-23] MEDS ORDERED: BISACODYL 10 MG SUPP PR PRN (06:00)
[2017-02-23] MEDS ORDERED: DIPHENHYDRAMINE 25 MG CAP GTB PRN (06:00)
[2017-02-23] MEDS: PANTOPRAZOLE 40 MG INJ IV SCH (06:45)
[2017-02-23] MEDS: SOD CHLORIDE 0.9% 1,000 ML IV SCH ×3 (06:45→21:14)
[2017-02-23] MEDS: CALCIUM/VITAMIN D (500/200) TAB GTB SCH (08:39)
[2017-02-23] MEDS: APIXABAN 5 MG TABLET GTB SCH ×2 (08:39→20:45)
[2017-02-23] MEDS: traMADol 50 MG TAB GTB SCH ×2 (08:40→20:46)
[2017-02-23] MEDS: MEMANTINE 10 MG TAB GTB SCH ×2 (08:40→21:57)
[2017-02-23] MEDS: LEVETIRACETAM 500 MG TAB GTB SCH (08:40)
[2017-02-23] MEDS: DOCUSATE SODIUM 100 MG CAP PO SCH (08:40)
[2017-02-23] MEDS: MULTIVITAMINS 30 ML CUP GTB SCH (08:41)
[2017-02-23] MEDS: FERROUS SULFATE 60 MG/ML 5ML CUP GTB SCH (08:41)
[2017-02-23] MEDS: AMLODIPINE 5 MG TAB GTB SCH ×2 (08:41→20:47)
[2017-02-23] MEDS ORDERED: LEVOFLOXACIN 500MG/D5W (PMX) 100 ML IVPB ONE (09:00)
[2017-02-23] MEDS ORDERED: NON-FORMULARY/PATIENT OWN MED (Lactobacillus Acidophilus* (Lactinex*) 1 TAB) GTB SCH (09:00)
[2017-02-23] MEDS: LACTOBACILLUS RHAMNOSUS CAP PO SCH ×2 (09:00→20:46)
[2017-02-23] MEDS: ALBUTEROL/IPRATROPIUM (NEB) 3 ML AMP HHN SCH ×3 (12:00→19:44)
--- NOTE | 2017-02-23 13:57 | CONS ---
DATE OF ADMISSION: 02/23/2017 DATE OF CONSULTATION: 02/23/2017 REASON FOR CONSULTATION: Cardiac arrhythmia. REQUESTING PHYSICIAN: Dr. Sal Mo. HISTORY OF PRESENT ILLNESS: Mr. Anguiano is an 81-year-old male with a history of arrhythmia, status p ost permanent pacemaker, paroxysmal atrial fibrillation on systemic anticoagulation, diastolic conge stive heart failure by most recent echo January 2017, permanent pacemaker implant, COPD, dysphagia s tatus post G-tube, hypertension, prior subdural hematoma who presents today with fevers, altered men jenny state beyond baseline. Initially upon arrival, temperature 99.3, blood pressure 134/60, pulse 6 0, respiration 18, saturating 98%. Patient's labs showed white count 12.3, hemoglobin 9.5, platelet count 295. Sodium 147, potassium 3.8, creatinine 0.138, BUN 66, AST 18, ALT 23. INR 1.49, UA posi tive. The patient underwent a chest x-ray revealing numerous intravenous lines in place. New atele ctasis versus airspace disease in the right lung base, new pleural effusions. The patient's electro cardiogram was concerning for possible accelerated junctional rhythm at a rate of 71, normal axis wi th occasional PVCs and nonspecific ST-T abnormalities. The patient was subsequently admitted to the med/surg floor and is awaiting transfer to telemetry after EKG findings. The patient does not resp ond to questions pertaining to chest pain, shortness of breath, palpitations. PAST MEDICAL HISTORY: As above in HPI. MEDICATIONS CURRENTLY IN HOSPITAL: 1. Levofloxacin. 2. Lipitor 40 mg at bedtime. 3. Tricor 145 mg at bedtime. 4. Norvasc 5 mg b.i.d. 5. Eliquis 2.5 mg p.o. b.i.d. 6. Vitamin D. 7. Colace. 8. Ferrous sulfate. 9. Keppra. 10. Namenda 10 mg b.i.d. 11. Multivitamins 30 mL daily. 12. DuoNeb. 13. Tylenol p.r.n. 14. Dulcolax p.r.n. 15. Clonidine p.r.n. 16. Zofran p.r.n. 17. Morphine p.r.n. 18. Protonix. 119. IV fluid hydration 75 mL/hour. ALLERGIES: PENICILLIN. SOCIAL HISTORY: No tobacco, ETOH or illicit drug use. FAMILY HISTORY: No history of sudden cardiac or early CAD. REVIEW OF SYSTEMS: As above in HPI. CONSTITUTIONAL: Fevers, chills. PULMONARY: No shortness of breath. CARDIOVASCULAR: Permanent pacemaker, cardiac arrhythmia. GASTROINTESTINAL: Dysphagia status post G-tube. GENITOURINARY: No hematuria. MUSCULOSKELETAL: Degenerative joint disease. PSYCHIATRIC: No documented psychiatric history. NEUROLOGIC: Altered mental state, dementia. PHYSICAL EXAMINATION: VITAL SIGNS: Temperature of 97.6, blood pressure most recently 123/60, pulse 60, respiration 18, sa turating 100%. GENERAL: The patient is sleeping, does open eyes, arousable, does not clearly respond to any questi ons. NECK: JVP approximately 8 cm water. CHEST: Fair air movement throughout. HEART: Regular rate and rhythm. Normal S1, S2, I/ systolic murmur, nondisplaced PMI. ABDOMEN: Positive bowel sounds, soft. EXTREMITIES: No pitting edema, 1+ pulses bilateral posterior tibial. Legs contracted. Trace edema . LABORATORY DATA: As above in HPI. No further labs for my review at this time. IMAGING STUDIES: As above in HPI. No further imaging studies for my review at this time. ELECTROCARDIOGRAM: As above in HPI. No further electrocardiograms for my review at this time. IMPRESSION: 1. Cardiac arrhythmia with current rhythm concerning for possible accelerated junctional rhythm and associated PVCs. 2. History of permanent pacemaker. 3. History of paroxysmal atrial fibrillation on systemic anticoagulation. 4. Hypertension, under reasonable control. 5. Urinary tract infection. 6. Fevers. 7. Altered mental state and dementia. 8. Anemia. 9. Hypernatremia 10. Dyslipidemia. RECOMMENDATIONS: 1. At this time, would consider transfer to telemetry to continue to follow the patient's current r hythm. 2. Continue the patient's current antihypertensives at this time with Norvasc, following blood pres sure closely. 3. Continue the patient's current Eliquis for prevention of thromboembolic complications in the set ting of paroxysmal atrial fibrillation. 4. Continue the patient's Lipitor and Tricor and adjust it according to fasting lipids checked. 5. Continue the patient's antibiotics and follow up all culture data. 6. Continue to follow the patient's volume status closely and follow the patient's mental status cl osely. Thank you for allowing me to take part in the care of this patient. I will continue to follow close ly with you with further recommendations will be made as the patient progresses through his [facility] clinical course. Dictated By: TORRES RIVAS/LINDA Conf#: [id number] DID#: [id number]
[2017-02-23] MEDS ORDERED: PENDING SANTYL ORDER FOR WOUND CARE XX PRN (17:00)
--- NOTE | 2017-02-23 18:24 | QN ---
Documentation Comment [id number] JOSE C VILLATORO MD Feb 23, 2017 18:24
[2017-02-23 19:16] LABS: TROPONIN-I 0.046 ng/ml (0.00-0.12)
[2017-02-23 19:17] LABS: CK-MB 3.22 ng/ml (0.0-2.4)
[2017-02-23] MEDS: ATORVASTATIN 40 MG TAB GTB SCH (20:46)
[2017-02-23] MEDS: FENOFIBRATE 145 MG TAB GTB SCH (21:57)
--- NOTE | 2017-02-23 23:24 | HP ---
DATE OF ADMISSION: 02/23/2017 HISTORY OF PRESENT ILLNESS: Maxime Angiuano is an 81-year-old male who has a history of CKD. Was bro ught in by ambulance for fever, high grade, and possible sepsis. The patient's blood pressure in th e ER was 134/60, pulse 61, temperature 99.3, WBC 12.3, hematocrit 30.8, sodium 149, potassium 3.8, B UN 66, creatinine 1.38 and the patient is being admitted for further management. The patient himsel f is unable to give any detailed history. The patient is DNR per old record. PAST MEDICAL HISTORY: Positive for systemic inflammatory response syndrome, hypertension, congestiv e heart failure, systolic CHF, paroxysmal atrial fibrillation, COPD, anemia, dyslipidemia, history o f G-tube placement, history of pacemaker placement, history of PVD, history of mitral regurgitation, tricuspid regurgitation, history of hyponatremia, history of free water deficit, history of right b elow the knee amputation, history of cardiomyopathy, atherosclerotic heart disease, history of C. di fficile colitis. ALLERGY HISTORY: PENICILLIN. SOCIAL HISTORY: Cannot be obtained at this point. MEDICATION HISTORY: The patient's medications include, the patient is on: 1. Tylenol. 2. Albuterol. 3. Amlodipine. 4. Apixaban. 6. Ascorbic acid. 7. Aspirin. 8. Atorvastatin. 9. Bisacodyl. 10. Calcium carbonate. 11. Clonidine. 12. Cranberry extract. 13. Benadryl. 14. Docusate sodium. 15. Fenofibrate. 16. Iron sulfate. 17. Lasix. 18. Hydralazine. 19. Isosorbide. 20. Lactobacillus. 21. Keppra. 22. Losartan. 23. Magnesium oxide. 24. Namenda. 25. Mineral oil. 26. Multiple vitamins. 27. Tramadol. 28. Ambien. REVIEW OF SYSTEMS: Cannot be obtained. PHYSICAL EXAMINATION: GENERAL: The patient is awake and alert, not in any acute respiratory distress. VITAL SIGNS: Pulse 60, blood pressure 126/60. HEENT: Voluntary closing of both eyes noted. NECK: Supple. No JVD. LUNGS: Clear. Poor inspiratory effort with a few rhonchi at the bases. CARDIOVASCULAR: S1, S2 are normal. ABDOMEN: Soft. Bowel sounds positive. G-tube in place. EXTREMITIES: There is no cyanosis, clubbing or edema. Right BKA noted. CENTRAL NERVOUS SYSTEM: The patient is awake, noncommunicative. LABORATORY DATA: WBC 12.3, hematocrit 30.8, platelet count of 295. Sodium , potassium 3.8, BU N 66, creatinine 1.38. The patient's urinalysis leukocyte esterase 3+. Chest x-ray: New right yadira tral venous line in place with tip in the superior vena cava. New atelectasis versus airspace disea se in the right lung base. New pleural effusion in the left lung base. IMPRESSION: 1. Systemic inflammatory response syndrome. 2. Chronic kidney disease. 3. Hypernatremia. 4. Lung infiltrate. 5. Lung atelectasis. 6. Gastrostomy tube placement. 7. History of peripheral vascular disease. 8. Dyslipidemia. 9. Chronic obstructive pulmonary disease. 10. Right below-knee amputation. 11. Incomplete database. 12. History of pacemaker placement. 13. History of chronic atrial fibrillation. PLAN: At this point, the patient is currently on levofloxacin. The patient is on sodium chloride, Tylenol, albuterol, amlodipine, apixaban, Lipitor, bisacodyl, lactobacillus. The patient is on Name nda. The patient is on Zofran, , tramadol, Ambien. Cardiology consultation will be obtained. Cultures will be followed. Dictated By: JOSE C DOMINGUEZ/NTS Conf#: [id number] DID#: [id number]
[2017-02-24] VITALS (12 sets, daily range): BP systolic 104–190; BP diastolic 45–77; PULSE 60–87; RESP 16–20
[2017-02-24] MEDS: ALBUTEROL/IPRATROPIUM (NEB) 3 ML AMP HHN SCH ×4 (01:36→20:14)
[2017-02-24 01:50] LABS: TROPONIN-I 0.05 ng/ml (0.00-0.12)
[2017-02-24 01:57] LABS: CK-MB 1.51 ng/ml (0.0-2.4)
[2017-02-24] MEDS: PANTOPRAZOLE 40 MG INJ IV SCH (05:39)
[2017-02-24 08:38] LABS: BASOPHILS % 0.5 % (0.0-2.0); EOSINOPHILS # 0.4 10^3/ul (0.0-0.5); EOSINOPHILS % 5.7 % (0.0-7.0); HEMATOCRIT 28.7 % (42.0-52.0); HEMOGLOBIN 8.9 g/dl (14.0-18.0); LYMPHOCYTES # 0.8 10^3/ul (0.8-2.9); LYMPHOCYTES % 12.9 % (15.0-51.0); MEAN CORPUSCULAR HEMOGLOBIN 27.6 pg (29.0-33.0); MEAN CORPUSCULAR VOLUME 89.1 fl (82.0-101.0); MEAN PLATELET VOLUME 11.1 fl (7.4-10.4); MONOCYTE # 0.7 10^3/ul (0.3-0.9); MONOCYTES % 11.5 % (0.0-11.0); NEUTROPHIL # 4.5 10^3/ul (1.6-7.5); NEUTROPHILS % 69.1 % (39.0-77.0); PLATELET COUNT 239 10^3/UL (140-415); RED BLOOD COUNT 3.22 10^6/ul (4.70-6.10); RED CELL DISTRIBUTION WIDTH 14.9 % (11.5-14.5); WHITE BLOOD COUNT 6.5 10^3/ul (4.8-10.8)
[2017-02-24] MEDS: LACTOBACILLUS RHAMNOSUS CAP PO SCH ×2 (08:47→21:08)
[2017-02-24] MEDS: MEMANTINE 10 MG TAB GTB SCH ×2 (08:47→21:09)
[2017-02-24] MEDS: traMADol 50 MG TAB GTB SCH ×2 (08:48→21:09)
[2017-02-24] MEDS: MULTIVITAMINS 30 ML CUP GTB SCH (08:48)
[2017-02-24] MEDS: FERROUS SULFATE 60 MG/ML 5ML CUP GTB SCH (08:48)
[2017-02-24] MEDS: DOCUSATE SODIUM 100 MG CAP PO SCH (08:49)
[2017-02-24] MEDS: CALCIUM/VITAMIN D (500/200) TAB GTB SCH (08:49)
[2017-02-24] MEDS: AMLODIPINE 5 MG TAB GTB SCH ×2 (08:49→21:09)
[2017-02-24] MEDS: APIXABAN 5 MG TABLET GTB SCH ×2 (08:49→21:09)
[2017-02-24] MEDS: LEVETIRACETAM 500 MG TAB GTB SCH (08:49)
[2017-02-24 08:55] LABS: ALBUMIN 2.6 g/dl (3.3-4.9); ALBUMIN/GLOBULIN RATIO 0.74; BILIRUBIN,INDIRECT 0.1 mg/dl (0-1.1); BILIRUBIN,TOTAL 0.1 mg/dl (0.2-1.3); CALCIUM 8.1 mg/dl (8.4-10.2); CREATININE 1.05 mg/dl (0.61-1.24); POTASSIUM 4.1 mmol/L (3.5-5.1); TOTAL PROTEIN 6.1 g/dl (6.1-8.1)
[2017-02-24 08:55] LABS: CHOL/HDL RATIO 3.4 RATIO
[2017-02-24] MEDS: LEVOFLOXACIN 250MG/D5W (PMX) 50 ML IVPB SCH (09:51)
[2017-02-24] MEDS ORDERED: PENDING SANTYL ORDER FOR WOUND CARE XX PRN (10:00)
--- NOTE | 2017-02-24 13:03 | RADRPT ---
Vent Rate: 60 bpm RR Interval: 0 msec HI Interval: 0 msec QRS Duration: 164 msec QT Interval: 486 msec QTC Interval: 486 msec P-R-T [place]: 0 - -51 - 116 degrees Electronic ventricular pacemaker Electronically Signed By: Prince Mathew [id number]
[2017-02-24] MEDS: COLLAGENASE 30 GM TUBE TOP SCH (15:11)
[2017-02-24] MEDS: SOD CHLORIDE 0.9% 1,000 ML IV SCH (18:15)
--- NOTE | 2017-02-24 18:50 | CONS ---
Date/Time of Note Date/Time of Note DATE: 02/24/17 TIME: 18:46 Assessment/Plan Assessment/Plan Chief Complaint/Hosp Course IMPRESSION: 1. Cardiac arrhythmia with current rhythm concerning for possible accelerated junctional rhythm and associated PVCs. 2. History of permanent pacemaker. 3. History of paroxysmal atrial fibrillation on systemic anticoagulation. 4. Hypertension-very labile 5. Urinary tract infection. 6. Fevers. 7. Altered mental state and dementia. 8. Anemia. 9. Hypernatremia 10. Dyslipidemia. Recc: -Tele -serial ecg's -Continue norvasc -Continue tricor/statin -Continue eliquis -TSH suppressed will check Free t4 to further determine current thyroid state and possible contribution to arrythmias -check MG and replete >2.0 Problems: Consultation Date/Type/Reason Admit Date/Time Feb 23, 2017 at 01:41 Initial Consult Date 02/23/2017 Type of Consultation: cardiology Reason for Consultation arrythmia Referring Provider: JOSE C VILLATORO Exam/Review of Systems Vital Signs Vitals Vital Signs Date Time Temp Pulse Resp B/P Pulse Ox O2 Delivery O2 Flow Rate FiO2 02/24/17 16:06 71 02/24/17 15:59 98.6 18 119/61 99 02/24/17 13:36 2.0 02/24/17 13:36 Nasal Cannula Intake and Output 02/23/17 02/23/17 02/24/17 14:59 22:59 06:59 Intake Total 1000 ml 1018 ml Output Total 650 ml 1400 ml Balance 350 ml -382 ml Exam Review of Systems: CONSTITUTIONAL: No fevers, chills. PULMONARY: No sob CARDIOVASCULAR: No chest pain/palpitations GASTROINTESTINAL: No nausea/vomiting. GENITOURINARY: No hematuria/dysuria. MUSCULOSKELETAL: No myagias/arthalgias. PSYCHIATRIC: The patient denies depression. NEUROLOGIC:encephalopathic Constitutional: other (sleeping, arousable) Psych: no complaints Eyes: nl conjunctiva ENMT: mucosa pink and moist Neck: jvd (9 cm water), supple Respiratory: diminished breath sounds (at bases/B) Cardiovascular: regular rate and rhythm Gastrointestinal: non-tender, soft Musculoskeletal: muscle weakness (generalized) Extremities: edema (trace/B) Neurological: confused, lethargic Results Result Diagram: 02/24/17 0754 02/24/17 0753 Results 24 hrs Laboratory Tests Test 02/24/17 00:41 02/24/17 07:53 02/24/17 07:54 Creatine Kinase 48 Creatine Kinase Index 3.1 Creatinine Kinase MB (Mass) 1.51 Troponin I 0.050 Sodium Level 152 H Potassium Level 4.1 Chloride Level 118 H Carbon Dioxide Level 29 Anion Gap 9 Blood Urea Nitrogen 46 #H Creatinine 1.05 Glucose Level 120 Calcium Level 8.1 L Total Bilirubin 0.1 L Direct Bilirubin 0.00 Indirect Bilirubin 0.1 Aspartate Amino Transf (AST/SGOT) 19 Alanine Aminotransferase (ALT/SGPT) 23 Alkaline Phosphatase 42 Total Protein 6.1 Albumin 2.6 L Globulin 3.50 H Albumin/Globulin Ratio 0.74 White Blood Count 6.5 # Red Blood Count 3.22 L Hemoglobin 8.9 L Hematocrit 28.7 L Mean Corpuscular Volume 89.1 Mean Corpuscular Hemoglobin 27.6 L Mean Corpuscular Hemoglobin Concent 31.0 L Red Cell Distribution Width 14.9 H Platelet Count 239 Mean Platelet Volume 11.1 H Neutrophils % 69.1 Lymphocytes % 12.9 L Monocytes % 11.5 H Eosinophils % 5.7 Basophils % 0.5 Nucleated Red Blood Cells % 0.0 Neutrophils # 4.5 Lymphocytes # 0.8 Monocytes # 0.7 Eosinophils # 0.4 Basophils # 0.0 Nucleated Red Blood Cells # 0.0 Triglycerides Level 110 Cholesterol Level 73 L LDL Cholesterol, Calculated 30 HDL Cholesterol 21 L Cholesterol/HDL Ratio 3.4 Medications Medications Current Medications Amlodipine Besylate (Norvasc) 5 mg BID GTB Last administered on 02/24/17 08:49 ; Admin Dose 5 MG; Start 02/23/17 at 09:00 Apixaban (Eliquis) 2.5 mg BID GTB Last administered on 02/24/17 08:49; Admin Dose 2.5 MG; Start 02/23/17 at 09:00 Atorvastatin Calcium (Lipitor) 40 mg QHS GTB Last administered on 02/23/17 20: 46; Admin Dose 40 MG; Start 02/23/17 at 21:00 Bisacodyl (Dulcolax Supp) 10 mg Q24H PRN [place] CONSTIPATION; Start 02/23/17 at 06: 00 Calcium/Vitamin D (Oyster Shell/ Vit-D (500/200)) 1 tab DAILY GTB Last administered on 02/24/17 08:49; Admin Dose 1 TAB; Start 02/23/17 at 09:00 Clonidine (Catapres) 0.1 mg Q4H PRN GTB ELEVATED BLOOD PRESSURE Last administered on 02/24/17 01:14; Admin Dose 0.1 MG; Start 02/23/17 at 06:00 Diphenhydramine HCl (Benadryl) 25 mg BID PRN GTB ITCHING; Start 02/23/17 at 06: 00 Docusate Sodium (Colace) 200 mg DAILY PO Last administered on 02/24/17 08:49; Admin Dose 200 MG; Start 02/23/17 at 09:00 Fenofibrate (Tricor) 145 mg QHS GTB Last administered on 02/23/17 21:57; Admin Dose 145 MG; Start 02/23/17 at 21:00 Ferrous Sulfate (Feosol Liquid Cup) 330 mg DAILY GTB Last administered on 08:48; Admin Dose 330 MG; Start 02/23/17 at 09:00 Levetiracetam (Keppra) 1,000 mg DAILY GTB Last administered on 02/24/17 08:49 ; Admin Dose 1,000 MG; Start 02/23/17 at 09:00 Magnesium Hydroxide (Milk Of Mag) 30 ml Q24H PRN PO CONSTIPATION; Start at 06:00 Memantine (Namenda) 10 mg BID GTB Last administered on 02/24/17 08:47; Admin Dose 10 MG; Start 02/23/17 at 09:00 Multivitamins (Multivitamin) 30 ml DAILY GTB Last administered on 02/24/17 08: 48; Admin Dose 30 ML; Start 02/23/17 at 09:00 Tramadol HCl (Ultram) 50 mg Q12 GTB Last administered on 02/24/17 08:48; Admin Dose 50 MG; Start 02/23/17 at 09:00 Zolpidem Tartrate (Ambien) 5 mg HS PRN GTB SLEEP; Start 02/23/17 at 06:00 Ondansetron HCl (Zofran Inj) 4 mg Q6H PRN IV NAUSEA AND/OR VOMITING; Start 02/23/17 at 06:00 Morphine Sulfate 2 mg 2 mg Q4H PRN IV severe pain Last administered on 01:13; Admin Dose 2 MG; Start 02/23/17 at 06:00 Levofloxacin/ Dextrose (Levaquin 250 Mg/ D5W 50 ml (Pmx)) 50 ml @ 50 mls/hr Q24H IVPB Last administered on 02/24/17 09:51; Admin Dose 50 MLS/HR; Start at 09:00 Acetaminophen (Tylenol Tab) 650 mg Q4H PRN GTB PAIN AND OR ELEVATED TEMP; Start 02/23/17 at 08:00 Lactobacillus Acidophilus/ Rhamnosus (Culturelle) 1 cap BID PO Last administered on 02/24/17 08:47; Admin Dose 1 CAP; Start 02/23/17 at 09:00 Miscellaneous Information (Pending Santyl Order For Wound Care) This patient basurto... PRN PRN XX WOUND CARE; Start 02/23/17 at 17:00 Miscellaneous Information (Pending Santyl Order For Wound Care) This patient basurto... PRN PRN XX WOUND CARE; Start 02/24/17 at 10:00 Collagenase (Santyl) 1 applic DAILY TOP Last administered on 02/24/17 15:11; Admin Dose 1 APPLIC; Start 02/24/17 at 13:00 Lansoprazole (Prevacid) 30 mg DAILY@06 GTB ; Start 02/25/17 at 06:00 TORRES FRANCIS Feb 24, 2017 18:50
[2017-02-24] MEDS: DEXTROSE 5% 1,000 ML IV SCH (21:08)
[2017-02-24] MEDS: ATORVASTATIN 40 MG TAB GTB SCH (21:09)
[2017-02-24] MEDS: FENOFIBRATE 145 MG TAB GTB SCH (21:09)
[2017-02-25] VITALS (13 sets, daily range): BP systolic 118–139; BP diastolic 45–72; PULSE 60–69; RESP 16–20
[2017-02-25] MEDS: ALBUTEROL/IPRATROPIUM (NEB) 3 ML AMP HHN SCH ×4 (01:53→20:14)
[2017-02-25] MEDS: LANSOPRAZOLE 30 MG CAP GTB SCH (06:42)
[2017-02-25] MEDS: LEVETIRACETAM 500 MG TAB GTB SCH (08:58)
[2017-02-25] MEDS: DOCUSATE SODIUM 100 MG CAP PO SCH (08:58)
[2017-02-25] MEDS: APIXABAN 5 MG TABLET GTB SCH ×2 (08:59→20:33)
[2017-02-25] MEDS: LACTOBACILLUS RHAMNOSUS CAP PO SCH ×2 (08:59→20:33)
[2017-02-25] MEDS: CALCIUM/VITAMIN D (500/200) TAB GTB SCH (08:59)
[2017-02-25] MEDS: traMADol 50 MG TAB GTB SCH ×2 (08:59→20:33)
[2017-02-25] MEDS: MEMANTINE 10 MG TAB GTB SCH ×2 (08:59→20:33)
[2017-02-25] MEDS: AMLODIPINE 5 MG TAB GTB SCH ×2 (09:00→20:34)
[2017-02-25] MEDS: METOPROLOL 25 MG TAB PO SCH ×2 (09:00→20:34)
[2017-02-25] MEDS: COLLAGENASE 30 GM TUBE TOP SCH (09:00)
[2017-02-25] MEDS: FERROUS SULFATE 60 MG/ML 5ML CUP GTB SCH (09:01)
[2017-02-25] MEDS: MULTIVITAMINS 30 ML CUP GTB SCH (09:01)
[2017-02-25 09:05] LABS: ALBUMIN 2.6 g/dl (3.3-4.9); ALBUMIN/GLOBULIN RATIO 0.78; BILIRUBIN,INDIRECT 0.1 mg/dl (0-1.1); BILIRUBIN,TOTAL 0.1 mg/dl (0.2-1.3); CALCIUM 8.2 mg/dl (8.4-10.2); CREATININE 0.94 mg/dl (0.61-1.24); POTASSIUM 4.1 mmol/L (3.5-5.1); TOTAL PROTEIN 5.9 g/dl (6.1-8.1)
[2017-02-25] MEDS: LEVOFLOXACIN 250MG/D5W (PMX) 50 ML IVPB SCH (09:10)
--- NOTE | 2017-02-25 11:31 | PN ---
Date/Time of Note Date/Time of Note DATE: 02/25/17 TIME: 11:31 Assessment/Plan VTE Prophylaxis VTE Prophylaxis Intervention: SCD's Lines/Catheters IV Catheter Type (from Nrs): PICC Line Central line still needed: Yes Urinary Cath still in place: Yes Reason Cath still needed: urinary retention Assessment/Plan Chief Complaint/Hosp Course 1. Systemic inflammatory response syndrome. 2. Chronic kidney disease. 3. Hypernatremia. 4. Lung infiltrate. 5. Lung atelectasis. 6. Gastrostomy tube placement. 7. History of peripheral vascular disease. 8. Dyslipidemia. 9. Chronic obstructive pulmonary disease. 10. Right below-knee amputation. 11. Incomplete database. 12. History of pacemaker placement. 13. History of chronic atrial fibrillation. 14 encephalopathy 15 hypernatremia Problems: Assessment/Plan 1, Continue tube feeding 2. continue isolation Subjective 24 Hr Interval Summary Subjective hx not possible: pt non-verbal Exam/Review of Systems Vital Signs Vitals Vital Signs Date Time Temp Pulse Resp B/P Pulse Ox O2 Delivery O2 Flow Rate FiO2 02/25/17 08:39 75 20 99 Nasal Cannula 2.0 02/25/17 07:32 99.0 118/49 Intake and Output 02/24/17 02/24/17 02/25/17 15:00 23:00 07:00 Intake Total 600 ml 660 ml Output Total 300 ml 1000 ml Balance 300 ml -340 ml Exam Constitutional: frail, non-verbal Neck: supple Respiratory: diminished breath sounds Cardiovascular: irregular rhythm Gastrointestinal: soft Genitourinary - Male: nl scrotum Results Result Diagram: 02/24/17 0754 02/25/17 0750 Results 24 hrs Laboratory Tests Test 02/24/17 21:55 02/25/17 07:02 02/25/17 07:50 Magnesium Level 2.5 Free Thyroxine 1.59 Lab Scanned Report REFERENCE LAB Sodium Level 149 H Potassium Level 4.1 Chloride Level 115 H Carbon Dioxide Level 30 Anion Gap 8 Blood Urea Nitrogen 36 H Creatinine 0.94 Glucose Level 123 Calcium Level 8.2 L Total Bilirubin 0.1 L Direct Bilirubin 0.00 Indirect Bilirubin 0.1 Aspartate Amino Transf (AST/SGOT) 18 Alanine Aminotransferase (ALT/SGPT) 26 Alkaline Phosphatase 43 Total Protein 5.9 L Albumin 2.6 L Globulin 3.30 H Albumin/Globulin Ratio 0.78 Medications Medications Current Medications Amlodipine Besylate (Norvasc) 5 mg BID GTB Last administered on 02/25/17 09: 00; Admin Dose 5 MG; Start 02/23/17 at 09:00 Apixaban (Eliquis) 2.5 mg BID GTB Last administered on 02/25/17 08:59; Admin Dose 2.5 MG; Start 02/23/17 at 09:00 Atorvastatin Calcium (Lipitor) 40 mg QHS GTB Last administered on 02/24/17 21: 09; Admin Dose 40 MG; Start 02/23/17 at 21:00 Bisacodyl (Dulcolax Supp) 10 mg Q24H PRN [place] CONSTIPATION; Start 02/23/17 at 06: 00 Calcium/Vitamin D (Oyster Shell/ Vit-D (500/200)) 1 tab DAILY GTB Last administered on 02/25/17 08:59; Admin Dose 1 TAB; Start 02/23/17 at 09:00 Clonidine (Catapres) 0.1 mg Q4H PRN GTB ELEVATED BLOOD PRESSURE Last administered on 02/24/17 01:14; Admin Dose 0.1 MG; Start 02/23/17 at 06:00 Diphenhydramine HCl (Benadryl) 25 mg BID PRN GTB ITCHING; Start 02/23/17 at 06: 00 Docusate Sodium (Colace) 200 mg DAILY PO Last administered on 02/25/17 08:58 ; Admin Dose 200 MG; Start 02/23/17 at 09:00 Fenofibrate (Tricor) 145 mg QHS GTB Last administered on 02/24/17 21:09; Admin Dose 145 MG; Start 02/23/17 at 21:00 Ferrous Sulfate (Feosol Liquid Cup) 330 mg DAILY GTB Last administered on 02/25 09:01; Admin Dose 330 MG; Start 02/23/17 at 09:00 Levetiracetam (Keppra) 1,000 mg DAILY GTB Last administered on 02/25/17 08:58 ; Admin Dose 1,000 MG; Start 02/23/17 at 09:00 Magnesium Hydroxide (Milk Of Mag) 30 ml Q24H PRN PO CONSTIPATION; Start at 06:00 Memantine (Namenda) 10 mg BID GTB Last administered on 02/25/17 08:59; Admin Dose 10 MG; Start 02/23/17 at 09:00 Multivitamins (Multivitamin) 30 ml DAILY GTB Last administered on 02/25/17 09 :01; Admin Dose 30 ML; Start 02/23/17 at 09:00 Tramadol HCl (Ultram) 50 mg Q12 GTB Last administered on 02/25/17 08:59; Admin Dose 50 MG; Start 02/23/17 at 09:00 Zolpidem Tartrate (Ambien) 5 mg HS PRN GTB SLEEP; Start 02/23/17 at 06:00 Ondansetron HCl (Zofran Inj) 4 mg Q6H PRN IV NAUSEA AND/OR VOMITING; Start 02/23/17 at 06:00 Morphine Sulfate 2 mg 2 mg Q4H PRN IV severe pain Last administered on 01:13; Admin Dose 2 MG; Start 02/23/17 at 06:00 Levofloxacin/ Dextrose (Levaquin 250 Mg/ D5W 50 ml (Pmx)) 50 ml @ 50 mls/hr Q24H IVPB Last administered on 02/25/17 09:10; Admin Dose 50 MLS/HR; Start 02/24/17 at 09:00 Acetaminophen (Tylenol Tab) 650 mg Q4H PRN GTB PAIN AND OR ELEVATED TEMP; Start 02/23/17 at 08:00 Lactobacillus Acidophilus/ Rhamnosus (Culturelle) 1 cap BID PO Last administered on 02/25/17 08:59; Admin Dose 1 CAP; Start 02/23/17 at 09:00 Miscellaneous Information (Pending Santyl Order For Wound Care) This patient basurto... PRN PRN XX WOUND CARE; Start 02/23/17 at 17:00 Miscellaneous Information (Pending Santyl Order For Wound Care) This patient basurto... PRN PRN XX WOUND CARE; Start 02/24/17 at 10:00 Collagenase (Santyl) 1 applic DAILY TOP Last administered on 02/24/17 15:11; Admin Dose 1 APPLIC; Start 02/24/17 at 13:00 Lansoprazole 30 mg 30 mg DAILY@06 GTB Last administered on 02/25/17 06:42; Admin Dose 30 MG; Start 02/25/17 at 06:00 Dextrose (D5W) 1,000 ml @ 50 mls/hr Q20H IV Last administered on 02/24/17 21: 08; Admin Dose 50 MLS/HR; Start 02/24/17 at 19:00 Metoprolol Tartrate (Lopressor) 12.5 mg BID PO Last administered on 02/25/17 09:00; Admin Dose 12.5 MG; Start 02/25/17 at 09:00 JOSE PERRY Feb 25, 2017 11:31
--- NOTE | 2017-02-25 14:52 | CONS ---
Date/Time of Note Date/Time of Note DATE: 02/25/17 TIME: 14:50 Assessment/Plan Assessment/Plan Additional Assessment/Plan 1. Cardiac arrhythmia with current rhythm concerning for possible accelerated junctional rhythm and associated PVCs- now better rate - pacer in place for nayely protection., 2. History of permanent pacemaker - good fxn. 3. History of paroxysmal atrial fibrillation on systemic anticoagulation- rate controlled now. 4. Hypertension-very labile 5. Urinary tract infection- on anti-Bx. 6. Fevers - resolved. 7. Altered mental state and dementia. 8. Anemia. 9. Hypernatremia 10. Dyslipidemia. Consultation Date/Type/Reason Admit Date/Time Feb 23, 2017 at 01:41 Initial Consult Date Type of Consultation: cardiology Referring Provider: JOSE C VILLATORO MD 24 HR Interval Summary Free Text/Dictation NO acute events - con't anti-bx, will monitor clinically. ROS: No fever, no chills, no nausea, no vomiting, no diarrhea/constipation No recent weight changes No chest pain, no PND, no orthopnea + SOB No dizziness, blurred vision No thirst, no heat or cold intolerance Exam/Review of Systems Vital Signs Vitals Vital Signs Date Time Temp Pulse Resp B/P Pulse Ox O2 Delivery O2 Flow Rate FiO2 02/25/17 12:27 98.5 67 16 123/49 100 02/25/17 08:39 Nasal Cannula 2.0 Intake and Output 02/24/17 02/24/17 02/25/17 15:00 23:00 07:00 Intake Total 600 ml 660 ml Output Total 300 ml 1000 ml Balance 300 ml -340 ml Exam General: WN/WD/NAD, AOx 0 HEENT: Unicetric/atraumatic/EOMI (does not follow commands) NECK: JVD elevated, no thyromegaly Lymph: no lymphadenopathy HEART: regular with no S3, II/ systolic murmur at apex LUNGS: Coarse sounds ABD: soft, NT, ND, +BS : Intact Neuro: non focal SKIN: chronic changes EXT: trace edema Results Result Diagram: 02/24/17 0754 02/25/17 0750 Results 24 hrs Laboratory Tests Test 02/24/17 21:55 02/25/17 07:02 02/25/17 07:50 Magnesium Level 2.5 Free Thyroxine 1.59 Lab Scanned Report REFERENCE LAB Sodium Level 149 H Potassium Level 4.1 Chloride Level 115 H Carbon Dioxide Level 30 Anion Gap 8 Blood Urea Nitrogen 36 H Creatinine 0.94 Glucose Level 123 Calcium Level 8.2 L Total Bilirubin 0.1 L Direct Bilirubin 0.00 Indirect Bilirubin 0.1 Aspartate Amino Transf (AST/SGOT) 18 Alanine Aminotransferase (ALT/SGPT) 26 Alkaline Phosphatase 43 Total Protein 5.9 L Albumin 2.6 L Globulin 3.30 H Albumin/Globulin Ratio 0.78 Medications Medications Current Medications Amlodipine Besylate (Norvasc) 5 mg BID GTB Last administered on 02/25/17 09: 00; Admin Dose 5 MG; Start 02/23/17 at 09:00 Apixaban (Eliquis) 2.5 mg BID GTB Last administered on 02/25/17 08:59; Admin Dose 2.5 MG; Start 02/23/17 at 09:00 Atorvastatin Calcium (Lipitor) 40 mg QHS GTB Last administered on 02/24/17 21: 09; Admin Dose 40 MG; Start 02/23/17 at 21:00 Bisacodyl (Dulcolax Supp) 10 mg Q24H PRN [place] CONSTIPATION; Start 02/23/17 at 06: 00 Calcium/Vitamin D (Oyster Shell/ Vit-D (500/200)) 1 tab DAILY GTB Last administered on 02/25/17 08:59; Admin Dose 1 TAB; Start 02/23/17 at 09:00 Clonidine (Catapres) 0.1 mg Q4H PRN GTB ELEVATED BLOOD PRESSURE Last administered on 02/24/17 01:14; Admin Dose 0.1 MG; Start 02/23/17 at 06:00 Diphenhydramine HCl (Benadryl) 25 mg BID PRN GTB ITCHING; Start 02/23/17 at 06: 00 Docusate Sodium (Colace) 200 mg DAILY PO Last administered on 02/25/17 08:58 ; Admin Dose 200 MG; Start 02/23/17 at 09:00 Fenofibrate (Tricor) 145 mg QHS GTB Last administered on 02/24/17 21:09; Admin Dose 145 MG; Start 02/23/17 at 21:00 Ferrous Sulfate (Feosol Liquid Cup) 330 mg DAILY GTB Last administered on 02/25 09:01; Admin Dose 330 MG; Start 02/23/17 at 09:00 Levetiracetam (Keppra) 1,000 mg DAILY GTB Last administered on 02/25/17 08:58 ; Admin Dose 1,000 MG; Start 02/23/17 at 09:00 Magnesium Hydroxide (Milk Of Mag) 30 ml Q24H PRN PO CONSTIPATION; Start at 06:00 Memantine (Namenda) 10 mg BID GTB Last administered on 02/25/17 08:59; Admin Dose 10 MG; Start 02/23/17 at 09:00 Multivitamins (Multivitamin) 30 ml DAILY GTB Last administered on 02/25/17 09 :01; Admin Dose 30 ML; Start 02/23/17 at 09:00 Tramadol HCl (Ultram) 50 mg Q12 GTB Last administered on 02/25/17 08:59; Admin Dose 50 MG; Start 02/23/17 at 09:00 Zolpidem Tartrate (Ambien) 5 mg HS PRN GTB SLEEP; Start 02/23/17 at 06:00 Ondansetron HCl (Zofran Inj) 4 mg Q6H PRN IV NAUSEA AND/OR VOMITING; Start 02/23/17 at 06:00 Morphine Sulfate (morphine) 2 mg Q4H PRN IV severe pain Last administered on 01:13; Admin Dose 2 MG; Start 02/23/17 at 06:00 Acetaminophen (Tylenol Tab) 650 mg Q4H PRN GTB PAIN AND OR ELEVATED TEMP; Start 02/23/17 at 08:00 Lactobacillus Acidophilus/ Rhamnosus (Culturelle) 1 cap BID PO Last administered on 02/25/17 08:59; Admin Dose 1 CAP; Start 02/23/17 at 09:00 Miscellaneous Information (Pending Santyl Order For Wound Care) This patient basurto... PRN PRN XX WOUND CARE; Start 02/23/17 at 17:00 Miscellaneous Information (Pending Santyl Order For Wound Care) This patient basurto... PRN PRN XX WOUND CARE; Start 02/24/17 at 10:00 Collagenase (Santyl) 1 applic DAILY TOP Last administered on 02/24/17 15:11; Admin Dose 1 APPLIC; Start 02/24/17 at 13:00 Lansoprazole 30 mg 30 mg DAILY@06 GTB Last administered on 02/25/17 06:42; Admin Dose 30 MG; Start 02/25/17 at 06:00 Dextrose (D5W) 1,000 ml @ 50 mls/hr Q20H IV Last administered on 02/24/17 21: 08; Admin Dose 50 MLS/HR; Start 02/24/17 at 19:00 Metoprolol Tartrate 12.5 mg 12.5 mg BID PO Last administered on 02/25/17 09: 00; Admin Dose 12.5 MG; Start 02/25/17 at 09:00 Colistimethate Sodium/Sodium Chloride (Coly-Mycin/NS) 100 ml @ 200 mls/hr Q12 IVPB ; Start 02/25/17 at 21:00 ADAM NASH MD Feb 25, 2017 14:52
--- NOTE | 2017-02-25 14:58 | CONS ---
DATE OF ADMISSION: 02/23/2017 DATE OF CONSULTATION: 02/25/2017 TYPE OF CONSULTATION: Infectious Disease. REASON FOR CONSULTATION: Antibiotic management. HISTORY OF PRESENT ILLNESS: Maxime Anguiano is an 81-year-old male with chronic renal disease who was brought in for sepsis and is being seen for antibiotic management. Past problems include: 1. Hypertension. 2. Coronary artery disease with systolic congestive heart failure. 3. Paroxysmal atrial fibrillation. 4. Chronic obstructive pulmonary disease. 5. Anemia. 6. Dyslipidemia. 7. History of G-tube placement. 8. Pacemaker placement. 9. History of peripheral vascular disease. 10. History of mitral valve regurgitation, tricuspid regurgitation. 11. History of hyponatremia. 12. History of right below knee amputation. 13. History of cardiomyopathy. 14. Atherosclerotic cardiovascular disease. 15. History of Clostridium difficile colitis. 16. ALLERGY TO PENICILLIN. Acutely, the patient obviously is extremely ill comes in with fever and apparently sepsis. His franklin l signs were stable. In the emergency room, temperature 99.3, white count of 12.3 and hematocrit 30 .8. BUN and creatinine 66/1.38. The patient is a DNR. On admission, as noted, his white count was 12.3. PAST MEDICAL HISTORY: Operations as outlined. FAMILY HISTORY: Noncontributory. SOCIAL HISTORY: There is no record of smoking, drinking or abuse of drugs. ALLERGIES: PENICILLIN. MEDICATIONS: Per chart. REVIEW OF SYSTEMS: Noncontributory. PHYSICAL EXAMINATION: GENERAL: The patient is an elderly appearing male who is awake, noncommunicative, in no acute distr ess. VITAL SIGNS: Stable. He is afebrile. SKIN: Without generalized rash. HEENT: Within normal limits. NECK: Supple. LYMPH NODES: None palpable. CHEST: Decreased breath sounds at the bases with occasional rhonchi. HEART: Without murmur or gallop. ABDOMEN: Soft, nontender. G-tube in place without exudate. EXTREMITIES: Without cyanosis, clubbing, or edema. Right BKA is present. RECTAL AND GENITAL: Deferred. NEUROLOGIC: No focal neurological abnormalities. HOSPITAL COURSE: White count on the 9th was 6.5. His urine from the 7th growing 3+ leukocytosis, 3 3 white cells per high powered field. His cultures grew out E. coli ESBL and Acinetobacter baumanni i, which was resistant to everything. The E. coli was sensitive to Zosyn and trimethoprim sulfa, im ipenem and amikacin. Chest x-ray shows new right central venous line in place, new atelectasis vers us airspace disease in the right lung base, a new pleural effusion at the lung base on the left. Th e patient was seen by Dr. Avendano. PICC line is in place as noted urinary catheter in place. IMPRESSION AND PLAN: Patient has systemic inflammatory response syndrome. He is frail and nonverba l. His medications include Levaquin to which the organisms are resistant. We will discontinue Leva aneta, place him on colistin. I will dictate my findings to Dr. Sal Villatoro. Dictated By: UMER TIM MD, JD/NTS Conf#: [id number] DID#: [id number] CC: SAL VILLATORO MD; TORRES AVENDANO MD;*End*
[2017-02-25] MEDS: DEXTROSE 5% 1,000 ML IV SCH (17:30)
[2017-02-25] MEDS: ATORVASTATIN 40 MG TAB GTB SCH (20:33)
[2017-02-25] MEDS: FENOFIBRATE 145 MG TAB GTB SCH (20:35)
[2017-02-25] MEDS: COLISTIMETHATE 75 MG in SOD CHLORIDE 0.9% 100 ML IVPB SCH (20:47)
[2017-02-26] VITALS (12 sets, daily range): BP systolic 117–134; BP diastolic 57–63; PULSE 60–81; RESP 16–18
[2017-02-26] MEDS: ALBUTEROL/IPRATROPIUM (NEB) 3 ML AMP HHN SCH ×4 (01:49→20:52)
[2017-02-26] MEDS: LANSOPRAZOLE 30 MG CAP GTB SCH (06:13)
[2017-02-26] MEDS: AMLODIPINE 5 MG TAB GTB SCH ×2 (08:29→20:27)
[2017-02-26] MEDS: LEVETIRACETAM 500 MG TAB GTB SCH (08:29)
[2017-02-26] MEDS: traMADol 50 MG TAB GTB SCH ×2 (08:29→20:26)
[2017-02-26] MEDS: DOCUSATE SODIUM 100 MG CAP PO SCH (08:29)
[2017-02-26] MEDS: LACTOBACILLUS RHAMNOSUS CAP PO SCH ×2 (08:29→20:26)
[2017-02-26] MEDS: CALCIUM/VITAMIN D (500/200) TAB GTB SCH (08:29)
[2017-02-26] MEDS: FERROUS SULFATE 60 MG/ML 5ML CUP GTB SCH (08:30)
[2017-02-26] MEDS: APIXABAN 5 MG TABLET GTB SCH ×2 (08:30→20:26)
[2017-02-26] MEDS: COLISTIMETHATE 75 MG in SOD CHLORIDE 0.9% 100 ML IVPB SCH ×2 (08:30→20:42)
[2017-02-26] MEDS: METOPROLOL 25 MG TAB PO SCH ×2 (08:30→20:27)
[2017-02-26] MEDS: MULTIVITAMINS 30 ML CUP GTB SCH (08:30)
[2017-02-26] MEDS: MEMANTINE 10 MG TAB GTB SCH ×2 (08:31→20:26)
[2017-02-26] MEDS: COLLAGENASE 30 GM TUBE TOP SCH (08:31)
[2017-02-26] MEDS: DEXTROSE 5% 1,000 ML IV SCH (11:27)
--- NOTE | 2017-02-26 12:01 | PN ---
Date/Time of Note Date/Time of Note DATE: 02/26/17 TIME: 12:00 Assessment/Plan VTE Prophylaxis VTE Prophylaxis Intervention: SCD's Lines/Catheters IV Catheter Type (from Nrs): Saline Lock Urinary Cath still in place: Yes Reason Cath still needed: urinary retention Assessment/Plan Chief Complaint/Hosp Course 1. Systemic inflammatory response syndrome, better. 2. Chronic kidney disease. 3. Hypernatremia. 4. Lung infiltrate. 5. Lung atelectasis. 6. Gastrostomy tube placement. 7. History of peripheral vascular disease. 8. Dyslipidemia. 9. Chronic obstructive pulmonary disease. 10. Right below-knee amputation. 11. Incomplete database. 12. History of pacemaker placement. 13. History of chronic atrial fibrillation. 14 encephalopathy 15 hypernatremia Problems: Assessment/Plan 1/. Continue a/b 2. Rate controlled now 3. Pt is improved Subjective 24 Hr Interval Summary Subjective hx not possible: pt non-verbal Exam/Review of Systems Vital Signs Vitals Vital Signs Date Time Temp Pulse Resp B/P Pulse Ox O2 Delivery O2 Flow Rate FiO2 02/26/17 11:45 98.2 60 16 134/63 99 02/26/17 08:07 2.0 02/26/17 08:07 Nasal Cannula Intake and Output 02/25/17 02/25/17 02/26/17 15:00 23:00 07:00 Intake Total 50 ml 1500 ml 660 ml Output Total 500 ml 600 ml Balance 50 ml 1000 ml 60 ml Exam Constitutional: frail, other (confused) Neck: supple Respiratory: clear to auscultation, diminished breath sounds Cardiovascular: irregular rhythm, regular rate and rhythm (Afib controlled) Gastrointestinal: other (GT), soft Results Result Diagram: 02/24/17 0754 02/25/17 0750 Medications Medications Current Medications Amlodipine Besylate (Norvasc) 5 mg BID GTB Last administered on 02/26/17 08: 29; Admin Dose 5 MG; Start 02/23/17 at 09:00 Apixaban (Eliquis) 2.5 mg BID GTB Last administered on 02/26/17 08:30; Admin Dose 2.5 MG; Start 02/23/17 at 09:00 Atorvastatin Calcium (Lipitor) 40 mg QHS GTB Last administered on 02/25/17 20 :33; Admin Dose 40 MG; Start 02/23/17 at 21:00 Bisacodyl (Dulcolax Supp) 10 mg Q24H PRN [place] CONSTIPATION; Start 02/23/17 at 06: 00 Calcium/Vitamin D (Oyster Shell/ Vit-D (500/200)) 1 tab DAILY GTB Last administered on 02/26/17 08:29; Admin Dose 1 TAB; Start 02/23/17 at 09:00 Clonidine (Catapres) 0.1 mg Q4H PRN GTB ELEVATED BLOOD PRESSURE Last administered on 02/24/17 01:14; Admin Dose 0.1 MG; Start 02/23/17 at 06:00 Diphenhydramine HCl (Benadryl) 25 mg BID PRN GTB ITCHING; Start 02/23/17 at 06: 00 Docusate Sodium (Colace) 200 mg DAILY PO Last administered on 02/26/17 08:29 ; Admin Dose 200 MG; Start 02/23/17 at 09:00 Fenofibrate (Tricor) 145 mg QHS GTB Last administered on 02/25/17 20:35; Admin Dose 145 MG; Start 02/23/17 at 21:00 Ferrous Sulfate (Feosol Liquid Cup) 330 mg DAILY GTB Last administered on 02/26 08:30; Admin Dose 330 MG; Start 02/23/17 at 09:00 Levetiracetam (Keppra) 1,000 mg DAILY GTB Last administered on 02/26/17 08:29 ; Admin Dose 1,000 MG; Start 02/23/17 at 09:00 Magnesium Hydroxide (Milk Of Mag) 30 ml Q24H PRN PO CONSTIPATION; Start at 06:00 Memantine (Namenda) 10 mg BID GTB Last administered on 02/26/17 08:31; Admin Dose 10 MG; Start 02/23/17 at 09:00 Multivitamins (Multivitamin) 30 ml DAILY GTB Last administered on 02/26/17 08 :30; Admin Dose 30 ML; Start 02/23/17 at 09:00 Tramadol HCl (Ultram) 50 mg Q12 GTB Last administered on 02/26/17 08:29; Admin Dose 50 MG; Start 02/23/17 at 09:00 Zolpidem Tartrate (Ambien) 5 mg HS PRN GTB SLEEP; Start 02/23/17 at 06:00 Ondansetron HCl (Zofran Inj) 4 mg Q6H PRN IV NAUSEA AND/OR VOMITING; Start 02/23/17 at 06:00 Morphine Sulfate (morphine) 2 mg Q4H PRN IV severe pain Last administered on 01:13; Admin Dose 2 MG; Start 02/23/17 at 06:00 Acetaminophen (Tylenol Tab) 650 mg Q4H PRN GTB PAIN AND OR ELEVATED TEMP; Start 02/23/17 at 08:00 Lactobacillus Acidophilus/ Rhamnosus (Culturelle) 1 cap BID PO Last administered on 02/26/17 08:29; Admin Dose 1 CAP; Start 02/23/17 at 09:00 Miscellaneous Information (Pending Santyl Order For Wound Care) This patient basurto... PRN PRN XX WOUND CARE; Start 02/23/17 at 17:00 Miscellaneous Information (Pending Santyl Order For Wound Care) This patient basurto... PRN PRN XX WOUND CARE; Start 02/24/17 at 10:00 Collagenase (Santyl) 1 applic DAILY TOP Last administered on 02/26/17 08:31; Admin Dose 1 APPLIC; Start 02/24/17 at 13:00 Lansoprazole 30 mg 30 mg DAILY@06 GTB Last administered on 02/26/17 06:13; Admin Dose 30 MG; Start 02/25/17 at 06:00 Dextrose (D5W) 1,000 ml @ 50 mls/hr Q20H IV Last administered on 02/26/17 11 :27; Admin Dose 50 MLS/HR; Start 02/24/17 at 19:00 Metoprolol Tartrate 12.5 mg 12.5 mg BID PO Last administered on 02/26/17 08: 30; Admin Dose 12.5 MG; Start 02/25/17 at 09:00 Colistimethate Sodium/Sodium Chloride (Coly-Mycin/NS) 100 ml @ 200 mls/hr Q12 IVPB Last administered on 02/26/17 08:30; Admin Dose 200 MLS/HR; Start 02/25 at 21:00 JOSE PERRY Feb 26, 2017 12:01
--- NOTE | 2017-02-26 14:04 | CONS ---
Date/Time of Note Date/Time of Note DATE: 02/26/17 TIME: 14:02 Assessment/Plan Assessment/Plan Additional Assessment/Plan 1. Cardiac arrhythmia with current rhythm concerning for possible accelerated junctional rhythm and associated PVCs- now better rate - pacer in place for nayely protection. 100% paced. 2. History of permanent pacemaker - good fxn. Will follow clinically. 3. History of paroxysmal atrial fibrillation on systemic anticoagulation- rate controlled now. In a. fib now. 4. Hypertension-very labile- stable now. 5. Urinary tract infection- on anti-Bx. 6. Fevers - resolved. 7. Altered mental state and dementia. 8. Anemia. 9. Hypernatremia 10. Dyslipidemia. Consultation Date/Type/Reason Admit Date/Time Feb 23, 2017 at 01:41 Type of Consultation: cardiology Referring Provider: JOSE C VILLATORO MD 24 HR Interval Summary Free Text/Dictation NO acute events - in a. fib - paced. ROS: No fever, no chills, no nausea, no vomiting, no diarrhea/constipation No recent weight changes No chest pain, no PND, no orthopnea No dizziness, blurred vision No thirst, no heat or cold intolerance (per nurse) Exam/Review of Systems Vital Signs Vitals Vital Signs Date Time Temp Pulse Resp B/P Pulse Ox O2 Delivery O2 Flow Rate FiO2 02/26/17 12:33 60 02/26/17 11:45 98.2 16 134/63 99 02/26/17 08:07 2.0 02/26/17 08:07 Nasal Cannula Intake and Output 02/25/17 02/25/17 02/26/17 14:59 22:59 06:59 Intake Total 50 ml 1500 ml 660 ml Output Total 500 ml 600 ml Balance 50 ml 1000 ml 60 ml Exam General: WN/WD/NAD, AOx 0 HEENT: Unicetric/atraumatic/EOMI (does not follow commands) NECK: JVD elevated, no thyromegaly Lymph: no lymphadenopathy HEART: irrregular with no S3, II/ systolic murmur at apex, pacer LUNGS: Coarse sounds ABD: soft, NT, ND, +BS : Intact Neuro: non focal SKIN: chronic changes EXT: trace edema Results Result Diagram: 02/24/17 0754 02/25/17 0750 Medications Medications Current Medications Amlodipine Besylate (Norvasc) 5 mg BID GTB Last administered on 02/26/17 08: 29; Admin Dose 5 MG; Start 02/23/17 at 09:00 Apixaban (Eliquis) 2.5 mg BID GTB Last administered on 02/26/17 08:30; Admin Dose 2.5 MG; Start 02/23/17 at 09:00 Atorvastatin Calcium (Lipitor) 40 mg QHS GTB Last administered on 02/25/17 20 :33; Admin Dose 40 MG; Start 02/23/17 at 21:00 Bisacodyl (Dulcolax Supp) 10 mg Q24H PRN [place] CONSTIPATION; Start 02/23/17 at 06: 00 Calcium/Vitamin D (Oyster Shell/ Vit-D (500/200)) 1 tab DAILY GTB Last administered on 02/26/17 08:29; Admin Dose 1 TAB; Start 02/23/17 at 09:00 Clonidine (Catapres) 0.1 mg Q4H PRN GTB ELEVATED BLOOD PRESSURE Last administered on 02/24/17 01:14; Admin Dose 0.1 MG; Start 02/23/17 at 06:00 Diphenhydramine HCl (Benadryl) 25 mg BID PRN GTB ITCHING; Start 02/23/17 at 06: 00 Docusate Sodium (Colace) 200 mg DAILY PO Last administered on 02/26/17 08:29 ; Admin Dose 200 MG; Start 02/23/17 at 09:00 Fenofibrate (Tricor) 145 mg QHS GTB Last administered on 02/25/17 20:35; Admin Dose 145 MG; Start 02/23/17 at 21:00 Ferrous Sulfate (Feosol Liquid Cup) 330 mg DAILY GTB Last administered on 02/26 08:30; Admin Dose 330 MG; Start 02/23/17 at 09:00 Levetiracetam (Keppra) 1,000 mg DAILY GTB Last administered on 02/26/17 08:29 ; Admin Dose 1,000 MG; Start 02/23/17 at 09:00 Magnesium Hydroxide (Milk Of Mag) 30 ml Q24H PRN PO CONSTIPATION; Start at 06:00 Memantine (Namenda) 10 mg BID GTB Last administered on 02/26/17 08:31; Admin Dose 10 MG; Start 02/23/17 at 09:00 Multivitamins (Multivitamin) 30 ml DAILY GTB Last administered on 02/26/17 08 :30; Admin Dose 30 ML; Start 02/23/17 at 09:00 Tramadol HCl (Ultram) 50 mg Q12 GTB Last administered on 02/26/17 08:29; Admin Dose 50 MG; Start 02/23/17 at 09:00 Zolpidem Tartrate (Ambien) 5 mg HS PRN GTB SLEEP; Start 02/23/17 at 06:00 Ondansetron HCl (Zofran Inj) 4 mg Q6H PRN IV NAUSEA AND/OR VOMITING; Start 02/23/17 at 06:00 Morphine Sulfate (morphine) 2 mg Q4H PRN IV severe pain Last administered on 01:13; Admin Dose 2 MG; Start 02/23/17 at 06:00 Acetaminophen (Tylenol Tab) 650 mg Q4H PRN GTB PAIN AND OR ELEVATED TEMP; Start 02/23/17 at 08:00 Lactobacillus Acidophilus/ Rhamnosus (Culturelle) 1 cap BID PO Last administered on 02/26/17 08:29; Admin Dose 1 CAP; Start 02/23/17 at 09:00 Miscellaneous Information (Pending Santyl Order For Wound Care) This patient basurto... PRN PRN XX WOUND CARE; Start 02/23/17 at 17:00 Miscellaneous Information (Pending Santyl Order For Wound Care) This patient basurto... PRN PRN XX WOUND CARE; Start 02/24/17 at 10:00 Collagenase (Santyl) 1 applic DAILY TOP Last administered on 02/26/17 08:31; Admin Dose 1 APPLIC; Start 02/24/17 at 13:00 Lansoprazole 30 mg 30 mg DAILY@06 GTB Last administered on 02/26/17 06:13; Admin Dose 30 MG; Start 02/25/17 at 06:00 Dextrose (D5W) 1,000 ml @ 50 mls/hr Q20H IV Last administered on 02/26/17 11 :27; Admin Dose 50 MLS/HR; Start 02/24/17 at 19:00 Metoprolol Tartrate 12.5 mg 12.5 mg BID PO Last administered on 02/26/17 08: 30; Admin Dose 12.5 MG; Start 02/25/17 at 09:00 Colistimethate Sodium/Sodium Chloride (Coly-Mycin/NS) 100 ml @ 200 mls/hr Q12 IVPB Last administered on 02/26/17 08:30; Admin Dose 200 MLS/HR; Start 02/25 at 21:00 ADAM NASH MD Feb 26, 2017 14:04
--- NOTE | 2017-02-26 14:54 | RADRPT ---
Vent Rate: 66 bpm RR Interval: 0 msec MS Interval: 142 msec QRS Duration: 134 msec QT Interval: 430 msec QTC Interval: 450 msec P-R-T [place]: 0 - -90 - 35 degrees Demand pacemaker, interpretation is based on intrinsic rhythm with underlying atrial fibrillation and pvc Left axis deviation Abnormal ECG No previous tracing available for comparison Electronically Signed By: Harman León [id number]
--- NOTE | 2017-02-26 18:13 | PN ---
DATE: 02/26/2017 INFECTIOUS DISEASE PROGRESS NOTE SUBJECTIVE: Patient is lying comfortably in bed, noncommunicative, in no distress. No labs this mo rning. MICROBIOLOGY: Urine culture on admission grew E. coli, ESBL, Acinetobacter baumannii. Blood cultur es have been negative. Nares swab positive for MRSA. ANTIMICROBIALS: The patient is on IV Colistin. INDWELLINGS: Cevallos catheter. PHYSICAL EXAMINATION: GENERAL: This is a chronically ill-appearing, elderly man who is in no distress. HEENT: Head atraumatic, normocephalic. Sclerae anicteric. Buccal mucosa dry. NECK: Supple. CHEST: Rise symmetrical. Breath sounds diminished to bases. HEART: S1, S2. ABDOMEN: Soft, bowel tones present. EXTREMITIES: Without cyanosis. ASSESSMENT: 1. Polymicrobial urinary tract infection. 2. Methicillin-resistant Staphylococcus aureus nares colonization. 3. History of atrial fibrillation, status post permanent pacemaker. 4. Peripheral vascular disease with right below knee amputation. 5. Anemia. PLAN: The patient remains stable. Continue present care. Continue anti-aspiration precautions, an tibiotics, Bactroban to nares. Dictated By: EM RIOS CLINICAL RESEARCH TECHNICIAN for UMER TIM MD NI/NTS Conf#: [id number] DID#: [id number] CC: JOSE C VILLATORO MD;*EndCC*
[2017-02-26] MEDS: FENOFIBRATE 145 MG TAB GTB SCH (20:26)
[2017-02-26] MEDS: ATORVASTATIN 40 MG TAB GTB SCH (20:26)
[2017-02-26] MEDS: MUPIROCIN 2% 22 GM OINT TOP SCH (21:03)
[2017-02-27] VITALS (13 sets, daily range): BP systolic 112–135; BP diastolic 57–85; PULSE 60–68; RESP 16–18
[2017-02-27] MEDS: ALBUTEROL/IPRATROPIUM (NEB) 3 ML AMP HHN SCH ×4 (02:04→19:49)
[2017-02-27] MEDS: LANSOPRAZOLE 30 MG CAP GTB SCH (05:24)
[2017-02-27 06:43] LABS: BASOPHIL # 0.1 10^3/ul (0.0-0.1); BASOPHILS % 0.8 % (0.0-2.0); EOSINOPHILS # 0.6 10^3/ul (0.0-0.5); EOSINOPHILS % 9.6 % (0.0-7.0); HEMATOCRIT 27.7 % (42.0-52.0); HEMOGLOBIN 8.5 g/dl (14.0-18.0); LYMPHOCYTES # 1.1 10^3/ul (0.8-2.9); LYMPHOCYTES % 16.9 % (15.0-51.0); MEAN CORPUSCULAR HEMOGLOBIN 26.8 pg (29.0-33.0); MEAN CORPUSCULAR HGB CONC 30.7 g/dl (32.0-37.0); MEAN CORPUSCULAR VOLUME 87.4 fl (82.0-101.0); MEAN PLATELET VOLUME 11.4 fl (7.4-10.4); MONOCYTE # 0.5 10^3/ul (0.3-0.9); MONOCYTES % 7.6 % (0.0-11.0); NEUTROPHILS % 64.5 % (39.0-77.0); PLATELET COUNT 230 10^3/UL (140-415); RED BLOOD COUNT 3.17 10^6/ul (4.70-6.10); RED CELL DISTRIBUTION WIDTH 14.6 % (11.5-14.5); WHITE BLOOD COUNT 6.2 10^3/ul (4.8-10.8)
[2017-02-27 07:26] LABS: CALCIUM 7.7 mg/dl (8.4-10.2); CREATININE 0.87 mg/dl (0.61-1.24); POTASSIUM 4.5 mmol/L (3.5-5.1)
--- NOTE | 2017-02-27 08:45 | DS ---
Date/Time of Note Date/Time of Note DATE: 03/05/17 TIME: 08:45 Discharge Summary Admission/Discharge Info Admit Date/Time Feb 23, 2017 at 01:41 Discharge Date/Time Discharge Diagnosis COPD exacerbation, encephalopathy Patient Condition: Stable Consults Dr Kruse cardiology, dr Grewal, ID Procedures none Hospital Course Maxime Anguiano is an 81-year-old male who has a history of CKD. Was brought in by ambulance for fever, high grade, and possible sepsis. 1. Systemic inflammatory response syndrome, better. 2. Chronic kidney disease. 3. Hypernatremia. 4. Lung infiltrate. 5. Lung atelectasis. 6. Gastrostomy tube placement. 7. History of peripheral vascular disease. 8. Dyslipidemia. 9. Chronic obstructive pulmonary disease. 10. Right below-knee amputation. 11. Incomplete database. 12. History of pacemaker placement. 13. History of chronic atrial fibrillation. 14 encephalopathy 15 hypernatremia Pt arrhythmia was controlled and UTI subside.family decided to make pt DNR and proceed with hispice. hospice eval was fdone, pt with oxygen and tube feeding is in patient. Family supported by social workers Home Meds Reported Medications Isosorbide Dinitrate* (Isosorbide Dinitrate*) 20 Mg Tablet, 20 MG GTB TID, TAB 01/18/17 Ipratropium-Albuterol (Ipratropium-Albuterol) 0.5-3 Mg/3 Ml Ampul.neb, 3 ML INHALATION Q6, #30 VIAL 01/18/17 Furosemide* (Furosemide*) 40 Mg Tablet, 40 MG GTB Q8, TAB 01/18/17 Mineral Oil* (Fleet* Mineral Oil Enema) 133 Ml Oil, 133 ML OR NEEDED Y for CONSTIPATION, ENEMA 01/18/17 Amlodipine Besylate* (Norvasc*) 5 Mg Tablet, 5 MG GTB BID, TAB 12/16/16 Losartan Potassium* (Losartan Potassium*) 50 Mg Tablet, 50 MG GTB BID, TAB 12/16/16 Hydralazine Hcl* (Hydralazine Hcl*) 50 Mg Tab, 50 MG PO Q8, #90 TAB HOLD FOR SBP BELOW 110 OR HR BELOW 60 12/16/16 Bisacodyl* (Bisacodyl*) 10 Mg Supp, 10 MG OR Q24H Y for CONSTIPATION, SUPP 12/16/16 Lactobacillus Acidophilus* (Lactinex*) 1 Tab Chew, 1 TAB GTB BID, TAB 12/16/16 Ascorbic Acid* (Vitamin C* Liq) 500 Mg/5 Ml Syrup, 500 MG GTB DAILY, ML 06/08/16 Tramadol HCl (Tramadol HCl) 50 Mg Tablet, 50 MG GTB Q12 for SEVERE PAIN LEVEL 7- 10, #60 TAB 06/08/16 Acetaminophen* (Tylophen*) 500 Mg Capsule, 500 MG GTB Q4 Y for MODERATE PAIN LEVEL 4-6, TAB 06/08/16 Multivitamins* (Theragran*) 1 Tab Tab, 1 TAB GTB DAILY, TAB 06/08/16 Ferrous Sulfate (Ferrous Sulfate) 300 Mg/5 Ml Liquid, 330 MG GTB DAILY 06/08/16 Calcium Carbonate/Vitamin D3 (Calcium 500 + Vit D 200 Tablet) 1 Each Tablet, 1 EACH GTB DAILY, TAB 06/08/16 Cran/Vitc/Mannose/Inulin/Brom (Uti-Stat Liquid) 3,875 Mg/30 Ml Liquid, 3875 MG GTB DAILY 02/19/16 Magnesium Hydroxide* (Milk Of Magnesia*) 400 Mg/5 Ml Oral.susp, 30 ML PO Q24H Y for CONSTIPATION, ML 02/19/16 Atorvastatin* (Atorvastatin*) 40 Mg Tablet, 40 MG GTB QHS, #30 TAB 02/19/16 Fenofibrate Nanocrystallized* (Fenofibrate*) 145 Mg Tablet, 145 MG GTB QHS, TAB 02/19/16 Apixaban* (Eliquis*) 2.5 Mg Tablet, 2.5 MG GTB BID, TAB 02/19/16 Diphenhydramine Hcl* (Benadryl*) 25 Mg Cap, 25 MG GTB BID Y for ITCHING, CAP 02/19/16 Albuterol Sulfate* (Albuterol Sulfate* Neb) 0.083%-3 Ml Neb, 2.5 MG NEB Q6 Y for WHEEZING AND SOB, #30 VIAL 02/19/16 Docusate Sodium* (Docusate Sodium*) 100 Mg Capsule, 200 MG GTB DAILY, CAP 07/02/14 Clonidine Hcl* (Clonidine Hcl*) 0.1 Mg Tab, 0.1 MG GTB Q4H Y for ELEVATED BLOOD PRESSURE, TAB FOR SBP>160 07/02/14 Aspirin* (Aspirin*) 325 Mg Tablet, 325 MG GTB DAILY 07/19/12 Levetiracetam* (Keppra*) 1,000 Mg Tablet, 1000 MG GTB DAILY, 0 Refills 03/04/11 Memantine* (Namenda*) 10 Mg Tablet, 10 MG GTB BID 03/04/11 Zolpidem Tartrate* (Ambien*) 5 Mg Tablet, 5 MG GTB HS Y for SLEEP 06/09/10 Follow-up Plan [facility] for hosp[facility] care Primary Care Provider Sal Mo MD Pending Labs Laboratory Tests Test 02/27/17 05:51 02/27/17 05:57 White Blood Count 6.210^3/ul (4.8-10.8) Red Blood Count 3.1710^6/ul (4.70-6.10) Hemoglobin 8.5g/dl (14.0-18.0) Hematocrit 27.7% (42.0-52.0) Mean Corpuscular Volume 87.4fl (82.0-101.0) Mean Corpuscular Hemoglobin 26.8pg (29.0-33.0) Mean Corpuscular Hemoglobin Concent 30.7g/dl (32.0-37.0) Red Cell Distribution Width 14.6% (11.5-14.5) Platelet Count 38311^3/UL (140-415) Mean Platelet Volume 11.4fl (7.4-10.4) Neutrophils % 64.5% (39.0-77.0) Lymphocytes % 16.9% (15.0-51.0) Monocytes % 7.6% (0.0-11.0) Eosinophils % 9.6% (0.0-7.0) Basophils % 0.8% (0.0-2.0) Nucleated Red Blood Cells % 0.0/100WBC (0.0-0.0) Neutrophils # 4.010^3/ul (1.6-7.5) Lymphocytes # 1.110^3/ul (0.8-2.9) Monocytes # 0.510^3/ul (0.3-0.9) Eosinophils # 0.610^3/ul (0.0-0.5) Basophils # 0.110^3/ul (0.0-0.1) Nucleated Red Blood Cells # 0.010^3/ul (0.0-0.0) Sodium Level 136mmol/L (135-144) Potassium Level 4.5mmol/L (3.5-5.1) Chloride Level 105mmol/L (97-110) Carbon Dioxide Level 28mmol/L (21-31) Anion Gap 8 (8-16) Blood Urea Nitrogen 28mg/dl (7-20) Creatinine 0.87mg/dl (0.61-1.24) Glucose Level 222mg/dl (70-220) Calcium Level 7.7mg/dl (8.4-10.2) JOSE PERRY Feb 27, 2017 08:45
--- NOTE | 2017-02-27 08:47 | PDOCDIS ---
Discharge Instructions CONDITION Patient Condition: Stable HOME CARE INSTRUCTIONS: Special Diet: GTF ACTIVITY: Activity Restrictions: No Restrictions SCHOOL/WORK RELEASE May return to School/Work with: No Restrictions JOSE PERRY Feb 27, 2017 08:47
[2017-02-27] MEDS: COLISTIMETHATE 75 MG in SOD CHLORIDE 0.9% 100 ML IVPB SCH ×2 (09:16→21:54)
[2017-02-27] MEDS: MULTIVITAMINS 30 ML CUP GTB SCH (09:17)
[2017-02-27] MEDS: METOPROLOL 25 MG TAB PO SCH ×2 (09:17→21:55)
[2017-02-27] MEDS: CALCIUM/VITAMIN D (500/200) TAB GTB SCH (09:17)
[2017-02-27] MEDS: FERROUS SULFATE 60 MG/ML 5ML CUP GTB SCH (09:17)
[2017-02-27] MEDS: DOCUSATE SODIUM 100 MG CAP PO SCH (09:17)
[2017-02-27] MEDS: traMADol 50 MG TAB GTB SCH ×2 (09:18→21:54)
[2017-02-27] MEDS: APIXABAN 5 MG TABLET GTB SCH ×2 (09:18→21:54)
[2017-02-27] MEDS: MEMANTINE 10 MG TAB GTB SCH ×2 (09:18→21:55)
[2017-02-27] MEDS: AMLODIPINE 5 MG TAB GTB SCH ×2 (09:18→21:55)
[2017-02-27] MEDS: LEVETIRACETAM 500 MG TAB GTB SCH (09:18)
[2017-02-27] MEDS: MUPIROCIN 2% 22 GM OINT TOP SCH ×2 (09:19→22:19)
[2017-02-27] MEDS: COLLAGENASE 30 GM TUBE TOP SCH (09:19)
[2017-02-27] MEDS: LACTOBACILLUS RHAMNOSUS CAP PO SCH ×2 (09:19→21:54)
--- NOTE | 2017-02-27 15:26 | CONS ---
Date/Time of Note Date/Time of Note DATE: 02/27/17 TIME: 15:24 Assessment/Plan Assessment/Plan Additional Assessment/Plan 1. Cardiac arrhythmia with current rhythm concerning for possible accelerated junctional rhythm and associated PVCs- now better rate - pacer in place for nayely protection. 100% paced. Rate controlled. 2. History of permanent pacemaker - good fxn. Will follow clinically. CHECKED in the office recently. 3. History of paroxysmal atrial fibrillation on systemic anticoagulation- rate controlled now. In a. fib now. 4. Hypertension-very labile- stable now - in good range now. 5. Urinary tract infection- on anti-Bx. 6. Fevers - resolved. 7. Altered mental state and dementia. 8. Anemia. 9. Hypernatremia 10. Dyslipidemia. Consultation Date/Type/Reason Admit Date/Time Feb 27, 2017 at 10:23 Type of Consultation: cardiology Referring Provider: JOSE C VILLATORO MD 24 HR Interval Summary Free Text/Dictation NO acute events - BP in good range - rate controlled. ROS: No fever, no chills, no nausea, no vomiting, no diarrhea/constipation No recent weight changes No chest pain, no PND, no orthopnea No dizziness, blurred vision No thirst, no heat or cold intolerance (per nurse) Exam/Review of Systems Vital Signs Vitals Vital Signs Date Time Temp Pulse Resp B/P Pulse Ox O2 Delivery O2 Flow Rate FiO2 02/27/17 13:52 64 20 96 Nasal Cannula 2.0 02/27/17 11:54 97.8 135/62 Intake and Output 02/26/17 02/26/17 02/27/17 15:00 23:00 07:00 Intake Total 100 ml 1360 ml Output Total 500 ml 350 ml Balance 100 ml 860 ml -350 ml Exam General: WN/WD/NAD, AOx 0 HEENT: Unicetric/atraumatic/EOMI (does not follow commands) NECK: JVD elevated, no thyromegaly Lymph: no lymphadenopathy HEART: regular with no S3, II/ systolic murmur at apex, pacer LUNGS: Coarse sounds ABD: soft, NT, ND, +BS -PEG : Intact Neuro: non focal SKIN: chronic changes EXT: trace edema Results Result Diagram: 02/27/17 0551 02/27/17 0557 Results 24 hrs Laboratory Tests Test 02/27/17 05:51 02/27/17 05:57 White Blood Count 6.2 Red Blood Count 3.17 L Hemoglobin 8.5 L Hematocrit 27.7 L Mean Corpuscular Volume 87.4 Mean Corpuscular Hemoglobin 26.8 L Mean Corpuscular Hemoglobin Concent 30.7 L Red Cell Distribution Width 14.6 H Platelet Count 230 Mean Platelet Volume 11.4 H Neutrophils % 64.5 Lymphocytes % 16.9 Monocytes % 7.6 Eosinophils % 9.6 H Basophils % 0.8 Nucleated Red Blood Cells % 0.0 Neutrophils # 4.0 Lymphocytes # 1.1 Monocytes # 0.5 Eosinophils # 0.6 H Basophils # 0.1 Nucleated Red Blood Cells # 0.0 Sodium Level 136 Potassium Level 4.5 Chloride Level 105 # Carbon Dioxide Level 28 Anion Gap 8 Blood Urea Nitrogen 28 H Creatinine 0.87 Glucose Level 222 H Calcium Level 7.7 L Medications Medications Current Medications Amlodipine Besylate (Norvasc) 5 mg BID GTB Last administered on 02/27/17 09: 18; Admin Dose 5 MG; Start 02/23/17 at 09:00 Apixaban (Eliquis) 2.5 mg BID GTB Last administered on 02/27/17 09:18; Admin Dose 2.5 MG; Start 02/23/17 at 09:00 Atorvastatin Calcium (Lipitor) 40 mg QHS GTB Last administered on 02/26/17 20 :26; Admin Dose 40 MG; Start 02/23/17 at 21:00 Bisacodyl (Dulcolax Supp) 10 mg Q24H PRN [place] CONSTIPATION; Start 02/23/17 at 06: 00 Calcium/Vitamin D (Oyster Shell/ Vit-D (500/200)) 1 tab DAILY GTB Last administered on 02/27/17 09:17; Admin Dose 1 TAB; Start 02/23/17 at 09:00 Clonidine (Catapres) 0.1 mg Q4H PRN GTB ELEVATED BLOOD PRESSURE Last administered on 02/24/17 01:14; Admin Dose 0.1 MG; Start 02/23/17 at 06:00 Diphenhydramine HCl (Benadryl) 25 mg BID PRN GTB ITCHING; Start 02/23/17 at 06: 00 Docusate Sodium (Colace) 200 mg DAILY PO Last administered on 02/27/17 09:17 ; Admin Dose 200 MG; Start 02/23/17 at 09:00 Fenofibrate (Tricor) 145 mg QHS GTB Last administered on 02/26/17 20:26; Admin Dose 145 MG; Start 02/23/17 at 21:00 Ferrous Sulfate (Feosol Liquid Cup) 330 mg DAILY GTB Last administered on 02/27 09:17; Admin Dose 330 MG; Start 02/23/17 at 09:00 Levetiracetam (Keppra) 1,000 mg DAILY GTB Last administered on 02/27/17 09:18 ; Admin Dose 1,000 MG; Start 02/23/17 at 09:00 Magnesium Hydroxide (Milk Of Mag) 30 ml Q24H PRN PO CONSTIPATION Last administered on 02/27/17 09:16; Admin Dose 30 ML; Start 02/23/17 at 06:00 Memantine (Namenda) 10 mg BID GTB Last administered on 02/27/17 09:18; Admin Dose 10 MG; Start 02/23/17 at 09:00 Multivitamins (Multivitamin) 30 ml DAILY GTB Last administered on 02/27/17 09 :17; Admin Dose 30 ML; Start 02/23/17 at 09:00 Tramadol HCl (Ultram) 50 mg Q12 GTB Last administered on 02/27/17 09:18; Admin Dose 50 MG; Start 02/23/17 at 09:00 Zolpidem Tartrate (Ambien) 5 mg HS PRN GTB SLEEP; Start 02/23/17 at 06:00 Ondansetron HCl (Zofran Inj) 4 mg Q6H PRN IV NAUSEA AND/OR VOMITING; Start 02/23/17 at 06:00 Morphine Sulfate (morphine) 2 mg Q4H PRN IV severe pain Last administered on 01:13; Admin Dose 2 MG; Start 02/23/17 at 06:00 Acetaminophen (Tylenol Tab) 650 mg Q4H PRN GTB PAIN AND OR ELEVATED TEMP; Start 02/23/17 at 08:00 Lactobacillus Acidophilus/ Rhamnosus (Culturelle) 1 cap BID PO Last administered on 02/27/17 09:19; Admin Dose 1 CAP; Start 02/23/17 at 09:00 Miscellaneous Information (Pending Santyl Order For Wound Care) This patient basurto... PRN PRN XX WOUND CARE; Start 02/23/17 at 17:00 Miscellaneous Information (Pending Santyl Order For Wound Care) This patient basurto... PRN PRN XX WOUND CARE; Start 02/24/17 at 10:00 Collagenase (Santyl) 1 applic DAILY TOP Last administered on 02/27/17 09:19; Admin Dose 1 APPLIC; Start 02/24/17 at 13:00 Lansoprazole (Prevacid) 30 mg DAILY@06 GTB Last administered on 02/27/17 05: 24; Admin Dose 30 MG; Start 02/25/17 at 06:00 Metoprolol Tartrate 12.5 mg 12.5 mg BID PO Last administered on 02/27/17 09: 17; Admin Dose 12.5 MG; Start 02/25/17 at 09:00 Colistimethate Sodium/Sodium Chloride (Coly-Mycin/NS) 100 ml @ 200 mls/hr Q12 IVPB Last administered on 02/27/17 09:16; Admin Dose 200 MLS/HR; Start 02/25 at 21:00 Mupirocin (Bactroban) 1 applic BID TOP Last administered on 02/27/17 09:19; Admin Dose 1 APPLIC; Start 02/26/17 at 21:00 ADAM NASH MD Feb 27, 2017 15:25
--- NOTE | 2017-02-27 18:08 | CONS ---
Date/Time of Note Date/Time of Note DATE: 02/27/17 TIME: 18:00 Consultation Date/Type/Reason Admit Date/Time Feb 27, 2017 at 10:23 Initial Consult Date SUBJECTIVE: 81 y/o male being treated for UTI. No acute events over night. Comfortably resting in bed. VS: 121/85 P:60 R:16 SO2:100% T:98.3 LABS: WBC-6.2 H&H:8.5/27.7 BUN-28 Cr-0.87 MICROBIOLOGY: Urine culture on admission grew E. coli, ESBL, Acinetobacter baumannii. Blood cultures have been negative. Nares swab positive for MRSA FECES CULTURE Final Organism 1 COLIFORM QUANTITY 1+ ANTIMICROBIALS: The patient is on IV Colistin. PHYSICAL EXAMINATION: GENERAL: This is a chronically ill-appearing, elderly man who is in no distress. HEENT: Head atraumatic, normocephalic. Sclerae anicteric. Buccal mucosa dry. NECK: Supple. CHEST: Rise symmetrical. Breath sounds diminished to bases. HEART: S1, S2. ABDOMEN: Soft, bowel tones present. EXTREMITIES: Without cyanosis. ASSESSMENT: 1. Polymicrobial urinary tract infection. 2. Methicillin-resistant Staphylococcus aureus nares colonization. 3. History of atrial fibrillation, status post permanent pacemaker. 4. Peripheral vascular disease with right below knee amputation. 5. Anemia. PLAN: The patient remains stable. Continue present care. Continue anti- aspiration precautions, antibiotics, Bactroban to nares. Type of Consultation: ID Referring Provider: JOSE C VILLATORO MD Exam/Review of Systems Vital Signs Vitals Vital Signs Date Time Temp Pulse Resp B/P Pulse Ox O2 Delivery O2 Flow Rate FiO2 02/27/17 16:00 67 02/27/17 15:51 98.3 16 121/85 100 02/27/17 13:52 Nasal Cannula 2.0 Intake and Output 02/26/17 02/26/17 02/27/17 15:00 23:00 07:00 Intake Total 100 ml 1360 ml Output Total 500 ml 350 ml Balance 100 ml 860 ml -350 ml Results Result Diagram: 02/27/17 0551 02/27/17 0557 Results 24 hrs Laboratory Tests Test 02/27/17 05:51 02/27/17 05:57 White Blood Count 6.2 Red Blood Count 3.17 L Hemoglobin 8.5 L Hematocrit 27.7 L Mean Corpuscular Volume 87.4 Mean Corpuscular Hemoglobin 26.8 L Mean Corpuscular Hemoglobin Concent 30.7 L Red Cell Distribution Width 14.6 H Platelet Count 230 Mean Platelet Volume 11.4 H Neutrophils % 64.5 Lymphocytes % 16.9 Monocytes % 7.6 Eosinophils % 9.6 H Basophils % 0.8 Nucleated Red Blood Cells % 0.0 Neutrophils # 4.0 Lymphocytes # 1.1 Monocytes # 0.5 Eosinophils # 0.6 H Basophils # 0.1 Nucleated Red Blood Cells # 0.0 Sodium Level 136 Potassium Level 4.5 Chloride Level 105 # Carbon Dioxide Level 28 Anion Gap 8 Blood Urea Nitrogen 28 H Creatinine 0.87 Glucose Level 222 H Calcium Level 7.7 L Medications Medications Current Medications Amlodipine Besylate (Norvasc) 5 mg BID GTB Last administered on 02/27/17 09: 18; Admin Dose 5 MG; Start 02/23/17 at 09:00 Apixaban (Eliquis) 2.5 mg BID GTB Last administered on 02/27/17 09:18; Admin Dose 2.5 MG; Start 02/23/17 at 09:00 Atorvastatin Calcium (Lipitor) 40 mg QHS GTB Last administered on 02/26/17 20 :26; Admin Dose 40 MG; Start 02/23/17 at 21:00 Bisacodyl (Dulcolax Supp) 10 mg Q24H PRN [place] CONSTIPATION; Start 02/23/17 at 06: 00 Calcium/Vitamin D (Oyster Shell/ Vit-D (500/200)) 1 tab DAILY GTB Last administered on 02/27/17 09:17; Admin Dose 1 TAB; Start 02/23/17 at 09:00 Clonidine (Catapres) 0.1 mg Q4H PRN GTB ELEVATED BLOOD PRESSURE Last administered on 02/24/17 01:14; Admin Dose 0.1 MG; Start 02/23/17 at 06:00 Diphenhydramine HCl (Benadryl) 25 mg BID PRN GTB ITCHING; Start 02/23/17 at 06: 00 Docusate Sodium (Colace) 200 mg DAILY PO Last administered on 02/27/17 09:17 ; Admin Dose 200 MG; Start 02/23/17 at 09:00 Fenofibrate (Tricor) 145 mg QHS GTB Last administered on 02/26/17 20:26; Admin Dose 145 MG; Start 02/23/17 at 21:00 Ferrous Sulfate (Feosol Liquid Cup) 330 mg DAILY GTB Last administered on 02/27 09:17; Admin Dose 330 MG; Start 02/23/17 at 09:00 Levetiracetam (Keppra) 1,000 mg DAILY GTB Last administered on 02/27/17 09:18 ; Admin Dose 1,000 MG; Start 02/23/17 at 09:00 Magnesium Hydroxide (Milk Of Mag) 30 ml Q24H PRN PO CONSTIPATION Last administered on 02/27/17 09:16; Admin Dose 30 ML; Start 02/23/17 at 06:00 Memantine (Namenda) 10 mg BID GTB Last administered on 02/27/17 09:18; Admin Dose 10 MG; Start 02/23/17 at 09:00 Multivitamins (Multivitamin) 30 ml DAILY GTB Last administered on 02/27/17 09 :17; Admin Dose 30 ML; Start 02/23/17 at 09:00 Tramadol HCl (Ultram) 50 mg Q12 GTB Last administered on 02/27/17 09:18; Admin Dose 50 MG; Start 02/23/17 at 09:00 Zolpidem Tartrate (Ambien) 5 mg HS PRN GTB SLEEP; Start 02/23/17 at 06:00 Ondansetron HCl (Zofran Inj) 4 mg Q6H PRN IV NAUSEA AND/OR VOMITING; Start 02/23/17 at 06:00 Morphine Sulfate (morphine) 2 mg Q4H PRN IV severe pain Last administered on 01:13; Admin Dose 2 MG; Start 02/23/17 at 06:00 Acetaminophen (Tylenol Tab) 650 mg Q4H PRN GTB PAIN AND OR ELEVATED TEMP; Start 02/23/17 at 08:00 Lactobacillus Acidophilus/ Rhamnosus (Culturelle) 1 cap BID PO Last administered on 02/27/17 09:19; Admin Dose 1 CAP; Start 02/23/17 at 09:00 Miscellaneous Information (Pending Santyl Order For Wound Care) This patient basurto... PRN PRN XX WOUND CARE; Start 02/23/17 at 17:00 Miscellaneous Information (Pending Santyl Order For Wound Care) This patient basurto... PRN PRN XX WOUND CARE; Start 02/24/17 at 10:00 Collagenase (Santyl) 1 applic DAILY TOP Last administered on 02/27/17 09:19; Admin Dose 1 APPLIC; Start 02/24/17 at 13:00 Lansoprazole (Prevacid) 30 mg DAILY@06 GTB Last administered on 02/27/17 05: 24; Admin Dose 30 MG; Start 02/25/17 at 06:00 Metoprolol Tartrate 12.5 mg 12.5 mg BID PO Last administered on 02/27/17 09: 17; Admin Dose 12.5 MG; Start 02/25/17 at 09:00 Colistimethate Sodium/Sodium Chloride (Coly-Mycin/NS) 100 ml @ 200 mls/hr Q12 IVPB Last administered on 02/27/17 09:16; Admin Dose 200 MLS/HR; Start 02/25 at 21:00 Mupirocin (Bactroban) 1 applic BID TOP Last administered on 02/27/17 09:19; Admin Dose 1 APPLIC; Start 02/26/17 at 21:00 ADAMA LAMBERT Feb 27, 2017 18:08
[2017-02-27] MEDS: FENOFIBRATE 145 MG TAB GTB SCH (21:54)
[2017-02-27] MEDS: ATORVASTATIN 40 MG TAB GTB SCH (21:54)
[2017-02-28] VITALS (12 sets, daily range): BP systolic 115–176; BP diastolic 54–74; PULSE 60–81; RESP 16–21
[2017-02-28] MEDS: ALBUTEROL/IPRATROPIUM (NEB) 3 ML AMP HHN SCH ×4 (01:48→20:06)
[2017-02-28] MEDS: LANSOPRAZOLE 30 MG CAP GTB SCH (05:07)
[2017-02-28] MEDS: METOPROLOL 25 MG TAB PO SCH ×2 (09:00→21:17)
[2017-02-28] MEDS: LACTOBACILLUS RHAMNOSUS CAP PO SCH ×2 (09:52→21:16)
[2017-02-28] MEDS: CALCIUM/VITAMIN D (500/200) TAB GTB SCH (09:52)
[2017-02-28] MEDS: LEVETIRACETAM 500 MG TAB GTB SCH (09:52)
[2017-02-28] MEDS: AMLODIPINE 5 MG TAB GTB SCH ×2 (09:52→21:17)
[2017-02-28] MEDS: traMADol 50 MG TAB GTB SCH (09:54)
[2017-02-28] MEDS: MEMANTINE 10 MG TAB GTB SCH ×2 (09:54→21:16)
[2017-02-28] MEDS: APIXABAN 5 MG TABLET GTB SCH ×2 (09:54→21:16)
[2017-02-28] MEDS: FERROUS SULFATE 60 MG/ML 5ML CUP GTB SCH (09:59)
[2017-02-28] MEDS: MULTIVITAMINS 30 ML CUP GTB SCH (09:59)
[2017-02-28] MEDS: MUPIROCIN 2% 22 GM OINT TOP SCH ×2 (10:15→21:19)
[2017-02-28] MEDS: COLLAGENASE 30 GM TUBE TOP SCH (10:16)
[2017-02-28] MEDS: COLISTIMETHATE 75 MG in SOD CHLORIDE 0.9% 100 ML IVPB SCH ×2 (10:34→21:26)
--- NOTE | 2017-02-28 12:31 | CONS ---
Date/Time of Note Date/Time of Note DATE: 02/28/17 TIME: 12:29 Consult Date/Type/Reason Admit Date/Time Feb 27, 2017 at 10:23 Initial Consult Date Type of Consultation: ID Ordering Provider: JOSE C VILLATORO MD Objective Vital Signs Date Time Temp Pulse Resp B/P Pulse Ox O2 Delivery O2 Flow Rate FiO2 02/28/17 12:18 81 02/28/17 11:31 98.3 21 176/74 91 02/28/17 08:14 Nasal Cannula 2.0 Intake and Output 02/27/17 02/27/17 02/28/17 14:59 22:59 06:59 Intake Total 880 ml 850 ml Output Total 400 ml 1100 ml Balance 480 ml -250 ml Results/Medications Result Diagram: 02/27/17 0551 02/27/17 0557 Medications Current Medications Amlodipine Besylate (Norvasc) 5 mg BID GTB Last administered on 02/28/17 09: 52; Admin Dose 5 MG; Start 02/23/17 at 09:00 Apixaban (Eliquis) 2.5 mg BID GTB Last administered on 02/28/17 09:54; Admin Dose 2.5 MG; Start 02/23/17 at 09:00 Atorvastatin Calcium (Lipitor) 40 mg QHS GTB Last administered on 02/27/17 21 :54; Admin Dose 40 MG; Start 02/23/17 at 21:00 Bisacodyl (Dulcolax Supp) 10 mg Q24H PRN [place] CONSTIPATION Last administered on 02/28/17 05:06; Admin Dose 10 MG; Start 02/23/17 at 06:00 Calcium/Vitamin D (Oyster Shell/ Vit-D (500/200)) 1 tab DAILY GTB Last administered on 02/28/17 09:52; Admin Dose 1 TAB; Start 02/23/17 at 09:00 Clonidine (Catapres) 0.1 mg Q4H PRN GTB ELEVATED BLOOD PRESSURE Last administered on 02/28/17 12:01; Admin Dose 0.1 MG; Start 02/23/17 at 06:00 Diphenhydramine HCl (Benadryl) 25 mg BID PRN GTB ITCHING; Start 02/23/17 at 06: 00 Fenofibrate (Tricor) 145 mg QHS GTB Last administered on 02/27/17 21:54; Admin Dose 145 MG; Start 02/23/17 at 21:00 Ferrous Sulfate (Feosol Liquid Cup) 330 mg DAILY GTB Last administered on 02/28 09:59; Admin Dose 330 MG; Start 02/23/17 at 09:00 Levetiracetam (Keppra) 1,000 mg DAILY GTB Last administered on 02/28/17 09:52 ; Admin Dose 1,000 MG; Start 02/23/17 at 09:00 Magnesium Hydroxide (Milk Of Mag) 30 ml Q24H PRN PO CONSTIPATION Last administered on 02/27/17 09:16; Admin Dose 30 ML; Start 02/23/17 at 06:00 Memantine (Namenda) 10 mg BID GTB Last administered on 02/28/17 09:54; Admin Dose 10 MG; Start 02/23/17 at 09:00 Multivitamins (Multivitamin) 30 ml DAILY GTB Last administered on 02/28/17 09 :59; Admin Dose 30 ML; Start 02/23/17 at 09:00 Tramadol HCl (Ultram) 50 mg Q12 GTB Last administered on 02/28/17 09:54; Admin Dose 50 MG; Start 02/23/17 at 09:00 Zolpidem Tartrate (Ambien) 5 mg HS PRN GTB SLEEP; Start 02/23/17 at 06:00 Ondansetron HCl (Zofran Inj) 4 mg Q6H PRN IV NAUSEA AND/OR VOMITING; Start 02/23/17 at 06:00 Morphine Sulfate (morphine) 2 mg Q4H PRN IV severe pain Last administered on 01:13; Admin Dose 2 MG; Start 02/23/17 at 06:00 Acetaminophen (Tylenol Tab) 650 mg Q4H PRN GTB PAIN AND OR ELEVATED TEMP; Start 02/23/17 at 08:00 Lactobacillus Acidophilus/ Rhamnosus (Culturelle) 1 cap BID PO Last administered on 02/28/17 09:52; Admin Dose 1 CAP; Start 02/23/17 at 09:00 Miscellaneous Information (Pending Santyl Order For Wound Care) This patient basurto... PRN PRN XX WOUND CARE; Start 02/23/17 at 17:00 Miscellaneous Information (Pending Santyl Order For Wound Care) This patient basurto... PRN PRN XX WOUND CARE; Start 02/24/17 at 10:00 Collagenase (Santyl) 1 applic DAILY TOP Last administered on 02/28/17 10:16; Admin Dose 1 APPLIC; Start 02/24/17 at 13:00 Lansoprazole (Prevacid) 30 mg DAILY@06 GTB Last administered on 02/28/17 05: 07; Admin Dose 30 MG; Start 02/25/17 at 06:00 Metoprolol Tartrate 12.5 mg 12.5 mg BID PO Last administered on 02/27/17 21: 55; Admin Dose 12.5 MG; Start 02/25/17 at 09:00 Colistimethate Sodium/Sodium Chloride (Coly-Mycin/NS) 100 ml @ 200 mls/hr Q12 IVPB Last administered on 02/28/17 10:34; Admin Dose 200 MLS/HR; Start 02/25 at 21:00 Mupirocin (Bactroban) 1 applic BID TOP Last administered on 02/28/17 10:15; Admin Dose 1 APPLIC; Start 02/26/17 at 21:00 Docusate Sodium (Colace Liquid Cup) 200 mg DAILY GTB ; Start 03/01/17 at 09:49 Assessment/Plan Chief Complaint/Hosp Course SUBJECTIVE: Patient is lying comfortably in bed, noncommunicative, in no distress. No labs this morning. MICROBIOLOGY: Urine culture on admission grew E. coli, ESBL, Acinetobacter baumannii. Blood cultures have been negative. Nares swab positive for MRSA. ANTIMICROBIALS: The patient is on IV Colistin. INDWELLINGS: Cevallos catheter. PHYSICAL EXAMINATION: GENERAL: This is a chronically ill-appearing, elderly man who is in no distress. HEENT: Head atraumatic, normocephalic. Sclerae anicteric. Buccal mucosa dry. NECK: Supple. CHEST: Rise symmetrical. Breath sounds diminished to bases. HEART: S1, S2. ABDOMEN: Soft, bowel tones present. EXTREMITIES: Without cyanosis. ASSESSMENT: 1. Polymicrobial urinary tract infection. 2. Methicillin-resistant Staphylococcus aureus nares colonization. 3. History of atrial fibrillation, status post permanent pacemaker. 4. Peripheral vascular disease with right below knee amputation. 5. Anemia. PLAN: The patient remains stable. Continue present care. Antibiotics for 3 more days, Bactroban to nares. DW staff Problems: EM RIOS NP Feb 28, 2017 12:31
--- NOTE | 2017-02-28 13:57 | PN ---
Date/Time of Note Date/Time of Note DATE: 02/28/17 TIME: 13:56 Assessment/Plan VTE Prophylaxis VTE Prophylaxis Intervention: other Lines/Catheters IV Catheter Type (from Nrsg): PICC Line Central line still needed: Yes Urinary Cath still in place: Yes Reason Cath still needed: urinary retention Assessment/Plan Chief Complaint/Hosp Course ef Complaint/Hosp Course 1. Systemic inflammatory response syndrome. with polymicrobial UTI 2 AMS? encepaholopathy vs stroke 2. Chronic kidney disease. 3. Hypernatremia. 4. Lung infiltrate. 5. Lung atelectasis. 6. Gastrostomy tube placement. 7. History of peripheral vascular disease. 8. Dyslipidemia. 9. Chronic obstructive pulmonary disease. 10. Right below-knee amputation. 12. History of pacemaker placement. 13. History of chronic atrial fibrillation. 14 encephalopathy 15 hypernatremia Recs - Stat CT head - ABG - c/w Tobramycin for 3 more days per ID - serial ecg's -Continue norvasc and BB as tolerATED ONLY -Continue tricor/statin -Continue allan Spoke to daugther Problems: Subjective 24 Hr Interval Summary Free Text/Dictation Pt very tacypnic today Does not respond to any commands Exam/Review of Systems Vital Signs Vitals Vital Signs Date Time Temp Pulse Resp B/P Pulse Ox O2 Delivery O2 Flow Rate FiO2 02/28/17 12:18 81 02/28/17 11:31 98.3 21 176/74 91 02/28/17 08:14 Nasal Cannula 2.0 Intake and Output 02/27/17 02/27/17 02/28/17 14:59 22:59 06:59 Intake Total 880 ml 850 ml Output Total 400 ml 1100 ml Balance 480 ml -250 ml Exam onstitutional: frail, tachypnic, does not respond to any commands/sternal rub Neck: supple Respiratory: clear to auscultation, diminished breath sounds Cardiovascular: irregular rhythm, regular rate and rhythm (Afib controlled) Gastrointestinal: other (GT), soft Results Result Diagram: 02/27/17 0551 02/27/17 0557 Medications Medications Current Medications Amlodipine Besylate (Norvasc) 5 mg BID GTB Last administered on 02/28/17t 09: 52; Admin Dose 5 MG; Start 02/23/17 at 09:00 Apixaban (Eliquis) 2.5 mg BID GTB Last administered on 02/28/17 09:54; Admin Dose 2.5 MG; Start 02/23/17 at 09:00 Atorvastatin Calcium (Lipitor) 40 mg QHS GTB Last administered on 02/27/17 21 :54; Admin Dose 40 MG; Start 02/23/17 at 21:00 Bisacodyl (Dulcolax Supp) 10 mg Q24H PRN [place] CONSTIPATION Last administered on 02/28/17 05:06; Admin Dose 10 MG; Start 02/23/17 at 06:00 Calcium/Vitamin D (Oyster Shell/ Vit-D (500/200)) 1 tab DAILY GTB Last administered on 02/28/17 09:52; Admin Dose 1 TAB; Start 02/23/17 at 09:00 Clonidine (Catapres) 0.1 mg Q4H PRN GTB ELEVATED BLOOD PRESSURE Last administered on 02/28/17 12:01; Admin Dose 0.1 MG; Start 02/23/17 at 06:00 Fenofibrate (Tricor) 145 mg QHS GTB Last administered on 02/27/17 21:54; Admin Dose 145 MG; Start 02/23/17 at 21:00 Ferrous Sulfate (Feosol Liquid Cup) 330 mg DAILY GTB Last administered on 02/28 09:59; Admin Dose 330 MG; Start 02/23/17 at 09:00 Levetiracetam (Keppra) 1,000 mg DAILY GTB Last administered on 02/28/17 09:52 ; Admin Dose 1,000 MG; Start 02/23/17 at 09:00 Magnesium Hydroxide (Milk Of Mag) 30 ml Q24H PRN PO CONSTIPATION Last administered on 02/27/17 09:16; Admin Dose 30 ML; Start 02/23/17 at 06:00 Memantine (Namenda) 10 mg BID GTB Last administered on 02/28/17 09:54; Admin Dose 10 MG; Start 02/23/17 at 09:00 Multivitamins (Multivitamin) 30 ml DAILY GTB Last administered on 02/28/17 09 :59; Admin Dose 30 ML; Start 02/23/17 at 09:00 Ondansetron HCl (Zofran Inj) 4 mg Q6H PRN IV NAUSEA AND/OR VOMITING; Start 02/23/17 at 06:00 Acetaminophen (Tylenol Tab) 650 mg Q4H PRN GTB PAIN AND OR ELEVATED TEMP; Start 02/23/17 at 08:00 Lactobacillus Acidophilus/ Rhamnosus (Culturelle) 1 cap BID PO Last administered on 02/28/17 09:52; Admin Dose 1 CAP; Start 02/23/17 at 09:00 Miscellaneous Information (Pending Santyl Order For Wound Care) This patient basurto... PRN PRN XX WOUND CARE; Start 02/23/17 at 17:00 Miscellaneous Information (Pending Santyl Order For Wound Care) This patient basurto... PRN PRN XX WOUND CARE; Start 02/24/17 at 10:00 Collagenase (Santyl) 1 applic DAILY TOP Last administered on 02/28/17 10:16; Admin Dose 1 APPLIC; Start 02/24/17 at 13:00 Lansoprazole (Prevacid) 30 mg DAILY@06 GTB Last administered on 02/28/17 05: 07; Admin Dose 30 MG; Start 02/25/17 at 06:00 Metoprolol Tartrate 12.5 mg 12.5 mg BID PO Last administered on 02/27/17 21: 55; Admin Dose 12.5 MG; Start 02/25/17 at 09:00 Colistimethate Sodium/Sodium Chloride (Coly-Mycin/NS) 100 ml @ 200 mls/hr Q12 IVPB Last administered on 02/28/17 10:34; Admin Dose 200 MLS/HR; Start 02/25 at 21:00 Mupirocin (Bactroban) 1 applic BID TOP Last administered on 02/28/17 10:15; Admin Dose 1 APPLIC; Start 02/26/17 at 21:00 Docusate Sodium (Colace Liquid Cup) 200 mg DAILY GTB ; Start 03/01/17 at 09:49 CRISTIAN ATKINSON MD Feb 28, 2017 13:57
--- NOTE | 2017-02-28 14:01 | CONS ---
Date/Time of Note Date/Time of Note DATE: 02/28/17 TIME: 13:56 Assessment/Plan Assessment/Plan Chief Complaint/Hosp Course IMPRESSION: 1. Cardiac arrhythmia with current rhythm concerning for possible accelerated junctional rhythm and associated PVCs. 2. History of permanent pacemaker. 3. History of paroxysmal atrial fibrillation on systemic anticoagulation. 4. Hypertension-remains somewhat labile 5. Urinary tract infection. 6. Fevers. 7. Altered mental state and dementia. 8. Anemia. 9. Hypernatremia-improved 10. Dyslipidemia. 11.Encephalopathy with labored breathing-? asp/sedatives/Hypercardbia/cva 12.PVC's-have recurrently Recc: -Tele -serial ecg's -Continue norvasc and BB as tolerATED ONLY -Continue tricor/statin -Continue eliquis -check MG again and replete >2.0 as necessary -Would check stat head CT/ABG/troponin, consider CXR Problems: Consultation Date/Type/Reason Admit Date/Time Feb 27, 2017 at 10:23 Initial Consult Date 02/23/2017 Type of Consultation: cardiology Reason for Consultation arrythmia Referring Provider: JOSE C VILLATORO MD Exam/Review of Systems Vital Signs Vitals Vital Signs Date Time Temp Pulse Resp B/P Pulse Ox O2 Delivery O2 Flow Rate FiO2 02/28/17 12:18 81 02/28/17 11:31 98.3 21 176/74 91 02/28/17 08:14 Nasal Cannula 2.0 Intake and Output 02/27/17 02/27/17 02/28/17 15:00 23:00 07:00 Intake Total 880 ml 850 ml Output Total 400 ml 1100 ml Balance 480 ml -250 ml Exam Review of Systems: CONSTITUTIONAL: lethargic, non communicative PULMONARY: No sob CARDIOVASCULAR: No chest pain/palpitations GASTROINTESTINAL: No nausea/vomiting. GENITOURINARY: No hematuria/dysuria. MUSCULOSKELETAL: No myagias/arthalgias. PSYCHIATRIC: The patient denies depression. NEUROLOGIC: No weakness Constitutional: alert, oriented Psych: no complaints Head: normocephalic ENMT: mucosa pink and moist Neck: jvd (9 cm water), supple Respiratory: other (uppper aiwat rhoncherous sounds) Cardiovascular: regular rate and rhythm Gastrointestinal: non-tender, soft Musculoskeletal: muscle weakness (generalized) Extremities: edema (trace/B), other (contracted) Neurological: lethargic, unresponsive Results Result Diagram: 02/27/17 0551 02/27/17 0557 Medications Medications Current Medications Amlodipine Besylate (Norvasc) 5 mg BID GTB Last administered on 02/28/17 09: 52; Admin Dose 5 MG; Start 02/23/17 at 09:00 Apixaban (Eliquis) 2.5 mg BID GTB Last administered on 02/28/17 09:54; Admin Dose 2.5 MG; Start 02/23/17 at 09:00 Atorvastatin Calcium (Lipitor) 40 mg QHS GTB Last administered on 02/27/17 21 :54; Admin Dose 40 MG; Start 02/23/17 at 21:00 Bisacodyl (Dulcolax Supp) 10 mg Q24H PRN [place] CONSTIPATION Last administered on 02/28/17 05:06; Admin Dose 10 MG; Start 02/23/17 at 06:00 Calcium/Vitamin D (Oyster Shell/ Vit-D (500/200)) 1 tab DAILY GTB Last administered on 02/28/17 09:52; Admin Dose 1 TAB; Start 02/23/17 at 09:00 Clonidine (Catapres) 0.1 mg Q4H PRN GTB ELEVATED BLOOD PRESSURE Last administered on 02/28/17 12:01; Admin Dose 0.1 MG; Start 02/23/17 at 06:00 Fenofibrate (Tricor) 145 mg QHS GTB Last administered on 02/27/17 21:54; Admin Dose 145 MG; Start 02/23/17 at 21:00 Ferrous Sulfate (Feosol Liquid Cup) 330 mg DAILY GTB Last administered on 02/28 09:59; Admin Dose 330 MG; Start 02/23/17 at 09:00 Levetiracetam (Keppra) 1,000 mg DAILY GTB Last administered on 02/28/17 09:52 ; Admin Dose 1,000 MG; Start 02/23/17 at 09:00 Magnesium Hydroxide (Milk Of Mag) 30 ml Q24H PRN PO CONSTIPATION Last administered on 02/27/17 09:16; Admin Dose 30 ML; Start 02/23/17 at 06:00 Memantine (Namenda) 10 mg BID GTB Last administered on 02/28/17 09:54; Admin Dose 10 MG; Start 02/23/17 at 09:00 Multivitamins (Multivitamin) 30 ml DAILY GTB Last administered on 02/28/17 09 :59; Admin Dose 30 ML; Start 02/23/17 at 09:00 Ondansetron HCl (Zofran Inj) 4 mg Q6H PRN IV NAUSEA AND/OR VOMITING; Start 02/23/17 at 06:00 Acetaminophen (Tylenol Tab) 650 mg Q4H PRN GTB PAIN AND OR ELEVATED TEMP; Start 02/23/17 at 08:00 Lactobacillus Acidophilus/ Rhamnosus (Culturelle) 1 cap BID PO Last administered on 02/28/17 09:52; Admin Dose 1 CAP; Start 02/23/17 at 09:00 Miscellaneous Information (Pending Santyl Order For Wound Care) This patient basurto... PRN PRN XX WOUND CARE; Start 02/23/17 at 17:00 Miscellaneous Information (Pending Santyl Order For Wound Care) This patient basurto... PRN PRN XX WOUND CARE; Start 02/24/17 at 10:00 Collagenase (Santyl) 1 applic DAILY TOP Last administered on 02/28/17 10:16; Admin Dose 1 APPLIC; Start 02/24/17 at 13:00 Lansoprazole (Prevacid) 30 mg DAILY@06 GTB Last administered on 02/28/17 05: 07; Admin Dose 30 MG; Start 02/25/17 at 06:00 Metoprolol Tartrate 12.5 mg 12.5 mg BID PO Last administered on 02/27/17 21: 55; Admin Dose 12.5 MG; Start 02/25/17 at 09:00 Colistimethate Sodium/Sodium Chloride (Coly-Mycin/NS) 100 ml @ 200 mls/hr Q12 IVPB Last administered on 02/28/17 10:34; Admin Dose 200 MLS/HR; Start 02/25 at 21:00 Mupirocin (Bactroban) 1 applic BID TOP Last administered on 02/28/17 10:15; Admin Dose 1 APPLIC; Start 02/26/17 at 21:00 Docusate Sodium (Colace Liquid Cup) 200 mg DAILY GTB ; Start 03/01/17 at 09:49 TORRES FRANCIS Feb 28, 2017 14:01
[2017-02-28 14:22] LABS: AADO2 Arterial 42.2 mmHg (7.0-24.0); Allen Test ACCEPTAB; Arterial Base Excess 0.3 mmol/L (-3.0-3); Arterial COHb 0.3 % (0.0-3.0); Arterial Fraction of Oxyhgb 96.3 % (93.0-99.0); Arterial HCO3 25.7 mmol/L (22.0-26.0); Arterial MetHb 0.3 % (0.0-1.5); MODE NASAL CANNULA
--- NOTE | 2017-02-28 14:45 | RADRPT ---
PROCEDURE: CT Brain without contrast. CLINICAL INDICATION: Headache. TECHNIQUE: A CT of the brain without contrast was performed utilizing axial sections from the skul l base through the vertex. The patient was scanned without intravenous contrast enhancement. Sagitta l and coronal reformatted images were obtained using the data from the axial images. Total exam DLP is 720.23 mGy-cm. CTDIvol is 45.01 mGy. One or more of the following dose reduction techniques we re used: Automated exposure control, adjustment of the mA and/or kV according to patient size, use o f iterative reconstruction technique. DICOM images are available. COMPARISON: None available FINDINGS: There is a large region of encephalomalacia involving the right temporal lobe extending to the right superior parietal lobe as seen with an old infarct. There is also an old infarct of the left insula r cortex region with encephalomalacia. The bowman and white matter differentiation is otherwise normal .. There is enlargement of the ventricles and subarachnoid spaces consistent with atrophy. There is decreased attenuation of the periventricular white matter consistent with microangiopathic ischemic change. There is no intracranial hemorrhage or space-occupying lesion. There are vascular calcifications consistent with atherosclerosis. There is no skull fracture or lytic lesion. There are lamine holes in the left superior parietal and l eft superior frontal bones. There is bilateral mastoid air cell opacification IMPRESSION: 1. Atrophy. 2. Microangiopathic ischemic change. 3. Atherosclerosis. 4. 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 Right is larger than left. 5. No acute infarct. 6. No intracranial hemorrhage. 7. Bilateral mastoid air cell opacification. 8. Left superior parietal and left superior frontal lamine holes. 9. Otherwise unremarkable noncontrast CT scan of the brain. RPTAT: QQ .Jimmy Mills MD, Date Time Electronically viewed and signed by .Jimmy Mills MD, on 02/28/2017 14:45 .R/
[2017-02-28] MEDS: ATORVASTATIN 40 MG TAB GTB SCH (21:16)
[2017-02-28] MEDS: FENOFIBRATE 145 MG TAB GTB SCH (21:16)
[2017-02-28] MEDS: FUROSEMIDE 20 MG INJ IV SCH (21:17)
[2017-03-01] VITALS (13 sets, daily range): BP systolic 103–147; BP diastolic 49–66; PULSE 60–83; RESP 17–20
[2017-03-01] MEDS: ACETAMINOPHEN 325 MG TAB GTB PRN ×2 (01:32→06:05)
--- NOTE | 2017-03-01 02:16 | CONS ---
DATE OF ADMISSION: 02/27/2017 DATE OF CONSULTATION: 02/28/2017 NEUROLOGICAL CONSULTATION Thank you for your kind referral for evaluation of encephalopathy. HISTORY OF PRESENT ILLNESS: The patient is an 81-year-old gentleman who was admitted 5 days ago for fevers and possible sepsis. He has history of hypertension, congestive heart failure, atrial fibri llation, COPD, anemia, dyslipidemia, G-tube placement, pacemaker placement, peripheral vascular dise ase status post below knee amputation, cardiomegaly. Patient also carries diagnosis of seizures, apparently because one of the medicines he takes is Kepp ra. He also takes Namenda for a dementing illness. Patient has been awake, but not communicative p er history and physical examination note, but today was noticed to be unresponsive to commands or st ernal rub. He had CAT scan done today, shows only bilateral old infarcts with encephalomalacia, atr ophy, white matter disease, left-sided frontal and parietal bur holes. LABORATORY DATA: Yesterday's labs show hemoglobin 8.5, hematocrit 27, normal WBCs and platelets. I do not see any of today's labs. BUN 28, creatinine 0.87. On admission, BUN was 46, creatinine 1.0 5. Liver function tests a few days ago shows albumin 2.6. TSH was low, 0.26, but free T4 within no rmal limits. PT 18, PTT 43. Blood gas today 7.37 pH, pCO2 of 45, pO2 of 92. Urinalysis on admissi on, 3+ leukocyte esterase, 33 WBCs. ALLERGIES: PENICILLIN. SOCIAL HISTORY: No alcohol, tobacco, drug use. FAMILY HISTORY: Noncontributory. PHYSICAL EXAMINATION: VITAL SIGNS: Today, temperature 99.1, pulse 66, respirations 19, 123/58 blood pressure. GENERAL: Not in acute distress, lying in bed. HEENT: Normocephalic, atraumatic head. NECK: No carotid bruits, lymphadenopathy, thyromegaly. Stiff neck to all movements, turning head o r neck flexion. LUNGS: Clear to auscultation bilaterally. CARDIAC: Normal cardiac rhythm and sounds. ABDOMEN: Soft. EXTREMITIES: No cyanosis, clubbing. 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 NEUROLOGIC: Patient is lethargic, opens his left eye to noxious stimulation, seemed to be looking b ilaterally, but does not follow commands, does not track visually, though blinks to threat. His rig ht palpebral fissure is almost completely closed. Pupils reactive bilaterally, and extraocular move ments otherwise intact. Corneal reflexes present bilaterally. Gag is present. Motor strength exam ination shows increased tone in all extremities with spasticity, maybe some amount of cogwheeling, p ostural tremulousness noticed. Patient moves upper extremities to noxious stimuli, brisker on the l eft, able to move against gravity, at least 3-/5, only trace of withdrawal in the left lower extremi ty. Deep tendon reflexes 1+ upper extremities, absent in lower extremities. Upgoing toe on the lef t. Again, he is an amputee on the right. IMPRESSION: 1. Encephalopathy. 2. Sepsis, urosepsis. 3. History of dementia. 4. History of brain surgery. 5. Possible strokes in the past. 6. History of seizures. He has been on Keppra once per day. On admission, was continued here. Un known frequency of seizures. Usually Keppra should be given twice daily. We will increase a little bit from 1000 mg, make it 750 twice daily per gastric tube. We will obtain EEG for further evaluat ion. His CAT scan today did not show any abnormality. I think it is okay not to repeat. Possibly is toxic metabolic encephalopathy plus/minus related to seizure. If the seizure was missed, patient may continue to be encephalopathic postictally. Thank you very much for this interesting consultation. Dictated By: WILL GOMEZ/LINDA Conf#: [id number] DID#: [id number] CC: JOSE C VILLATORO MD;*End*
[2017-03-01] MEDS: ALBUTEROL/IPRATROPIUM (NEB) 3 ML AMP HHN SCH ×4 (02:39→20:12)
[2017-03-01] MEDS: LANSOPRAZOLE 30 MG CAP GTB SCH (06:05)
[2017-03-01 07:26] LABS: ABNORMAL IP MESSAGE 1; BASOPHILS % 0.4 % (0.0-2.0); EOSINOPHILS # 0.4 10^3/ul (0.0-0.5); HEMATOCRIT 24.2 % (42.0-52.0); HEMOGLOBIN 7.6 g/dl (14.0-18.0); LYMPHOCYTES # 0.4 10^3/ul (0.8-2.9); LYMPHOCYTES % 3.7 % (15.0-51.0); MEAN CORPUSCULAR HEMOGLOBIN 27.1 pg (29.0-33.0); MEAN CORPUSCULAR HGB CONC 31.4 g/dl (32.0-37.0); MEAN CORPUSCULAR VOLUME 86.4 fl (82.0-101.0); MONOCYTE # 0.8 10^3/ul (0.3-0.9); MONOCYTES % 7.5 % (0.0-11.0); NEUTROPHIL # 8.8 10^3/ul (1.6-7.5); NEUTROPHILS % 82.1 % (39.0-77.0); PLATELET COUNT 181 10^3/UL (140-415); POSITIVE DIFF @See below; RED CELL DISTRIBUTION WIDTH 15.1 % (11.5-14.5); WHITE BLOOD COUNT 10.7 10^3/ul (4.8-10.8)
[2017-03-01 08:08] LABS: ALBUMIN 2.4 g/dl (3.3-4.9); ALBUMIN/GLOBULIN RATIO 0.77; BILIRUBIN,INDIRECT 0.1 mg/dl (0-1.1); BILIRUBIN,TOTAL 0.1 mg/dl (0.2-1.3); CALCIUM 8.1 mg/dl (8.4-10.2); CREATININE 1.32 mg/dl (0.61-1.24); POTASSIUM 4.2 mmol/L (3.5-5.1); TOTAL PROTEIN 5.5 g/dl (6.1-8.1)
[2017-03-01] MEDS: MULTIVITAMINS 30 ML CUP GTB SCH (08:23)
[2017-03-01] MEDS: FERROUS SULFATE 60 MG/ML 5ML CUP GTB SCH (08:24)
[2017-03-01] MEDS: LEVETIRACETAM (100 MG/ML) 5ML CUP GTB SCH ×2 (08:24→21:46)
[2017-03-01] MEDS: AMLODIPINE 5 MG TAB GTB SCH (08:25)
[2017-03-01] MEDS: LACTOBACILLUS RHAMNOSUS CAP PO SCH ×2 (08:25→21:47)
[2017-03-01] MEDS: FUROSEMIDE 20 MG INJ IV SCH (08:25)
[2017-03-01] MEDS: CALCIUM/VITAMIN D (500/200) TAB GTB SCH (08:26)
[2017-03-01] MEDS: APIXABAN 5 MG TABLET GTB SCH ×2 (08:26→21:47)
[2017-03-01] MEDS: METOPROLOL 25 MG TAB PO SCH (08:26)
[2017-03-01] MEDS: MEMANTINE 10 MG TAB GTB SCH ×2 (08:26→21:47)
[2017-03-01] MEDS: MUPIROCIN 2% 22 GM OINT TOP SCH ×2 (08:27→21:47)
[2017-03-01] MEDS: COLISTIMETHATE 75 MG in SOD CHLORIDE 0.9% 100 ML IVPB SCH ×2 (09:38→21:50)
[2017-03-01] MEDS: COLLAGENASE 30 GM TUBE TOP SCH (09:42)
[2017-03-01] MEDS: DOCUSATE SODIUM 10 MG/ML (10ML CUP) GTB SCH (09:49)
--- NOTE | 2017-03-01 11:44 | CONS ---
Date/Time of Note Date/Time of Note DATE: 03/01/17 TIME: 11:42 Assessment/Plan Assessment/Plan Additional Assessment/Plan 1. Cardiac arrhythmia with current rhythm concerning for possible accelerated junctional rhythm and associated PVCs- now better rate - pacer in place for nayely protection. 100% paced. Rate controlled. 2. History of permanent pacemaker - good fxn. Will follow clinically. CHECKED in the office recently. 3. History of paroxysmal atrial fibrillation on systemic anticoagulation- rate controlled now. In a. fib now. 4. Hypertension-very labile- stable now - in good range now. 5. Urinary tract infection- on anti-Bx. 6. Fevers - resolved now, on antiBx. 7. Altered mental state and dementia. 8. Anemia. 9. Hypernatremia 10. Dyslipidemia. 11. Encephalopathy - neuro recs noted. Consultation Date/Type/Reason Admit Date/Time Feb 27, 2017 at 10:23 Type of Consultation: cardiology Referring Provider: JOSE C VILLATORO MD 24 HR Interval Summary Free Text/Dictation NO acute events - paced on tele. ROS: No fever, no chills, no nausea, no vomiting, no diarrhea/constipation No recent weight changes No chest pain, no PND, no orthopnea No dizziness, blurred vision No thirst, no heat or cold intolerance (per nurse) Exam/Review of Systems Vital Signs Vitals Vital Signs Date Time Temp Pulse Resp B/P Pulse Ox O2 Delivery O2 Flow Rate FiO2 03/01/17 11:33 97.7 60 20 115/56 100 03/01/17 08:19 Nasal Cannula 2.0 28 Intake and Output 02/28/17 02/28/17 03/01/17 14:59 22:59 06:59 Intake Total 100 ml 620 ml 100 ml Output Total 600 ml Balance 100 ml 20 ml 100 ml Exam General: WN/WD/NAD, AOx 0 HEENT: Unicetric/atraumatic/EOMI (nos not follow commands) NECK: JVD elevated, no thyromegaly Lymph: no lymphadenopathy HEART: regular with no S3, II/ systolic murmur at apex LUNGS: Coarse sounds ABD: soft, NT, ND, +BS : Intact Neuro: non focal SKIN: chronic changes EXT: trace edema Results Result Diagram: 03/01/17 0700 03/01/17 0700 Results 24 hrs Laboratory Tests Test 02/28/17 13:50 11/14/17 07:00 Blood Gas Specimen Source Blood arterial Arterial Blood Date Drawn 02/28/2017 2:10:49 PM Arterial Blood pH (Temp corrected) 7.376 Arterial Blood pCO2 (Temp correct) 44.9 Arterial Blood pO2 (Temp corrected) 97.2 H Arterial Blood HCO3 25.7 Arterial Blood Base Excess 0.3 Arterial Blood Oxygen Saturation 96.9 Thiago Test ACCEPTAB Arterial Blood Gas Puncture Site Left Radial Arterial Blood Carboxyhemoglobin 0.3 Arterial Blood Methemoglobin 0.3 Blood Gas A-a O2 Differential 42.2 H Oxyhemoglobin Percent 96.3 Total Hemoglobin 10.0 L Blood Gas Temperature 37.0 Blood Gas Modality NASAL CANNULA FiO2 27.0 Blood Gas Notified Whom JLD Blood Gas Notified Time 02/28/2017 2:22:50 PM White Blood Count 10.7 # Red Blood Count 2.80 L Hemoglobin 7.6 L Hematocrit 24.2 L Mean Corpuscular Volume 86.4 Mean Corpuscular Hemoglobin 27.1 L Mean Corpuscular Hemoglobin Concent 31.4 L Red Cell Distribution Width 15.1 H Platelet Count 181 # Mean Platelet Volume 11.0 H Neutrophils % 82.1 H Lymphocytes % 3.7 L Monocytes % 7.5 Eosinophils % 4.0 Basophils % 0.4 Nucleated Red Blood Cells % 0.0 Neutrophils # 8.8 H Lymphocytes # 0.4 L Monocytes # 0.8 Eosinophils # 0.4 Basophils # 0.0 Nucleated Red Blood Cells # 0.0 Sodium Level 141 Potassium Level 4.2 Chloride Level 107 Carbon Dioxide Level 30 Anion Gap 8 Blood Urea Nitrogen 35 H Creatinine 1.32 H Glucose Level 97 Calcium Level 8.1 L Total Bilirubin 0.1 L Direct Bilirubin 0.00 Indirect Bilirubin 0.1 Aspartate Amino Transf (AST/SGOT) 36 Alanine Aminotransferase (ALT/SGPT) 30 Alkaline Phosphatase 45 Ammonia < 9 L Total Protein 5.5 L Albumin 2.4 L Globulin 3.10 Albumin/Globulin Ratio 0.77 Medications Medications Current Medications Amlodipine Besylate (Norvasc) 5 mg BID GTB Last administered on 02/28/17 21: 17; Admin Dose 5 MG; Start 02/23/17 at 09:00 Apixaban (Eliquis) 2.5 mg BID GTB Last administered on 03/01/17 08:26; Admin Dose 2.5 MG; Start 02/23/17 at 09:00 Atorvastatin Calcium (Lipitor) 40 mg QHS GTB Last administered on 02/28/17 21 :16; Admin Dose 40 MG; Start 02/23/17 at 21:00 Bisacodyl (Dulcolax Supp) 10 mg Q24H PRN [place] CONSTIPATION Last administered on 02/28/17 05:06; Admin Dose 10 MG; Start 02/23/17 at 06:00 Calcium/Vitamin D (Oyster Shell/ Vit-D (500/200)) 1 tab DAILY GTB Last administered on 03/01/17 08:26; Admin Dose 1 TAB; Start 02/23/17 at 09:00 Clonidine (Catapres) 0.1 mg Q4H PRN GTB ELEVATED BLOOD PRESSURE Last administered on 02/28/17 12:01; Admin Dose 0.1 MG; Start 02/23/17 at 06:00 Fenofibrate (Tricor) 145 mg QHS GTB Last administered on 02/28/17 21:16; Admin Dose 145 MG; Start 02/23/17 at 21:00 Ferrous Sulfate (Feosol Liquid Cup) 330 mg DAILY GTB Last administered on 03/01 08:24; Admin Dose 330 MG; Start 02/23/17 at 09:00 Magnesium Hydroxide (Milk Of Mag) 30 ml Q24H PRN PO CONSTIPATION Last administered on 02/27/17 09:16; Admin Dose 30 ML; Start 02/23/17 at 06:00 Memantine (Namenda) 10 mg BID GTB Last administered on 03/01/17 08:26; Admin Dose 10 MG; Start 02/23/17 at 09:00 Multivitamins (Multivitamin) 30 ml DAILY GTB Last administered on 03/01/17 08 :23; Admin Dose 30 ML; Start 02/23/17 at 09:00 Ondansetron HCl (Zofran Inj) 4 mg Q6H PRN IV NAUSEA AND/OR VOMITING; Start 02/23/17 at 06:00 Acetaminophen (Tylenol Tab) 650 mg Q4H PRN GTB PAIN AND OR ELEVATED TEMP Last administered on 03/01/17 06:05; Admin Dose 650 MG; Start 02/23/17 at 08:00 Lactobacillus Acidophilus/ Rhamnosus (Culturelle) 1 cap BID PO Last administered on 03/01/17 08:25; Admin Dose 1 CAP; Start 02/23/17 at 09:00 Miscellaneous Information (Pending Santyl Order For Wound Care) This patient basurto... PRN PRN XX WOUND CARE; Start 02/23/17 at 17:00 Miscellaneous Information (Pending Santyl Order For Wound Care) This patient basurto... PRN PRN XX WOUND CARE; Start 02/24/17 at 10:00 Collagenase (Santyl) 1 applic DAILY TOP Last administered on 03/01/17 09:42; Admin Dose 1 APPLIC; Start 02/24/17 at 13:00 Lansoprazole (Prevacid) 30 mg DAILY@06 GTB Last administered on 03/01/17 06: 05; Admin Dose 30 MG; Start 02/25/17 at 06:00 Metoprolol Tartrate 12.5 mg 12.5 mg BID PO Last administered on 02/28/17 21: 17; Admin Dose 12.5 MG; Start 02/25/17 at 09:00 Colistimethate Sodium/Sodium Chloride (Coly-Mycin/NS) 100 ml @ 200 mls/hr Q12 IVPB Last administered on 03/01/17 09:38; Admin Dose 200 MLS/HR; Start 02/25 at 21:00 Mupirocin (Bactroban) 1 applic BID TOP Last administered on 03/01/17 08:27; Admin Dose 1 APPLIC; Start 02/26/17 at 21:00 Docusate Sodium (Colace Liquid Cup) 200 mg DAILY GTB ; Start 03/01/17 at 09:49 Furosemide (Lasix) 20 mg DAILY IV Last administered on 03/01/17 08:25; Admin Dose 20 MG; Start 02/28/17 at 21:00 Levetiracetam (Keppra Liquid) 750 mg BID GTB Last administered on 03/01/17 08 :24; Admin Dose 750 MG; Start 03/01/17 at 09:00 ADAM NASH MD Mar 01, 2017 11:44
--- NOTE | 2017-03-01 13:16 | CONS ---
Date/Time of Note Date/Time of Note DATE: 03/01/17 TIME: 13:13 Consult Date/Type/Reason Admit Date/Time Feb 27, 2017 at 10:23 Type of Consultation: ID Ordering Provider: JOSE C VILLATORO MD Objective Vital Signs Date Time Temp Pulse Resp B/P Pulse Ox O2 Delivery O2 Flow Rate FiO2 03/01/17 12:00 60 03/01/17 11:33 97.7 20 115/56 100 03/01/17 08:19 Nasal Cannula 2.0 28 Intake and Output 02/28/17 02/28/17 03/01/17 15:00 23:00 07:00 Intake Total 100 ml 620 ml 100 ml Output Total 600 ml Balance 100 ml 20 ml 100 ml Results/Medications Result Diagram: 03/01/17 0700 03/01/17 0700 Results 24 hrs Laboratory Tests Test 02/28/17 13:50 03/01/17 07:00 Blood Gas Specimen Source Blood arterial Arterial Blood Date Drawn 02/28/2017 2:10:49 PM Arterial Blood pH (Temp corrected) 7.376 Arterial Blood pCO2 (Temp correct) 44.9 Arterial Blood pO2 (Temp corrected) 97.2 H Arterial Blood HCO3 25.7 Arterial Blood Base Excess 0.3 Arterial Blood Oxygen Saturation 96.9 Thiago Test ACCEPTAB Arterial Blood Gas Puncture Site Left Radial Arterial Blood Carboxyhemoglobin 0.3 Arterial Blood Methemoglobin 0.3 Blood Gas A-a O2 Differential 42.2 H Oxyhemoglobin Percent 96.3 Total Hemoglobin 10.0 L Blood Gas Temperature 37.0 Blood Gas Modality NASAL CANNULA FiO2 27.0 Blood Gas Notified Whom JLD Blood Gas Notified Time 02/28/2017 2:22:50 PM White Blood Count 10.7 # Red Blood Count 2.80 L Hemoglobin 7.6 L Hematocrit 24.2 L Mean Corpuscular Volume 86.4 Mean Corpuscular Hemoglobin 27.1 L Mean Corpuscular Hemoglobin Concent 31.4 L Red Cell Distribution Width 15.1 H Platelet Count 181 # Mean Platelet Volume 11.0 H Neutrophils % 82.1 H Lymphocytes % 3.7 L Monocytes % 7.5 Eosinophils % 4.0 Basophils % 0.4 Nucleated Red Blood Cells % 0.0 Neutrophils # 8.8 H Lymphocytes # 0.4 L Monocytes # 0.8 Eosinophils # 0.4 Basophils # 0.0 Nucleated Red Blood Cells # 0.0 Sodium Level 141 Potassium Level 4.2 Chloride Level 107 Carbon Dioxide Level 30 Anion Gap 8 Blood Urea Nitrogen 35 H Creatinine 1.32 H Glucose Level 97 Calcium Level 8.1 L Total Bilirubin 0.1 L Direct Bilirubin 0.00 Indirect Bilirubin 0.1 Aspartate Amino Transf (AST/SGOT) 36 Alanine Aminotransferase (ALT/SGPT) 30 Alkaline Phosphatase 45 Ammonia < 9 L Total Protein 5.5 L Albumin 2.4 L Globulin 3.10 Albumin/Globulin Ratio 0.77 Medications Current Medications Amlodipine Besylate (Norvasc) 5 mg BID GTB Last administered on 02/28/17 21: 17; Admin Dose 5 MG; Start 02/23/17 at 09:00 Apixaban (Eliquis) 2.5 mg BID GTB Last administered on 03/01/17 08:26; Admin Dose 2.5 MG; Start 02/23/17 at 09:00 Atorvastatin Calcium (Lipitor) 40 mg QHS GTB Last administered on 02/28/17 21 :16; Admin Dose 40 MG; Start 02/23/17 at 21:00 Bisacodyl (Dulcolax Supp) 10 mg Q24H PRN [place] CONSTIPATION Last administered on 02/28/17 05:06; Admin Dose 10 MG; Start 02/23/17 at 06:00 Calcium/Vitamin D (Oyster Shell/ Vit-D (500/200)) 1 tab DAILY GTB Last administered on 03/01/17 08:26; Admin Dose 1 TAB; Start 02/23/17 at 09:00 Clonidine (Catapres) 0.1 mg Q4H PRN GTB ELEVATED BLOOD PRESSURE Last administered on 02/28/17 12:01; Admin Dose 0.1 MG; Start 02/23/17 at 06:00 Fenofibrate (Tricor) 145 mg QHS GTB Last administered on 02/28/17 21:16; Admin Dose 145 MG; Start 02/23/17 at 21:00 Ferrous Sulfate (Feosol Liquid Cup) 330 mg DAILY GTB Last administered on 03/01 08:24; Admin Dose 330 MG; Start 02/23/17 at 09:00 Magnesium Hydroxide (Milk Of Mag) 30 ml Q24H PRN [place] CONSTIPATION Last administered on 02/27/17 09:16; Admin Dose 30 ML; Start 02/23/17 at 06:00 Memantine (Namenda) 10 mg BID GTB Last administered on 03/01/17 08:26; Admin Dose 10 MG; Start 02/23/17 at 09:00 Multivitamins (Multivitamin) 30 ml DAILY GTB Last administered on 03/01/17 08 :23; Admin Dose 30 ML; Start 02/23/17 at 09:00 Ondansetron HCl (Zofran Inj) 4 mg Q6H PRN IV NAUSEA AND/OR VOMITING; Start 02/23/17 at 06:00 Acetaminophen (Tylenol Tab) 650 mg Q4H PRN GTB PAIN AND OR ELEVATED TEMP Last administered on 03/01/17 06:05; Admin Dose 650 MG; Start 02/23/17 at 08:00 Lactobacillus Acidophilus/ Rhamnosus (Culturelle) 1 cap BID PO Last administered on 03/01/17 08:25; Admin Dose 1 CAP; Start 02/23/17 at 09:00 Miscellaneous Information (Pending Santyl Order For Wound Care) This patient basurto... PRN PRN XX WOUND CARE; Start 02/23/17 at 17:00 Miscellaneous Information (Pending Santyl Order For Wound Care) This patient basurto... PRN PRN XX WOUND CARE; Start 02/24/17 at 10:00 Collagenase (Santyl) 1 applic DAILY TOP Last administered on 03/01/17 09:42; Admin Dose 1 APPLIC; Start 02/24/17 at 13:00 Lansoprazole (Prevacid) 30 mg DAILY@06 GTB Last administered on 03/01/17 06: 05; Admin Dose 30 MG; Start 02/25/17 at 06:00 Metoprolol Tartrate 12.5 mg 12.5 mg BID PO Last administered on 02/28/17 21: 17; Admin Dose 12.5 MG; Start 02/25/17 at 09:00 Colistimethate Sodium/Sodium Chloride (Coly-Mycin/NS) 100 ml @ 200 mls/hr Q12 IVPB Last administered on 03/01/17 09:38; Admin Dose 200 MLS/HR; Start 02/25 at 21:00 Mupirocin (Bactroban) 1 applic BID TOP Last administered on 03/01/17 08:27; Admin Dose 1 APPLIC; Start 02/26/17 at 21:00 Docusate Sodium (Colace Liquid Cup) 200 mg DAILY GTB ; Start 03/01/17 at 09:49 Furosemide (Lasix) 20 mg DAILY IV Last administered on 03/01/17 08:25; Admin Dose 20 MG; Start 02/28/17 at 21:00 Levetiracetam (Keppra Liquid) 750 mg BID GTB Last administered on 03/01/17 08 :24; Admin Dose 750 MG; Start 03/01/17 at 09:00 Assessment/Plan Chief Complaint/Hosp Course SUBJECTIVE: S/p fever, lying comfortably in bed, noncommunicative, in no distress. Tm 102.9 MICROBIOLOGY: Urine culture on admission grew E. coli, ESBL, Acinetobacter baumannii. Blood cultures have been negative. Nares swab positive for MRSA. ANTIMICROBIALS: The patient is on IV Colistin. INDWELLINGS: Cevallos catheter/PEG/RUE PICC. PHYSICAL EXAMINATION: GENERAL: This is a chronically ill-appearing, elderly man who is in no distress. HEENT: Head atraumatic, normocephalic. Sclerae anicteric. Buccal mucosa dry. NECK: Supple. CHEST: Rise symmetrical. Breath sounds diminished to bases. HEART: S1, S2. ABDOMEN: Soft, bowel tones present. EXTREMITIES: Without cyanosis. ASSESSMENT: 1. Sepsis 1. Polymicrobial urinary tract infection. 2. Methicillin-resistant Staphylococcus aureus nares colonization. 3. History of atrial fibrillation, status post permanent pacemaker. 4. Peripheral vascular disease with right below knee amputation. 5. Anemia. PLAN: Clinically stable. Will order bld/urine cx's and cxr, add Zyvox, continue Colistin, Bactroban to nares. DW staff Problems: EM RIOS NP Mar 01, 2017 13:16
--- NOTE | 2017-03-01 16:10 | PN ---
Date/Time of Note Date/Time of Note DATE: 03/01/17 TIME: 16:07 Assessment/Plan VTE Prophylaxis VTE Prophylaxis Intervention: other Lines/Catheters IV Catheter Type (from Nrs): PICC Line Central line still needed: Yes Urinary Cath still in place: Yes Reason Cath still needed: urinary retention Assessment/Plan Chief Complaint/Hosp Course ef Complaint/Hosp Course 1. Systemic inflammatory response syndrome. with polymicrobial UTI 2 AMS? encepaholopathy vs Seizure 2. RENARD on Chronic kidney disease. 3. Hypernatremia. 4. Lung infiltrate. 5. Lung atelectasis. 6. Gastrostomy tube placement. 7. History of peripheral vascular disease. 8. Dyslipidemia. 9. Chronic obstructive pulmonary disease. 10. Right below-knee amputation. 12. History of pacemaker placement. 13. History of chronic atrial fibrillation. 14 encephalopathy 15 hypernatremia Recs - Zyvox per ID - Flores cx - Keprra increased to 750 bid - hold bp meds - c/w Tobramycin for 3 more days per ID - serial ecg's -Continue tricor/statin -Continue allan Spoke to catalinaugther at bedside Problems: Subjective 24 Hr Interval Summary Free Text/Dictation Had fevers of 102 yesterday Pt not tacpnic today Keppra was increased yesterday per neuro Exam/Review of Systems Vital Signs Vitals Vital Signs Date Time Temp Pulse Resp B/P Pulse Ox O2 Delivery O2 Flow Rate FiO2 03/01/17 15:51 98.4 60 19 103/49 100 03/01/17 14:36 Nasal Cannula 2.0 28 Intake and Output 02/28/17 02/28/17 03/01/17 15:00 23:00 07:00 Intake Total 100 ml 620 ml 100 ml Output Total 600 ml Balance 100 ml 20 ml 100 ml Exam Constitutional: frail, tachypnic, does not respond to any commands/sternal rub Neck: supple Respiratory: clear to auscultation, diminished breath sounds Cardiovascular: irregular rhythm, regular rate and rhythm (Afib controlled) Gastrointestinal: other (GT), soft Results Result Diagram: 03/01/17 0700 03/01/17 0700 Results 24 hrs Laboratory Tests Test 03/01/17 07:00 White Blood Count 10.7 # Red Blood Count 2.80 L Hemoglobin 7.6 L Hematocrit 24.2 L Mean Corpuscular Volume 86.4 Mean Corpuscular Hemoglobin 27.1 L Mean Corpuscular Hemoglobin Concent 31.4 L Red Cell Distribution Width 15.1 H Platelet Count 181 # Mean Platelet Volume 11.0 H Neutrophils % 82.1 H Lymphocytes % 3.7 L Monocytes % 7.5 Eosinophils % 4.0 Basophils % 0.4 Nucleated Red Blood Cells % 0.0 Neutrophils # 8.8 H Lymphocytes # 0.4 L Monocytes # 0.8 Eosinophils # 0.4 Basophils # 0.0 Nucleated Red Blood Cells # 0.0 Sodium Level 141 Potassium Level 4.2 Chloride Level 107 Carbon Dioxide Level 30 Anion Gap 8 Blood Urea Nitrogen 35 H Creatinine 1.32 H Glucose Level 97 Calcium Level 8.1 L Total Bilirubin 0.1 L Direct Bilirubin 0.00 Indirect Bilirubin 0.1 Aspartate Amino Transf (AST/SGOT) 36 Alanine Aminotransferase (ALT/SGPT) 30 Alkaline Phosphatase 45 Ammonia < 9 L Total Protein 5.5 L Albumin 2.4 L Globulin 3.10 Albumin/Globulin Ratio 0.77 Medications Medications Current Medications Apixaban (Eliquis) 2.5 mg BID GTB Last administered on 03/01/17 08:26; Admin Dose 2.5 MG; Start 02/23/17 at 09:00 Atorvastatin Calcium (Lipitor) 40 mg QHS GTB Last administered on 02/28/17 21 :16; Admin Dose 40 MG; Start 02/23/17 at 21:00 Bisacodyl (Dulcolax Supp) 10 mg Q24H PRN [place] CONSTIPATION Last administered on 02/28/17 05:06; Admin Dose 10 MG; Start 02/23/17 at 06:00 Calcium/Vitamin D (Oyster Shell/ Vit-D (500/200)) 1 tab DAILY GTB Last administered on 03/01/17 08:26; Admin Dose 1 TAB; Start 02/23/17 at 09:00 Clonidine (Catapres) 0.1 mg Q4H PRN GTB ELEVATED BLOOD PRESSURE Last administered on 02/28/17 12:01; Admin Dose 0.1 MG; Start 02/23/17 at 06:00 Fenofibrate (Tricor) 145 mg QHS GTB Last administered on 02/28/17 21:16; Admin Dose 145 MG; Start 02/23/17 at 21:00 Ferrous Sulfate (Feosol Liquid Cup) 330 mg DAILY GTB Last administered on 03/01 08:24; Admin Dose 330 MG; Start 02/23/17 at 09:00 Magnesium Hydroxide (Milk Of Mag) 30 ml Q24H PRN PO CONSTIPATION Last administered on 02/27/17 09:16; Admin Dose 30 ML; Start 02/23/17 at 06:00 Memantine (Namenda) 10 mg BID GTB Last administered on 03/01/17 08:26; Admin Dose 10 MG; Start 02/23/17 at 09:00 Multivitamins (Multivitamin) 30 ml DAILY GTB Last administered on 03/01/17 08 :23; Admin Dose 30 ML; Start 02/23/17 at 09:00 Ondansetron HCl (Zofran Inj) 4 mg Q6H PRN IV NAUSEA AND/OR VOMITING; Start 02/23/17 at 06:00 Acetaminophen (Tylenol Tab) 650 mg Q4H PRN GTB PAIN AND OR ELEVATED TEMP Last administered on 03/01/17 06:05; Admin Dose 650 MG; Start 02/23/17 at 08:00 Lactobacillus Acidophilus/ Rhamnosus (Culturelle) 1 cap BID PO Last administered on 03/01/17 08:25; Admin Dose 1 CAP; Start 02/23/17 at 09:00 Miscellaneous Information (Pending Santyl Order For Wound Care) This patient basurto... PRN PRN XX WOUND CARE; Start 02/23/17 at 17:00 Miscellaneous Information (Pending Santyl Order For Wound Care) This patient basurto... PRN PRN XX WOUND CARE; Start 02/24/17 at 10:00 Collagenase (Santyl) 1 applic DAILY TOP Last administered on 03/01/17 09:42; Admin Dose 1 APPLIC; Start 02/24/17 at 13:00 Lansoprazole 30 mg 30 mg DAILY@06 GTB Last administered on 03/01/17 06:05; Admin Dose 30 MG; Start 02/25/17 at 06:00 Colistimethate Sodium/Sodium Chloride (Coly-Mycin/NS) 100 ml @ 200 mls/hr Q12 IVPB Last administered on 03/01/17 09:38; Admin Dose 200 MLS/HR; Start 02/25 at 21:00 Mupirocin (Bactroban) 1 applic BID TOP Last administered on 03/01/17 08:27; Admin Dose 1 APPLIC; Start 02/26/17 at 21:00 Docusate Sodium (Colace Liquid Cup) 200 mg DAILY GTB ; Start 03/01/17 at 09:49 Levetiracetam (Keppra Liquid) 750 mg BID GTB Last administered on 03/01/17 08 :24; Admin Dose 750 MG; Start 03/01/17 at 09:00 CRISTIAN ATKINSON MD Mar 01, 2017 16:10
[2017-03-01] MEDS ORDERED: SOD CHLORIDE 0.9% 1,000 ML IV SCH (16:30)
--- NOTE | 2017-03-01 16:56 | RADRPT ---
PROCEDURE: XR Chest. CLINICAL INDICATION: Cough. Evaluate for pneumonia. TECHNIQUE: PA and Lateral views of the chest were obtained. COMPARISON: Chest radiograph dated June 08, 2016. FINDINGS: Pacemaker device overlies the left chest wall. Right-sided PICC tip overlying the superior cavoatria l junction. There is stable cardiomegaly. Mild pulmonary edema is visualized. There is a small left pleural effusion and/or subsegmental atele ctasis. Seen post left basilar pneumonia cannot be excluded. No evidence of pneumothorax. Degenerative changes of the shoulder joints are present. IMPRESSION: 1. Mild pulmonary edema with a small left pleural effusion and/or subsegmental atelectasis. Superim posed left basilar pneumonia cannot be excluded. RPTAT:AAJJ Physician Awa Date Time Electronically viewed and signed by Physician Awa on 03/01/2017 16:56 QL/
[2017-03-01] MEDS: LINEZOLID 600 MG/D5W (PMX) 300 ML IVPB SCH (17:53)
[2017-03-01] MEDS: ATORVASTATIN 40 MG TAB GTB SCH (21:47)
[2017-03-01] MEDS: FENOFIBRATE 145 MG TAB GTB SCH (21:47)
--- NOTE | 2017-03-01 23:08 | SP ---
DATE OF PROCEDURE: 03/01/2017 PROCEDURE PERFORMED: EEG. INDICATION: An 81-year-old with encephalopathy, history of seizures, currently on Keppra. DESCRIPTION OF PROCEDURE: Routine EEG was recorded digitally. [id number] and [id number] pricilla ages were recorded and reviewed. All impedances were measured and recorded. Cap electrodes were pl aced in accordance with International 10-20 system of electrode placement. FINDINGS: Symmetrically distributed background activity of low to medium amplitude ranging in frequ ency between 2 to 4 cycles per second, at times slightly faster up to 6 cycles per second was seen. No definite epileptiform transients were seen. No signs of ongoing electrographic seizures or late ralized slowing observed. IMPRESSION: Abnormal study secondary to background slowing which could reflect presence of encephal opathy, likely toxic metabolic etiology. Correlate clinically. Dictated By: WILL MunozV/NTS Conf#: [id number] DID#: [id number] CC: JOSE C VILLATORO MD;*End*
--- NOTE | 2017-03-01 23:21 | CONS ---
Date/Time of Note Date/Time of Note DATE: 03/01/17 TIME: 23:19 Consult Date/Type/Reason Admit Date/Time Feb 27, 2017 at 10:23 Initial Consult Date Type of Consultation: ID Ordering Provider: JOSE C VILLATORO MD Subjective no seizures, still lethargic Objective Vital Signs Date Time Temp Pulse Resp B/P Pulse Ox O2 Delivery O2 Flow Rate FiO2 03/01/17 20:12 60 16 100 Nasal Cannula 2.0 28 03/01/17 19:51 98.1 116/57 Intake and Output 02/28/17 02/28/17 03/01/17 15:00 23:00 07:00 Intake Total 100 ml 620 ml 100 ml Output Total 600 ml Balance 100 ml 20 ml 100 ml Results/Medications Result Diagram: 03/01/17 0700 03/01/17 0700 Results 24 hrs Laboratory Tests Test 03/01/17 07:00 White Blood Count 10.7 # Red Blood Count 2.80 L Hemoglobin 7.6 L Hematocrit 24.2 L Mean Corpuscular Volume 86.4 Mean Corpuscular Hemoglobin 27.1 L Mean Corpuscular Hemoglobin Concent 31.4 L Red Cell Distribution Width 15.1 H Platelet Count 181 # Mean Platelet Volume 11.0 H Neutrophils % 82.1 H Lymphocytes % 3.7 L Monocytes % 7.5 Eosinophils % 4.0 Basophils % 0.4 Nucleated Red Blood Cells % 0.0 Neutrophils # 8.8 H Lymphocytes # 0.4 L Monocytes # 0.8 Eosinophils # 0.4 Basophils # 0.0 Nucleated Red Blood Cells # 0.0 Sodium Level 141 Potassium Level 4.2 Chloride Level 107 Carbon Dioxide Level 30 Anion Gap 8 Blood Urea Nitrogen 35 H Creatinine 1.32 H Glucose Level 97 Calcium Level 8.1 L Total Bilirubin 0.1 L Direct Bilirubin 0.00 Indirect Bilirubin 0.1 Aspartate Amino Transf (AST/SGOT) 36 Alanine Aminotransferase (ALT/SGPT) 30 Alkaline Phosphatase 45 Ammonia < 9 L Total Protein 5.5 L Albumin 2.4 L Globulin 3.10 Albumin/Globulin Ratio 0.77 Medications Current Medications Apixaban (Eliquis) 2.5 mg BID GTB Last administered on 03/01/17 21:47; Admin Dose 2.5 MG; Start 02/23/17 at 09:00 Atorvastatin Calcium (Lipitor) 40 mg QHS GTB Last administered on 03/01/17 21 :47; Admin Dose 40 MG; Start 02/23/17 at 21:00 Bisacodyl (Dulcolax Supp) 10 mg Q24H PRN [place] CONSTIPATION Last administered on 02/28/17 05:06; Admin Dose 10 MG; Start 02/23/17 at 06:00 Calcium/Vitamin D (Oyster Shell/ Vit-D (500/200)) 1 tab DAILY GTB Last administered on 03/01/17 08:26; Admin Dose 1 TAB; Start 02/23/17 at 09:00 Clonidine (Catapres) 0.1 mg Q4H PRN GTB ELEVATED BLOOD PRESSURE Last administered on 02/28/17 12:01; Admin Dose 0.1 MG; Start 02/23/17 at 06:00 Fenofibrate (Tricor) 145 mg QHS GTB Last administered on 03/01/17 21:47; Admin Dose 145 MG; Start 02/23/17 at 21:00 Ferrous Sulfate (Feosol Liquid Cup) 330 mg DAILY GTB Last administered on 03/01 08:24; Admin Dose 330 MG; Start 02/23/17 at 09:00 Magnesium Hydroxide (Milk Of Mag) 30 ml Q24H PRN PO CONSTIPATION Last administered on 02/27/17 09:16; Admin Dose 30 ML; Start 02/23/17 at 06:00 Memantine (Namenda) 10 mg BID GTB Last administered on 03/01/17 21:47; Admin Dose 10 MG; Start 02/23/17 at 09:00 Multivitamins (Multivitamin) 30 ml DAILY GTB Last administered on 03/01/17 08 :23; Admin Dose 30 ML; Start 02/23/17 at 09:00 Ondansetron HCl (Zofran Inj) 4 mg Q6H PRN IV NAUSEA AND/OR VOMITING; Start 02/23/17 at 06:00 Acetaminophen (Tylenol Tab) 650 mg Q4H PRN GTB PAIN AND OR ELEVATED TEMP Last administered on 03/01/17 06:05; Admin Dose 650 MG; Start 02/23/17 at 08:00 Lactobacillus Acidophilus/ Rhamnosus (Culturelle) 1 cap BID PO Last administered on 03/01/17 21:47; Admin Dose 1 CAP; Start 02/23/17 at 09:00 Miscellaneous Information (Pending Santyl Order For Wound Care) This patient basurto... PRN PRN XX WOUND CARE; Start 02/23/17 at 17:00 Miscellaneous Information (Pending Santyl Order For Wound Care) This patient basurto... PRN PRN XX WOUND CARE; Start 02/24/17 at 10:00 Collagenase (Santyl) 1 applic DAILY TOP Last administered on 03/01/17 09:42; Admin Dose 1 APPLIC; Start 02/24/17 at 13:00 Lansoprazole 30 mg 30 mg DAILY@06 GTB Last administered on 03/01/17 06:05; Admin Dose 30 MG; Start 02/25/17 at 06:00 Colistimethate Sodium/Sodium Chloride (Coly-Mycin/NS) 100 ml @ 200 mls/hr Q12 IVPB Last administered on 03/01/17 21:50; Admin Dose 200 MLS/HR; Start 02/25 at 21:00 Mupirocin (Bactroban) 1 applic BID TOP Last administered on 03/01/17 21:47; Admin Dose 1 APPLIC; Start 02/26/17 at 21:00 Docusate Sodium (Colace Liquid Cup) 200 mg DAILY GTB ; Start 03/01/17 at 09:49 Levetiracetam 750 mg 750 mg BID GTB Last administered on 03/01/17 21:46; Admin Dose 750 MG; Start 03/01/17 at 09:00 Sodium Chloride 1,000 ml @ 50 mls/hr Q20H IV Last administered on 03/01/17 17:11; Admin Dose 50 MLS/HR; Start 03/01/17 at 16:30; Stop 03/02/17 at 12:29 Linezolid (Zyvox 600mg/D5W (Pmx)) 300 ml @ 300 mls/hr Q12H IVPB Last administered on 03/01/17 17:53; Admin Dose 300 MLS/HR; Start 03/01/17 at 18: 00 Assessment/Plan Chief Complaint/Hosp Course NEUROLOGIC: Patient is lethargic, opens his left eye to noxious stimulation, seemed to be looking bilaterally, but does not follow commands, does not track visually, though blinks to threat. His right palpebral fissure is almost completely closed. Pupils reactive bilaterally, and extraocular movements otherwise intact. Corneal reflexes present bilaterally. Gag is present. Motor strength examination shows increased tone in all extremities with spasticity, maybe some amount of cogwheeling, Patient moves upper extremities to noxious stimuli, brisker on the right, able to move against gravity, at least 3-/5, only trace of withdrawal in the left lower extremity. Deep tendon reflexes 1+ upper extremities, absent in lower extremities. Upgoing toe on the left. Again, he is an amputee on the right. IMPRESSION: 1. Encephalopathy. toxic metabolic 2. Sepsis, urosepsis. 3. History of dementia. 4. History of brain surgery. 5. Possible strokes in the past. 6. History of seizures. Continue Keppra. EEG shows encephalopthy Problems: WILL LEAL MD Mar 01, 2017 23:21
[2017-03-02] VITALS (12 sets, daily range): BP systolic 115–134; BP diastolic 58–66; PULSE 62–69; RESP 16–25
[2017-03-02] MEDS: ALBUTEROL/IPRATROPIUM (NEB) 3 ML AMP HHN SCH ×4 (01:41→19:28)
[2017-03-02] MEDS: LANSOPRAZOLE 30 MG CAP GTB SCH (05:29)
[2017-03-02] MEDS: LINEZOLID 600 MG/D5W (PMX) 300 ML IVPB SCH ×2 (05:29→18:00)
[2017-03-02 07:41] LABS: BASOPHILS % 0.3 % (0.0-2.0); EOSINOPHILS # 0.4 10^3/ul (0.0-0.5); EOSINOPHILS % 5.8 % (0.0-7.0); HEMATOCRIT 24.1 % (42.0-52.0); HEMOGLOBIN 7.7 g/dl (14.0-18.0); LYMPHOCYTES # 0.7 10^3/ul (0.8-2.9); MEAN CORPUSCULAR HEMOGLOBIN 27.3 pg (29.0-33.0); MEAN CORPUSCULAR VOLUME 85.5 fl (82.0-101.0); MEAN PLATELET VOLUME 11.3 fl (7.4-10.4); MONOCYTE # 0.6 10^3/ul (0.3-0.9); MONOCYTES % 7.8 % (0.0-11.0); NEUTROPHIL # 5.5 10^3/ul (1.6-7.5); NEUTROPHILS % 75.7 % (39.0-77.0); PLATELET COUNT 193 10^3/UL (140-415); RED BLOOD COUNT 2.82 10^6/ul (4.70-6.10); RED CELL DISTRIBUTION WIDTH 15.2 % (11.5-14.5); WHITE BLOOD COUNT 7.3 10^3/ul (4.8-10.8)
[2017-03-02 08:02] LABS: ALBUMIN 2.5 g/dl (3.3-4.9); ALBUMIN/GLOBULIN RATIO 0.75; CALCIUM 7.9 mg/dl (8.4-10.2); CREATININE 1.35 mg/dl (0.61-1.24); POTASSIUM 3.8 mmol/L (3.5-5.1); TOTAL PROTEIN 5.8 g/dl (6.1-8.1)
[2017-03-02] MEDS: MULTIVITAMINS 30 ML CUP GTB SCH (08:23)
[2017-03-02] MEDS: LACTOBACILLUS RHAMNOSUS CAP PO SCH ×2 (08:24→21:40)
[2017-03-02] MEDS: LEVETIRACETAM (100 MG/ML) 5ML CUP GTB SCH ×2 (08:24→21:42)
[2017-03-02] MEDS: MEMANTINE 10 MG TAB GTB SCH ×2 (08:24→21:40)
[2017-03-02] MEDS: CALCIUM/VITAMIN D (500/200) TAB GTB SCH (08:24)
[2017-03-02] MEDS: APIXABAN 5 MG TABLET GTB SCH ×2 (08:24→21:41)
[2017-03-02] MEDS: FERROUS SULFATE 60 MG/ML 5ML CUP GTB SCH (08:24)
[2017-03-02 08:25] LABS: MAGNESIUM 2.5 mg/dl (1.7-2.5); PHOSPHORUS 2.7 mg/dl (2.5-4.9)
[2017-03-02] MEDS: COLLAGENASE 30 GM TUBE TOP SCH (08:26)
[2017-03-02] MEDS: MUPIROCIN 2% 22 GM OINT TOP SCH ×2 (08:26→21:41)
[2017-03-02] MEDS: DOCUSATE SODIUM 10 MG/ML (10ML CUP) GTB SCH (08:26)
--- NOTE | 2017-03-02 08:31 | PN ---
Date/Time of Note Date/Time of Note DATE: 03/02/17 TIME: 08:30 Assessment/Plan VTE Prophylaxis VTE Prophylaxis Intervention: other Lines/Catheters IV Catheter Type (from Nrs): PICC Line Central line still needed: Yes Urinary Cath still in place: Yes Reason Cath still needed: urinary retention Assessment/Plan Chief Complaint/Hosp Course A/P 1. Systemic inflammatory response syndrome. with polymicrobial UTI 2 AMS? encepaholopathy vs Seizure 2. RENARD on Chronic kidney disease. 3. Hypernatremia. 4. Lung infiltrate. 5. Lung atelectasis. 6. Gastrostomy tube placement. 7. History of peripheral vascular disease. 8. Dyslipidemia. 9. Chronic obstructive pulmonary disease. 10. Right below-knee amputation. 12. History of pacemaker placement. 13. History of chronic atrial fibrillation. 14 encephalopathy 15 hypernatremia Recs - Chest Xray + Infiltrate on left - d/c iv fluids - cw Zyvox - Abx per I.D - Zyvox per ID - Flores cx pending - Keprra increased to 750 bid - hold bp meds - c/w Tobramycin - serial ecg's -Continue tricor/statin -Continue eliquis Problems: Subjective 24 Hr Interval Summary Free Text/Dictation No fevers overnight Started on Zyvox BP improved Exam/Review of Systems Vital Signs Vitals Vital Signs Date Time Temp Pulse Resp B/P Pulse Ox O2 Delivery O2 Flow Rate FiO2 03/02/17 08:09 2.0 03/02/17 08:09 64 26 97 Nasal Cannula 03/02/17 07:36 98.3 120/66 03/01/17 20:12 28 Intake and Output 03/01/17 03/01/17 03/02/17 15:00 23:00 07:00 Intake Total 850 ml 1060 ml 900 ml Output Total 1100 ml 1200 ml 700 ml Balance -250 ml -140 ml 200 ml Exam constitutional: frail, tachypnic, does not respond to any commands/sternal rub Neck: supple Respiratory: few rhonchi Cardiovascular: irregular rhythm, regular rate and rhythm (Afib controlled) Gastrointestinal: other (GT), soft Results Result Diagram: 03/02/17 0659 03/02/17 0659 Results 24 hrs Laboratory Tests Test 03/02/17 06:59 White Blood Count 7.3 # Red Blood Count 2.82 L Hemoglobin 7.7 L Hematocrit 24.1 L Mean Corpuscular Volume 85.5 Mean Corpuscular Hemoglobin 27.3 L Mean Corpuscular Hemoglobin Concent 32.0 Red Cell Distribution Width 15.2 H Platelet Count 193 Mean Platelet Volume 11.3 H Neutrophils % 75.7 Lymphocytes % 10.0 L Monocytes % 7.8 Eosinophils % 5.8 Basophils % 0.3 Nucleated Red Blood Cells % 0.0 Neutrophils # 5.5 Lymphocytes # 0.7 L Monocytes # 0.6 Eosinophils # 0.4 Basophils # 0.0 Nucleated Red Blood Cells # 0.0 Sodium Level 139 Potassium Level 3.8 Chloride Level 103 Carbon Dioxide Level 29 Anion Gap 11 Blood Urea Nitrogen 34 H Creatinine 1.35 H Glucose Level 255 #H Calcium Level 7.9 L Phosphorus Level 2.7 Magnesium Level 2.5 Total Bilirubin 0.0 L Direct Bilirubin 0.00 Indirect Bilirubin 0.0 Aspartate Amino Transf (AST/SGOT) 31 Alanine Aminotransferase (ALT/SGPT) 33 Alkaline Phosphatase 59 Total Protein 5.8 L Albumin 2.5 L Globulin 3.30 H Albumin/Globulin Ratio 0.75 Medications Medications Current Medications Apixaban (Eliquis) 2.5 mg BID GTB Last administered on 03/01/17 21:47; Admin Dose 2.5 MG; Start 02/23/17 at 09:00 Atorvastatin Calcium (Lipitor) 40 mg QHS GTB Last administered on 03/01/17 21 :47; Admin Dose 40 MG; Start 02/23/17 at 21:00 Bisacodyl (Dulcolax Supp) 10 mg Q24H PRN [place] CONSTIPATION Last administered on 02/28/17 05:06; Admin Dose 10 MG; Start 02/23/17 at 06:00 Calcium/Vitamin D (Oyster Shell/ Vit-D (500/200)) 1 tab DAILY GTB Last administered on 03/01/17 08:26; Admin Dose 1 TAB; Start 02/23/17 at 09:00 Clonidine (Catapres) 0.1 mg Q4H PRN GTB ELEVATED BLOOD PRESSURE Last administered on 02/28/17 12:01; Admin Dose 0.1 MG; Start 02/23/17 at 06:00 Fenofibrate (Tricor) 145 mg QHS GTB Last administered on 03/01/17 21:47; Admin Dose 145 MG; Start 02/23/17 at 21:00 Ferrous Sulfate (Feosol Liquid Cup) 330 mg DAILY GTB Last administered on 03/01 08:24; Admin Dose 330 MG; Start 02/23/17 at 09:00 Magnesium Hydroxide (Milk Of Mag) 30 ml Q24H PRN PO CONSTIPATION Last administered on 02/27/17 09:16; Admin Dose 30 ML; Start 02/23/17 at 06:00 Memantine (Namenda) 10 mg BID GTB Last administered on 03/01/17 21:47; Admin Dose 10 MG; Start 02/23/17 at 09:00 Multivitamins (Multivitamin) 30 ml DAILY GTB Last administered on 03/01/17 08 :23; Admin Dose 30 ML; Start 02/23/17 at 09:00 Ondansetron HCl (Zofran Inj) 4 mg Q6H PRN IV NAUSEA AND/OR VOMITING; Start 02/23/17 at 06:00 Acetaminophen (Tylenol Tab) 650 mg Q4H PRN GTB PAIN AND OR ELEVATED TEMP Last administered on 03/01/17 06:05; Admin Dose 650 MG; Start 02/23/17 at 08:00 Lactobacillus Acidophilus/ Rhamnosus (Culturelle) 1 cap BID PO Last administered on 03/01/17 21:47; Admin Dose 1 CAP; Start 02/23/17 at 09:00 Miscellaneous Information (Pending Santyl Order For Wound Care) This patient basurto... PRN PRN XX WOUND CARE; Start 02/23/17 at 17:00 Miscellaneous Information (Pending Santyl Order For Wound Care) This patient basurto... PRN PRN XX WOUND CARE; Start 02/24/17 at 10:00 Collagenase (Santyl) 1 applic DAILY TOP Last administered on 03/01/17 09:42; Admin Dose 1 APPLIC; Start 02/24/17 at 13:00 Lansoprazole 30 mg 30 mg DAILY@06 GTB Last administered on 03/02/17 05:29; Admin Dose 30 MG; Start 02/25/17 at 06:00 Colistimethate Sodium/Sodium Chloride (Coly-Mycin/NS) 100 ml @ 200 mls/hr Q12 IVPB Last administered on 03/01/17 21:50; Admin Dose 200 MLS/HR; Start 02/25 at 21:00 Mupirocin (Bactroban) 1 applic BID TOP Last administered on 03/01/17 21:47; Admin Dose 1 APPLIC; Start 02/26/17 at 21:00 Docusate Sodium (Colace Liquid Cup) 200 mg DAILY GTB ; Start 03/01/17 at 09:49 Levetiracetam 750 mg 750 mg BID GTB Last administered on 03/01/17 21:46; Admin Dose 750 MG; Start 03/01/17 at 09:00 Sodium Chloride 1,000 ml @ 50 mls/hr Q20H IV Last administered on 03/01/17 17:11; Admin Dose 50 MLS/HR; Start 03/01/17 at 16:30; Stop 03/02/17 at 12:29 Linezolid (Zyvox 600mg/D5W (Pmx)) 300 ml @ 300 mls/hr Q12H IVPB Last administered on 03/02/17 05:29; Admin Dose 300 MLS/HR; Start 03/01/17 at 18: 00 CRISTIAN ATKINSON MD Mar 02, 2017 08:31
[2017-03-02] MEDS: COLISTIMETHATE 75 MG in SOD CHLORIDE 0.9% 100 ML IVPB SCH ×2 (08:40→21:42)
--- NOTE | 2017-03-02 13:02 | CONS ---
Date/Time of Note Date/Time of Note DATE: 03/02/17 TIME: 13:00 Consult Date/Type/Reason Admit Date/Time Feb 27, 2017 at 10:23 Type of Consultation: ID Ordering Provider: JOSE C VILLATORO MD Objective Vital Signs Date Time Temp Pulse Resp B/P Pulse Ox O2 Delivery O2 Flow Rate FiO2 03/02/17 12:16 68 03/02/17 11:31 99.0 20 126/60 100 03/02/17 08:10 Nasal Cannula 2.0 03/01/17 20:12 28 Intake and Output 03/01/17 03/01/17 03/02/17 15:00 23:00 07:00 Intake Total 850 ml 1060 ml 900 ml Output Total 1100 ml 1200 ml 700 ml Balance -250 ml -140 ml 200 ml Results/Medications Result Diagram: 03/02/17 0659 03/02/17 0659 Results 24 hrs Laboratory Tests Test 03/02/17 06:59 White Blood Count 7.3 # Red Blood Count 2.82 L Hemoglobin 7.7 L Hematocrit 24.1 L Mean Corpuscular Volume 85.5 Mean Corpuscular Hemoglobin 27.3 L Mean Corpuscular Hemoglobin Concent 32.0 Red Cell Distribution Width 15.2 H Platelet Count 193 Mean Platelet Volume 11.3 H Neutrophils % 75.7 Lymphocytes % 10.0 L Monocytes % 7.8 Eosinophils % 5.8 Basophils % 0.3 Nucleated Red Blood Cells % 0.0 Neutrophils # 5.5 Lymphocytes # 0.7 L Monocytes # 0.6 Eosinophils # 0.4 Basophils # 0.0 Nucleated Red Blood Cells # 0.0 Sodium Level 139 Potassium Level 3.8 Chloride Level 103 Carbon Dioxide Level 29 Anion Gap 11 Blood Urea Nitrogen 34 H Creatinine 1.35 H Glucose Level 255 #H Calcium Level 7.9 L Phosphorus Level 2.7 Magnesium Level 2.5 Total Bilirubin 0.0 L Direct Bilirubin 0.00 Indirect Bilirubin 0.0 Aspartate Amino Transf (AST/SGOT) 31 Alanine Aminotransferase (ALT/SGPT) 33 Alkaline Phosphatase 59 Total Protein 5.8 L Albumin 2.5 L Globulin 3.30 H Albumin/Globulin Ratio 0.75 Medications Current Medications Apixaban (Eliquis) 2.5 mg BID GTB Last administered on 03/02/17t 08:24; Admin Dose 2.5 MG; Start 02/23/17 at 09:00 Atorvastatin Calcium (Lipitor) 40 mg QHS GTB Last administered on 03/01/17 21 :47; Admin Dose 40 MG; Start 02/23/17 at 21:00 Bisacodyl (Dulcolax Supp) 10 mg Q24H PRN [place] CONSTIPATION Last administered on 02/28/17 05:06; Admin Dose 10 MG; Start 02/23/17 at 06:00 Calcium/Vitamin D (Oyster Shell/ Vit-D (500/200)) 1 tab DAILY GTB Last administered on 03/02/17 08:24; Admin Dose 1 TAB; Start 02/23/17 at 09:00 Clonidine (Catapres) 0.1 mg Q4H PRN GTB ELEVATED BLOOD PRESSURE Last administered on 02/28/17 12:01; Admin Dose 0.1 MG; Start 02/23/17 at 06:00 Fenofibrate (Tricor) 145 mg QHS GTB Last administered on 03/01/17 21:47; Admin Dose 145 MG; Start 02/23/17 at 21:00 Ferrous Sulfate (Feosol Liquid Cup) 330 mg DAILY GTB Last administered on 03/02 08:24; Admin Dose 330 MG; Start 02/23/17 at 09:00 Magnesium Hydroxide (Milk Of Mag) 30 ml Q24H PRN PO CONSTIPATION Last administered on 02/27/17 09:16; Admin Dose 30 ML; Start 02/23/17 at 06:00 Memantine (Namenda) 10 mg BID GTB Last administered on 03/02/17 08:24; Admin Dose 10 MG; Start 02/23/17 at 09:00 Multivitamins (Multivitamin) 30 ml DAILY GTB Last administered on 03/02/17 08 :23; Admin Dose 30 ML; Start 02/23/17 at 09:00 Ondansetron HCl (Zofran Inj) 4 mg Q6H PRN IV NAUSEA AND/OR VOMITING; Start 02/23/17 at 06:00 Acetaminophen (Tylenol Tab) 650 mg Q4H PRN GTB PAIN AND OR ELEVATED TEMP Last administered on 03/01/17 06:05; Admin Dose 650 MG; Start 02/23/17 at 08:00 Lactobacillus Acidophilus/ Rhamnosus (Culturelle) 1 cap BID PO Last administered on 03/02/17 08:24; Admin Dose 1 CAP; Start 02/23/17 at 09:00 Miscellaneous Information (Pending Santyl Order For Wound Care) This patient basurto... PRN PRN XX WOUND CARE; Start 02/23/17 at 17:00 Miscellaneous Information (Pending Santyl Order For Wound Care) This patient basurto... PRN PRN XX WOUND CARE; Start 02/24/17 at 10:00 Collagenase (Santyl) 1 applic DAILY TOP Last administered on 03/02/17 08:26; Admin Dose 1 APPLIC; Start 02/24/17 at 13:00 Lansoprazole 30 mg 30 mg DAILY@06 GTB Last administered on 03/02/17 05:29; Admin Dose 30 MG; Start 02/25/17 at 06:00 Colistimethate Sodium/Sodium Chloride (Coly-Mycin/NS) 100 ml @ 200 mls/hr Q12 IVPB Last administered on 03/02/17 08:40; Admin Dose 200 MLS/HR; Start 02/25 at 21:00 Mupirocin (Bactroban) 1 applic BID TOP Last administered on 03/02/17 08:26; Admin Dose 1 APPLIC; Start 02/26/17 at 21:00 Docusate Sodium (Colace Liquid Cup) 200 mg DAILY GTB ; Start 03/01/17 at 09:49 Levetiracetam 750 mg 750 mg BID GTB Last administered on 03/02/17 08:24; Admin Dose 750 MG; Start 03/01/17 at 09:00 Linezolid (Zyvox 600mg/D5W (Pmx)) 300 ml @ 300 mls/hr Q12H IVPB Last administered on 03/02/17 05:29; Admin Dose 300 MLS/HR; Start 03/01/17 at 18: 00 Assessment/Plan Chief Complaint/Hosp Course SUBJECTIVE: Noncommunicative, lying comfortably in bed MICROBIOLOGY: Urine culture on admission grew E. coli, ESBL, Acinetobacter baumannii. Blood cultures have been negative. Nares swab positive for MRSA. Repeat urine cx + Enterococcus ANTIMICROBIALS: The patient is on IV Colistin and Zyvox. INDWELLINGS: Cevallos catheter/PEG/RUE PICC. PHYSICAL EXAMINATION: GENERAL: This is a chronically ill-appearing, elderly man who is in no distress. HEENT: Head atraumatic, normocephalic. Sclerae anicteric. Buccal mucosa dry. NECK: Supple. CHEST: Rise symmetrical. Breath sounds diminished to bases. HEART: S1, S2. ABDOMEN: Soft, bowel tones present. EXTREMITIES: Without cyanosis. ASSESSMENT: 1. Sepsis ?LLL PNA 1. Polymicrobial urinary tract infection. 2. Methicillin-resistant Staphylococcus aureus nares colonization. 3. History of atrial fibrillation, status post permanent pacemaker. 4. Peripheral vascular disease with right below knee amputation. 5. Anemia. PLAN: Clinically stable. Continue abx, f/u final cx's, aspiration precautions DW staff Problems: EM RIOS NP Mar 02, 2017 13:02
--- NOTE | 2017-03-02 15:36 | CONS ---
Date/Time of Note Date/Time of Note DATE: 03/02/17 TIME: 15:32 Assessment/Plan Assessment/Plan Chief Complaint/Hosp Course IMPRESSION: 1. Cardiac arrhythmia with current rhythm concerning for possible accelerated junctional rhythm and associated PVCs. 2. History of permanent pacemaker. 3. History of paroxysmal atrial fibrillation on systemic anticoagulation. 4. Hypertension-remains somewhat labile 5. Urinary tract infection. 6. Fevers. 7. Altered mental state and dementia. 8. Anemia. 9. Hypernatremia-improved 10. Dyslipidemia. 11.Encephalopathy-ONGOING 12.PVC's-have recurrently Recc: -Tele -serial ecg's -Continue norvasc and BB -Continue tricor/statin -Continue eliquiS Problems: Consultation Date/Type/Reason Admit Date/Time Feb 27, 2017 at 10:23 Initial Consult Date 02/23/2017 Type of Consultation: cardiology Reason for Consultation arrythmia Referring Provider: JOSE C VILLATORO MD Exam/Review of Systems Vital Signs Vitals Vital Signs Date Time Temp Pulse Resp B/P Pulse Ox O2 Delivery O2 Flow Rate FiO2 03/02/17 15:25 98.2 65 25 115/58 100 03/02/17 13:50 Nasal Cannula 2.0 03/01/17 20:12 28 Intake and Output 03/01/17 03/01/17 03/02/17 15:00 23:00 07:00 Intake Total 850 ml 1060 ml 900 ml Output Total 1100 ml 1200 ml 700 ml Balance -250 ml -140 ml 200 ml Exam Review of Systems: CONSTITUTIONAL: No fevers, chills. PULMONARY: No sob CARDIOVASCULAR: No chest pain/palpitations GASTROINTESTINAL: No nausea/vomiting. GENITOURINARY: No hematuria/dysuria. MUSCULOSKELETAL: No myagias/arthalgias. PSYCHIATRIC: The patient denies depression. NEUROLOGIC: lethargic/encephalopathy Constitutional: alert Psych: no complaints Head: normocephalic ENMT: mucosa pink and moist Neck: jvd (9 cm water), supple Respiratory: diminished breath sounds (at bases/B) Cardiovascular: regular rate and rhythm Gastrointestinal: non-tender, soft Musculoskeletal: muscle tone (normal) Extremities: normal pulses Neurological: other (rncrphalopathic) Results Result Diagram: 03/02/17 0659 03/02/17 0659 Results 24 hrs Laboratory Tests Test 03/02/17 06:59 White Blood Count 7.3 # Red Blood Count 2.82 L Hemoglobin 7.7 L Hematocrit 24.1 L Mean Corpuscular Volume 85.5 Mean Corpuscular Hemoglobin 27.3 L Mean Corpuscular Hemoglobin Concent 32.0 Red Cell Distribution Width 15.2 H Platelet Count 193 Mean Platelet Volume 11.3 H Neutrophils % 75.7 Lymphocytes % 10.0 L Monocytes % 7.8 Eosinophils % 5.8 Basophils % 0.3 Nucleated Red Blood Cells % 0.0 Neutrophils # 5.5 Lymphocytes # 0.7 L Monocytes # 0.6 Eosinophils # 0.4 Basophils # 0.0 Nucleated Red Blood Cells # 0.0 Sodium Level 139 Potassium Level 3.8 Chloride Level 103 Carbon Dioxide Level 29 Anion Gap 11 Blood Urea Nitrogen 34 H Creatinine 1.35 H Glucose Level 255 #H Calcium Level 7.9 L Phosphorus Level 2.7 Magnesium Level 2.5 Total Bilirubin 0.0 L Direct Bilirubin 0.00 Indirect Bilirubin 0.0 Aspartate Amino Transf (AST/SGOT) 31 Alanine Aminotransferase (ALT/SGPT) 33 Alkaline Phosphatase 59 Total Protein 5.8 L Albumin 2.5 L Globulin 3.30 H Albumin/Globulin Ratio 0.75 Medications Medications Current Medications Apixaban (Eliquis) 2.5 mg BID GTB Last administered on 03/02/17 08:24; Admin Dose 2.5 MG; Start 02/23/17 at 09:00 Atorvastatin Calcium (Lipitor) 40 mg QHS GTB Last administered on 03/01/17 21 :47; Admin Dose 40 MG; Start 02/23/17 at 21:00 Bisacodyl (Dulcolax Supp) 10 mg Q24H PRN [place] CONSTIPATION Last administered on 02/28/17 05:06; Admin Dose 10 MG; Start 02/23/17 at 06:00 Calcium/Vitamin D (Oyster Shell/ Vit-D (500/200)) 1 tab DAILY GTB Last administered on 03/02/17 08:24; Admin Dose 1 TAB; Start 02/23/17 at 09:00 Clonidine (Catapres) 0.1 mg Q4H PRN GTB ELEVATED BLOOD PRESSURE Last administered on 02/28/17 12:01; Admin Dose 0.1 MG; Start 02/23/17 at 06:00 Fenofibrate (Tricor) 145 mg QHS GTB Last administered on 03/01/17 21:47; Admin Dose 145 MG; Start 02/23/17 at 21:00 Ferrous Sulfate (Feosol Liquid Cup) 330 mg DAILY GTB Last administered on 03/02 08:24; Admin Dose 330 MG; Start 02/23/17 at 09:00 Magnesium Hydroxide (Milk Of Mag) 30 ml Q24H PRN PO CONSTIPATION Last administered on 02/27/17 09:16; Admin Dose 30 ML; Start 02/23/17 at 06:00 Memantine (Namenda) 10 mg BID GTB Last administered on 03/02/17 08:24; Admin Dose 10 MG; Start 02/23/17 at 09:00 Multivitamins (Multivitamin) 30 ml DAILY GTB Last administered on 03/02/17 08 :23; Admin Dose 30 ML; Start 02/23/17 at 09:00 Ondansetron HCl (Zofran Inj) 4 mg Q6H PRN IV NAUSEA AND/OR VOMITING; Start 02/23/17 at 06:00 Acetaminophen (Tylenol Tab) 650 mg Q4H PRN GTB PAIN AND OR ELEVATED TEMP Last administered on 03/01/17 06:05; Admin Dose 650 MG; Start 02/23/17 at 08:00 Lactobacillus Acidophilus/ Rhamnosus (Culturelle) 1 cap BID PO Last administered on 03/02/17 08:24; Admin Dose 1 CAP; Start 02/23/17 at 09:00 Miscellaneous Information (Pending Santyl Order For Wound Care) This patient basurto... PRN PRN XX WOUND CARE; Start 02/23/17 at 17:00 Miscellaneous Information (Pending Santyl Order For Wound Care) This patient basurto... PRN PRN XX WOUND CARE; Start 02/24/17 at 10:00 Collagenase (Santyl) 1 applic DAILY TOP Last administered on 03/02/17 08:26; Admin Dose 1 APPLIC; Start 02/24/17 at 13:00 Lansoprazole 30 mg 30 mg DAILY@06 GTB Last administered on 03/02/17 05:29; Admin Dose 30 MG; Start 02/25/17 at 06:00 Colistimethate Sodium/Sodium Chloride (Coly-Mycin/NS) 100 ml @ 200 mls/hr Q12 IVPB Last administered on 03/02/17 08:40; Admin Dose 200 MLS/HR; Start 02/25 at 21:00 Mupirocin (Bactroban) 1 applic BID TOP Last administered on 03/02/17 08:26; Admin Dose 1 APPLIC; Start 02/26/17 at 21:00 Docusate Sodium (Colace Liquid Cup) 200 mg DAILY GTB ; Start 03/01/17 at 09:49 Levetiracetam 750 mg 750 mg BID GTB Last administered on 03/02/17 08:24; Admin Dose 750 MG; Start 03/01/17 at 09:00 Linezolid (Zyvox 600mg/D5W (Pmx)) 300 ml @ 300 mls/hr Q12H IVPB Last administered on 03/02/17 05:29; Admin Dose 300 MLS/HR; Start 03/01/17 at 18: 00 TORRES FRANCIS 15, 2017 15:36
[2017-03-02] MEDS: ATORVASTATIN 40 MG TAB GTB SCH (21:40)
[2017-03-02] MEDS: FENOFIBRATE 145 MG TAB GTB SCH (21:40)
[2017-03-03] VITALS (19 sets, daily range): BP systolic 119–225; BP diastolic 54–87; PULSE 54–86; RESP 16–25
[2017-03-03] MEDS: ALBUTEROL/IPRATROPIUM (NEB) 3 ML AMP HHN SCH ×4 (02:31→20:32)
[2017-03-03] MEDS ORDERED: hydrALAzine 20 MG INJ ONE (02:45)
[2017-03-03] MEDS ORDERED: hydrALAzine 20 MG INJ IV PRN (03:00)
[2017-03-03] MEDS: LANSOPRAZOLE 30 MG CAP GTB SCH (05:57)
[2017-03-03] MEDS: LINEZOLID 600 MG/D5W (PMX) 300 ML IVPB SCH ×2 (05:57→18:56)
[2017-03-03 08:38] LABS: BASOPHILS % 0.2 % (0.0-2.0); EOSINOPHILS # 0.2 10^3/ul (0.0-0.5); EOSINOPHILS % 2.8 % (0.0-7.0); LYMPHOCYTES # 0.8 10^3/ul (0.8-2.9); LYMPHOCYTES % 9.2 % (15.0-51.0); MEAN CORPUSCULAR HEMOGLOBIN 27.4 pg (29.0-33.0); MEAN CORPUSCULAR VOLUME 85.6 fl (82.0-101.0); MEAN PLATELET VOLUME 10.8 fl (7.4-10.4); MONOCYTE # 0.8 10^3/ul (0.3-0.9); MONOCYTES % 8.8 % (0.0-11.0); NEUTROPHIL # 6.8 10^3/ul (1.6-7.5); NEUTROPHILS % 78.5 % (39.0-77.0); PLATELET COUNT 193 10^3/UL (140-415); RED BLOOD COUNT 2.92 10^6/ul (4.70-6.10); RED CELL DISTRIBUTION WIDTH 15.1 % (11.5-14.5); WHITE BLOOD COUNT 8.6 10^3/ul (4.8-10.8)
[2017-03-03 09:01] LABS: CREATININE 1.43 mg/dl (0.61-1.24); POTASSIUM 4.2 mmol/L (3.5-5.1)
--- NOTE | 2017-03-03 09:23 | PN ---
Date/Time of Note Date/Time of Note DATE: 03/03/17 TIME: 09:23 Assessment/Plan VTE Prophylaxis VTE Prophylaxis Intervention: other VTE Contraindication Reason: bleeding Lines/Catheters IV Catheter Type (from Nrsg): PICC Line Central line still needed: Yes Urinary Cath still in place: Yes Reason Cath still needed: urinary retention Assessment/Plan Chief Complaint/Hosp Course A/P 1. Systemic inflammatory response syndrome. with polymicrobial UTI # SOB likely pulmonary edema 2 AMS? encepaholopathy vs Seizure 2. RENARD on Chronic kidney disease. 3. Hypernatremia. 4. Lung infiltrate. 5. Lung atelectasis. 6. Gastrostomy tube placement. 7. History of peripheral vascular disease. 8. Dyslipidemia. 9. Chronic obstructive pulmonary disease. 10. Right below-knee amputation. 12. History of pacemaker placement. 13. History of chronic atrial fibrillation. 14 encephalopathy 15 hypernatremia Recs - iv lasix 40 bid - F/U ABG - Pulmonary consult - cw Zyvox and colistin - Flores cx pending - Keprra increased to 750 bid - Hold eliquis due to anemia - serial ecg's -Continue tricor/statin - Spoke to family about poor prognosis Problems: Subjective 24 Hr Interval Summary Free Text/Dictation Pt was in respiratory distress last night, started on BIPAP Spoke to family at bedside about possible hospice Exam/Review of Systems Vital Signs Vitals Vital Signs Date Time Temp Pulse Resp B/P Pulse Ox O2 Delivery O2 Flow Rate FiO2 03/03/17 08:17 60 03/03/17 07:48 24 98 Nasal Cannula 2.0 03/03/17 07:48 45 03/03/17 07:20 98.0 125/66 Intake and Output 03/02/17 03/02/17 03/03/17 15:00 23:00 07:00 Intake Total 100 ml 1010 ml Output Total 1000 ml Balance 100 ml 10 ml Exam constitutional: frail, tachypnic, does not respond to any commands/sternal rub , on bipap Neck: supple Respiratory: few rhonchi Cardiovascular: irregular rhythm, regular rate and rhythm (Afib controlled) Gastrointestinal: other (GT), soft Results Result Diagram: 03/03/17 0752 03/03/17 0752 Results 24 hrs Laboratory Tests Test 03/03/17 07:52 White Blood Count 8.6 Red Blood Count 2.92 L Hemoglobin 8.0 L Hematocrit 25.0 L Mean Corpuscular Volume 85.6 Mean Corpuscular Hemoglobin 27.4 L Mean Corpuscular Hemoglobin Concent 32.0 Red Cell Distribution Width 15.1 H Platelet Count 193 Mean Platelet Volume 10.8 H Neutrophils % 78.5 H Lymphocytes % 9.2 L Monocytes % 8.8 Eosinophils % 2.8 Basophils % 0.2 Nucleated Red Blood Cells % 0.0 Neutrophils # 6.8 Lymphocytes # 0.8 Monocytes # 0.8 Eosinophils # 0.2 Basophils # 0.0 Nucleated Red Blood Cells # 0.0 Sodium Level 142 Potassium Level 4.2 Chloride Level 105 Carbon Dioxide Level 30 Anion Gap 11 Blood Urea Nitrogen 37 H Creatinine 1.43 H Glucose Level 132 # Calcium Level 8.0 L Medications Medications Current Medications Apixaban (Eliquis) 2.5 mg BID GTB Last administered on 03/02/17 21:41; Admin Dose 2.5 MG; Start 02/23/17 at 09:00 Atorvastatin Calcium (Lipitor) 40 mg QHS GTB Last administered on 03/02/17 21 :40; Admin Dose 40 MG; Start 02/23/17 at 21:00 Bisacodyl (Dulcolax Supp) 10 mg Q24H PRN [place] CONSTIPATION Last administered on 02/28/17 05:06; Admin Dose 10 MG; Start 02/23/17 at 06:00 Calcium/Vitamin D (Oyster Shell/ Vit-D (500/200)) 1 tab DAILY GTB Last administered on 03/02/17 08:24; Admin Dose 1 TAB; Start 02/23/17 at 09:00 Clonidine (Catapres) 0.1 mg Q4H PRN GTB ELEVATED BLOOD PRESSURE Last administered on 02/28/17 12:01; Admin Dose 0.1 MG; Start 02/23/17 at 06:00 Fenofibrate (Tricor) 145 mg QHS GTB Last administered on 03/02/17 21:40; Admin Dose 145 MG; Start 02/23/17 at 21:00 Ferrous Sulfate (Feosol Liquid Cup) 330 mg DAILY GTB Last administered on 03/02 08:24; Admin Dose 330 MG; Start 02/23/17 at 09:00 Magnesium Hydroxide (Milk Of Mag) 30 ml Q24H PRN PO CONSTIPATION Last administered on 02/27/17 09:16; Admin Dose 30 ML; Start 02/23/17 at 06:00 Memantine (Namenda) 10 mg BID GTB Last administered on 03/02/17 21:40; Admin Dose 10 MG; Start 02/23/17 at 09:00 Multivitamins (Multivitamin) 30 ml DAILY GTB Last administered on 03/02/17 08 :23; Admin Dose 30 ML; Start 02/23/17 at 09:00 Ondansetron HCl (Zofran Inj) 4 mg Q6H PRN IV NAUSEA AND/OR VOMITING; Start 02/23/17 at 06:00 Acetaminophen (Tylenol Tab) 650 mg Q4H PRN GTB PAIN AND OR ELEVATED TEMP Last administered on 03/01/17 06:05; Admin Dose 650 MG; Start 02/23/17 at 08:00 Lactobacillus Acidophilus/ Rhamnosus (Culturelle) 1 cap BID PO Last administered on 03/02/17 21:40; Admin Dose 1 CAP; Start 02/23/17 at 09:00 Miscellaneous Information (Pending Santyl Order For Wound Care) This patient basurto... PRN PRN XX WOUND CARE; Start 02/23/17 at 17:00 Miscellaneous Information (Pending Santyl Order For Wound Care) This patient basurto... PRN PRN XX WOUND CARE; Start 02/24/17 at 10:00 Collagenase (Santyl) 1 applic DAILY TOP Last administered on 03/02/17 08:26; Admin Dose 1 APPLIC; Start 02/24/17 at 13:00 Lansoprazole 30 mg 30 mg DAILY@06 GTB Last administered on 03/03/17 05:57; Admin Dose 30 MG; Start 02/25/17 at 06:00 Colistimethate Sodium/Sodium Chloride (Coly-Mycin/NS) 100 ml @ 200 mls/hr Q12 IVPB Last administered on 03/02/17 21:42; Admin Dose 200 MLS/HR; Start 02/25 at 21:00 Mupirocin (Bactroban) 1 applic BID TOP Last administered on 03/02/17 21:41; Admin Dose 1 APPLIC; Start 02/26/17 at 21:00 Docusate Sodium (Colace Liquid Cup) 200 mg DAILY GTB ; Start 03/01/17 at 09:49 Levetiracetam 750 mg 750 mg BID GTB Last administered on 03/02/17 21:42; Admin Dose 750 MG; Start 03/01/17 at 09:00 Linezolid (Zyvox 600mg/D5W (Pmx)) 300 ml @ 300 mls/hr Q12H IVPB Last administered on 03/03/17 05:57; Admin Dose 300 MLS/HR; Start 03/01/17 at 18: 00 Hydralazine HCl (Apresoline) 10 mg Q6H PRN IV ELEVATED SYSTOLIC BP Last administered on 03/03/17 03:02; Admin Dose 10 MG; Start 03/03/17 at 03:00 CRISTIAN ATKINSON MD Mar 03, 2017 09:23
[2017-03-03] MEDS: FUROSEMIDE 40 MG INJ IV SCH ×2 (09:52→18:56)
[2017-03-03] MEDS: CALCIUM/VITAMIN D (500/200) TAB GTB SCH (09:53)
[2017-03-03] MEDS: LEVETIRACETAM (100 MG/ML) 5ML CUP GTB SCH ×2 (09:53→20:41)
[2017-03-03] MEDS: APIXABAN 5 MG TABLET GTB SCH (09:53)
[2017-03-03] MEDS: COLISTIMETHATE 75 MG in SOD CHLORIDE 0.9% 100 ML IVPB SCH ×2 (09:53→20:39)
[2017-03-03] MEDS: MEMANTINE 10 MG TAB GTB SCH ×2 (09:53→20:40)
[2017-03-03] MEDS: LACTOBACILLUS RHAMNOSUS CAP PO SCH ×2 (09:53→20:40)
[2017-03-03] MEDS: DOCUSATE SODIUM 10 MG/ML (10ML CUP) GTB SCH (09:54)
[2017-03-03] MEDS: MULTIVITAMINS 30 ML CUP GTB SCH (09:54)
[2017-03-03] MEDS: FERROUS SULFATE 60 MG/ML 5ML CUP GTB SCH (09:54)
[2017-03-03] MEDS: MUPIROCIN 2% 22 GM OINT TOP SCH ×2 (09:59→20:42)
[2017-03-03] MEDS: COLLAGENASE 30 GM TUBE TOP SCH (09:59)
[2017-03-03 10:42] LABS: AADO2 Arterial 54.6 mmHg (7.0-24.0); Allen Test ACCEPTAB; Arterial Base Excess 2.6 mmol/L (-3.0-3); Arterial COHb 0.3 % (0.0-3.0); Arterial Fraction of Oxyhgb 98.6 % (93.0-99.0); Arterial HCO3 27.4 mmol/L (22.0-26.0); Arterial MetHb 0.2 % (0.0-1.5); Arterial Total Hemglobin 10.9 g/dl (12.0-18.0); Blood Gas IEPAP 15/5; MODE MASK - BIPAP
--- NOTE | 2017-03-03 10:54 | RADRPT ---
PROCEDURE: XR Chest. CLINICAL INDICATION: Shortness of breath, pulmonary edema TECHNIQUE: Single frontal view of the chest. COMPARISON: Chest radiograph 03/01/2017 chest radiograph. FINDINGS: Left chest pacemaker unchanged in appearance. Right-sided PICC line in satisfactory position. Mild residual central interstitial edema. Minimal residual right pleural effusion and associated atelectasis / consolidation. No pneumothorax. Cardiomegaly is unchanged. Mild improved appearance of pulmonary vascular congestion. No acute osseous abnormalities. Vascular calcifications of the aorta are present compatible with atherosclerosis. IMPRESSION: Mild residual cardiopulmonary congestion, improved from the prior examination. RPTAT: AADD .Taqueria Raymond MD, MD Date Time Electronically viewed and signed by .Taqueria Raymond MD, MD on 03/03/2017 10:54 .B/
[2017-03-03] MEDS ORDERED: FOSFOMYCIN 3 GM PACKET PO ONE (11:00)
--- NOTE | 2017-03-03 12:12 | CONS ---
Date/Time of Note Date/Time of Note DATE: 03/03/17 TIME: 12:11 Consultation Date/Type/Reason Admit Date/Time Feb 27, 2017 at 10:23 Date of Consultation: Mar 03, 2017 Type of Consultation: Pulmonary Hx of Present Illness Pulmonary consult dictated #[id number]. Continue present management. Respiratory: No shortness of breath Cardiovascular: no complaints Psychological: no complaints Past Surgical History Past Surgical Hx: no surgical history Social History Smoking Status: Never smoker Exam/Review of Systems Vital Signs Vitals Vital Signs Date Time Temp Pulse Resp B/P Pulse Ox O2 Delivery O2 Flow Rate FiO2 03/03/17 11:13 97.6 84 22 128/61 100 03/03/17 07:48 Nasal Cannula 2.0 03/03/17 07:48 45 Intake and Output 03/02/17 03/02/17 03/03/17 14:59 22:59 06:59 Intake Total 100 ml 1010 ml Output Total 1000 ml Balance 100 ml 10 ml Results Result Diagram: 03/03/17 0752 03/03/17 0752 Results 24 hrs Laboratory Tests Test 03/03/17 07:52 03/03/17 09:30 White Blood Count 8.6 Red Blood Count 2.92 L Hemoglobin 8.0 L Hematocrit 25.0 L Mean Corpuscular Volume 85.6 Mean Corpuscular Hemoglobin 27.4 L Mean Corpuscular Hemoglobin Concent 32.0 Red Cell Distribution Width 15.1 H Platelet Count 193 Mean Platelet Volume 10.8 H Neutrophils % 78.5 H Lymphocytes % 9.2 L Monocytes % 8.8 Eosinophils % 2.8 Basophils % 0.2 Nucleated Red Blood Cells % 0.0 Neutrophils # 6.8 Lymphocytes # 0.8 Monocytes # 0.8 Eosinophils # 0.2 Basophils # 0.0 Nucleated Red Blood Cells # 0.0 Sodium Level 142 Potassium Level 4.2 Chloride Level 105 Carbon Dioxide Level 30 Anion Gap 11 Blood Urea Nitrogen 37 H Creatinine 1.43 H Glucose Level 132 # Calcium Level 8.0 L Blood Gas Specimen Source Blood arterial Arterial Blood Date Drawn 03/03/2017 10:20:25 AM Arterial Blood pH (Temp corrected) 7.419 Arterial Blood pCO2 (Temp correct) 43.3 Arterial Blood pO2 (Temp corrected) 217.0 H Arterial Blood HCO3 27.4 H Arterial Blood Base Excess 2.6 Arterial Blood Oxygen Saturation 99.1 Thiago Test ACCEPTAB Arterial Blood Gas Puncture Site Right Radial Arterial Blood Carboxyhemoglobin 0.3 Arterial Blood Methemoglobin 0.2 Blood Gas A-a O2 Differential 54.6 H Oxyhemoglobin Percent 98.6 Total Hemoglobin 10.9 L Blood Gas Temperature 37.0 Blood Gas Respiration Rate 18.0 Blood Gas Actual Respiration Rate 22 Blood Gas Modality MASK - BIPAP FiO2 45.0 Blood Gas IPAP/EPAP Ratio 15/5 Blood Gas Notified Whom JLD Blood Gas Notified Time 03/03/2017 10:42:21 AM Medications Medications Current Medications Apixaban (Eliquis) 2.5 mg BID GTB Last administered on 03/03/17 09:53; Admin Dose 2.5 MG; Start 02/23/17 at 09:00 Atorvastatin Calcium (Lipitor) 40 mg QHS GTB Last administered on 03/02/17 21 :40; Admin Dose 40 MG; Start 02/23/17 at 21:00 Bisacodyl (Dulcolax Supp) 10 mg Q24H PRN [place] CONSTIPATION Last administered on 02/28/17 05:06; Admin Dose 10 MG; Start 02/23/17 at 06:00 Calcium/Vitamin D (Oyster Shell/ Vit-D (500/200)) 1 tab DAILY GTB Last administered on 03/03/17 09:53; Admin Dose 1 TAB; Start 02/23/17 at 09:00 Clonidine (Catapres) 0.1 mg Q4H PRN GTB ELEVATED BLOOD PRESSURE Last administered on 02/28/17 12:01; Admin Dose 0.1 MG; Start 02/23/17 at 06:00 Fenofibrate (Tricor) 145 mg QHS GTB Last administered on 03/02/17 21:40; Admin Dose 145 MG; Start 02/23/17 at 21:00 Ferrous Sulfate (Feosol Liquid Cup) 330 mg DAILY GTB Last administered on 03/03 09:54; Admin Dose 330 MG; Start 02/23/17 at 09:00 Magnesium Hydroxide (Milk Of Mag) 30 ml Q24H PRN PO CONSTIPATION Last administered on 02/27/17 09:16; Admin Dose 30 ML; Start 02/23/17 at 06:00 Memantine (Namenda) 10 mg BID GTB Last administered on 03/03/17 09:53; Admin Dose 10 MG; Start 02/23/17 at 09:00 Multivitamins (Multivitamin) 30 ml DAILY GTB Last administered on 03/03/17 09 :54; Admin Dose 30 ML; Start 02/23/17 at 09:00 Ondansetron HCl (Zofran Inj) 4 mg Q6H PRN IV NAUSEA AND/OR VOMITING; Start 02/23/17 at 06:00 Acetaminophen (Tylenol Tab) 650 mg Q4H PRN GTB PAIN AND OR ELEVATED TEMP Last administered on 03/01/17 06:05; Admin Dose 650 MG; Start 02/23/17 at 08:00 Lactobacillus Acidophilus/ Rhamnosus (Culturelle) 1 cap BID PO Last administered on 03/03/17 09:53; Admin Dose 1 CAP; Start 02/23/17 at 09:00 Miscellaneous Information (Pending Santyl Order For Wound Care) This patient basurto... PRN PRN XX WOUND CARE; Start 02/23/17 at 17:00 Miscellaneous Information (Pending Santyl Order For Wound Care) This patient basurto... PRN PRN XX WOUND CARE; Start 02/24/17 at 10:00 Collagenase (Santyl) 1 applic DAILY TOP Last administered on 03/03/17 09:59; Admin Dose 1 APPLIC; Start 02/24/17 at 13:00 Lansoprazole 30 mg 30 mg DAILY@06 GTB Last administered on 03/03/17 05:57; Admin Dose 30 MG; Start 02/25/17 at 06:00 Colistimethate Sodium/Sodium Chloride (Coly-Mycin/NS) 100 ml @ 200 mls/hr Q12 IVPB Last administered on 03/03/17 09:53; Admin Dose 200 MLS/HR; Start 02/25 at 21:00 Mupirocin (Bactroban) 1 applic BID TOP Last administered on 03/03/17 09:59; Admin Dose 1 APPLIC; Start 02/26/17 at 21:00 Docusate Sodium (Colace Liquid Cup) 200 mg DAILY GTB Last administered on 03/03 09:54; Admin Dose 200 MG; Start 03/01/17 at 09:49 Levetiracetam 750 mg 750 mg BID GTB Last administered on 03/03/17 09:53; Admin Dose 750 MG; Start 03/01/17 at 09:00 Linezolid (Zyvox 600mg/D5W (Pmx)) 300 ml @ 300 mls/hr Q12H IVPB Last administered on 03/03/17 05:57; Admin Dose 300 MLS/HR; Start 03/01/17 at 18: 00 Hydralazine HCl (Apresoline) 10 mg Q6H PRN IV ELEVATED SYSTOLIC BP Last administered on 03/03/17 03:02; Admin Dose 10 MG; Start 03/03/17 at 03:00 MICHAEL DO Mar 03, 2017 12:12
--- NOTE | 2017-03-03 13:03 | CONS ---
DATE OF ADMISSION: 02/27/2017 DATE OF CONSULTATION: TYPE OF CONSULTATION: Pulmonary consultation. REFERRING PHYSICIAN: Hospitalist. REASON FOR REFERRAL: Evaluation of hypoxemic respiratory failure. HISTORY OF PRESENT ILLNESS: The patient is an 81-year-old male who was admitted with complaints of low grade fever at the half-way. The patient was diagnosed with UTI with sepsis and has been started on appropriate antibiotic regimen. By the time I saw the patient in the room, the patient was attended to by his daughter and because of advanced dementia, the patient was unable to give any history whatsoever. History was obtained from medical records as well as from the patient's daughter, who was present in the room. PAST MEDICAL HISTORY: 1. Advanced dementia. 2. 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 3. Status post G-tube placement. 4. Hyperlipidemia. 5. History of deep venous thrombosis. 6. Hypertension. MEDICATIONS: The patient is currently on: 1. Coly-Mycin 75 mg q.12h. 2. Zyvox 600 mg q.12h. 3. Acetaminophen on a p.r.n. basis. 4. Albuterol q.6h. 5. Eliquis 2.5 mg b.i.d. 6. Lipitor 40 mg a day. 7. The patient is on tube feedings. 8. Tricor 145 mg a day. 9. Lasix 40 mg IV b.i.d. 10. Prevacid 30 mg daily. 11. Keppra 750 mg b.i.d. 12. Zofran on a p.r.n. basis. PAST MEDICAL HISTORY: Briefly the patient has a history of anemia and seizure disorder. ALLERGIES: PENICILLIN. SOCIAL HISTORY: Patient never smoked. No history of alcohol or drug abuse. FAMILY HISTORY: The patient is she has 6 children. SOCIAL HISTORY: The patient never smoked. No history of alcohol or drug abuse. 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 REVIEW OF SYSTEMS: Unable to be obtained. PHYSICAL EXAMINATION: GENERAL: Elderly male, awake but unresponsive to any commands currently in no distress. VITAL SIGNS: Temperature is 97.6 degrees Fahrenheit, respiratory rate is 20 per minute, heart rate 84 per minute, blood pressure is 128/60, O2 saturation 100%. Patient is currently on BiPAP 15/5, 45% FIO2. HEENT: Supple neck. SKIN: The patient has multiple carious teeth in the lower jaw. Pupils are mid- size bilaterally. NECK: No neck masses, no thyromegaly. CHEST: Diminished but clear breath sounds. HEART: S1, S2 audible. No murmurs, regular rhythm. ABDOMEN: Soft. G-tube in place. No organomegaly. Bowel sounds audible. EXTREMITIES: No peripheral edema. There is a well-healed right below knee amputation stump. 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 LABORATORY DATA: Urinalysis from admission is grossly positive for UTI. Urine culture is growing VRE as well as Acinetobacter Paola. Labs today sodium 142 , potassium 4.2, chloride 105, bicarbonate 20, BUN 11, creatinine 1.4. White count 8.6, hemoglobin 8, platelet count of 193. ABG on BiPAP at current settings, pH 7.41, CO2 of 43, pO2 of 217. Chest x-ray was reviewed which is showing improving pulmonary edema. ASSESSMENT: 1. Patient admitted for urinary tract infection with sepsis, currently on appropriate antibiotic regimen. 2. Hypoxemia due to pulmonary edema with interval improvement. 3. Advanced dementia. 4. Stable hypertension. 5. History of deep venous thrombosis. RECOMMENDATIONS: Continue current treatment. Prognosis is poor. Dictated By: MICHAEL DO MD AQ/NTS Conf#: [id number] DID#: [id number] CC: JOSE C VILLATORO MD;*EndCC* MTDD
--- NOTE | 2017-03-03 14:17 | CONS ---
Date/Time of Note Date/Time of Note DATE: 03/03/17 TIME: 14:16 Consult Date/Type/Reason Admit Date/Time Feb 27, 2017 at 10:23 Type of Consultation: ID Ordering Provider: JOSE C VILLATORO MD Objective Vital Signs Date Time Temp Pulse Resp B/P Pulse Ox O2 Delivery O2 Flow Rate FiO2 03/03/17 12:14 67 03/03/17 11:13 97.6 22 128/61 100 03/03/17 07:48 Nasal Cannula 2.0 03/03/17 07:48 45 Intake and Output 03/02/17 03/02/17 03/03/17 15:00 23:00 07:00 Intake Total 100 ml 1010 ml Output Total 1000 ml Balance 100 ml 10 ml Results/Medications Result Diagram: 03/03/17 0752 03/03/17 0752 Results 24 hrs Laboratory Tests Test 03/03/17 07:52 03/03/17 09:30 White Blood Count 8.6 Red Blood Count 2.92 L Hemoglobin 8.0 L Hematocrit 25.0 L Mean Corpuscular Volume 85.6 Mean Corpuscular Hemoglobin 27.4 L Mean Corpuscular Hemoglobin Concent 32.0 Red Cell Distribution Width 15.1 H Platelet Count 193 Mean Platelet Volume 10.8 H Neutrophils % 78.5 H Lymphocytes % 9.2 L Monocytes % 8.8 Eosinophils % 2.8 Basophils % 0.2 Nucleated Red Blood Cells % 0.0 Neutrophils # 6.8 Lymphocytes # 0.8 Monocytes # 0.8 Eosinophils # 0.2 Basophils # 0.0 Nucleated Red Blood Cells # 0.0 Sodium Level 142 Potassium Level 4.2 Chloride Level 105 Carbon Dioxide Level 30 Anion Gap 11 Blood Urea Nitrogen 37 H Creatinine 1.43 H Glucose Level 132 # Calcium Level 8.0 L Blood Gas Specimen Source Blood arterial Arterial Blood Date Drawn 03/03/2017 10:20:25 AM Arterial Blood pH (Temp corrected) 7.419 Arterial Blood pCO2 (Temp correct) 43.3 Arterial Blood pO2 (Temp corrected) 217.0 H Arterial Blood HCO3 27.4 H Arterial Blood Base Excess 2.6 Arterial Blood Oxygen Saturation 99.1 Thiago Test ACCEPTAB Arterial Blood Gas Puncture Site Right Radial Arterial Blood Carboxyhemoglobin 0.3 Arterial Blood Methemoglobin 0.2 Blood Gas A-a O2 Differential 54.6 H Oxyhemoglobin Percent 98.6 Total Hemoglobin 10.9 L Blood Gas Temperature 37.0 Blood Gas Respiration Rate 18.0 Blood Gas Actual Respiration Rate 22 Blood Gas Modality MASK - BIPAP FiO2 45.0 Blood Gas IPAP/EPAP Ratio 30/08 Blood Gas Notified Whom JLD Blood Gas Notified Time 03/03/2017 10:42:21 AM Medications Current Medications Apixaban (Eliquis) 2.5 mg BID GTB Last administered on 03/03/17 09:53; Admin Dose 2.5 MG; Start 02/23/17 at 09:00 Atorvastatin Calcium (Lipitor) 40 mg QHS GTB Last administered on 03/02/17 21 :40; Admin Dose 40 MG; Start 02/23/17 at 21:00 Bisacodyl (Dulcolax Supp) 10 mg Q24H PRN [place] CONSTIPATION Last administered on 02/28/17 05:06; Admin Dose 10 MG; Start 02/23/17 at 06:00 Calcium/Vitamin D (Oyster Shell/ Vit-D (500/200)) 1 tab DAILY GTB Last administered on 03/03/17 09:53; Admin Dose 1 TAB; Start 02/23/17 at 09:00 Clonidine (Catapres) 0.1 mg Q4H PRN GTB ELEVATED BLOOD PRESSURE Last administered on 02/28/17 12:01; Admin Dose 0.1 MG; Start 02/23/17 at 06:00 Fenofibrate (Tricor) 145 mg QHS GTB Last administered on 03/02/17 21:40; Admin Dose 145 MG; Start 02/23/17 at 21:00 Ferrous Sulfate (Feosol Liquid Cup) 330 mg DAILY GTB Last administered on 03/03 09:54; Admin Dose 330 MG; Start 02/23/17 at 09:00 Magnesium Hydroxide (Milk Of Mag) 30 ml Q24H PRN PO CONSTIPATION Last administered on 02/27/17 09:16; Admin Dose 30 ML; Start 02/23/17 at 06:00 Memantine (Namenda) 10 mg BID GTB Last administered on 03/03/17 09:53; Admin Dose 10 MG; Start 02/23/17 at 09:00 Multivitamins (Multivitamin) 30 ml DAILY GTB Last administered on 03/03/17 09 :54; Admin Dose 30 ML; Start 02/23/17 at 09:00 Ondansetron HCl (Zofran Inj) 4 mg Q6H PRN IV NAUSEA AND/OR VOMITING; Start 02/23/17 at 06:00 Acetaminophen (Tylenol Tab) 650 mg Q4H PRN GTB PAIN AND OR ELEVATED TEMP Last administered on 03/01/17 06:05; Admin Dose 650 MG; Start 02/23/17 at 08:00 Lactobacillus Acidophilus/ Rhamnosus (Culturelle) 1 cap BID PO Last administered on 03/03/17 09:53; Admin Dose 1 CAP; Start 02/23/17 at 09:00 Miscellaneous Information (Pending Santyl Order For Wound Care) This patient basurto... PRN PRN XX WOUND CARE; Start 02/23/17 at 17:00 Miscellaneous Information (Pending Santyl Order For Wound Care) This patient basurto... PRN PRN XX WOUND CARE; Start 02/24/17 at 10:00 Collagenase (Santyl) 1 applic DAILY TOP Last administered on 03/03/17 09:59; Admin Dose 1 APPLIC; Start 02/24/17 at 13:00 Lansoprazole 30 mg 30 mg DAILY@06 GTB Last administered on 03/03/17 05:57; Admin Dose 30 MG; Start 02/25/17 at 06:00 Colistimethate Sodium/Sodium Chloride (Coly-Mycin/NS) 100 ml @ 200 mls/hr Q12 IVPB Last administered on 03/03/17 09:53; Admin Dose 200 MLS/HR; Start 02/25 at 21:00 Mupirocin (Bactroban) 1 applic BID TOP Last administered on 03/03/17 09:59; Admin Dose 1 APPLIC; Start 02/26/17 at 21:00 Docusate Sodium (Colace Liquid Cup) 200 mg DAILY GTB Last administered on 03/03 09:54; Admin Dose 200 MG; Start 03/01/17 at 09:49 Levetiracetam 750 mg 750 mg BID GTB Last administered on 03/03/17 09:53; Admin Dose 750 MG; Start 03/01/17 at 09:00 Linezolid (Zyvox 600mg/D5W (Pmx)) 300 ml @ 300 mls/hr Q12H IVPB Last administered on 03/03/17 05:57; Admin Dose 300 MLS/HR; Start 03/01/17 at 18: 00 Hydralazine HCl (Apresoline) 10 mg Q6H PRN IV ELEVATED SYSTOLIC BP Last administered on 03/03/17 03:02; Admin Dose 10 MG; Start 03/03/17 at 03:00 Assessment/Plan Chief Complaint/Hosp Course SUBJECTIVE: Noncommunicative, lying comfortably in bed, no fevers MICROBIOLOGY: Urine culture on admission grew E. coli, ESBL, Acinetobacter baumannii. Blood cultures have been negative. Nares swab positive for MRSA. Repeat urine cx + VRE/GNR ANTIMICROBIALS: The patient is on IV Colistin and Zyvox. INDWELLINGS: [place] catheter/PEG/RUE PICC. PHYSICAL EXAMINATION: GENERAL: This is a chronically ill-appearing, elderly man who is in no distress. HEENT: Head atraumatic, normocephalic. Sclerae anicteric. Buccal mucosa dry. NECK: Supple. CHEST: Rise symmetrical. Breath sounds diminished to bases. HEART: S1, S2. ABDOMEN: Soft, bowel tones present. EXTREMITIES: Without cyanosis. ASSESSMENT: 1. Sepsis ?LLL PNA 1. Polymicrobial urinary tract infection. 2. Methicillin-resistant Staphylococcus aureus nares colonization. 3. History of atrial fibrillation, status post permanent pacemaker. 4. Peripheral vascular disease with right below knee amputation. 5. Anemia. PLAN: Clinically stable. Continue abx, f/u final cx's, give a dose of Fosfomycin, continue aspiration precautions DW staff Problems: EM RIOS NP Mar 03, 2017 14:17
--- NOTE | 2017-03-03 19:45 | CONS ---
Date/Time of Note Date/Time of Note DATE: 03/03/17 TIME: 19:39 Assessment/Plan Assessment/Plan Chief Complaint/Hosp Course IMPRESSION: 1. Cardiac arrhythmia with current rhythm concerning for possible accelerated junctional rhythm and associated PVCs. 2. History of permanent pacemaker. 3. History of paroxysmal atrial fibrillation on systemic anticoagulation. 4. Hypertension-remains somewhat labile 5. Urinary tract infection. 6. Fevers. 7. Altered mental state and dementia. 8. Anemia. 9. Hypernatremia-improved 10. Dyslipidemia. 11.Encephalopathy-ONGOING 12.PVC's-have recurrently Recc: -Tele -serial ecg's -Continue norvasc and BB -Continue tricor/statin -Eliquis held in the setting of anemia Problems: Consultation Date/Type/Reason Admit Date/Time Feb 27, 2017 at 10:23 Initial Consult Date 02/23/2017 Type of Consultation: cardiology Reason for Consultation arrythmia Referring Provider: JOSE C VILLATORO MD Exam/Review of Systems Vital Signs Vitals Vital Signs Date Time Temp Pulse Resp B/P Pulse Ox O2 Delivery O2 Flow Rate FiO2 03/03/17 16:06 60 03/03/17 15:13 98.0 22 134/61 99 03/03/17 14:27 Nasal Cannula 2.0 03/03/17 10:30 45 Intake and Output 03/02/17 03/02/17 03/03/17 15:00 23:00 07:00 Intake Total 100 ml 1010 ml Output Total 1000 ml Balance 100 ml 10 ml Exam Review of Systems: CONSTITUTIONAL: No fevers, chills. PULMONARY: No sob CARDIOVASCULAR: No chest pain/palpitations GASTROINTESTINAL: No nausea/vomiting. GENITOURINARY: No hematuria/dysuria. MUSCULOSKELETAL: No myagias/arthalgias. PSYCHIATRIC: The patient denies depression. NEUROLOGIC: No weakness Constitutional: alert, oriented Psych: no complaints Head: normocephalic ENMT: mucosa pink and moist Neck: jvd (9 cm water), supple Respiratory: diminished breath sounds Cardiovascular: regular rate and rhythm Gastrointestinal: non-tender, soft Musculoskeletal: muscle tone (normal) Extremities: edema (none) Neurological: other (No focal deficits) Results Result Diagram: 03/03/17 0752 03/03/17 0752 Results 24 hrs Laboratory Tests Test 03/03/17 07:52 03/03/17 09:30 White Blood Count 8.6 Red Blood Count 2.92 L Hemoglobin 8.0 L Hematocrit 25.0 L Mean Corpuscular Volume 85.6 Mean Corpuscular Hemoglobin 27.4 L Mean Corpuscular Hemoglobin Concent 32.0 Red Cell Distribution Width 15.1 H Platelet Count 193 Mean Platelet Volume 10.8 H Neutrophils % 78.5 H Lymphocytes % 9.2 L Monocytes % 8.8 Eosinophils % 2.8 Basophils % 0.2 Nucleated Red Blood Cells % 0.0 Neutrophils # 6.8 Lymphocytes # 0.8 Monocytes # 0.8 Eosinophils # 0.2 Basophils # 0.0 Nucleated Red Blood Cells # 0.0 Sodium Level 142 Potassium Level 4.2 Chloride Level 105 Carbon Dioxide Level 30 Anion Gap 11 Blood Urea Nitrogen 37 H Creatinine 1.43 H Glucose Level 132 # Calcium Level 8.0 L Blood Gas Specimen Source Blood arterial Arterial Blood Date Drawn 03/03/2017 10:20:25 AM Arterial Blood pH (Temp corrected) 7.419 Arterial Blood pCO2 (Temp correct) 43.3 Arterial Blood pO2 (Temp corrected) 217.0 H Arterial Blood HCO3 27.4 H Arterial Blood Base Excess 2.6 Arterial Blood Oxygen Saturation 99.1 Thiago Test ACCEPTAB Arterial Blood Gas Puncture Site Right Radial Arterial Blood Carboxyhemoglobin 0.3 Arterial Blood Methemoglobin 0.2 Blood Gas A-a O2 Differential 54.6 H Oxyhemoglobin Percent 98.6 Total Hemoglobin 10.9 L Blood Gas Temperature 37.0 Blood Gas Respiration Rate 18.0 Blood Gas Actual Respiration Rate 22 Blood Gas Modality MASK - BIPAP FiO2 45.0 Blood Gas IPAP/EPAP Ratio 15/5 Blood Gas Notified Whom JLD Blood Gas Notified Time 03/03/2017 10:42:21 AM Medications Medications Current Medications Atorvastatin Calcium (Lipitor) 40 mg QHS GTB Last administered on 03/02/17 21 :40; Admin Dose 40 MG; Start 02/23/17 at 21:00 Bisacodyl (Dulcolax Supp) [address] CONSTIPATION Last administered on 02/28/17 05:06; Admin Dose 10 MG; Start 02/23/17 at 06:00 Calcium/Vitamin D (Oyster Shell/ Vit-D (500/200)) 1 tab DAILY GTB Last administered on 03/03/17 09:53; Admin Dose 1 TAB; Start 02/23/17 at 09:00 Clonidine (Catapres) 0.1 mg Q4H PRN GTB ELEVATED BLOOD PRESSURE Last administered on 02/28/17 12:01; Admin Dose 0.1 MG; Start 02/23/17 at 06:00 Fenofibrate (Tricor) 145 mg QHS GTB Last administered on 03/02/17 21:40; Admin Dose 145 MG; Start 02/23/17 at 21:00 Ferrous Sulfate (Feosol Liquid Cup) 330 mg DAILY GTB Last administered on 03/03 09:54; Admin Dose 330 MG; Start 02/23/17 at 09:00 Magnesium Hydroxide (Milk Of Mag) 30 ml Q24H PRN PO CONSTIPATION Last administered on 02/27/17 09:16; Admin Dose 30 ML; Start 02/23/17 at 06:00 Memantine (Namenda) 10 mg BID GTB Last administered on 03/03/17 09:53; Admin Dose 10 MG; Start 02/23/17 at 09:00 Multivitamins (Multivitamin) 30 ml DAILY GTB Last administered on 03/03/17 09 :54; Admin Dose 30 ML; Start 02/23/17 at 09:00 Ondansetron HCl (Zofran Inj) 4 mg Q6H PRN IV NAUSEA AND/OR VOMITING; Start 02/23/17 at 06:00 Acetaminophen (Tylenol Tab) 650 mg Q4H PRN GTB PAIN AND OR ELEVATED TEMP Last administered on 03/01/17 06:05; Admin Dose 650 MG; Start 02/23/17 at 08:00 Lactobacillus Acidophilus/ Rhamnosus (Culturelle) 1 cap BID PO Last administered on 03/03/17 09:53; Admin Dose 1 CAP; Start 02/23/17 at 09:00 Miscellaneous Information (Pending Santyl Order For Wound Care) This patient basurto... PRN PRN XX WOUND CARE; Start 02/23/17 at 17:00 Miscellaneous Information (Pending Santyl Order For Wound Care) This patient basurto... PRN PRN XX WOUND CARE; Start 02/24/17 at 10:00 Collagenase (Santyl) 1 applic DAILY TOP Last administered on 03/03/17 09:59; Admin Dose 1 APPLIC; Start 02/24/17 at 13:00 Lansoprazole 30 mg 30 mg DAILY@06 GTB Last administered on 03/03/17 05:57; Admin Dose 30 MG; Start 02/25/17 at 06:00 Colistimethate Sodium/Sodium Chloride (Coly-Mycin/NS) 100 ml @ 200 mls/hr Q12 IVPB Last administered on 03/03/17 09:53; Admin Dose 200 MLS/HR; Start 02/25 at 21:00 Mupirocin (Bactroban) 1 applic BID TOP Last administered on 03/03/17 09:59; Admin Dose 1 APPLIC; Start 02/26/17 at 21:00 Docusate Sodium (Colace Liquid Cup) 200 mg DAILY GTB Last administered on 03/03 09:54; Admin Dose 200 MG; Start 03/01/17 at 09:49 Levetiracetam 750 mg 750 mg BID GTB Last administered on 03/03/17 09:53; Admin Dose 750 MG; Start 03/01/17 at 09:00 Linezolid (Zyvox 600mg/D5W (Pmx)) 300 ml @ 300 mls/hr Q12H IVPB Last administered on 03/03/17 18:56; Admin Dose 300 MLS/HR; Start 03/01/17 at 18: 00 Hydralazine HCl (Apresoline) 10 mg Q6H PRN IV ELEVATED SYSTOLIC BP Last administered on 03/03/17 03:02; Admin Dose 10 MG; Start 03/03/17 at 03:00 TORRES FRANCIS Mar 03, 2017 19:45
[2017-03-03] MEDS: ATORVASTATIN 40 MG TAB GTB SCH (20:40)
[2017-03-03] MEDS: FENOFIBRATE 145 MG TAB GTB SCH (20:40)
[2017-03-04] VITALS (25 sets, daily range): BP systolic 115–147; BP diastolic 60–86; PULSE 50–69; RESP 16–20
[2017-03-04] MEDS: ALBUTEROL/IPRATROPIUM (NEB) 3 ML AMP HHN SCH ×6 (00:41→20:27)
[2017-03-04] MEDS: FUROSEMIDE 40 MG INJ IV SCH ×2 (05:26→17:43)
[2017-03-04] MEDS: LINEZOLID 600 MG/D5W (PMX) 300 ML IVPB SCH ×2 (05:26→17:43)
[2017-03-04] MEDS: LANSOPRAZOLE 30 MG CAP GTB SCH (05:27)
[2017-03-04 07:24] LABS: BASOPHILS % 0.5 % (0.0-2.0); EOSINOPHILS # 0.4 10^3/ul (0.0-0.5); EOSINOPHILS % 7.2 % (0.0-7.0); HEMATOCRIT 27.3 % (42.0-52.0); HEMOGLOBIN 8.7 g/dl (14.0-18.0); LYMPHOCYTES # 0.9 10^3/ul (0.8-2.9); LYMPHOCYTES % 15.2 % (15.0-51.0); MEAN CORPUSCULAR HEMOGLOBIN 27.4 pg (29.0-33.0); MEAN CORPUSCULAR HGB CONC 31.9 g/dl (32.0-37.0); MEAN CORPUSCULAR VOLUME 85.8 fl (82.0-101.0); MEAN PLATELET VOLUME 10.3 fl (7.4-10.4); MONOCYTE # 0.5 10^3/ul (0.3-0.9); MONOCYTES % 8.2 % (0.0-11.0); NEUTROPHILS % 68.4 % (39.0-77.0); PLATELET COUNT 208 10^3/UL (140-415); RED BLOOD COUNT 3.18 10^6/ul (4.70-6.10); RED CELL DISTRIBUTION WIDTH 15.4 % (11.5-14.5); WHITE BLOOD COUNT 5.9 10^3/ul (4.8-10.8)
[2017-03-04 07:50] LABS: CALCIUM 8.4 mg/dl (8.4-10.2); CREATININE 1.57 mg/dl (0.61-1.24); POTASSIUM 3.9 mmol/L (3.5-5.1)
[2017-03-04] MEDS: DOCUSATE SODIUM 10 MG/ML (10ML CUP) GTB SCH (09:21)
[2017-03-04] MEDS: FERROUS SULFATE 60 MG/ML 5ML CUP GTB SCH (09:21)
[2017-03-04] MEDS: LEVETIRACETAM (100 MG/ML) 5ML CUP GTB SCH ×2 (09:21→21:03)
[2017-03-04] MEDS: MULTIVITAMINS 30 ML CUP GTB SCH (09:21)
[2017-03-04] MEDS: COLLAGENASE 30 GM TUBE TOP SCH (09:22)
[2017-03-04] MEDS: CALCIUM/VITAMIN D (500/200) TAB GTB SCH (09:22)
[2017-03-04] MEDS: COLISTIMETHATE 75 MG in SOD CHLORIDE 0.9% 100 ML IVPB SCH ×2 (09:22→21:03)
[2017-03-04] MEDS: MUPIROCIN 2% 22 GM OINT TOP SCH ×2 (09:22→21:02)
[2017-03-04] MEDS: LACTOBACILLUS RHAMNOSUS CAP PO SCH ×2 (09:22→21:02)
[2017-03-04] MEDS: MEMANTINE 10 MG TAB GTB SCH (09:22)
--- NOTE | 2017-03-04 09:33 | CONS ---
Date/Time of Note Date/Time of Note DATE: 03/04/17 TIME: 09:31 Assessment/Plan Assessment/Plan Chief Complaint/Hosp Course Pulmonary consult dictated #[id number]. Continue present management. Problems: Additional Assessment/Plan Patient is currently on BiPAP 15 with 75% FiO2. Assessment and recommendations; 1. Patient admitted with UTI and sepsis currently on appropriate antibiotic regimen. 2. History of anemia and advanced dementia. 3. History of hypertension and chronic renal insufficiency. 4. Respiratory failure with hypoxemia. Continue current supportive care. Prognosis is very poor. Consider hospice. Consultation Date/Type/Reason Admit Date/Time Feb 27, 2017 at 10:23 Initial Consult Date 03/03/17 Type of Consultation: Pulmonary Referring Provider: JOSE C VILLATORO MD 24 HR Interval Summary Free Text/Dictation Patient's condition remains tenuous at best. Still requiring BiPAP at high FiO2 of 75%. Patient remains unresponsive. General exam; elderly male, on BiPAP, unresponsive, currently in no distress. Exam/Review of Systems Vital Signs Vitals Vital Signs Date Time Temp Pulse Resp B/P Pulse Ox O2 Delivery O2 Flow Rate FiO2 03/04/17 08:54 60 03/04/17 07:21 98.7 18 141/79 98 03/04/17 07:10 50 03/03/17 20:32 Nasal Cannula 3.0 Intake and Output 03/03/17 03/03/17 03/04/17 15:00 23:00 07:00 Intake Total 960 ml Output Total 2100 ml Balance -1140 ml Exam HEENT exam; supple neck, no lymphadenopathy. Positive JVD. Patient has a multiple carious teeth in lower jaw. Chest exam; diminished breath sounds bilaterally. S1-S2 audible, no murmurs. Regular rhythm. Abdomen exam; soft, nondistended. G-tube in place. Bowel sounds audible. Extremity exam; no peripheral edema. CASE MANAGER exam; patient remains unresponsive. Results Result Diagram: 03/04/17 0708 03/04/17 0707 Results 24 hrs Laboratory Tests Test 03/04/17 07:07 03/04/17 07:08 Sodium Level 144 Potassium Level 3.9 Chloride Level 103 Carbon Dioxide Level 32 H Anion Gap 13 Blood Urea Nitrogen 38 H Creatinine 1.57 H Glucose Level 128 Calcium Level 8.4 White Blood Count 5.9 # Red Blood Count 3.18 L Hemoglobin 8.7 L Hematocrit 27.3 L Mean Corpuscular Volume 85.8 Mean Corpuscular Hemoglobin 27.4 L Mean Corpuscular Hemoglobin Concent 31.9 L Red Cell Distribution Width 15.4 H Platelet Count 208 Mean Platelet Volume 10.3 Neutrophils % 68.4 Lymphocytes % 15.2 Monocytes % 8.2 Eosinophils % 7.2 H Basophils % 0.5 Nucleated Red Blood Cells % 0.0 Neutrophils # 4.0 Lymphocytes # 0.9 Monocytes # 0.5 Eosinophils # 0.4 Basophils # 0.0 Nucleated Red Blood Cells # 0.0 Medications Medications Current Medications Atorvastatin Calcium (Lipitor) 40 mg QHS GTB Last administered on 03/03/17 20 :40; Admin Dose 40 MG; Start 02/23/17 at 21:00 Bisacodyl (Dulcolax Supp) 10 mg Q24H PRN [place] CONSTIPATION Last administered on 02/28/17 05:06; Admin Dose 10 MG; Start 02/23/17 at 06:00 Calcium/Vitamin D (Oyster Shell/ Vit-D (500/200)) 1 tab DAILY GTB Last administered on 03/04/17 09:22; Admin Dose 1 TAB; Start 02/23/17 at 09:00 Clonidine (Catapres) 0.1 mg Q4H PRN GTB ELEVATED BLOOD PRESSURE Last administered on 02/28/17 12:01; Admin Dose 0.1 MG; Start 02/23/17 at 06:00 Fenofibrate (Tricor) 145 mg QHS GTB Last administered on 03/03/17 20:40; Admin Dose 145 MG; Start 02/23/17 at 21:00 Ferrous Sulfate (Feosol Liquid Cup) 330 mg DAILY GTB Last administered on 03/04 09:21; Admin Dose 330 MG; Start 02/23/17 at 09:00 Magnesium Hydroxide (Milk Of Mag) 30 ml Q24H PRN [place] CONSTIPATION Last administered on 02/27/17 09:16; Admin Dose 30 ML; Start 02/23/17 at 06:00 Memantine (Namenda) 10 mg BID GTB Last administered on 03/04/17 09:22; Admin Dose 10 MG; Start 02/23/17 at 09:00 Multivitamins (Multivitamin) 30 ml DAILY GTB Last administered on 03/04/17 09 :21; Admin Dose 30 ML; Start 02/23/17 at 09:00 Ondansetron HCl (Zofran Inj) 4 mg Q6H PRN IV NAUSEA AND/OR VOMITING; Start 02/23/17 at 06:00 Acetaminophen (Tylenol Tab) 650 mg Q4H PRN GTB PAIN AND OR ELEVATED TEMP Last administered on 03/01/17 06:05; Admin Dose 650 MG; Start 02/23/17 at 08:00 Lactobacillus Acidophilus/ Rhamnosus (Culturelle) 1 cap BID PO Last administered on 03/04/17 09:22; Admin Dose 1 CAP; Start 02/23/17 at 09:00 Miscellaneous Information (Pending Santyl Order For Wound Care) This patient basurto... PRN PRN XX WOUND CARE; Start 02/23/17 at 17:00 Miscellaneous Information (Pending Santyl Order For Wound Care) This patient basurto... PRN PRN XX WOUND CARE; Start 02/24/17 at 10:00 Collagenase (Santyl) 1 applic DAILY TOP Last administered on 03/04/17 09:22; Admin Dose 1 APPLIC; Start 02/24/17 at 13:00 Lansoprazole 30 mg 30 mg DAILY@06 GTB Last administered on 03/04/17 05:27; Admin Dose 30 MG; Start 02/25/17 at 06:00 Colistimethate Sodium/Sodium Chloride (Coly-Mycin/NS) 100 ml @ 200 mls/hr Q12 IVPB Last administered on 03/04/17 09:22; Admin Dose 200 MLS/HR; Start 02/25 at 21:00 Mupirocin (Bactroban) 1 applic BID TOP Last administered on 03/04/17 09:22; Admin Dose 1 APPLIC; Start 02/26/17 at 21:00 Docusate Sodium (Colace Liquid Cup) 200 mg DAILY GTB Last administered on 03/04 09:21; Admin Dose 200 MG; Start 03/01/17 at 09:49 Levetiracetam 750 mg 750 mg BID GTB Last administered on 03/04/17 09:21; Admin Dose 750 MG; Start 03/01/17 at 09:00 Linezolid (Zyvox 600mg/D5W (Pmx)) 300 ml @ 300 mls/hr Q12H IVPB Last administered on 03/04/17 05:26; Admin Dose 300 MLS/HR; Start 03/01/17 at 18: 00 Hydralazine HCl (Apresoline) 10 mg Q6H PRN IV ELEVATED SYSTOLIC BP Last administered on 03/03/17 03:02; Admin Dose 10 MG; Start 03/03/17 at 03:00 MICHAEL DO Mar 04, 2017 09:33
--- NOTE | 2017-03-04 11:54 | PN ---
Date/Time of Note Date/Time of Note DATE: 03/04/17 TIME: 11:52 Assessment/Plan VTE Prophylaxis VTE Prophylaxis Intervention: SCD's Lines/Catheters IV Catheter Type (from Nrsg): PICC Line Central line still needed: Yes Urinary Cath still in place: Yes Reason Cath still needed: urinary retention Assessment/Plan Chief Complaint/Hosp Course 1. Systemic inflammatory response syndrome, better. 2. Chronic kidney disease. 3. Hypernatremia. 4. Lung infiltrate. 5. Lung atelectasis. 6. Gastrostomy tube placement. 7. History of peripheral vascular disease. 8. Dyslipidemia. 9. Chronic obstructive pulmonary disease. 10. Right below-knee amputation. 11. Incomplete database. 12. History of pacemaker placement. 13. History of chronic atrial fibrillation. 14 encephalopathy 15 hypernatremia Pt arrhythmia was controlled and UTI subside. His hospital stay was unremarkable. Problems: Assessment/Plan 1. Hospice evaluation 2. Pt is on BIPAP 3. family agrees for hospice 4. BIPAP can be discontinued 5. pain control Subjective 24 Hr Interval Summary Subjective hx not possible: pt non-verbal Exam/Review of Systems Vital Signs Vitals Vital Signs Date Time Temp Pulse Resp B/P Pulse Ox O2 Delivery O2 Flow Rate FiO2 03/04/17 08:54 60 03/04/17 08:00 Nasal Cannula 3.0 03/04/17 07:21 98.7 18 141/79 98 03/04/17 07:10 50 Intake and Output 03/03/17 03/03/17 03/04/17 15:00 23:00 07:00 Intake Total 960 ml Output Total 2100 ml Balance -1140 ml Exam Constitutional: distress, frail Psych: no complaints Head: normocephalic Eyes: nl conjunctiva Neck: supple Respiratory: crackles/rales, diminished breath sounds, labored breathing Cardiovascular: irregular rhythm Gastrointestinal: soft Results Result Diagram: 03/04/17 0708 03/04/17 0707 Results 24 hrs Laboratory Tests Test 03/04/17 07:07 03/04/17 07:08 Sodium Level 144 Potassium Level 3.9 Chloride Level 103 Carbon Dioxide Level 32 H Anion Gap 13 Blood Urea Nitrogen 38 H Creatinine 1.57 H Glucose Level 128 Calcium Level 8.4 White Blood Count 5.9 # Red Blood Count 3.18 L Hemoglobin 8.7 L Hematocrit 27.3 L Mean Corpuscular Volume 85.8 Mean Corpuscular Hemoglobin 27.4 L Mean Corpuscular Hemoglobin Concent 31.9 L Red Cell Distribution Width 15.4 H Platelet Count 208 Mean Platelet Volume 10.3 Neutrophils % 68.4 Lymphocytes % 15.2 Monocytes % 8.2 Eosinophils % 7.2 H Basophils % 0.5 Nucleated Red Blood Cells % 0.0 Neutrophils # 4.0 Lymphocytes # 0.9 Monocytes # 0.5 Eosinophils # 0.4 Basophils # 0.0 Nucleated Red Blood Cells # 0.0 Medications Medications Current Medications Atorvastatin Calcium (Lipitor) 40 mg QHS GTB Last administered on 03/03/17 20 :40; Admin Dose 40 MG; Start 02/23/17 at 21:00 Bisacodyl (Dulcolax Supp) 10 mg Q24H PRN [place] CONSTIPATION Last administered on 02/28/17 05:06; Admin Dose 10 MG; Start 02/23/17 at 06:00 Calcium/Vitamin D (Oyster Shell/ Vit-D (500/200)) 1 tab DAILY GTB Last administered on 03/04/17 09:22; Admin Dose 1 TAB; Start 02/23/17 at 09:00 Clonidine (Catapres) 0.1 mg Q4H PRN GTB ELEVATED BLOOD PRESSURE Last administered on 02/28/17 12:01; Admin Dose 0.1 MG; Start 02/23/17 at 06:00 Fenofibrate (Tricor) 145 mg QHS GTB Last administered on 03/03/17 20:40; Admin Dose 145 MG; Start 02/23/17 at 21:00 Ferrous Sulfate (Feosol Liquid Cup) 330 mg DAILY GTB Last administered on 03/04 09:21; Admin Dose 330 MG; Start 02/23/17 at 09:00 Magnesium Hydroxide (Milk Of Mag) 30 ml Q24H PRN PO CONSTIPATION Last administered on 02/27/17 09:16; Admin Dose 30 ML; Start 02/23/17 at 06:00 Memantine (Namenda) 10 mg BID GTB Last administered on 03/04/17 09:22; Admin Dose 10 MG; Start 02/23/17 at 09:00 Multivitamins (Multivitamin) 30 ml DAILY GTB Last administered on 03/04/17 09 :21; Admin Dose 30 ML; Start 02/23/17 at 09:00 Ondansetron HCl (Zofran Inj) 4 mg Q6H PRN IV NAUSEA AND/OR VOMITING; Start 02/23/17 at 06:00 Acetaminophen (Tylenol Tab) 650 mg Q4H PRN GTB PAIN AND OR ELEVATED TEMP Last administered on 03/01/17 06:05; Admin Dose 650 MG; Start 02/23/17 at 08:00 Lactobacillus Acidophilus/ Rhamnosus (Culturelle) 1 cap BID PO Last administered on 03/04/17 09:22; Admin Dose 1 CAP; Start 02/23/17 at 09:00 Miscellaneous Information (Pending Santyl Order For Wound Care) This patient basurto... PRN PRN XX WOUND CARE; Start 02/23/17 at 17:00 Miscellaneous Information (Pending Santyl Order For Wound Care) This patient basurto... PRN PRN XX WOUND CARE; Start 02/24/17 at 10:00 Collagenase (Santyl) 1 applic DAILY TOP Last administered on 03/04/17 09:22; Admin Dose 1 APPLIC; Start 02/24/17 at 13:00 Lansoprazole 30 mg 30 mg DAILY@06 GTB Last administered on 03/04/17 05:27; Admin Dose 30 MG; Start 02/25/17 at 06:00 Colistimethate Sodium/Sodium Chloride (Coly-Mycin/NS) 100 ml @ 200 mls/hr Q12 IVPB Last administered on 03/04/17 09:22; Admin Dose 200 MLS/HR; Start 02/25 at 21:00 Mupirocin (Bactroban) 1 applic BID TOP Last administered on 03/04/17 09:22; Admin Dose 1 APPLIC; Start 02/26/17 at 21:00 Docusate Sodium (Colace Liquid Cup) 200 mg DAILY GTB Last administered on 03/04 09:21; Admin Dose 200 MG; Start 03/01/17 at 09:49 Levetiracetam 750 mg 750 mg BID GTB Last administered on 03/04/17 09:21; Admin Dose 750 MG; Start 03/01/17 at 09:00 Linezolid (Zyvox 600mg/D5W (Pmx)) 300 ml @ 300 mls/hr Q12H IVPB Last administered on 03/04/17 05:26; Admin Dose 300 MLS/HR; Start 03/01/17 at 18: 00 Hydralazine HCl (Apresoline) 10 mg Q6H PRN IV ELEVATED SYSTOLIC BP Last administered on 03/03/17 03:02; Admin Dose 10 MG; Start 03/03/17 at 03:00 JOSE PERRY Mar 04, 2017 11:54
--- NOTE | 2017-03-04 13:43 | CONS ---
Date/Time of Note Date/Time of Note DATE: 03/04/17 TIME: 13:38 Assessment/Plan Assessment/Plan Chief Complaint/Hosp Course IMPRESSION: 1. Cardiac arrhythmia with current rhythm concerning for possible accelerated junctional rhythm and associated PVCs. 2. History of permanent pacemaker. 3. History of paroxysmal atrial fibrillation on systemic anticoagulation. 4. Hypertension-remains somewhat labile 5. Urinary tract infection. 6. Fevers. 7. Altered mental state and dementia. 8. Anemia. 9. Hypernatremia-improved 10. Dyslipidemia. 11.Encephalopathy-ONGOING 12.PVC's-have recurrently 14. Resp failure-on BIPAP Recc: -Tele -serial ecg's -Continue norvasc and BB -Continue tricor/statin -Eliquis held in the setting of anemia -on BIPAP -Continue lasix diuresis Problems: Consultation Date/Type/Reason Admit Date/Time Feb 27, 2017 at 10:23 Initial Consult Date 02/23/2017 Type of Consultation: cardiology Reason for Consultation arrythmia Referring Provider: JOSE C VILLATORO MD Exam/Review of Systems Vital Signs Vitals Vital Signs Date Time Temp Pulse Resp B/P Pulse Ox O2 Delivery O2 Flow Rate FiO2 03/04/17 12:38 68 03/04/17 11:58 98.2 16 115/65 97 03/04/17 08:00 Nasal Cannula 3.0 03/04/17 07:10 50 Intake and Output 03/03/17 03/03/17 03/04/17 15:00 23:00 07:00 Intake Total 960 ml Output Total 2100 ml Balance -1140 ml Exam Review of Systems: CONSTITUTIONAL: No fevers, chills. PULMONARY: No sob CARDIOVASCULAR: No chest pain/palpitations GASTROINTESTINAL: No nausea/vomiting. GENITOURINARY: No hematuria/dysuria. MUSCULOSKELETAL: No myagias/arthalgias. PSYCHIATRIC: The patient denies depression. NEUROLOGIC: No weakness Constitutional: other (sleeping) Psych: no complaints Head: normocephalic ENMT: mucosa pink and moist Neck: jvd (9 cm water), supple Respiratory: diminished breath sounds (at bases/B) Cardiovascular: regular rate and rhythm Gastrointestinal: non-tender, soft Musculoskeletal: muscle weakness (generalized) Extremities: edema (trace/B) Results Result Diagram: 03/04/17 0708 03/04/17 0707 Results 24 hrs Laboratory Tests Test 03/04/17 07:07 03/04/17 07:08 Sodium Level 144 Potassium Level 3.9 Chloride Level 103 Carbon Dioxide Level 32 H Anion Gap 13 Blood Urea Nitrogen 38 H Creatinine 1.57 H Glucose Level 128 Calcium Level 8.4 White Blood Count 5.9 # Red Blood Count 3.18 L Hemoglobin 8.7 L Hematocrit 27.3 L Mean Corpuscular Volume 85.8 Mean Corpuscular Hemoglobin 27.4 L Mean Corpuscular Hemoglobin Concent 31.9 L Red Cell Distribution Width 15.4 H Platelet Count 208 Mean Platelet Volume 10.3 Neutrophils % 68.4 Lymphocytes % 15.2 Monocytes % 8.2 Eosinophils % 7.2 H Basophils % 0.5 Nucleated Red Blood Cells % 0.0 Neutrophils # 4.0 Lymphocytes # 0.9 Monocytes # 0.5 Eosinophils # 0.4 Basophils # 0.0 Nucleated Red Blood Cells # 0.0 Medications Medications Current Medications Atorvastatin Calcium (Lipitor) 40 mg QHS GTB Last administered on 03/03/17 20 :40; Admin Dose 40 MG; Start 02/23/17 at 21:00 Bisacodyl (Dulcolax Supp) 10 mg Q24H PRN [place] CONSTIPATION Last administered on 02/28/17 05:06; Admin Dose 10 MG; Start 02/23/17 at 06:00 Calcium/Vitamin D (Oyster Shell/ Vit-D (500/200)) 1 tab DAILY GTB Last administered on 03/04/17 09:22; Admin Dose 1 TAB; Start 02/23/17 at 09:00 Clonidine (Catapres) 0.1 mg Q4H PRN GTB ELEVATED BLOOD PRESSURE Last administered on 02/28/17 12:01; Admin Dose 0.1 MG; Start 02/23/17 at 06:00 Fenofibrate (Tricor) 145 mg QHS GTB Last administered on 03/03/17 20:40; Admin Dose 145 MG; Start 02/23/17 at 21:00 Ferrous Sulfate (Feosol Liquid Cup) 330 mg DAILY GTB Last administered on 03/04 09:21; Admin Dose 330 MG; Start 02/23/17 at 09:00 Magnesium Hydroxide (Milk Of Mag) 30 ml Q24H PRN PO CONSTIPATION Last administered on 02/27/17 09:16; Admin Dose 30 ML; Start 02/23/17 at 06:00 Memantine (Namenda) 10 mg BID GTB Last administered on 03/04/17 09:22; Admin Dose 10 MG; Start 02/23/17 at 09:00 Multivitamins (Multivitamin) 30 ml DAILY GTB Last administered on 03/04/17 09 :21; Admin Dose 30 ML; Start 02/23/17 at 09:00 Ondansetron HCl (Zofran Inj) 4 mg Q6H PRN IV NAUSEA AND/OR VOMITING; Start 02/23/17 at 06:00 Acetaminophen (Tylenol Tab) 650 mg Q4H PRN GTB PAIN AND OR ELEVATED TEMP Last administered on 03/01/17 06:05; Admin Dose 650 MG; Start 02/23/17 at 08:00 Lactobacillus Acidophilus/ Rhamnosus (Culturelle) 1 cap BID PO Last administered on 03/04/17 09:22; Admin Dose 1 CAP; Start 02/23/17 at 09:00 Miscellaneous Information (Pending Santyl Order For Wound Care) This patient basurto... PRN PRN XX WOUND CARE; Start 02/23/17 at 17:00 Miscellaneous Information (Pending Santyl Order For Wound Care) This patient basurto... PRN PRN XX WOUND CARE; Start 02/24/17 at 10:00 Collagenase (Santyl) 1 applic DAILY TOP Last administered on 03/04/17 09:22; Admin Dose 1 APPLIC; Start 02/24/17 at 13:00 Lansoprazole 30 mg 30 mg DAILY@06 GTB Last administered on 03/04/17 05:27; Admin Dose 30 MG; Start 02/25/17 at 06:00 Colistimethate Sodium/Sodium Chloride (Coly-Mycin/NS) 100 ml @ 200 mls/hr Q12 IVPB Last administered on 03/04/17 09:22; Admin Dose 200 MLS/HR; Start 02/25 at 21:00 Mupirocin (Bactroban) 1 applic BID TOP Last administered on 03/04/17 09:22; Admin Dose 1 APPLIC; Start 02/26/17 at 21:00 Docusate Sodium (Colace Liquid Cup) 200 mg DAILY GTB Last administered on 03/04 09:21; Admin Dose 200 MG; Start 03/01/17 at 09:49 Levetiracetam 750 mg 750 mg BID GTB Last administered on 03/04/17 09:21; Admin Dose 750 MG; Start 03/01/17 at 09:00 Linezolid (Zyvox 600mg/D5W (Pmx)) 300 ml @ 300 mls/hr Q12H IVPB Last administered on 03/04/17 05:26; Admin Dose 300 MLS/HR; Start 03/01/17 at 18: 00 Hydralazine HCl (Apresoline) 10 mg Q6H PRN IV ELEVATED SYSTOLIC BP Last administered on 03/03/17 03:02; Admin Dose 10 MG; Start 03/03/17 at 03:00 TORRES FRANCIS Mar 04, 2017 13:43
--- NOTE | 2017-03-04 13:58 | CONS ---
Date/Time of Note Date/Time of Note DATE: 03/04/17 TIME: 13:57 Consult Date/Type/Reason Admit Date/Time Feb 27, 2017 at 10:23 Type of Consultation: ID Ordering Provider: JOSE C VILLATORO MD Objective Vital Signs Date Time Temp Pulse Resp B/P Pulse Ox O2 Delivery O2 Flow Rate FiO2 03/04/17 12:38 68 03/04/17 11:58 98.2 16 115/65 97 03/04/17 08:00 Nasal Cannula 3.0 03/04/17 07:10 50 Intake and Output 03/03/17 03/03/17 03/04/17 15:00 23:00 07:00 Intake Total 960 ml Output Total 2100 ml Balance -1140 ml Results/Medications Result Diagram: 03/04/17 0708 03/04/17 0707 Results 24 hrs Laboratory Tests Test 03/04/17 07:07 03/04/17 07:08 Sodium Level 144 Potassium Level 3.9 Chloride Level 103 Carbon Dioxide Level 32 H Anion Gap 13 Blood Urea Nitrogen 38 H Creatinine 1.57 H Glucose Level 128 Calcium Level 8.4 White Blood Count 5.9 # Red Blood Count 3.18 L Hemoglobin 8.7 L Hematocrit 27.3 L Mean Corpuscular Volume 85.8 Mean Corpuscular Hemoglobin 27.4 L Mean Corpuscular Hemoglobin Concent 31.9 L Red Cell Distribution Width 15.4 H Platelet Count 208 Mean Platelet Volume 10.3 Neutrophils % 68.4 Lymphocytes % 15.2 Monocytes % 8.2 Eosinophils % 7.2 H Basophils % 0.5 Nucleated Red Blood Cells % 0.0 Neutrophils # 4.0 Lymphocytes # 0.9 Monocytes # 0.5 Eosinophils # 0.4 Basophils # 0.0 Nucleated Red Blood Cells # 0.0 Medications Current Medications Atorvastatin Calcium (Lipitor) 40 mg QHS GTB Last administered on 03/03/17 20 :40; Admin Dose 40 MG; Start 02/23/17 at 21:00 Bisacodyl (Dulcolax Supp) 10 mg Q24H PRN [place] CONSTIPATION Last administered on 02/28/17 05:06; Admin Dose 10 MG; Start 02/23/17 at 06:00 Calcium/Vitamin D (Oyster Shell/ Vit-D (500/200)) 1 tab DAILY GTB Last administered on 03/04/17 09:22; Admin Dose 1 TAB; Start 02/23/17 at 09:00 Clonidine (Catapres) 0.1 mg Q4H PRN GTB ELEVATED BLOOD PRESSURE Last administered on 02/28/17 12:01; Admin Dose 0.1 MG; Start 02/23/17 at 06:00 Fenofibrate (Tricor) 145 mg QHS GTB Last administered on 03/03/17 20:40; Admin Dose 145 MG; Start 02/23/17 at 21:00 Ferrous Sulfate (Feosol Liquid Cup) 330 mg DAILY GTB Last administered on 03/04 09:21; Admin Dose 330 MG; Start 02/23/17 at 09:00 Magnesium Hydroxide (Milk Of Mag) 30 ml Q24H PRN PO CONSTIPATION Last administered on 02/27/17 09:16; Admin Dose 30 ML; Start 02/23/17 at 06:00 Memantine (Namenda) 10 mg BID GTB Last administered on 03/04/17 09:22; Admin Dose 10 MG; Start 02/23/17 at 09:00 Multivitamins (Multivitamin) 30 ml DAILY GTB Last administered on 03/04/17 09 :21; Admin Dose 30 ML; Start 02/23/17 at 09:00 Ondansetron HCl (Zofran Inj) 4 mg Q6H PRN IV NAUSEA AND/OR VOMITING; Start 02/23/17 at 06:00 Acetaminophen (Tylenol Tab) 650 mg Q4H PRN GTB PAIN AND OR ELEVATED TEMP Last administered on 03/01/17 06:05; Admin Dose 650 MG; Start 02/23/17 at 08:00 Lactobacillus Acidophilus/ Rhamnosus (Culturelle) 1 cap BID PO Last administered on 03/04/17 09:22; Admin Dose 1 CAP; Start 02/23/17 at 09:00 Miscellaneous Information (Pending Santyl Order For Wound Care) This patient basurto... PRN PRN XX WOUND CARE; Start 02/23/17 at 17:00 Miscellaneous Information (Pending Santyl Order For Wound Care) This patient basurto... PRN PRN XX WOUND CARE; Start 02/24/17 at 10:00 Collagenase (Santyl) 1 applic DAILY TOP Last administered on 03/04/17 09:22; Admin Dose 1 APPLIC; Start 02/24/17 at 13:00 Lansoprazole 30 mg 30 mg DAILY@06 GTB Last administered on 03/04/17 05:27; Admin Dose 30 MG; Start 02/25/17 at 06:00 Colistimethate Sodium/Sodium Chloride (Coly-Mycin/NS) 100 ml @ 200 mls/hr Q12 IVPB Last administered on 03/04/17 09:22; Admin Dose 200 MLS/HR; Start 02/25 at 21:00 Mupirocin (Bactroban) 1 applic BID TOP Last administered on 03/04/17 09:22; Admin Dose 1 APPLIC; Start 02/26/17 at 21:00 Docusate Sodium (Colace Liquid Cup) 200 mg DAILY GTB Last administered on 03/04 09:21; Admin Dose 200 MG; Start 03/01/17 at 09:49 Levetiracetam 750 mg 750 mg BID GTB Last administered on 03/04/17 09:21; Admin Dose 750 MG; Start 03/01/17 at 09:00 Linezolid (Zyvox 600mg/D5W (Pmx)) 300 ml @ 300 mls/hr Q12H IVPB Last administered on 03/04/17 05:26; Admin Dose 300 MLS/HR; Start 03/01/17 at 18: 00 Hydralazine HCl (Apresoline) 10 mg Q6H PRN IV ELEVATED SYSTOLIC BP Last administered on 03/03/17 03:02; Admin Dose 10 MG; Start 03/03/17 at 03:00 Assessment/Plan Chief Complaint/Hosp Course SUBJECTIVE: Noncommunicative, lying comfortably in bed, no fevers MICROBIOLOGY: Urine culture on admission grew E. coli, ESBL, Acinetobacter baumannii. Blood cultures have been negative. Nares swab positive for MRSA. Repeat urine cx + VRE/Acinetobacter baumannii ANTIMICROBIALS: The patient is on IV Colistin and Zyvox. INDWELLINGS: [place] catheter/PEG/RUE PICC. PHYSICAL EXAMINATION: GENERAL: This is a chronically ill-appearing, elderly man who is in no distress. HEENT: Head atraumatic, normocephalic. Sclerae anicteric. Buccal mucosa dry. NECK: Supple. CHEST: Rise symmetrical. Breath sounds diminished to bases. HEART: S1, S2. ABDOMEN: Soft, bowel tones present. EXTREMITIES: Without cyanosis. ASSESSMENT: 1. Sepsis ?LLL PNA 1. Polymicrobial urinary tract infection. 2. Methicillin-resistant Staphylococcus aureus nares colonization. 3. History of atrial fibrillation, status post permanent pacemaker. 4. Peripheral vascular disease with right below knee amputation. 5. Anemia. PLAN: Clinically stable. Continue abx, aspiration precautions DW staff Problems: EM RIOS NP Mar 04, 2017 13:57
[2017-03-04] MEDS: ATORVASTATIN 40 MG TAB GTB SCH (21:02)
[2017-03-04] MEDS: FENOFIBRATE 145 MG TAB GTB SCH (21:02)
[2017-03-05] VITALS (15 sets, daily range): BP systolic 120–153; BP diastolic 58–81; PULSE 59–70; RESP 16–22
[2017-03-05] MEDS: MEMANTINE 10 MG TAB GTB SCH ×3 (00:45→23:55)
[2017-03-05] MEDS: ALBUTEROL/IPRATROPIUM (NEB) 3 ML AMP HHN SCH ×4 (01:42→20:45)
[2017-03-05] MEDS: LINEZOLID 600 MG/D5W (PMX) 300 ML IVPB SCH ×2 (06:40→17:45)
[2017-03-05] MEDS: FUROSEMIDE 40 MG INJ IV SCH (06:40)
[2017-03-05] MEDS: LANSOPRAZOLE 30 MG CAP GTB SCH (06:40)
[2017-03-05] MEDS: CALCIUM/VITAMIN D (500/200) TAB GTB SCH (08:40)
[2017-03-05] MEDS: DOCUSATE SODIUM 10 MG/ML (10ML CUP) GTB SCH (08:40)
[2017-03-05] MEDS: FERROUS SULFATE 60 MG/ML 5ML CUP GTB SCH (08:41)
[2017-03-05] MEDS: LEVETIRACETAM (100 MG/ML) 5ML CUP GTB SCH ×2 (08:41→23:56)
[2017-03-05] MEDS: LACTOBACILLUS RHAMNOSUS CAP PO SCH ×2 (08:41→23:57)
[2017-03-05] MEDS: MULTIVITAMINS 30 ML CUP GTB SCH (08:43)
[2017-03-05] MEDS: COLISTIMETHATE 75 MG in SOD CHLORIDE 0.9% 100 ML IVPB SCH (08:45)
[2017-03-05] MEDS: MUPIROCIN 2% 22 GM OINT TOP SCH ×2 (08:45→23:58)
[2017-03-05] MEDS: COLLAGENASE 30 GM TUBE TOP SCH (09:00)
--- NOTE | 2017-03-05 10:08 | CONS ---
Date/Time of Note Date/Time of Note DATE: 03/05/17 TIME: 10:05 Assessment/Plan Assessment/Plan Chief Complaint/Hosp Course Pulmonary consult dictated #[id number]. Continue present management. Problems: Additional Assessment/Plan Assessment and recommendations; 1. Patient admitted with hypoxemic respiratory failure due to underlying CHF. Currently requiring BiPAP at high FiO2. 2. UTI. 3. History of hypertension. 4. Anemia. 5. Advanced dementia. 6. Increasing serum creatinine, likely diuretic induced. Continue current supportive care. Hold further Lasix dosing. Prognosis remains poor and hospice should be considered. Consultation Date/Type/Reason Admit Date/Time Feb 27, 2017 at 10:23 Initial Consult Date 03/03/17 Type of Consultation: Pulmonary Referring Provider: JOSE C VILLATORO MD 24 HR Interval Summary Free Text/Dictation Patient's condition remains tenuous. Still requiring BiPAP at high FiO2. Patient remains unresponsive due to advanced dementia. General exam; elderly woman, unresponsive, currently in no distress. Exam/Review of Systems Vital Signs Vitals Vital Signs Date Time Temp Pulse Resp B/P Pulse Ox O2 Delivery O2 Flow Rate FiO2 03/05/17 08:13 66 03/05/17 07:40 18 100 50 03/05/17 07:14 98.4 128/81 03/04/17 08:00 Nasal Cannula 3.0 Intake and Output 03/04/17 03/04/17 03/05/17 15:00 23:00 07:00 Intake Total 960 ml 1360 ml Output Total 1200 ml 2200 ml Balance -240 ml -840 ml Exam HEENT exam; supple neck, positive JVD. No lymphadenopathy. Midline trachea. No thyromegaly. Patient has a multiple carious teeth in lower jaw. Chest exam; diminished breath sounds throughout. S1-S2 audible, no murmurs. Regular rhythm. Abdomen exam; soft, nondistended. G-tube in place. Bowel sounds audible. Extremities; no peripheral edema. OFFICIAL COURT INTERPRETER exam; patient remains unresponsive. Results Result Diagram: 03/04/17 0708 03/04/17 0707 Medications Medications Current Medications Atorvastatin Calcium (Lipitor) 40 mg QHS GTB Last administered on 03/04/17t 21 :02; Admin Dose 40 MG; Start 02/23/17 at 21:00 Bisacodyl (Dulcolax Supp) 10 mg Q24H PRN [place] CONSTIPATION Last administered on 02/28/17 05:06; Admin Dose 10 MG; Start 02/23/17 at 06:00 Calcium/Vitamin D (Oyster Shell/ Vit-D (500/200)) 1 tab DAILY GTB Last administered on 03/05/17 08:40; Admin Dose 1 TAB; Start 02/23/17 at 09:00 Clonidine (Catapres) 0.1 mg Q4H PRN GTB ELEVATED BLOOD PRESSURE Last administered on 02/28/17 12:01; Admin Dose 0.1 MG; Start 02/23/17 at 06:00 Fenofibrate (Tricor) 145 mg QHS GTB Last administered on 03/04/17 21:02; Admin Dose 145 MG; Start 02/23/17 at 21:00 Ferrous Sulfate (Feosol Liquid Cup) 330 mg DAILY GTB Last administered on 03/05 08:41; Admin Dose 330 MG; Start 02/23/17 at 09:00 Magnesium Hydroxide (Milk Of Mag) 30 ml Q24H PRN [place] CONSTIPATION Last administered on 02/27/17 09:16; Admin Dose 30 ML; Start 02/23/17 at 06:00 Memantine (Namenda) 10 mg BID GTB Last administered on 03/05/17 08:40; Admin Dose 10 MG; Start 02/23/17 at 09:00 Multivitamins (Multivitamin) 30 ml DAILY GTB Last administered on 03/05/17 08 :43; Admin Dose 30 ML; Start 02/23/17 at 09:00 Ondansetron HCl (Zofran Inj) 4 mg Q6H PRN IV NAUSEA AND/OR VOMITING; Start 02/23/17 at 06:00 Acetaminophen (Tylenol Tab) 650 mg Q4H PRN GTB PAIN AND OR ELEVATED TEMP Last administered on 03/01/17 06:05; Admin Dose 650 MG; Start 02/23/17 at 08:00 Lactobacillus Acidophilus/ Rhamnosus (Culturelle) 1 cap BID PO Last administered on 03/05/17 08:41; Admin Dose 1 CAP; Start 02/23/17 at 09:00 Miscellaneous Information (Pending Santyl Order For Wound Care) This patient basurto... PRN PRN XX WOUND CARE; Start 02/24/17 at 10:00 Collagenase (Santyl) 1 applic DAILY TOP Last administered on 03/04/17 09:22; Admin Dose 1 APPLIC; Start 02/24/17 at 13:00 Lansoprazole (Prevacid) 30 mg DAILY@06 GTB Last administered on 03/05/17 06: 40; Admin Dose 30 MG; Start 02/25/17 at 06:00 Mupirocin (Bactroban) 1 applic BID TOP Last administered on 03/05/17 08:45; Admin Dose 1 APPLIC; Start 02/26/17 at 21:00 Docusate Sodium (Colace Liquid Cup) 200 mg DAILY GTB Last administered on 03/05 08:40; Admin Dose 200 MG; Start 03/01/17 at 09:49 Levetiracetam 750 mg 750 mg BID GTB Last administered on 03/05/17 08:41; Admin Dose 750 MG; Start 03/01/17 at 09:00 Linezolid (Zyvox 600mg/D5W (Pmx)) 300 ml @ 300 mls/hr Q12H IVPB Last administered on 03/05/17 06:40; Admin Dose 300 MLS/HR; Start 03/01/17 at 18: 00 Hydralazine HCl 10 mg 10 mg Q6H PRN IV ELEVATED SYSTOLIC BP Last administered on 03/03/17 03:02; Admin Dose 10 MG; Start 03/03/17 at 03:00 Colistimethate Sodium/Sodium Chloride (Coly-Mycin/NS) 100 ml @ 200 mls/hr Q24H IVPB ; Start 03/06/17 at 09:00 MICHAEL DO Mar 05, 2017 10:08
--- NOTE | 2017-03-05 10:57 | PN ---
Date/Time of Note Date/Time of Note DATE: 03/05/17 TIME: 10:55 Assessment/Plan VTE Prophylaxis VTE Prophylaxis Intervention: SCD's Lines/Catheters IV Catheter Type (from Nrsg): PICC Line Central line still needed: Yes Urinary Cath still in place: Yes Reason Cath still needed: urinary retention Assessment/Plan Chief Complaint/Hosp Course 1. Systemic inflammatory response syndrome, better. 2. Chronic kidney disease. 3. Hypernatremia. 4. Lung infiltrate. 5. Lung atelectasis. 6. Gastrostomy tube placement. 7. History of peripheral vascular disease. 8. Dyslipidemia. 9. Chronic obstructive pulmonary disease. 10. Right below-knee amputation. 11. Incomplete database. 12. History of pacemaker placement. 13. History of chronic atrial fibrillation. 14 encephalopathy 15 hypernatremia Pt arrhythmia was controlled and UTI subside.family decided to make pt DNR and proceed with hispice. hospice eval was fdone, pt with oxygen and tube feeding is in patient. Family supported by social workers Problems: Assessment/Plan 1. continue Hospaice 2. medication reconciliation was done Subjective 24 Hr Interval Summary Subjective hx not possible: pt non-verbal Exam/Review of Systems Vital Signs Vitals Vital Signs Date Time Temp Pulse Resp B/P Pulse Ox O2 Delivery O2 Flow Rate FiO2 03/05/17 08:13 66 03/05/17 07:40 18 100 50 03/05/17 07:14 98.4 128/81 03/04/17 08:00 Nasal Cannula 3.0 Intake and Output 03/04/17 03/04/17 03/05/17 14:59 22:59 06:59 Intake Total 960 ml 1360 ml Output Total 1200 ml 2200 ml Balance -240 ml -840 ml Exam Constitutional: frail Neck: supple Respiratory: diminished breath sounds, labored breathing Gastrointestinal: soft, surgical scars Results Result Diagram: 03/04/17 0708 03/04/17 0707 Medications Medications Current Medications Atorvastatin Calcium (Lipitor) 40 mg QHS GTB Last administered on 03/04/17 21 :02; Admin Dose 40 MG; Start 02/23/17 at 21:00 Bisacodyl (Dulcolax Supp) 10 mg Q24H PRN [place] CONSTIPATION Last administered on 02/28/17 05:06; Admin Dose 10 MG; Start 02/23/17 at 06:00 Calcium/Vitamin D (Oyster Shell/ Vit-D (500/200)) 1 tab DAILY GTB Last administered on 03/05/17 08:40; Admin Dose 1 TAB; Start 02/23/17 at 09:00 Clonidine (Catapres) 0.1 mg Q4H PRN GTB ELEVATED BLOOD PRESSURE Last administered on 02/28/17 12:01; Admin Dose 0.1 MG; Start 02/23/17 at 06:00 Fenofibrate (Tricor) 145 mg QHS GTB Last administered on 03/04/17 21:02; Admin Dose 145 MG; Start 02/23/17 at 21:00 Ferrous Sulfate (Feosol Liquid Cup) 330 mg DAILY GTB Last administered on 03/05 08:41; Admin Dose 330 MG; Start 02/23/17 at 09:00 Magnesium Hydroxide (Milk Of Mag) 30 ml Q24H PRN PO CONSTIPATION Last administered on 02/27/17 09:16; Admin Dose 30 ML; Start 02/23/17 at 06:00 Memantine (Namenda) 10 mg BID GTB Last administered on 03/05/17 08:40; Admin Dose 10 MG; Start 02/23/17 at 09:00 Multivitamins (Multivitamin) 30 ml DAILY GTB Last administered on 03/05/17 08 :43; Admin Dose 30 ML; Start 02/23/17 at 09:00 Ondansetron HCl (Zofran Inj) 4 mg Q6H PRN IV NAUSEA AND/OR VOMITING; Start 02/23/17 at 06:00 Acetaminophen (Tylenol Tab) 650 mg Q4H PRN GTB PAIN AND OR ELEVATED TEMP Last administered on 03/01/17 06:05; Admin Dose 650 MG; Start 02/23/17 at 08:00 Lactobacillus Acidophilus/ Rhamnosus (Culturelle) 1 cap BID PO Last administered on 03/05/17 08:41; Admin Dose 1 CAP; Start 02/23/17 at 09:00 Miscellaneous Information (Pending Santyl Order For Wound Care) This patient basurto... PRN PRN XX WOUND CARE; Start 02/24/17 at 10:00 Collagenase (Santyl) 1 applic DAILY TOP Last administered on 11/17/17at 09:22; Admin Dose 1 APPLIC; Start 02/24/17 at 13:00 Lansoprazole (Prevacid) 30 mg DAILY@06 GTB Last administered on 03/05/17 06: 40; Admin Dose 30 MG; Start 02/25/17 at 06:00 Mupirocin (Bactroban) 1 applic BID TOP Last administered on 03/05/17 08:45; Admin Dose 1 APPLIC; Start 02/26/17 at 21:00 Docusate Sodium (Colace Liquid Cup) 200 mg DAILY GTB Last administered on 03/05 08:40; Admin Dose 200 MG; Start 03/01/17 at 09:49 Levetiracetam 750 mg 750 mg BID GTB Last administered on 03/05/17 08:41; Admin Dose 750 MG; Start 03/01/17 at 09:00 Linezolid (Zyvox 600mg/D5W (Pmx)) 300 ml @ 300 mls/hr Q12H IVPB Last administered on 03/05/17 06:40; Admin Dose 300 MLS/HR; Start 03/01/17 at 18: 00 Hydralazine HCl 10 mg 10 mg Q6H PRN IV ELEVATED SYSTOLIC BP Last administered on 03/03/17 03:02; Admin Dose 10 MG; Start 03/03/17 at 03:00 Colistimethate Sodium/Sodium Chloride (Coly-Mycin/NS) 100 ml @ 200 mls/hr Q24H IVPB ; Start 03/06/17 at 09:00 JOSE PERRY Mar 05, 2017 10:57
--- NOTE | 2017-03-05 16:40 | CONS ---
Date/Time of Note Date/Time of Note DATE: 03/05/17 TIME: 16:24 Assessment/Plan Assessment/Plan Chief Complaint/Hosp Course ID PROGRESS NOTE CURRENT ABX: DAY # =>Colistin IV#7 + Zyvox #4.5 s/p Fosfomyin 1x 03/03/17 24H INTERVAL SUMMARY * Resting comfortably-encephalopathy, afebrile, VSS, NAD, WBC normalized, supplemental O2 * CHART REVIEWED: See vitals, labs as per below. .family decided to make pt DNR and proceed with hospice * MICRO REVIEWED: 02/22/17 (-)BCx; 03/01/17 BCx(-); PHYSICAL EXAMINATION: GENERAL: VSS, afebrile, NAD HEENT: Unremarkable NECK: Supple, trach midline CHEST: Equal chest rise bilaterally, without dyspnea on observation HEART: RRR ABDOMEN: Soft, NT, ND : NL M, no FC EXT: Warm, BKA SKIN: No rash, no diaphoresis ID ASSESSMENT: 81 yo M PMHx prior SDH, Afib, Pacemaker implant status, HTN, diastolic HF, PEG admit from SNF with: 1. Sepsis -> due to polymicrobial UTI => RESOLVED 1. Polymicrobial urinary tract infection. * 02/22/17 U. Cx URINE CULTURE Final Organism 1 ESCHERICHIA COLI (ESBL) COLONY COUNT >100,000 CFU/ml Organism 2 ACINETOBACTER BAUMANNII COLONY COUNT >100,000 CFU/ml * U. Cx URINE CULTURE Final Organism 1 VANCO RESISTANT ENTEROCOCCUS COLONY COUNT >100,000 CFU/ml Organism 2 ACINETOBACTER BAUMANNII COLONY COUNT 30,000 - 40,000 CFU/ml 2. Mild pulmonary edema with a small left pleural effusion and/or subsegmental atelectasis. Superimposed left basilar pneumonia cannot be excluded=> CXR much improved 3. History of atrial fibrillation, status post permanent pacemaker. 4. Peripheral vascular disease with right below knee amputation. 5. Anemia. ( + )MRSA-> 02/23/17 -> s/p Bactroban x 8 days ABX ALLERGIES: None to ABX INVASIVES: PIV, peg CURRENT ABX: DAY =>Colistin IV #7 + Zyvox #4.5 s/p Fosfomyin 1x 03/03/17 ID RECOMMENDATIONS/PLAN: 1. Family decided to make pt DNR and proceed with hospice 2. The patient has been adequately treated for MDRO pathogens in urine and has received appropriate ABX coverage for MRSA Nares colonization; hence the patient may DC to SNF OFF isolation. Problems: Consultation Date/Type/Reason Admit Date/Time Feb 27, 2017 at 10:23 Initial Consult Date 03/03/17 Referring Provider: JOSE C VILLATORO MD Exam/Review of Systems Vital Signs Vitals Vital Signs Date Time Temp Pulse Resp B/P Pulse Ox O2 Delivery O2 Flow Rate FiO2 03/05/17 16:18 66 03/05/17 15:10 4.0 03/05/17 15:08 20 98 Nasal Cannula 36 03/05/17 11:30 98.0 131/61 Intake and Output 03/04/17 03/04/17 03/05/17 15:00 23:00 07:00 Intake Total 960 ml 1360 ml Output Total 1200 ml 2200 ml Balance -240 ml -840 ml Results Result Diagram: 03/04/17 0708 03/04/17 0707 Medications Medications Current Medications Atorvastatin Calcium (Lipitor) 40 mg QHS GTB Last administered on 03/04/17 21 :02; Admin Dose 40 MG; Start 02/23/17 at 21:00 Bisacodyl (Dulcolax Supp) 10 mg Q24H PRN [place] CONSTIPATION Last administered on 02/28/17 05:06; Admin Dose 10 MG; Start 02/23/17 at 06:00 Calcium/Vitamin D (Oyster Shell/ Vit-D (500/200)) 1 tab DAILY GTB Last administered on 03/05/17 08:40; Admin Dose 1 TAB; Start 02/23/17 at 09:00 Clonidine (Catapres) 0.1 mg Q4H PRN GTB ELEVATED BLOOD PRESSURE Last administered on 02/28/17 12:01; Admin Dose 0.1 MG; Start 02/23/17 at 06:00 Fenofibrate (Tricor) 145 mg QHS GTB Last administered on 03/04/17 21:02; Admin Dose 145 MG; Start 02/23/17 at 21:00 Ferrous Sulfate (Feosol Liquid Cup) 330 mg DAILY GTB Last administered on 03/05 08:41; Admin Dose 330 MG; Start 02/23/17 at 09:00 Magnesium Hydroxide (Milk Of Mag) 30 ml Q24H PRN PO CONSTIPATION Last administered on 02/27/17 09:16; Admin Dose 30 ML; Start 02/23/17 at 06:00 Memantine (Namenda) 10 mg BID GTB Last administered on 03/05/17 08:40; Admin Dose 10 MG; Start 02/23/17 at 09:00 Multivitamins (Multivitamin) 30 ml DAILY GTB Last administered on 03/05/17 08 :43; Admin Dose 30 ML; Start 02/23/17 at 09:00 Ondansetron HCl (Zofran Inj) 4 mg Q6H PRN IV NAUSEA AND/OR VOMITING; Start 02/23/17 at 06:00 Acetaminophen (Tylenol Tab) 650 mg Q4H PRN GTB PAIN AND OR ELEVATED TEMP Last administered on 03/01/17 06:05; Admin Dose 650 MG; Start 02/23/17 at 08:00 Lactobacillus Acidophilus/ Rhamnosus (Culturelle) 1 cap BID PO Last administered on 03/05/17 08:41; Admin Dose 1 CAP; Start 02/23/17 at 09:00 Miscellaneous Information (Pending Santyl Order For Wound Care) This patient basurto... PRN PRN XX WOUND CARE; Start 02/24/17 at 10:00 Collagenase (Santyl) 1 applic DAILY TOP Last administered on 03/04/17 09:22; Admin Dose 1 APPLIC; Start 02/24/17 at 13:00 Lansoprazole (Prevacid) 30 mg DAILY@06 GTB Last administered on 03/05/17 06: 40; Admin Dose 30 MG; Start 02/25/17 at 06:00 Mupirocin (Bactroban) 1 applic BID TOP Last administered on 03/05/17 08:45; Admin Dose 1 APPLIC; Start 02/26/17 at 21:00 Docusate Sodium (Colace Liquid Cup) 200 mg DAILY GTB Last administered on 03/05 08:40; Admin Dose 200 MG; Start 03/01/17 at 09:49 Levetiracetam 750 mg 750 mg BID GTB Last administered on 03/05/17 08:41; Admin Dose 750 MG; Start 03/01/17 at 09:00 Linezolid (Zyvox 600mg/D5W (Pmx)) 300 ml @ 300 mls/hr Q12H IVPB Last administered on 03/05/17 06:40; Admin Dose 300 MLS/HR; Start 03/01/17 at 18: 00 Hydralazine HCl 10 mg 10 mg Q6H PRN IV ELEVATED SYSTOLIC BP Last administered on 03/03/17 03:02; Admin Dose 10 MG; Start 03/03/17 at 03:00 Colistimethate Sodium/Sodium Chloride (Coly-Mycin/NS) 100 ml @ 200 mls/hr Q24H IVPB ; Start 03/06/17 at 09:00 BEV LOMBARDI NP Mar 05, 2017 16:34
--- NOTE | 2017-03-05 18:02 | CONS ---
Date/Time of Note Date/Time of Note DATE: 03/05/17 TIME: 17:58 Assessment/Plan Assessment/Plan Chief Complaint/Hosp Course IMPRESSION: 1. Cardiac arrhythmia with current rhythm concerning for possible accelerated junctional rhythm and associated PVCs. 2. History of permanent pacemaker. 3. History of paroxysmal atrial fibrillation on systemic anticoagulation. 4. Hypertension-remains somewhat labile 5. Urinary tract infection. 6. Fevers. 7. Altered mental state and dementia. 8. Anemia. 9. Hypernatremia-improved 10. Dyslipidemia. 11.Encephalopathy-ONGOING 12.PVC's-have recurrently 14. Resp failure-currently improved and off BIPap Recc: -To be started on Hospice -ongoing inpatient care as indicated Problems: Consultation Date/Type/Reason Admit Date/Time Feb 27, 2017 at 10:23 Initial Consult Date 02/23/2017 Type of Consultation: 03/05/2017 Reason for Consultation cardiac arrythmia Referring Provider: JOSE C VILLATORO MD Exam/Review of Systems Vital Signs Vitals Vital Signs Date Time Temp Pulse Resp B/P Pulse Ox O2 Delivery O2 Flow Rate FiO2 03/05/17 16:18 66 03/05/17 15:10 4.0 03/05/17 15:08 20 98 Nasal Cannula 36 03/05/17 11:30 98.0 131/61 Intake and Output 03/04/17 03/04/17 03/05/17 15:00 23:00 07:00 Intake Total 960 ml 1360 ml Output Total 1200 ml 2200 ml Balance -240 ml -840 ml Exam Review of Systems: CONSTITUTIONAL: No fevers, chills. PULMONARY: No sob CARDIOVASCULAR: No chest pain/palpitations GASTROINTESTINAL: No nausea/vomiting. GENITOURINARY: No hematuria/dysuria. MUSCULOSKELETAL: No myagias/arthalgias. PSYCHIATRIC: The patient denies depression. NEUROLOGIC: lethargic Constitutional: other (encephalopathic) Psych: no complaints Head: normocephalic ENMT: mucosa pink and moist Neck: jvd (9 cm water), supple Respiratory: diminished breath sounds (at bases/B) Cardiovascular: regular rate and rhythm Gastrointestinal: non-tender, soft Musculoskeletal: muscle weakness (generalized) Extremities: edema (trace/B) Results Result Diagram: 03/04/17 0708 03/04/17 0707 Medications Medications Current Medications Atorvastatin Calcium (Lipitor) 40 mg QHS GTB Last administered on 03/04/17 21 :02; Admin Dose 40 MG; Start 02/23/17 at 21:00 Bisacodyl (Dulcolax Supp) 10 mg Q24H PRN [place] CONSTIPATION Last administered on 02/28/17 05:06; Admin Dose 10 MG; Start 02/23/17 at 06:00 Calcium/Vitamin D (Oyster Shell/ Vit-D (500/200)) 1 tab DAILY GTB Last administered on 03/05/17 08:40; Admin Dose 1 TAB; Start 02/23/17 at 09:00 Clonidine (Catapres) 0.1 mg Q4H PRN GTB ELEVATED BLOOD PRESSURE Last administered on 02/28/17 12:01; Admin Dose 0.1 MG; Start 02/23/17 at 06:00 Fenofibrate (Tricor) 145 mg QHS GTB Last administered on 03/04/17 21:02; Admin Dose 145 MG; Start 02/23/17 at 21:00 Ferrous Sulfate (Feosol Liquid Cup) 330 mg DAILY GTB Last administered on 03/05 08:41; Admin Dose 330 MG; Start 02/23/17 at 09:00 Magnesium Hydroxide (Milk Of Mag) 30 ml Q24H PRN PO CONSTIPATION Last administered on 02/27/17 09:16; Admin Dose 30 ML; Start 02/23/17 at 06:00 Memantine (Namenda) 10 mg BID GTB Last administered on 03/05/17 08:40; Admin Dose 10 MG; Start 02/23/17 at 09:00 Multivitamins (Multivitamin) 30 ml DAILY GTB Last administered on 03/05/17 08 :43; Admin Dose 30 ML; Start 02/23/17 at 09:00 Ondansetron HCl (Zofran Inj) 4 mg Q6H PRN IV NAUSEA AND/OR VOMITING; Start 02/23/17 at 06:00 Acetaminophen (Tylenol Tab) 650 mg Q4H PRN GTB PAIN AND OR ELEVATED TEMP Last administered on 03/01/17 06:05; Admin Dose 650 MG; Start 02/23/17 at 08:00 Lactobacillus Acidophilus/ Rhamnosus (Culturelle) 1 cap BID PO Last administered on 03/05/17 08:41; Admin Dose 1 CAP; Start 02/23/17 at 09:00 Miscellaneous Information (Pending Santyl Order For Wound Care) This patient basurto... PRN PRN XX WOUND CARE; Start 02/24/17 at 10:00 Collagenase (Santyl) 1 applic DAILY TOP Last administered on 03/04/17 09:22; Admin Dose 1 APPLIC; Start 02/24/17 at 13:00 Lansoprazole (Prevacid) 30 mg DAILY@06 GTB Last administered on 03/05/17 06: 40; Admin Dose 30 MG; Start 02/25/17 at 06:00 Mupirocin (Bactroban) 1 applic BID TOP Last administered on 03/05/17 08:45; Admin Dose 1 APPLIC; Start 02/26/17 at 21:00 Docusate Sodium (Colace Liquid Cup) 200 mg DAILY GTB Last administered on 03/05 08:40; Admin Dose 200 MG; Start 03/01/17 at 09:49 Levetiracetam 750 mg 750 mg BID GTB Last administered on 03/05/17 08:41; Admin Dose 750 MG; Start 03/01/17 at 09:00 Linezolid (Zyvox 600mg/D5W (Pmx)) 300 ml @ 300 mls/hr Q12H IVPB Last administered on 03/05/17 17:45; Admin Dose 300 MLS/HR; Start 03/01/17 at 18: 00 Hydralazine HCl 10 mg 10 mg Q6H PRN IV ELEVATED SYSTOLIC BP Last administered on 03/03/17 03:02; Admin Dose 10 MG; Start 03/03/17 at 03:00 Colistimethate Sodium/Sodium Chloride (Coly-Mycin/NS) 100 ml @ 200 mls/hr Q24H IVPB ; Start 03/06/17 at 09:00 TORRES FRANCIS 18, 2017 18:02
[2017-03-05] MEDS: ATORVASTATIN 40 MG TAB GTB SCH (23:55)
[2017-03-05] MEDS: FENOFIBRATE 145 MG TAB GTB SCH (23:57)
[2017-03-06] VITALS (9 sets, daily range): BP systolic 121–143; BP diastolic 62–67; PULSE 60–75; RESP 16–20
[2017-03-06] MEDS: ALBUTEROL/IPRATROPIUM (NEB) 3 ML AMP HHN SCH ×2 (01:20→07:43)
[2017-03-06] MEDS: LANSOPRAZOLE 30 MG CAP GTB SCH (06:21)
[2017-03-06] MEDS: LINEZOLID 600 MG/D5W (PMX) 300 ML IVPB SCH (06:22)
[2017-03-06] MEDS ORDERED: COLISTIMETHATE 135 MG in SOD CHLORIDE 0.9% 100 ML IVPB SCH (09:00)
--- NOTE | 2017-03-06 10:05 | CONS ---
Date/Time of Note Date/Time of Note DATE: 03/06/17 TIME: 10:03 Assessment/Plan Assessment/Plan Chief Complaint/Hosp Course Pulmonary consult dictated #[id number]. Continue present management. Problems: Additional Assessment/Plan Assessment and recommendations; 1. 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 2. Advanced dementia. 3. Hypoxemia with interval improvement. 4. Renal insufficiency. 5. History of hypertension. Continue current supportive care. Monitor renal function. Consultation Date/Type/Reason Admit Date/Time Feb 27, 2017 at 10:23 Initial Consult Date 03/03/17 Type of Consultation: 03/05/2017 Reason for Consultation Patient condition has improved. He is awake but unresponsive to any commands. Patient has been taken off BiPAP andO2 nasal cannula with stable O2 saturation. General exam; elderly male, awake, currently in no distress. Referring Provider: JOSE C VILLATORO MD Exam/Review of Systems Vital Signs Vitals Vital Signs Date Time Temp Pulse Resp B/P Pulse Ox O2 Delivery O2 Flow Rate FiO2 03/06/17 08:36 98.6 60 18 126/62 99 03/06/17 07:45 50 03/05/17 20:45 Nasal Cannula 4.0 Intake and Output 03/05/17 03/05/17 03/06/17 15:00 23:00 07:00 Intake Total 1170 ml Output Total 1500 ml Balance -330 ml Exam HEENT exam; supple neck, no JVD. No lymphadenopathy. Midline trachea. No thyromegaly. Patient does have multiple carious teeth in lower jaw. Chest exam; diminished but clear breath sounds. S1-S2 audible, no murmurs. Regular rhythm. Abdomen exam; soft, nontender. No organomegaly. Bowel sounds audible. Extremity exam; no peripheral edema. [employer] exam; patient is awake but does not follow any commands. Results Result Diagram: 03/04/17 0708 03/04/17 0707 Medications Medications Current Medications Atorvastatin Calcium (Lipitor) 40 mg QHS GTB Last administered on 03/05/17 23 :55; Admin Dose 40 MG; Start 02/23/17 at 21:00 Bisacodyl (Dulcolax Supp) 10 mg Q24H PRN OR CONSTIPATION Last administered on 02/28/17 05:06; Admin Dose 10 MG; Start 02/23/17 at 06:00 Calcium/Vitamin D (Oyster Shell/ Vit-D (500/200)) 1 tab DAILY GTB Last administered on 03/05/17 08:40; Admin Dose 1 TAB; Start 02/23/17 at 09:00 Clonidine (Catapres) 0.1 mg Q4H PRN GTB ELEVATED BLOOD PRESSURE Last administered on 02/28/17 12:01; Admin Dose 0.1 MG; Start 02/23/17 at 06:00 Fenofibrate (Tricor) 145 mg QHS GTB Last administered on 03/05/17 23:57; Admin Dose 145 MG; Start 02/23/17 at 21:00 Ferrous Sulfate (Feosol Liquid Cup) 330 mg DAILY GTB Last administered on 03/05 08:41; Admin Dose 330 MG; Start 02/23/17 at 09:00 Magnesium Hydroxide (Milk Of Mag) 30 ml Q24H PRN PO CONSTIPATION Last administered on 02/27/17 09:16; Admin Dose 30 ML; Start 02/23/17 at 06:00 Memantine (Namenda) 10 mg BID GTB Last administered on 03/05/17 23:55; Admin Dose 10 MG; Start 02/23/17 at 09:00 Multivitamins (Multivitamin) 30 ml DAILY GTB Last administered on 03/05/17 08 :43; Admin Dose 30 ML; Start 02/23/17 at 09:00 Ondansetron HCl (Zofran Inj) 4 mg Q6H PRN IV NAUSEA AND/OR VOMITING; Start 02/23/17 at 06:00 Acetaminophen (Tylenol Tab) 650 mg Q4H PRN GTB PAIN AND OR ELEVATED TEMP Last administered on 03/01/17 06:05; Admin Dose 650 MG; Start 02/23/17 at 08:00 Lactobacillus Acidophilus/ Rhamnosus (Culturelle) 1 cap BID PO Last administered on 03/05/17 23:57; Admin Dose 1 CAP; Start 02/23/17 at 09:00 Miscellaneous Information (Pending Santyl Order For Wound Care) This patient basurto... PRN PRN XX WOUND CARE; Start 02/24/17 at 10:00 Collagenase (Santyl) 1 applic DAILY TOP Last administered on 03/04/17 09:22; Admin Dose 1 APPLIC; Start 02/24/17 at 13:00 Lansoprazole (Prevacid) 30 mg DAILY@06 GTB Last administered on 03/06/17 06: 21; Admin Dose 30 MG; Start 02/25/17 at 06:00 Mupirocin (Bactroban) 1 applic BID TOP Last administered on 03/05/17 23:58; Admin Dose 1 APPLIC; Start 02/26/17 at 21:00 Docusate Sodium (Colace Liquid Cup) 200 mg DAILY GTB Last administered on 03/05 08:40; Admin Dose 200 MG; Start 03/01/17 at 09:49 Levetiracetam 750 mg 750 mg BID GTB Last administered on 03/05/17 23:56; Admin Dose 750 MG; Start 03/01/17 at 09:00 Linezolid (Zyvox 600mg/D5W (Pmx)) 300 ml @ 300 mls/hr Q12H IVPB Last administered on 03/06/17 06:22; Admin Dose 300 MLS/HR; Start 03/01/17 at 18: 00 Hydralazine HCl 10 mg 10 mg Q6H PRN IV ELEVATED SYSTOLIC BP Last administered on 03/03/17 03:02; Admin Dose 10 MG; Start 03/03/17 at 03:00 Colistimethate Sodium/Sodium Chloride (Coly-Mycin/NS) 100 ml @ 200 mls/hr Q24H IVPB ; Start 03/06/17 at 09:00 MICHAEL DO Mar 06, 2017 10:05
== END 2017-03-06 10:10 | DRG 871 ==
LOC: E/R 23:28 → MS2 02-23 01:41 → OBSVTOIN 02-23 12:02 → INTOOBSV 02-23 12:02 → MS4 02-23 16:00 → OBSVTOIN 02-27 10:23
PROVIDERS: ADMIT Internal Medicine Nephrology; ATTEND Internal Medicine Nephrology
PROC: 4A033R1 Measurement of Arterial Saturation, Peripheral, Percutaneous Approach (ICD-10-PCS; 2017-02-28)
PROC: 4A00X4Z Measurement of Central Nervous Electrical Activity, External Approach (ICD-10-PCS; principal; 2017-03-01)
DX: A41.9 Sepsis, unspecified organism (principal); G93.40 Encephalopathy, unspecified; J96.91 Respiratory failure, unspecified with hypoxia; N17.9 Acute kidney failure, unspecified; I13.0 Hypertensive heart and chronic kidney disease with heart failure and stage 1 through stage 4 chronic kidney disease, or unspecified chronic kidney disease; E87.0 Hyperosmolality and hypernatremia; J18.9 Pneumonia, unspecified organism; I50.20 Unspecified systolic (congestive) heart failure; F03.90 Unspecified dementia, unspecified severity, without behavioral disturbance, psychotic disturbance, mood disturbance, and anxiety; N39.0 Urinary tract infection, site not specified; J98.11 Atelectasis; I69.354 Hemiplegia and hemiparesis following cerebral infarction affecting left non-dominant side; J44.1 Chronic obstructive pulmonary disease with (acute) exacerbation; N18.9 Chronic kidney disease, unspecified; I48.2 Chronic atrial fibrillation; I25.10 Atherosclerotic heart disease of native coronary artery without angina pectoris; E78.5 Hyperlipidemia, unspecified; Z22.322 Carrier or suspected carrier of Methicillin resistant Staphylococcus aureus; D64.9 Anemia, unspecified; R56.9 Unspecified convulsions; B96.20 Unspecified Escherichia coli [E. coli] as the cause of diseases classified elsewhere; B96.89 Other specified bacterial agents as the cause of diseases classified elsewhere; Z16.12 Extended spectrum beta lactamase (ESBL) resistance; Z16.24 Resistance to multiple antibiotics; Z66 Do not resuscitate; Z93.1 Gastrostomy status; Z95.0 Presence of cardiac pacemaker; Z89.511 Acquired absence of right leg below knee; Z79.01 Long term (current) use of anticoagulants; Z79.82 Long term (current) use of aspirin
CPT/HCPCS: 36415; 36600; 70450; 71010; 80048; 80053; 80061; 81001; 82140; 82550; 82553; 82803; 83605; 83735; 84100; 84439; 84443; 84484; 85025; 85610; 85730; 87040; 87045; 87081; 87086; 93005; 94640; 94660; 94664; 95819; 99217; G0378; J1940; C9113; J0360; J1956; J2270; J7030; J7070